=== PATIENT | male | born 1960 | race Two or more races ===

== ENCOUNTER → 2020-10-12 09:40 | Outpatient (BNVA) | payer MEDICARE, MEDICAID, SELFPAY | PROVIDERS: PCP Internal Medicine; Visit Provider Internal Medicine Pulmonary Disease | DX: J44.9 Chronic obstructive pulmonary disease, unspecified (principal); R06.00 Dyspnea, unspecified; G47.33 Obstructive sleep apnea (adult) (pediatric) | CPT/HCPCS: 99212 ==

== ENCOUNTER 2020-11-30 12:18 | Emergency (ER) | payer MEDICARE, MEDICAID, SELFPAY ==
[2020-11-30 12:27] VITALS: BP 160/87; PULSE 111; RESP 22; TEMP 36.9; O2SAT 96; BMI 57.2
[2020-11-30] MEDS: oxyCODONE HCl Immed Release 5 MG TABLET PO (13:24)
[2020-11-30] MEDS: Lidocaine 4 % Cream KIT 1 APPL TOPICAL (13:26)
--- NOTE | 2020-11-30 14:28 | ED_ITS ---
HPI - Skin/Abscess/Foreign Bdy General Chief complaint: Skin/Abscess/Foreign Body Stated complaint: abscess draining Time Seen by Provider: 11/30/20 13:16 Source: patient Mode of arrival: ambulatory Limitations: no limitations History of Present Illness HPI narrative: Pleasant 51-year-old male with history of morbid obesity, heart failure, COPD, obstructive sleep apnea as well as diabetes amongst other history as noted below states he checks his sugar 4 times a day this morning was 135 prior to arrival he states he has a feeling of left groin area abscess which he has history of recurrent abscesses. States he saw his primary care doctor 3 days ago he was given antibiotic (review of his medication from pharmacy he was given 14 days of doxycycline) states he has been taking his however the area feels bigger and feels like it needs to be drained. He otherwise denies any fever or chills. Onset (ago): day(s) Tetanus up to date: yes Location: LLE (Left groin area) Severity: moderate Quality: aching Pain Consistency: intermittent Relieving factors: immobilization Exacerbating factors: palpation and movement Context: other (Possibly ingrown hair as well as morbid obesity and from friction) Associated symptoms: denies other symptoms Treatments prior to arrival: none Related Data Previous Rx's Medication Instructions Recorded azelastine 137 mcg (0.1 %) nasal 1 spray INTRANASAL BID #30 ml 07/19/20 spray aerosol albuterol sulfate 90 mcg/actuation 2 puff INHALATION Q2H PRN #8.5 g 08/09/20 aerosol inhaler fluticasone fur. 100 mcg-umeclid 1 inh INHALATION DAILY 30 Days #1 09/05/20 62.5 mcg-vilant 25 mcg ea inhalat.powder Allergies Allergy/AdvReac Type Severity Reaction Status Date / Time No Known Allergies Allergy Verified 10/12/20 09:41 Review of Systems Review of Systems: Constitutional: No Weight loss, No Fever, No Chills, No Night Sweats, No Fatigue, No Malaise ENT/Mouth: No Hearing loss, No Ear Pain, No Nasal Congestion, No Sinus Pain, No Hoarseness, No sore throat, No Rhinorrhea, No Swallowing Difficulty Eyes: No Eye Pain, No Swelling, No Redness, No Foreign Body, No Discharge, No Vision Changes Cardiovascular: No Chest Pain, No SOB, No Dyspnea on Exertion, No Orthopnea, No Edema, No Palpitations Respiratory: No Cough, No Sputum, No Wheezing, No Smoke Exposure, No Dyspnea Gastrointestinal: No Nausea, No Vomiting, No Diarrhea, No Constipation, No abdominal Pain, No Hematochezia, No Melena Genitourinary: No Dysuria, No Urinary Frequency, No Hematuria, No Urinary Incontinence, No Urgency, No Flank Pain, No Urinary Flow Changes, No Hesitancy Musculoskeletal: No joint pain, No Myalgias, No Joint Swelling Skin: No Skin Lesions, No rash, left groin abscess as noted per HPI Neuro: No Weakness, No Numbness, No Paresthesias, No Loss of Consciousness, No Dizziness, No Headache Psych: No Social Issues Heme/Lymph: No Bruising, No Bleeding,No Lymphadenopathy Endocrine: No Polyuria, No Polydipsia, No Temperature Intolerance Yes all other systems are reviewed and are negative [facility]LY [facility], [facility] Past Medical History Medical History COPD (chronic obstructive pulmonary disease) Social History Social History Smoking Status: Current some day smoker Smoked in Last 30 Days: No Use of substances other than those prescribed or required for medical reasons: No Advance Directives: No Advance Directives Information Provided: No Physical Exam Vital Signs: Vital Signs: Last Vital Signs Temp 98.4 F 11/30/20 12:27 Pulse 111 H 11/30/20 12:27 Resp 22 H 11/30/20 12:27 BP 160/87 H 11/30/20 12:27 Pulse Ox 96 11/30/20 12:27 Body Mass Index 57.2 Reviewed Slightly tachycardic but does report say that he is very easily frightened by needles and anxiety Const: General: cooperative; No acute distress or intoxicated appearing Nutritional Appearance: obese Orientation/consciousness: patient oriented x3 HENMT: Head: Yes normal to inspection Ears: hearing grossly normal bilaterally Eyes: General: appearance normal, both eyes and all related structures Visual Mijares: normal visual mijares by confrontation Neck: Neck: Yes normal visual inspection, No positive Brudzinski's sign, No positive Kernig's sign and No tender Thyroid: Thyroid normal Chest: Chest palpation & inspection: normal inspection of the chest Resp: Effort & Inspection: normal respiratory effort Auscultation: clear to auscultation bilaterally Cardio: Jugular venous distension: no JVD Rhythm: regular rhythm Heart sounds: S1 normal heart sound present and S2 normal heart sound present GI: Inspection: Yes normal to inspection Palpation (GI): Soft to palpation Percussion: Yes normal to percussion Auscultation: normal bowel sounds : General: Yes no CVA tenderness Back/Spine/Pelvis: Back: no CVA tenderness Skin: General skin exam: no rashes or lesions noted Full body images: 1. Left-sided groin area just inferior to the scrotal sac there is a large indurated area with fluctuance, no drainage. Forming head. Neuro: General: patient oriented x3 Extrem: General: Yes normal to inspection Course Course Course Narrative: AP of morbidly obese male with history of recurrent abscesses in the groin area onset over the past several days seen his PCP 2 days ago given doxycycline for 14 days offers no other systemic symptoms states his chronic medical conditions are well managed at this time working on his weight loss with weight [employer] presenting with left groin abscess requiring I&D. Declined packing will continue his antibiotics will return in 2 days for recheck also schedule follow-up with Dr. Levy as whom he has seen in the past. Procedures Abscess I/D Site: lower extremity (Left groin) Side (if applicable): left Local Anesthetic: lidocaine 1% Amount of anesthesia used (mL): 5 Technique: incised with blade (11) Amount of fluid expressed (mL): 50 Irrigation: Yes Packing used?: none (Plan for packing however patient refused, states he has had this I and D without requiring packing the past and does not want.) Complications: other (Tolerated very well.) Discharge Plan Discharge Clinical Impression: Abscess of groin, left, Encounter for incision and drainage procedure Patient Disposition: Home, Self-Care Instructions: Abscess Incision and Drainage (DC) Additional Instructions: Today you were evaluated for your left growing abscess that required incision and drainage Please take your antibiotics (doxycycline) as prescribed for the remainder of the 10 days Follow-up with Dr. Levy as General surgery as having the past Return if any concerns or worsening symptoms Thank you Prescriptions: No Action azelastine 137 mcg (0.1 %) aerosol,spray 1 spray intranasal BID Qty: 30 RF: 3 albuterol sulfate 90 mcg/actuation HFA aerosol inhaler 2 puff inhalation Q2H PRN (Reason: shortness of breath or wheezing) Qty: 8.5 RF: 0 Trelegy Ellipta 100-62.5-25 mcg blister with device 1 inh inhalation DAILY 30 Days Qty: 1 RF: 6 Referrals: Casa Levy MD [Physician] - 3 days Interventions: ED Discharge Assessment Last Done: 11/30/20 14:48 Discharge Date/Time: 11/30/20 14:49
[2020-11-30] MEDS: Lidocaine HCl 1 % MPF 5 ML VIAL 10 ML SUBCUT (14:33)
== END 2020-11-30 14:49 | disposition home or self-care (01) ==
PROVIDERS: Emergency Provider Emergency Medicine; PCP Internal Medicine
DX: L02.214 Cutaneous abscess of groin (principal); E66.01 Morbid (severe) obesity due to excess calories; E11.9 Type 2 diabetes mellitus without complications; I50.9 Heart failure, unspecified; J44.9 Chronic obstructive pulmonary disease, unspecified; F17.200 Nicotine dependence, unspecified, uncomplicated
CPT/HCPCS: 10060; 99283; 99284

== ENCOUNTER 2021-01-24 09:57 | Emergency (ER) | payer MEDICARE, MEDICAID, SELFPAY ==
--- NOTE | ~2021-01-24 | US_ITS ---
EXAMINATION: US SCROTUM CLINICAL INFORMATION: Left testicular pain and swelling. Rule out abscess. COMPARISON: None TECHNIQUE: A sonogram of the scrotum was performed assessing mendes-scale appearance and color Doppler flow. Spectral Doppler analysis of the arterial and venous flow were performed in the testes bilaterally. Today's examination is significantly limited secondary to patient body habitus. FINDINGS: RIGHT: Right testicle measures 3.7 x 2.7 x 2.4 cm, volume 12.5 mL. No focal testicular parenchymal lesions are visualized. Spectral Doppler analysis of the arterial and venous flow is normal in the right testis. The right epididymis was not clearly visualized. No right hydrocele or varicocele is seen. LEFT: Left testicle measures 4.0 x 2.7 x 2.8 cm, volume 16 mL. No focal testicular parenchymal lesions are visualized. Spectral Doppler analysis of the arterial and venous flow is normal in the left testis. There is a small 3 mm cyst of the left epididymal head. The majority of the left epididymal body and tail are not clearly visualized. There is a small left-sided hydrocele. No left-sided varicocele. Also noted is prominent asymmetric skin thickening of the left scrotum which measures up to 1.6 cm. No focal fluid collection/abscess identified within the scrotal skin. US/US scrotum IMPRESSION: 1. Symmetrically sized testicles which demonstrate normal arterial and venous waveforms bilaterally. 2. Prominent asymmetric skin thickening of the left scrotum without abscess. 3. Small left-sided hydrocele.
[2021-01-24 10:00] VITALS: BP 134/84; PULSE 103; RESP 22; TEMP 36.3; O2SAT 99; BMI 51.7
--- NOTE | 2021-01-24 11:25 | ED_ITS ---
HPI - Skin/Abscess/Foreign Bdy General Chief complaint: Skin/Abscess/Foreign Body Stated complaint: abscess Time Seen by Provider: 01/24/21 10:13 History of Present Illness HPI narrative: Patient complains of left scrotal pain similar to prior abscess in same spot, denies fever chills, no dysuria no abdominal pain no injuries Related Data Previous Rx's Medication Instructions Recorded azelastine 137 mcg (0.1 %) nasal 1 spray INTRANASAL BID #30 ml 07/19/20 spray aerosol albuterol sulfate 90 mcg/actuation 2 puff INHALATION Q2H PRN #8.5 g 08/09/20 aerosol inhaler fluticasone fur. 100 mcg-umeclid 1 inh INHALATION DAILY 30 Days #1 09/05/20 62.5 mcg-vilant 25 mcg ea inhalat.powder ipratropium 0.5 mg-albuterol 3 mg 3 ml INHALATION Q4-6H PRN 30 Days 12/16/20 (2.5 mg base)/3 mL nebulization #180 ml soln cephalexin 500 mg PO QID 7 Days #28 tab 01/24/21 doxycycline hyclate 100 mg PO BID 7 Days #14 cap 01/24/21 oxycodone 5 mg PO Q6H PRN #14 cap 01/24/21 Allergies Allergy/AdvReac Type Severity Reaction Status Date / Time No Known Allergies Allergy Verified 10/12/20 09:41 Review of Systems Review of Systems: Positive for left scrotal pain Negatives are no fever no chills no dizziness no weakness no chest pain no abdominal pain no dysuria no urinary frequency no incontinence no changes to bowel or bladder no discharge no rash no lesions Yes all other systems are reviewed and are negative FORMERLY [facility] Past Medical History Attestation statement: The following information was validated with the patient. [facility] Narrative: Patient has had abscess drained from same spot that is painful today several times in the past Source: nursing notes reviewed Medical History COPD (chronic obstructive pulmonary disease) Social History Social History Smoking Status: Current some day smoker Advance Directives: No Advance Directives Information Provided: No Physical Exam Vital Signs: Vital Signs: Last Vital Signs Temp 97.8 F 01/24/21 11:30 Pulse 98 01/24/21 11:30 Resp 18 01/24/21 11:30 BP 139/77 01/24/21 11:30 Pulse Ox 97 01/24/21 11:30 Body Mass Index 51.7 General appearance no acute distress, comp cooperative A&O x3 Neck is supple Respiratory no distress Abdomen is nontender Perineal exam shows thickened left scrotal skin, there is a tender area at the base of the scrotum on the left side, it is indurated but not fluctuant, there is very mild redness limited to a small area at the base of the scrotum there is no surrounding redness, there are no wounds , no discharge no lesions no break in the skin Extremities full range of motion x4 Neuro no focal motor or sensory deficit Course Course Course Narrative: Ultrasound of the scrotum was done which showed thickened skin, normal arterial flow, no masses, no abscess On exam I did not find any obvious abscess or drainable collection of fluid Ultrasound did not find any drainable fluid collection Given his history of recurrent abscess it may be that this is a developing abscess so patient will return in 2 days for recheck or sooner if swelling increases but no I and D was done today He is treated with antibiotics and pain medicine and well-appearing patient was discharged home Discharge Plan Discharge Clinical Impression: Cellulitis Qualifiers: Site of cellulitis: other site Qualified Code(s): L03.818 - Cellulitis of other sites Patient Disposition: Home, Self-Care Additional Instructions: On physical exam I did not find an obvious abscess We sent her to ultrasound to see if there was a deeper abscess and ultrasound did not show any abscess now This may be a developing abscess so return to the ER any time for increased swelling increased pain fever any worse condition or any concerns Return to the ER in 2 days for recheck Prescriptions: New oxycodone 5 mg capsule 5 mg PO Q6H PRN (Reason: pain) Qty: 14 RF: 0 doxycycline hyclate 100 mg capsule 100 mg PO BID 7 Days Qty: 14 RF: 0 cephalexin 500 mg tablet 500 mg PO QID 7 Days Qty: 28 RF: 0 No Action azelastine 137 mcg (0.1 %) aerosol,spray 1 spray intranasal BID Qty: 30 RF: 3 albuterol sulfate 90 mcg/actuation HFA aerosol inhaler 2 puff inhalation Q2H PRN (Reason: shortness of breath or wheezing) Qty: 8.5 RF: 0 ipratropium-albuterol 0.5 mg-3 mg(2.5 mg base)/3 mL solution for nebulization 3 ml inhalation Q4-6H PRN (Reason: wheezing) 30 Days Qty: 180 RF: 6 Trelegy Ellipta 100-62.5-25 mcg blister with device 1 inh inhalation DAILY 30 Days Qty: 1 RF: 6 Discharge Date/Time: 01/24/21 11:44
[2021-01-24 11:30] VITALS: BP 139/77; PULSE 98; RESP 18; TEMP 36.6; O2SAT 97
[2021-01-24] MEDS: cephALEXin 500 MG CAPSULE PO (11:39)
[2021-01-24] MEDS: oxyCODONE HCl Immed Release 5 MG TABLET 10 MG PO (11:39)
== END 2021-01-24 11:44 | disposition home or self-care (01) ==
PROVIDERS: Emergency Provider Emergency Medicine; PCP Internal Medicine
DX: N49.2 Inflammatory disorders of scrotum (principal); N50.82 Scrotal pain; F17.200 Nicotine dependence, unspecified, uncomplicated
CPT/HCPCS: 76870; 99284

== ENCOUNTER → 2021-08-09 09:15 | Outpatient (BNVA) | payer MEDICARE, MEDICAID, SELFPAY | PROVIDERS: PCP Internal Medicine; Visit Provider Internal Medicine Pulmonary Disease | DX: Z01.811 Encounter for preprocedural respiratory examination (principal); J44.9 Chronic obstructive pulmonary disease, unspecified; G47.33 Obstructive sleep apnea (adult) (pediatric) | CPT/HCPCS: 99212 ==

== ENCOUNTER → 2021-12-05 09:11 | Outpatient (BNVA) | payer MEDICARE, MEDICAID, SELFPAY | PROVIDERS: PCP Internal Medicine; Visit Provider Internal Medicine Pulmonary Disease | DX: Z01.811 Encounter for preprocedural respiratory examination (principal); J44.9 Chronic obstructive pulmonary disease, unspecified; G47.33 Obstructive sleep apnea (adult) (pediatric); E66.9 Obesity, unspecified; I50.9 Heart failure, unspecified; E11.42 Type 2 diabetes mellitus with diabetic polyneuropathy; I10 Essential (primary) hypertension; E78.00 Pure hypercholesterolemia, unspecified; F17.210 Nicotine dependence, cigarettes, uncomplicated; Z68.42 Body mass index [BMI] 45.0-49.9, adult; Z99.89 Dependence on other enabling machines and devices | CPT/HCPCS: 99212 ==

== ENCOUNTER 2021-12-07 06:35 | Day surgery (SDC) | payer MEDICARE, MEDICAID, SELFPAY ==
[2021-07-18 10:02] VITALS: BMI 52.9
[2021-08-22 15:13] VITALS: BMI 48.8
--- NOTE | 2021-08-29 10:18 | HO.ANESPROP2 ---
HPI - Anesthesia Eval Consult details Narrative: 60yo M for Colonoscopy Per Pulmo Clearance: Patient is at moderate risk preoperative complications for proposed colonoscopy, if performed under monitored anesthesia care, secondary to his advanced COPD, morbid obesity, and CLARA requiring nocturnal BiPAP support.? Patient would be a low risk for perioperative complications for the proposed colonoscopy, if performed under general anesthesia. PMFSH Active Problems Active Problems: All Active Problems (Updated 08/09/21 @ 10:09 by Preston Massey MD) Preop pulmonary/respiratory exam (Acute) CLARA (obstructive sleep apnea) (Acute) Dyspnea on exertion (Acute) COPD (chronic obstructive pulmonary disease) (Acute) Past Medical History Medical History (Updated 08/09/21 @ 10:09 by Preston Massey MD) Ambulates with cane Cellulitis of perineum COPD (chronic obstructive pulmonary disease) Diabetes Elevated cholesterol HTN (hypertension) Low back pain Peripheral neuropathy Family History Family History (Updated 07/18/21 @ 09:57 by Jerica Huang, RN) Mother Colon cancer Surgical History Surgical History (Updated 07/18/21 @ 09:57 by Jerica Huang, RN) History of esophagogastroduodenoscopy (EGD) Hx of colonoscopy Social History Social History (Updated 07/18/21 @ 09:56 by Jerica Huang, RN) Patient Tobacco Use Status: Current everyday Tobacco user Tobacco use type: Cigarette Cigarette Packs Per Day: 1 Cigarettes Per Day: 20 Years Smoked: 40 Meds Allergies Allergy/AdvReac Type Severity Reaction Status Date / Time No Known Allergies Allergy Verified 08/09/21 09:18 Home Medications Medication Instructions Recorded Confirmed Last Taken Type lisinopril 10 mg tablet 1 tab PO DAILY 07/18/21 Unknown History metformin 500 mg tablet 2 tab PO BID 07/18/21 07/18/21 Unknown History propranolol 20 mg tablet 1 tab PO BID 07/18/21 Unknown History Exam Exam Date and Time: August 29, 2021 1018 Height,Weight and Vital Signs: Height 5 ft 11 in Weight 158.757 kg Assessment and Plan Assessment Anesthesia Assessment: Chart Reviewed
[2021-12-01 13:22] VITALS: BMI 52.9
--- NOTE | 2021-12-07 06:44 | MHC.SHP ---
Pre-Procedural Eval Section A Date of Service: 12/07/21 Section B Chief Complaint: Screening Relevant Family History (Specify if Yes): Yes Relevant Social History: Tobacco Use Present Medications: see Short Stay Collaborative assessment Medical History: Significant History (Cellulitis of perineum COPD (chronic obstructive pulmonary disease) Diabetes Elevated cholesterol HTN (hypertension) Low back pain Peripheral neuropathy) History of Previous Operations: Relevant previous surgery/procedure and date(s) (egd,colonoscopy) Allergies: Allergies Allergy/AdvReac Type Severity Reaction Status Date / Time No Known Allergies Allergy Verified 12/05/21 09:15 Review of Systems Sugical H&P ROS: Negative: Constitution, Cardiovascular, Respiratory, Neurological, Psychiatric, Hem-Onc, Allergic/Immunologic, Gastrointestinal, Genitourinary, Musculoskeletal, Integumentary, Endocrine and Eyes/Ears/Nose/Throat Exam Surgical H&P Exam: Normal: HEENT, Normal: Heart, Normal: Extremities, Normal: Abdomen, Normal: Skin and Normal: Neurological and Significant Findings: Lungs (reduced AE) Exam Comment: obese Plan Diagnosis/Plan: Unchanged I have reviewed the history and physical and performed a pertinent physical examination on my patient. No changes have occurred unless specified.
[2021-12-07 07:12] VITALS: BP 147/70; PULSE 76; RESP 16; TEMP 36.6; O2SAT 99
[2021-12-07 07:14] LABS: Glucose, Whole Blood 93 mg/dL (60-115)
--- NOTE | 2021-12-07 07:18 | P.CONAN_ITS ---
HPI - Anesthesia Eval Consult details Narrative: Screening Colonoscopy [facility] Active Problems Active Problems: All Active Problems (Updated 08/09/21 @ 10:09 by Preston Massey MD) Preop pulmonary/respiratory exam (Acute) CLARA (obstructive sleep apnea) (Acute) Dyspnea on exertion (Acute) COPD (chronic obstructive pulmonary disease) (Acute) Past Medical History Medical History (Updated 08/09/21 @ 10:09 by Preston Massey MD) Ambulates with cane Cellulitis of perineum COPD (chronic obstructive pulmonary disease) Diabetes Elevated cholesterol HTN (hypertension) Low back pain Peripheral neuropathy Family History Family History (Updated 07/18/21 @ 09:57 by Jerica Huang, RN) Mother Colon cancer Family history of problems with anesthesia: No Surgical History Surgical History (Updated 07/18/21 @ 09:57 by Jerica Huang, RN) History of esophagogastroduodenoscopy (EGD) Hx of colonoscopy History of Problems with Anesthesia: No Social History Social History (Updated 07/18/21 @ 09:56 by Jerica Huang, RN) Household Members Other:: daughter 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 If so, by whom?: No Are you DNR?: No Advance Directives: No Advance Directives Information Provided: Yes (info provided) Advance Directives on File: No Recently lost weight without trying: No Meds Allergies Allergy/AdvReac Type Severity Reaction Status Date / Time No Known Allergies Allergy Verified 12/07/21 06:57 Active Medications: Current Medications Lactated Ringer's (Lr) 1,000 mls @ 50 mls/hr IVCONT .Q20H [facility] Home Medications Medication Instructions Recorded Confirmed Last Taken Type lisinopril 10 mg tablet 1 tab PO DAILY 07/18/21 12/01/21 Unknown History metformin 500 mg tablet 2 tab PO BID 07/18/21 12/01/21 Unknown History propranolol 20 mg tablet 1 tab PO BID 07/18/21 12/01/21 Unknown History Exam Exam Date and Time: December 07, 2021 0718 Height,Weight and Vital Signs: Height 5 ft 11 in Weight 172.365 kg Pertinent Lab Results Pertinent Lab Results: Laboratory Tests 12/07/21 07:10 POC Glucose 93 Airway Mallampati Class: III TM Dist: >3cm Neck ROM: Full Denture: Upper Loose/Missing/Broken Teeth: Yes (lower teeth missing, loose, very poor dentition) Heart: [id number]+[id number] Lungs: cta b/l Assessment and Plan Assessment Anesthesia Assessment: Anesthesia Plan Discussed and Chart Reviewed Final Anesthetic Review Family History of Problems with Anesthesia: No History of Problems with Anesthesia: No NPO: Yes ASA Class: III Final Preanesthetic Review: No Changes in Pt Med Stat, Meds/Allgs Chart Reviewed, Consent Obtained/Reviewed and Anes Risks/Benef Reviewed Patient Risk: Intermediate Procedure Risk: Intermediate Assessment/Block/Sedation in SS: Assess/Block/Sedation-SS Anesthetic Plan Anesthetic Plan: MAC: and Agree w/ Assess. and Plan Disposition: Standard PACU
--- NOTE | 2021-12-07 07:27 | PC.NURSE ---
Patient arrived to [facility] with 2200.00 dougherty. This money counted with patient and second nurse, Carmen Simon RN, at bedside. All parties signed belonging list. Patient refused to send money to security/safe. Made aware that belongings are not locked up at all. Patient states its my responsibility if it is taken .
[2021-12-07] MEDS: Lactated Ringers 1,000 ML 50 ML IVCONT (07:40)
--- NOTE | 2021-12-07 09:17 | P.BOP_ITS ---
Brief Operative Note Date of Service: 12/07/21 Pre-op diagnosis: hx of polyps Post-op diagnosis: same Procedure: see op note Surgeon: Traci Baires MD Anesthesia: MAC Was an Environmental Services Aide used for this Procedure?: No Estimated blood loss (mL): 0 Condition: stable Disposition: PACU
--- NOTE | 2021-12-07 09:17 | W.PM.OPN ---
Operative Note Operative Note Date of Service: 12/07/21 Narrative: Operative Information Procedure Description: Colonoscopy COLONOSCOPY Instrument: Olympus variable adult pediatric scope 190L Colonoscopy Monitoring: Vital signs and clinical assessment, continuous EKG monitoring, Pulse oximetry, Carbon Dioxide monitoring and blood pressure monitoring were done throughout the procedure. Colon withdrawal time was 17 minutes. Procedure: The patient was placed in the left lateral decubitis position and pre-procedure medications were administered. After a digital rectal examination of the ano-rectum, the video colonoscope was inserted into the rectum and advanced through the colon to the cecum/TI. The colonoscope was slowly withdrawn in a retrograde panoramic fashion and the colon mucosa was carefully examined including a retroflexed view of the rectum. Findings and interventions are described below. Procedure Difficulty: moderate Findings: Tyson diverticulosis with variable sized small to medium tics noted thru out colon Terminal Ileum-not intubated due to looping Cecum:normal Ascending Colon: normal Transverse Colon - x 2 sessile polyps 5-6 mm removed with forceps Descending Colon: x1 8-9 mm pedunculated polyp removed with cold snare Sigmoid Colon: 10-11 mm sessile polyp removed with cold snare and one clip applied for hemostasis Rectum: Retroflexion with moderate sized internal hemorrhoids, grade I Anorectum - normal Colon preparation: Bon Aqua Bowel Preparation Scale Right colon; 3 Transverse colon: 3 Left colon; 3 (0 = Unprepared colon segment with mucosa not seen due to solid stool that cannot be cleared. 1 = Portion of mucosa of the colon segment seen, but other areas of the colon segment not well seen due to staining, residual stool and/or opaque liquid. 2 = Minor amount of residual staining, small fragments of stool and/or opaque liquid, but mucosa of colon segment seen well. 3 = Entire mucosa of colon segment seen well with no residual staining, small fragments of stool or opaque liquid) Impression and Post Procedure Diagnosis: polyps internal hemorrhoids diverticular disease Plan: High fiber diet leaflet Avoid straining at stool, epsom salts and sitz bath, anusol supps or cream Repeat Colonoscopy in 3-4 years or earlier if clinically indicated Above findings were reviewed with the patient and relevant handouts were provided if indicated.
[2021-12-07 09:25] VITALS: BP 99/45; PULSE 84; RESP 20; TEMP 36.6; O2SAT 99
[2021-12-07 09:40] VITALS: BP 158/83; PULSE 69; RESP 20; TEMP 36.2; O2SAT 99
== END 2021-12-07 10:09 | disposition home or self-care (01) ==
PROVIDERS: PCP Internal Medicine; Visit Provider Internal Medicine Gastroenterology
PROC: 0DJD8ZZ Inspection of Lower Intestinal Tract, Via Natural or Artificial Opening Endoscopic (ICD-10-PCS; CPT 45378; principal; 2021-12-07 08:30)
DX: Z12.11 Encounter for screening for malignant neoplasm of colon (principal); Z86.010 Personal history of colon polyps; K63.5 Polyp of colon; K57.30 Diverticulosis of large intestine without perforation or abscess without bleeding; K64.0 First degree hemorrhoids; G47.33 Obstructive sleep apnea (adult) (pediatric); I10 Essential (primary) hypertension; F17.210 Nicotine dependence, cigarettes, uncomplicated; E78.00 Pure hypercholesterolemia, unspecified; J44.9 Chronic obstructive pulmonary disease, unspecified; G62.9 Polyneuropathy, unspecified; E11.9 Type 2 diabetes mellitus without complications; Z79.84 Long term (current) use of oral hypoglycemic drugs; Z99.89 Dependence on other enabling machines and devices; Z79.899 Other long term (current) drug therapy; Z79.51 Long term (current) use of inhaled steroids
CPT/HCPCS: 45385; 45380; 82947; 88305; J2250

== ENCOUNTER 2022-01-12 14:19 | Outpatient (REF) | payer MEDICARE, MEDICAID, SELFPAY ==
--- NOTE | ~2022-01-12 | CT_ITS ---
EXAMINATION: CT CHEST SCREENING CLINICAL INFORMATION: Nicotine dependence. COMPARISON: Previous chest x-ray most recent August 2019 TECHNIQUE: Multidetector volumetric CT imaging of the chest is performed without contrast using low dose technique. Additional 2D coronal and sagittal reformatted images and axial 3D maximum intensity projection (MIP) images are generated on the CT workstation. This CT examination was performed using dose optimization techniques as appropriate, variously including the following: *Automated exposure control *Adjustment of mA and/or kV according to patient size (this includes techniques or standardized protocols for targeted exams where dose is matched to indication/reason for exam; i.e. extremities or head) *Use of iterative reconstruction technique DLP: 878 mGy-cm FINDINGS: LUNGS: There is a 3 mm peripheral or subpleural right lower lobe calcified nodule axial image 121 series 10. There is a 2 mm calcified peripheral or subpleural left lower lobe nodule axial image 183 series 10. No endobronchial or endotracheal lesion. MEDIASTINUM: There is mild atherosclerotic disease and coronary artery calcification. The mediastinum is otherwise normal. PLEURA: There is no pleural effusion. No pleural mass or thickening. AXILLA: No lymphadenopathy. UPPER ABDOMEN: Unremarkable OSSEOUS STRUCTURES: There are degenerative changes of the spine. CT/CT lung screening IMPRESSION: Small calcified pulmonary nodules. ASSESSMENT: Lung-RADS category 2: Benign RECOMMENDATION: Annual low-dose chest CT follow-up recommended.
== END 2022-01-12 14:20 | disposition home or self-care (01) ==
LOC: HO.CT 14:19
PROVIDERS: Visit Provider Physician Assistant Medical
DX: Z12.2 Encounter for screening for malignant neoplasm of respiratory organs (principal); F17.210 Nicotine dependence, cigarettes, uncomplicated
CPT/HCPCS: 71271; G0296

== ENCOUNTER → 2022-05-17 08:11 | Outpatient (BNVA) | payer MEDICARE, MEDICAID, SELFPAY | PROVIDERS: PCP Internal Medicine; Referring Provider Internal Medicine; Visit Provider Internal Medicine | DX: I25.10 Atherosclerotic heart disease of native coronary artery without angina pectoris (principal); I10 Essential (primary) hypertension; E66.01 Morbid (severe) obesity due to excess calories; E11.8 Type 2 diabetes mellitus with unspecified complications; E78.5 Hyperlipidemia, unspecified | CPT/HCPCS: 93005; 99212 ==

== ENCOUNTER 2022-06-01 08:36 | Outpatient (REF) | payer MEDICARE, MEDICAID, SELFPAY ==
--- NOTE | ~2022-06-01 | XR_ITS ---
EXAMINATION: XR CHEST CLINICAL INFORMATION: Dyspnea COMPARISON: CT lung screening study of January 12, 2022 and chest x-ray of September 28, 2019 TECHNIQUE: 2 views of the chest were obtained. FINDINGS: No significant abnormality is noted involving the heart, lungs, mediastinum, bony thorax or soft tissues. XR/XR chest 2V IMPRESSION: No acute disease.
== END 2022-06-01 08:37 | disposition home or self-care (01) ==
LOC: HO.XRAY 08:36
PROVIDERS: PCP Internal Medicine; Visit Provider Internal Medicine Pulmonary Disease
DX: R06.00 Dyspnea, unspecified (principal); J44.9 Chronic obstructive pulmonary disease, unspecified; G47.33 Obstructive sleep apnea (adult) (pediatric)
CPT/HCPCS: 71046; 99212

== ENCOUNTER → 2022-12-26 09:13 | Outpatient (BNVA) | payer MEDICARE, MEDICAID, SELFPAY | PROVIDERS: PCP Internal Medicine; Visit Provider Internal Medicine Pulmonary Disease | DX: J44.9 Chronic obstructive pulmonary disease, unspecified (principal); G47.33 Obstructive sleep apnea (adult) (pediatric); R91.8 Other nonspecific abnormal finding of lung field | CPT/HCPCS: 99212 ==

== ENCOUNTER → 2022-12-28 07:52 | Outpatient (REF) | payer MEDICARE, MEDICAID, SELFPAY ==
--- NOTE | 2022-12-28 08:01 | CA_ITS ---
Transthoracic Echocardiogram Patient (Last, First, Middle): Robert Keane A Gender: Male Date of : 1960 Age: 62 Procedure Date: 12/28/2022 Procedure Type: Transthoracic Echocardiogram Location: OP Height: 180.34 cm Weight: 190.51 kg BSA: 2.89 m2 Heart Rate: bpm BP: 140 / 70 mmHg Substitute Bus Driver: TO Referring MD: Fan Jackson MD Symptoms: R06.00 - Dyspnea, unspecified Study Quality: Technically Difficult/Contrast ECG Rhythm: Sinus Conclusions: - The left ventricular systolic function is normal. The calculated ejection fraction is 66% by biplane method. - No obvious valvular pathology seen on this study. Findings Procedure Information Contrast agent, definity, is being given per protocol without apparent complications. The study quality is limited by patients body habitus. Left Ventricle Normal left ventricular cavity size. There is mildly increased left ventricular wall thickness. The left ventricular systolic function is normal. The calculated ejection fraction is 66% by biplane method. There is no evidence of regional wall motion abnormalities. Diastolic function is normal for age. There is moderate septal asymmetric hypertrophy. Right Ventricle Normal right ventricular cavity size and systolic function. Atria Both atria are normal in size. Aortic Valve The aortic valve was not well visualized. There is mild calcification of the aortic valve. There is no aortic valve stenosis. There is no aortic valve regurgitation. Mitral Valve The mitral valve was not well visualized. There is no mitral valve regurgitation. There is no mitral valve stenosis. Pulmonic Valve The pulmonic valve is likely normal. Tricuspid Valve There is trace tricuspid valve regurgitation. There is no evidence of pulmonary hypertension. Great Vessels The asc aorta is normal in size. Venous The inferior vena cava was not well visualized. The inferior vena cava is mildly dilated and collapses greater than 50% with inspiration. Pericardium/Pleural There is no evidence of pericardial effusion. Prior Study Comparison No significant change compared to prior study dated: 10/28/2019. Recommendations, Care & Conclusions No obvious valvular pathology seen on this study. Measurements 2D Linear Measurements IVSd: 1.49 0.6-0.9/0.6-1.0 cm LVIDd: 4.33 3.9-5.3/4.2-5.9 cm LVIDd Index: 1.50 2.4-3.2/2.2-3.1 cm/m2 LVIDs: 3.00 2.0-3.6 cm LVPWd: 1.06 0.7-1.1 cm LA Diam: 4.10 2.7-3.8/3.0-4.0 cm LAIDs Index: 1.42 1.5-2.3 cm/m2 LV Mass: 254.26 67-162/88-224 g LV Mass Index: 87.98 43-95/49-115 g/m2 LVOT Diam: 2.30 3.0+(-)1.3 cm 2D Systolic Function EF 4C: 67.50 >55% EF 2C: 63.20 >55% EF BiP: 65.80 >55% Mitral Valve MV VTI: 0.31 MV Pk Alexander: 1.05 MV Mn Alexander: 0.62 MV Pk Grad: 4.00 MV Mn Grad: 2.00 MV Pk E: 0.97 MV PK A: 0.71 MV Decel Time: 239.00 E/A: 1.40 E'Lateral: 5.87 E'Medial: 5.55 E/E' Med: 17.50 E/E' Lat: 16.60 PHT: 70.00 MVA PHT: 3.14 MVA Continuity: 3.28 Decel [place]: 4.07 Aortic Valve AoV Pk Alexander: 1.19 AoV Mn Alexander: 0.84 AoV VTI: 0.27 AoV Pk Grad: 6.00 Aov Mn Grad: 3.00 PEDRO Cont.VTI: 3.75 LVOT LVOT Pk Alexander: 1.13 LVOT Mn Alexander: 0.77 LVOT VTI: 0.25 LVOT Pk Grad: 5.00 LVOT Mn Grad: 3.00 LVOT Diam: 2.30 LVOT Area: 4.15 Diastolic Function MV Pk E: 0.97 MV Pk A: 0.71 E/A: 1.40 E'Medial: 5.55 E/E' Med: 17.50 E' Laterial: 5.87 E/E' Lat: 16.60 Right Ventricle TAPSE (mm): 27.30 TVS' Alexander: 15.70 Tricuspid Valve TR Pk Alexander: 2.58 TR Pk Grad: 27.00 RA Press: 8.00 RVSP: 35.00 Great Vessels Aorta Sinus of Valsalva: 3.62 2.0-3.5 cm Ao Asc: 3.70 2.1-3.4 cm Updated in Other Vendor System with Status of Final Fan Jackson MD electronically signed on 12/29/2022 12:10:10 PM with status of Final
== END ==
LOC: HO.CARD 07:52
PROVIDERS: PCP Internal Medicine; Visit Provider Internal Medicine
DX: R06.00 Dyspnea, unspecified (principal)
CPT/HCPCS: 93306; Q9957

== ENCOUNTER 2023-01-09 07:42 | Outpatient (REF) | payer MEDICARE, MEDICAID, SELFPAY ==
--- NOTE | ~2023-01-09 | CT_ITS ---
EXAMINATION: CT CHEST WITHOUT CONTRAST CLINICAL INFORMATION: Pulmonary nodules. COMPARISON: Lung cancer screening CT 01/12/22. TECHNIQUE: Multidetector volumetric CT imaging of the chest was done. Axial MIP volume rendering provided. Sagittal and coronal reformatted images were obtained. This CT examination was performed using dose optimization techniques as appropriate, variously including the following: *Automated exposure control *Adjustment of mA and/or kV according to patient size (this includes techniques or standardized protocols for targeted exams where dose is matched to indication/reason for exam; i.e. extremities or head) *Use of iterative reconstruction technique DLP: 456 mGy-cm FINDINGS: LUNGS: Stable calcified granulomas. No new or suspiciously enlarging nodule. MEDIASTINUM: No aortic aneurysm. No mediastinal adenopathy. CORONARY ARTERY CALCIFICATION: LAD calcium. PLEURA: There is no pleural effusion. No pleural mass or thickening. AXILLA: No lymphadenopathy. UPPER ABDOMEN: Unremarkable. OSSEOUS STRUCTURES: Degenerative changes in the spine. CT/CT chest wo IV con IMPRESSION: Stable calcified granulomas. ASSESSMENT: Lung RADS category: 2. Benign appearance or behavior. Nodules with a very low likelihood of becoming a clinically active cancer due to size or lack of growth. Continue annual screening with low-dose CT in 12 months. Probability of malignancy less than 1%. INCIDENTAL FINDINGS (S CATEGORY): LAD coronary calcium. RECOMMENDATION: Continue annual screening with a low-dose CT in 12 months. Fleischner guidelines do not apply as the patient is in a lung cancer screening program.
== END 2023-01-09 07:43 | disposition home or self-care (01) ==
LOC: HO.CT 07:42
PROVIDERS: PCP Internal Medicine; Visit Provider Internal Medicine Pulmonary Disease
DX: R91.8 Other nonspecific abnormal finding of lung field (principal)
CPT/HCPCS: 71250

== ENCOUNTER 2023-04-22 06:54 | Outpatient (REF) | payer MEDICARE, MEDICAID, SELFPAY ==
--- NOTE | 2023-04-22 08:23 | PFT_ITS ---
INTERPRETATION: Forced vital capacity 50%, FEV1 45%, FEV1/FVC ratio is 67, IPX57-76 of 38% and MVV is 34%. Post bronchodilator therapy, there is no change. Actually, some decline in the MMH26-37. Total lung capacity 72%. Residual volume 117%. Diffusion capacity 74%. CONCLUSION: There is evidence of rather severe obstructive airway disorder and no positive response to bronchodilator therapy. There is also possible mild restrictive lung disorder. Clinical correlation is recommended. MD ERIN Mccoy/MODL / [phone]
== END 2023-04-22 06:55 | disposition home or self-care (01) ==
LOC: HO.RESP 06:54
PROVIDERS: PCP Internal Medicine; Visit Provider Internal Medicine Pulmonary Disease
DX: J44.9 Chronic obstructive pulmonary disease, unspecified (principal)
CPT/HCPCS: 94010; 94727; 94729

== ENCOUNTER → 2023-04-22 08:23 | Outpatient (BNV) | payer MEDICARE, MEDICAID, SELFPAY | PROVIDERS: PCP Internal Medicine; Visit Provider Internal Medicine | DX: J44.9 Chronic obstructive pulmonary disease, unspecified (principal) | CPT/HCPCS: 94060; 94727; 94729 ==

== ENCOUNTER 2023-05-06 10:07 | Outpatient (AMB) | payer MEDICARE, MEDICAID, SELFPAY ==
--- NOTE | 2023-05-06 10:18 | MHC.OFFVIS ---
Intake Vital Signs 05/06/23 10:19 Height 5 ft 11 in Weight 373 lb 14.464 oz BMI 52.1 BP 112/68 Blood Pressure Location Lt brachial Position Sitting Pulse 92 Intake Visit Reasons: fu after echo Intake Note: follow up Gum Sprayer Required: No Accompanied by: Self / Same As Patient Allergies No Known Allergies Allergy (Verified 05/06/23 10:21) Medication List - Last Reconciled 05/06/23 by Fan Jackson MD albuterol sulfate 90 mcg/actuation 2 puffs inhalation 6XD PRN 90 days amitriptyline 100 mg PO DAILY atorvastatin 20 mg PO DAILY azelastine 1 spray intranasal BID dulaglutide (Trulicity) mg subcut lesdwklqbrj-ugmyatakz-wuydcbtk 100-62.5-25 mcg (Trelegy Ellipta) 1 ea PO DAILY 90 days ipratropium-albuterol 0.5 mg-3 mg(2.5 mg base)/3 mL 3 mL inhalation Q4-6H PRN lisinopril 10 mg PO DAILY metformin 2 tabs PO BID propranolol 20 mg PO BID HPI HPI Comments History of Present Illness Details Robert returns for follow-up. To recall, he aide Greer was seen regarding preoperative risk stratification for bariatric surgery. However because of the COVID pandemic he never went through the surgery. However, he lost weight by himself. In the past he was weighing more than 400 lb but currently seems around 50 lb or so less. No clear-cut angina. He does get short of breath with activity but he is also morbidly obese and also has COPD. Multiple vascular risk factors including smoking, diabetes, hypertension, dyslipidemia. He states he has not smoked in the last few months or so. A prior chest CT scan had shown coronary artery calcifications and we ordered a stress test but that has not been completed yet. Otherwise, he seems to be getting along okay. 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 Max 3-4ppd x 30years, now 1ppd, 100+PYH) Review of Systems Const Denies weakness ENT Denies dizziness Card Denies chest pain, Denies chest pain with activity, Denies syncope, Denies rapid heart rate, Denies pedal edema, Denies edema, Denies leg edema, Denies lightheadedness, Denies palpitations, Denies dyspnea, Denies dyspnea on exertion and Denies orthopnea Resp Denies cough, Denies dyspnea and Denies dyspnea on exertion GI Denies hematochezia and Denies change in stool character Musc Denies abnormal gait, Denies muscle cramps, Denies muscle weakness, Denies numbness, Denies radiating pain into limb and Denies tingling Neuro Denies abnormal gait, Denies dizziness, Denies syncope, Denies numbness, Denies tingling and Denies weakness Endo Denies palpitations Physical Exam Vital Signs: Last Vital Signs Pulse 92 05/06/23 10:19 BP 112/68 05/06/23 10:19 BMI result Body Mass Index 52.1 Const General: comfortable and no acute distress Orientation/consciousness: patient oriented x3 HEENT Other: Unremarkable Head: Yes normal to inspection Neck Neck: Yes normal visual inspection Chest Chest palpation & inspection: normal inspection of the chest Resp Auscultation: clear to auscultation bilaterally Cardio Palpation: normal PMI Heart sounds: S1 normal heart sound present, S2 normal heart sound present, no gallops, no murmurs and no rubs GI Palpation (GI): Soft to palpation Back/Spine/Pelvis Other: unremarkable Skin General skin exam: no rashes or lesions noted Neuro General: patient oriented x3 Extrem General: Yes normal to inspection Psych Mental Status: mental status grossly normal Office Procedures EKG Details: EKG with sinus rhythm at 92/Min; no significant ST-T changes and otherwise unremarkable[place] [id number], Complete Assessment & Plan Assessment & Plan (1) Atherosclerotic cardiovascular disease: Code(s): I25.10 - Atherosclerotic heart disease of [place] coronary artery without angina pectoris (2) Morbid obesity: Code(s): E66.01 - Morbid (severe) obesity due to excess calories (3) Type 2 diabetes mellitus with unspecified complications: Code(s): E11.8 - Type 2 diabetes mellitus with unspecified complications (4) Essential hypertension: Code(s): I10 - Essential (primary) hypertension (5) Hyperlipidemia, unspecified: Code(s): E78.5 - Hyperlipidemia, unspecified Plan Based on pulmonary note, severe COPD. Echocardiogram with LVEF of 66%. Moderate septal hypertrophy. Otherwise unremarkable. In the chest CT scan, coronary artery calcification on the LAD. Overall, multiple risk factors, shortness of breath, LAD calcification. Reordering the stress test. He is walking with a cane and hence probably pharmacological stress with Lexiscan. If quality is suboptimal due to his body habitus or if the study is abnormal, will need diagnostic catheterization. We also discussed about that today. Even though he has lost some weight, he is still morbidly obese. Probably return to bariatric surgery after cardiac workup is completed. However, he states he just bought a house and and had divorce from his and hence he is not ready for it yet. Secondary risk factor modification of diabetes, hypertension dyslipidemia. Follow-up after testing. Orders: Orders CA lexiscan stress w braden Today I25.10 - Atherosclerotic heart disease of [place] coronary artery without angina pectoris [place] cardiolite stress test Today R07.2 - Precordial pain Coding Level of Care Code Est Pt Level 4 (07072) Diagnoses Atherosclerotic cardiovascular disease I25.10 Morbid obesity E66.01 Type 2 diabetes mellitus with unspecified complications E11.8 Essential hypertension I10 Hyperlipidemia, unspecified E78.5 CPT Codes EKG - CPT: 18519-[id number], Complete ([id number])
[2023-05-06 10:19] VITALS: BP 112/68; PULSE 92; BMI 52.1
== END 2023-05-06 10:42 | disposition home or self-care (01) ==
PROVIDERS: PCP Internal Medicine; Referring Provider Internal Medicine; Visit Provider Internal Medicine
DX: I25.10 Atherosclerotic heart disease of native coronary artery without angina pectoris (principal); E66.01 Morbid (severe) obesity due to excess calories; E11.8 Type 2 diabetes mellitus with unspecified complications; I10 Essential (primary) hypertension; E78.5 Hyperlipidemia, unspecified
CPT/HCPCS: 93010; 99214

== ENCOUNTER → 2023-05-06 10:07 | Outpatient (BNVA) | payer MEDICARE, MEDICAID, SELFPAY | PROVIDERS: PCP Internal Medicine; Referring Provider Internal Medicine; Visit Provider Internal Medicine | DX: I25.10 Atherosclerotic heart disease of native coronary artery without angina pectoris (principal); I10 Essential (primary) hypertension; J44.9 Chronic obstructive pulmonary disease, unspecified; E11.42 Type 2 diabetes mellitus with diabetic polyneuropathy; E66.01 Morbid (severe) obesity due to excess calories; Z68.43 Body mass index [BMI] 50.0-59.9, adult; Z79.4 Long term (current) use of insulin; Z79.899 Other long term (current) drug therapy | CPT/HCPCS: 93005; 99212 ==

== ENCOUNTER 2023-05-09 13:28 | Outpatient (REF) | payer MEDICARE, MEDICAID, SELFPAY ==
[2023-05-09 16:07] LABS: Alanine Aminotransferase 13 U/L (0-40); Albumin Level 3.8 g/dL (3.5-5.0); Alkaline Phosphatase 68 U/L (39-117); Anion Gap 12 (12-20); Aspartate Amino Transferase 11 U/L (5-37); Bilirubin Direct 0.1 mg/dL (0.0-0.5); Bilirubin Total 0.4 mg/dL (0.0-1.0); Blood Urea Nitrogen 13 mg/dL (9-16); Calcium 9.8 mg/dL (8.4-10.2); Carbon Dioxide 28 mmol/L (22-29); Chloride 106 mmol/L (96-108); Cholesterol 195 mg/dL; Estimated Glomerular Filt Rate > 60; Glucose Fasting 89 mg/dL (60-99); HDL Cholesterol 29 mg/dL; LDL Cholesterol Calculated 138 mg/dl; Potassium 4.2 mmol/L (3.3-5.1); Sodium 142 mmol/L (135-145); Total Protein 7.7 g/dL (6.5-8.0); Triglycerides 141 mg/dL
[2023-05-09 17:56] LABS: Appearance Urine Cloudy; Color Urine Yellow; Glucose Urine UA Negative (Negative); Leukocyte Esterase Urine Moderate (2+) (Negative); Nitrite Urine Negative (Negative); PH 5.5 (5.0-9.0); UMIC TRIGGER UA YES; Urine Blood Negative (Negative); Urine Ketones Negative (Negative); Urine Protein Negative (Neg-Trace)
[2023-05-09 18:05] LABS: Creatinine Urine 171.85 mg/dL; Microalbum/Creatinine Ratio Ur 6.9 ug/mg cr
[2023-05-09 18:15] LABS: Bacteria Urine 2+ (None Seen); RBC Urine 0-2 /HPF (0-2); WBC Urine 21-50 /HPF (0-5)
[2023-05-10 03:02] LABS: Syphilis Screen Nonreactive (Nonreactive)
[2023-05-10 03:26] LABS: HBS Num1 0.44 mIU/mL (0-7.99); HBsAGNum1 0.34 S/CO (0.00-0.99); Hepatitis A Antibody IgM 0.13 Index (0-0.79); Hepatitis B Core Antibody Nonreactive (Nonreactive); Hepatitis B Surface Antigen Negative (Negative); ~HepC Num1 0.07 S/CO (0.00-0.79); ~Hepatitis A Antibody IgM Nonreactive (Nonreactive); ~Hepatitis B Surface Antibody NONREACTIVE (Nonreactive); ~Hepatitis C Antibody Nonreactive (Nonreactive)
[2023-05-10 06:41] LABS: CT PCR NOT DETECTED (Not Detect.); NG PCR NOT DETECTED (Not Detect.)
== END 2023-05-09 13:29 | disposition home or self-care (01) ==
LOC: HO.CHCLDS 13:28
PROVIDERS: Visit Provider Internal Medicine
DX: E11.65 Type 2 diabetes mellitus with hyperglycemia (principal); E78.2 Mixed hyperlipidemia; Z20.2 Contact with and (suspected) exposure to infections with a predominantly sexual mode of transmission; Z11.59 Encounter for screening for other viral diseases
CPT/HCPCS: 0353U; 80048; 80061; 80076; 81001; 82043; 86704; 86706; 86709; 86780; 86803; 87340

== ENCOUNTER 2023-06-13 09:30 | Outpatient (AMB) | payer MEDICARE, MEDICAID, SELFPAY ==
--- NOTE | 2023-06-13 09:31 | A.OFFVIS_ITS ---
Intake Vital Signs 06/13/23 09:33 Height 5 ft 11 in Intake Visit Reasons: Asthma Allergies No Known Allergies Allergy (Verified 06/13/23 09:31) HPI Asthma HPI Details 62-year-old gentleman, recent (quit January 2023) 40+ pack-year smoker with underlying history of obesity, heart failure followed for severe COPD, obstructive sleep apnea on BiPAP and dyspnea on exertion.? He continues to use Trelegy, duo nebs, and albuterol MDI with reasonable baseline control of his symptoms. He denies any recent exacerbations. He continues to work on BiPAP compliance. Patient had follow-up CT chest in December of 2022 that showed no worrisome pulmonary nodules. 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 Max 3-4ppd x 30years, now 1ppd, 100+PYH) Review of Systems Const Denies daytime sleepiness, Denies excessive sweating, Denies fatigue, Denies fever(s), Denies lethargy, Denies malaise, Denies night sweats, Denies snoring and Denies weight loss Eyes Denies blurry vision and Denies itchy eyes ENT Denies nasal congestion, Denies post nasal drip, Denies sinus pain, Denies sinus pressure and Denies other ( Thrush) Card Denies chest pain, Denies pedal edema, Denies dyspnea, Denies orthopnea and Denies paroxysmal nocturnal dyspnea Resp Denies cough, Denies hemoptysis, Denies excessive phlegm production, Denies dyspnea, Denies snoring and Denies wheezing GI Denies abdominal pain and Denies heartburn Musc Denies myalgias, Denies arthralgias and Denies joint swelling Skin/Breast Denies rash Neuro Denies memory loss and Denies seizure-like activity Psych Denies abnormal sleep pattern, Denies anxiety and Denies memory loss Endo Denies excessive sweating, Denies fatigue and Denies heat intolerance Bc/Lymph Denies easy bruising Aller/Immun Denies itchy eyes, Denies seasonal rhinorrhea and Denies wheezing Assessment & Plan Assessment & Plan (1) COPD (chronic obstructive pulmonary disease): Code(s): J44.9 - Chronic obstructive pulmonary disease, unspecified Plan: Reasonably well controlled on current regimen of trilogy, duo nebs, and albuterol MDI. Continue current regimen. (2) CLARA (obstructive sleep apnea): Comment: (CLARA on BiPAP) Code(s): G47.33 - Obstructive sleep apnea (adult) (pediatric) Plan: Suboptimally controlled as patient does not fully compliant with BiPAP. Patient has been advised to be fully compliant with BiPAP. (3) Pulmonary nodules: Code(s): R91.8 - Other nonspecific abnormal finding of lung field Plan: Results of follow-up CT chest from December of 2022 reviewed, no worrisome nodules at this time. Continue with yearly screening. Orders: Orders CT lung screening 01/12/24 R91.8 - Other nonspecific abnormal finding of lung field Medications: Changed From ipratropium-albuterol 0.5 mg-3 mg(2.5 mg base)/3 mL 3 mL inhalation Q4-6H PRN 1,620 mL 0RF for wheezing J44.9 - Chronic obstructive pulmonary disease, unspecified To ipratropium-albuterol 0.5 mg-3 mg(2.5 mg base)/3 mL 3 mL inhalation Q4-6H PRN 1,620 mL 6RF for wheezing 90 days J44.9 - Chronic obstructive pulmonary disease, unspecified Refilled pxgmsywploc-hkemhblrw-huodosmh 100-62.5-25 mcg (Trelegy Ellipta) 1 ea PO DAILY 3 ea 3RF 90 days R06.00 - Dyspnea, unspecified Telehealth Telehealth Location of provider rendering services: practice address Location of patient: address on file Patient Identification confirmed using: Name, : Yes Telehealth method: voice only Patient verbally consented to treatment: Yes Patient verbally consented to billing insurance company: Yes Patient informed of any privacy concerns related to visit: Yes Coding Level of Care Code Tele Est Pt Level 4 (20236) Diagnoses COPD (chronic obstructive pulmonary disease) J44.9 CLARA (obstructive sleep apnea) G47.33 Pulmonary nodules R91.8 Time Spent (min) 20
== END 2023-06-13 09:43 | disposition home or self-care (01) ==
LOC: HO.HPS 09:30
PROVIDERS: PCP Internal Medicine; Visit Provider Internal Medicine Pulmonary Disease
DX: J44.9 Chronic obstructive pulmonary disease, unspecified (principal); G47.33 Obstructive sleep apnea (adult) (pediatric); R91.8 Other nonspecific abnormal finding of lung field
CPT/HCPCS: 99442

== ENCOUNTER → 2023-06-13 09:30 | Outpatient (BNVA) | payer MEDICARE, MEDICAID, SELFPAY | PROVIDERS: PCP Internal Medicine; Visit Provider Internal Medicine Pulmonary Disease ==

== ENCOUNTER 2023-09-16 10:12 | Outpatient (AMB) | payer MEDICARE, MEDICAID, SELFPAY ==
--- NOTE | 2023-09-16 10:14 | MHC.OFFVIS ---
Intake Intake Visit Reasons: Pre Colonoscopy Screening Intake Note: Patient follow up for pre colonoscopy screening consult. Patient cc: constipation , denies any other GI issues. 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 Accompanied by: Self / Same As Patient Allergies No Known Allergies Allergy (Verified 09/16/23 10:13) Medication List - Last Reconciled 09/16/23 by Serena Acosta PA-C albuterol sulfate 90 mcg/actuation (Ventolin HFA) 2 puffs PO Q6H PRN amitriptyline 100 mg PO DAILY atorvastatin 20 mg PO DAILY azelastine 1 spray intranasal BID [id number] 100-62.5-25 mcg (Trelegy Ellipta) 1 ea PO DAILY 90 days ipratropium-albuterol 0.5 mg-3 mg(2.5 mg base)/3 mL 3 mL inhalation Q4-6H PRN 90 days lisinopril 10 mg PO DAILY metformin 2 tabs PO BID propranolol 20 mg PO BID semaglutide (Ozempic) mg subcut HPI HPI Comments History of Present Illness Details [phone] A 62-year-old male personal history of colon polyps to follow-up to discuss repeat colonoscopy. He admits that he has not yet due for colonoscopy however he is recently and has custody of a 17-year-old daughter and wants to be sure about his health. His bowels have not changed he has always had intermittent constipation with diabetes he is managed with diet as well as some [id number] her preps he is on sure state exactly what they were but he had left everything behind when he moved out of his previous home. He would like to have preparations on hand. He has a good appetite He is feeling well, he goes to the gym a regular basis he is losing weight intentionally, hoping his diabetes improve Otherwise has no GI or general complaints. No nausea, vomiting, hematemesis, hematochezia fever or chills A colonoscopy 11/2021-revealed hyperplastic polyps, and diverticulosis-recommend repeat colonoscopy 3-4 years Previous colonoscopy in 2019 revealed 3 tubular adenoma [facility] Medical History (Updated 09/16/23 @ 11:21 by Serena Acosta PA-C) Morbid obesity Tubular adenoma of colon (~2019) Personal history of nicotine dependence Elevated cholesterol HTN (hypertension) Low back pain Ambulates with cane Peripheral neuropathy Diabetes COPD (chronic obstructive pulmonary disease) Surgical History History of colonoscopy History of esophagogastroduodenoscopy (EGD) Family History Mother Colon cancer Social History Household Members Other:: daughter 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 Max 3-4ppd x 30years, now 1ppd, 100+PYH) Review of Systems Const All systems reviewed & are unremarkable except as noted in HPI and below Card Denies chest pain GI Denies abdominal pain, Denies hematochezia, Denies change in stool character, Reports constipation (Intermittent,), Denies nausea and Denies vomiting Results Reviewed Results Reviewed: 11/2021- Dr. Baires- Impression and Post Procedure Diagnosis: polyps internal hemorrhoids diverticular disease Plan: High fiber diet leaflet Avoid straining at stool, epsom salts and sitz bath, anusol supps or cream Repeat Colonoscopy in 3-4 years or earlier if clinically indicated me: Robert Keane Age/Sex: 60/M Attending: Traci Baires MD : [id number] Submitted by: Traci Baires MD Copies to: OLIVIA TOVAR MD MR #: [id number] Status: [facility] Collected: 12/07/21 Location: [facility] Received: 12/07/21 Diagnosis A. Colon, transverse, polypectomies (2): Colonic mucosa with mild surface hyperplastic changes. B. Colon, descending, polypectomy: Hyperplastic mucosal polyp with inflammatory changes. C. Colon, sigmoid, polypectomy: Hyperplastic mucosal polyp. Clinical History Pre-Op Dx: Colon cancer screening, h/o colon polyps Post-Op Dx: Colon polyps, diverticulosis, internal hemorrhoids Microscopic Description A-C. Microscopic sections reviewed. Material Received A: Transverse colon polyps (2) B: Descending colon polyp C: Sigmoid colon polyp Gross Description Received in three parts. Part A: Received in formalin labeled Transverse colon polyps are three glistening, semitranslucent, soft, lopez and lopez-pink, irregular tissue fragments, ranging from 0.2 to 0.35 cm. in greatest dimension, which are submitted in toto in a single cassette labeled A. Part B: Received in formalin labeled Descending colon polyp is a 0.3 cm. in greatest dimension, glistening, soft, lopez-pink, papular tissue fragment with an attached 0.5 x 0.2 x 0.1 cm. tail of glistening, lopez mucosa. The specimen is submitted in toto in a single cassette labeled B. Part C: Received in formalin labeled Sigmoid colon polyp is a 0.3 cm. in greatest dimension, glistening, semitranslucent, pale, soft, lopez, irregular tissue fragment, which is submitted in toto in a single cassette labeled C. CEDS Copies To Patient: Robert Keane Age/Sex: 60/M MR#: [id number] Page 1 of 2 Assessment & Plan Assessment & Plan (1) History of colon polyps: Comment: 2021 hyperplastic polyps-repeat 3-4 year Code(s): Z86.010 - Personal history of colonic polyps Plan: Due for asymptomatic colonoscopy 2024 Will have reminder placed (2) Chronic constipation: Comment: Long history, does not have any OTC prep available left at previous address Code(s): K59.09 - Other constipation Plan: maintain high-fiber diet Colace 200 mg q.h.s. He may use senna as well as MiraLax as needed Plan Due for asymptomatic colonoscopy 2024 Will have reminder placed Medications: New docusate sodium (Colace) 200 mg (2 x 100 mg) PO BEDTIME 60 caps 5RF sennosides (senna) 8.6 mg PO DAILY PRN 30 caps 1RF constipation polyethylene glycol 3350 (Miralax) 17 grams PO DAILY 510 grams 6RF Patient Instructions: Reviewed colonoscopy reports from 2019 as well from 2021 Due for asymptomatic colonoscopy 2024 Will have reminder placed Chronic constipation, reinforced importance of high-fiber diets Consisting Bowel regimen Encouraged to call with any questions or concerns Telehealth Telehealth Location of provider rendering services: practice address Location of patient: address on file Patient Identification confirmed using: Name, : Yes Telehealth method: voice only Patient verbally consented to treatment: Yes Patient verbally consented to billing insurance company: Yes Patient informed of any privacy concerns related to visit: Yes Minutes spent on Phone/Video with Pt.: 20 Coding Level of Care Code Tele Est Pt Level 3 (32420) Diagnoses History of colon polyps Z86.010 Chronic constipation K59.09 Time Spent (min) 20
== END 2023-09-16 12:50 | disposition home or self-care (01) ==
LOC: HO.HGI 10:12
PROVIDERS: PCP Internal Medicine; Visit Provider Physician Assistant
DX: K59.09 Other constipation (principal); Z12.11 Encounter for screening for malignant neoplasm of colon; Z86.010 Personal history of colon polyps
CPT/HCPCS: 99442

== ENCOUNTER → 2023-09-16 10:12 | Outpatient (BNVA) | payer MEDICARE, MEDICAID, SELFPAY | PROVIDERS: PCP Internal Medicine; Visit Provider Physician Assistant ==

== ENCOUNTER 2023-10-27 22:59 | Emergency (ER) | payer MEDICARE, MEDICAID, SELFPAY ==
[2023-10-27 23:47] VITALS: BP 150/66; PULSE 104; RESP 19; TEMP 37.6; O2SAT 95
[2023-10-28 00:23] VITALS: BP 150/66; PULSE 104; RESP 19; TEMP 37.6; O2SAT 95; BMI 47.4
--- NOTE | 2023-10-28 03:24 | ED_ITS ---
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 The patient states that he did see his doctor and was started on doxycycline but this did not improve the abscess. He states that his dog jumped on him and struck him in the groin area and after that he was bleeding from the area of the abscess therefore came to emergency department for evaluation. He states he has had recurrent scrotal abscesses in this area in the past he has had to have it drained several times He denied fever, chills, fatigue or weakness Related Data Home Medications Medication Instructions Recorded Confirmed metformin 500 mg tablet 2 tab PO BID 07/18/21 09/16/23 amitriptyline 100 mg tablet 100 mg PO DAILY 05/17/22 09/16/23 atorvastatin 20 mg tablet 20 mg PO DAILY 05/17/22 09/16/23 lisinopril 10 mg tablet 10 mg PO DAILY 05/17/22 09/16/23 propranolol 20 mg tablet 20 mg PO BID 05/17/22 09/16/23 semaglutide 0.25 mg or 0.5 mg (2 mg subcut 06/13/23 09/16/23 mg/3 mL) subcutaneous pen injector (Ozempic) Previous Rx's Medication Instructions Recorded fluticasone fur. 100 mcg-umeclid 1 ea PO DAILY 90 days #3 ea 06/13/23 62.5 mcg-vilant 25 mcg inhalat.powder (Trelegy Ellipta) ipratropium 0.5 mg-albuterol 3 mg 3 ml inhalation Q4-6H PRN for 06/13/23 (2.5 mg base)/3 mL nebulization wheezing 90 days #1,620 mL soln azelastine 137 mcg (0.1 %) nasal 1 spray intranasal BID #30 mL 08/01/23 spray aerosol albuterol sulfate 90 mcg/actuation 2 puff PO Q6H PRN for wheezing #54 09/09/23 aerosol inhaler (Ventolin HFA) grams docusate sodium 100 mg capsule 200 mg (2 x 100 mg) PO BEDTIME #60 09/16/23 (Colace) caps polyethylene glycol 3350 17 17 g PO DAILY #510 grams 09/16/23 gram/dose oral powder (Miralax) sennosides 8.6 mg capsule (senna) 8.6 mg PO DAILY PRN constipation 09/16/23 #30 caps acetaminophen 500 mg tablet 1,000 mg (2 x 500 mg) PO Q6H PRN 10/28/23 (Tylenol Extra Strength) fever or pain #20 tabs cephalexin 500 mg capsule 500 mg PO TID 7 days #21 caps 10/28/23 oxycodone 5 mg tablet 5 mg PO Q4H PRN pain #14 tabs 10/28/23 Allergies Allergy/AdvReac Type Severity Reaction Status Date / Time No Known Allergies Allergy Verified 10/28/23 00:23 Review of Systems Review of Systems: Yes all other systems are reviewed and are negative PMFSH Past Medical History Medical History Morbid obesity Tubular adenoma of colon (~2019) Personal history of nicotine dependence Elevated cholesterol HTN (hypertension) Low back pain Ambulates with cane Peripheral neuropathy Diabetes COPD (chronic obstructive pulmonary disease) Surgical History History of colonoscopy History of esophagogastroduodenoscopy (EGD) Family History Family History Mother Colon cancer Social History Social History Household Members Other:: daughter Are you a primary care support representative to a significant other at home: Yes (daughter age 15) Alcohol intake: never Patient Tobacco Use Status: Former Tobacco user Tobacco use type: Cigarette Cigarette Packs Per Day: 1 Cigarettes Per Day: 20.0 Years Smoked: (current smoker, onset 19. Max 3-4ppd x 30years, now 1ppd, 100+PYH) Advance Directives: No Advance Directives Information Provided: No Physical Exam Vital Signs: Vital Signs: Last Vital Signs Temp 99.6 F 10/28/23 00:23 Pulse 104 H 10/28/23 00:23 Resp 19 10/28/23 00:23 BP 150/66 H 10/28/23 00:23 Pulse Ox 95 10/28/23 00:23 O2 Del Method Room Air 10/28/23 00:23 BMI result Body Mass Index 47.4 Vital signs revealed an elevated heart rate of 104 and elevated blood pressure of 150/66 Exam The patient's left scrotum has an area of induration and area of flocculence, there has no increased warmth or erythema over the skin of the scrotum. Medical Decision Making Medical Decision Making MDM Narrative: 62-year-old male with history of obesity, high cholesterol, hypertension, diabetes, COPD, peripheral neuropathy who presents emergency department for evaluation of a left scrotal abscess x1, patient has had recurrence of this abscess in this area in his required incision and drainage in the past. Physical exam did reveal an area of flocculence as well as an area of induration with no erythema or increased warmth over the skin of the scrotum. The patient's abscess was incised and drained approximately 100 cc bloody, dark, purulent material was drained from the abscess. Abscess was packed with half- inch gauze. Patient was given oxycodone 10 mg orally, Tylenol 975 mg orally and Keflex 500 mg orally. Patient will be treated with Keflex 500 mg 3 times a day for 7 days, oxycodone 5 mg pills every 4-6 hours as needed for pain and Tylenol 1000 mg every 6 hours as needed for pain. Patient has follow-up with his PCP or Dr. Levy in 4 days to have the packing removed. Wound culture was sent. Differential diagnosis includes but is not limited scrotal cellulitis, scrotal abscess Prescription Management I considered prescription management with: Pain Medication and Antibiotic Chronic Conditions Patient?s care impacted by: Diabetes and Hypertension Procedures Abscess I/D Site: scrotum Side (if applicable): left Local Anesthetic: lidocaine 1% Amount of anesthesia used (mL): 20 Technique: incised with blade (11 blade ) Amount of fluid expressed (mL): 100 Sent for culture/gram staining?: Yes Irrigation: No Packing used?: plain (Half-inch gauze) Discharge Plan Discharge Clinical Impression: Scrotal abscess, Encounter for incision and drainage procedure Patient Disposition: Home, Self-Care Instructions: Abscess (ED) Additional Instructions: Your abscess was incised and a large amount of purulent material ( pus) was drained out of the abscess cavity The abscess was packed with 1/2 inch gauze. The packing should stay in for 4 days and you should follow-up with your doctor to have the packing removed or you can follow-up with your surgeon Dr. Levy. Take Keflex (cephalexin) 500 mg pills, 1 pill 3 times a day for 7 days. Take Tylenol (acetaminophen) 500 mg pills, 2 pills every 6 hours as needed for pain. For pain not relieved by ibuprofen or Tylenol take oxycodone 5 mg pills, 1 pill every 4 hours as needed for pain. Do not drive or work while taking this medication since they can cause sleepiness. Oxycodone is a narcotic medication that can be addicting. If you are concerned about addiction you can ask the pharmacist for less pills or do not get this prescription filled. Follow-up with your doctor in 4days. Please return to the emergency department if your symptoms get worse or if you develop any symptoms that are concerning to you. Prescriptions: New acetaminophen [Tylenol Extra Strength] 500 mg tablet 1,000 mg PO Q6H PRN (Reason: fever or pain) Qty: 20 0RF cephalexin 500 mg capsule 500 mg PO TID 7 Days Qty: 21 0RF oxycodone 5 mg tablet 5 mg PO Q4H PRN (Reason: pain) Qty: 14 0RF Rx Instructions: Patient may request partial fill; Partial Fill upon patient request. No Action azelastine 137 mcg (0.1 %) aerosol,spray 1 spray intranasal BID Qty: 30 0RF Rx Instructions: administer into each nostril albuterol sulfate [Ventolin HFA] 90 mcg/actuation HFA aerosol inhaler 2 puff PO Q6H PRN (Reason: for wheezing) Qty: 54 0RF metformin 500 mg tablet 2 tab PO BID lisinopril 10 mg tablet 10 mg PO DAILY propranolol 20 mg tablet 20 mg PO BID atorvastatin 20 mg tablet 20 mg PO DAILY amitriptyline 100 mg tablet 100 mg PO DAILY Ozempic 0.25 mg or 0.5 mg (2 mg/3 mL) pen injector subcut ipratropium-albuterol 0.5 mg-3 mg(2.5 mg base)/3 mL solution for nebulization 3 ml inhalation Q4-6H PRN (Reason: for wheezing) 90 Days Qty: 1620 6RF Trelegy Ellipta 100-62.5-25 mcg blister with device 1 ea PO DAILY 90 Days Qty: 3 3RF docusate sodium [Colace] 100 mg capsule 200 mg PO BEDTIME Qty: 60 5RF senna 8.6 mg capsule 8.6 mg PO DAILY PRN (Reason: constipation) Qty: 30 1RF polyethylene glycol 3350 [Miralax] 17 gram/dose powder 17 g PO DAILY Qty: 510 6RF Referrals: Casa Levy MD [Physician] - 5 days (Incision and drainage with packing of scrotal abscess)
[2023-10-28] MEDS: Lidocaine HCl 1 % MPF 5 ML VIAL INFILTRATI ×2 (03:31)
[2023-10-28 04:00] VITALS: PULSE 100; RESP 18; O2SAT 95
--- NOTE | 2023-10-28 04:00 | PC.NURSE ---
pts wound accessed, drained and packed by Dr. Olvera and ED PCT. extra supplies provided for pt. dressing instructions educated by dr. olvera to pt.
[2023-10-28] MEDS: oxyCODONE HCl Immed Release 5 MG TABLET 10 MG PO (04:06)
[2023-10-28] MEDS: Acetaminophen 325 MG TABLET 975 MG PO (04:06)
[2023-10-28] MEDS: cephALEXin 500 MG CAPSULE PO (04:06)
[2023-10-28 06:42] LABS: Glucose, Whole Blood 129 mg/dL (60-115)
== END 2023-10-28 04:20 | disposition home or self-care (01) ==
PROVIDERS: Emergency Provider Emergency Medicine Emergency Medical Services; PCP Internal Medicine
DX: N49.2 Inflammatory disorders of scrotum (principal); E11.9 Type 2 diabetes mellitus without complications; J44.9 Chronic obstructive pulmonary disease, unspecified; I10 Essential (primary) hypertension; G62.9 Polyneuropathy, unspecified
CPT/HCPCS: 82947; 87070; 87205; 99283; 99284

== ENCOUNTER → 2023-10-30 08:42 | Outpatient (BNVA) | payer MEDICARE, MEDICAID, SELFPAY | PROVIDERS: PCP Internal Medicine; Visit Provider Surgery | DX: Z48.01 Encounter for change or removal of surgical wound dressing (principal) | CPT/HCPCS: 99211 ==

== ENCOUNTER 2023-11-04 08:58 | Outpatient (AMB) | payer MEDICARE, MEDICAID, SELFPAY ==
[2023-11-04 09:04] VITALS: BP 176/77; PULSE 80; BMI 51.6
--- NOTE | 2023-11-04 09:04 | A.OFFVIS_ITS ---
Intake Vital Signs 11/04/23 09:04 Height 5 ft 11 in Weight 370 lb BMI 51.6 BP 176/77 H Blood Pressure Location Rt radial Position Sitting Pulse 80 Intake Visit Reasons: Wound check s/p I&D scrotal abscess Intake Note: Patient referred for scrotal abscess that was I&D'ed @ ER on 10-28-23. Finished Keflex course. Patient c/o: incision site healing well. C/o abscess has been drained a total of 12 times. Would like to talk about surgical options. Inventory Analyst Required: No Accompanied by: Self / Same As Patient Allergies No Known Allergies Allergy (Verified 11/04/23 09:06) HPI HPI Comments History of Present Illness Details Patient is status post I&D of a left scrotal abscess by ER. Presents here for follow-up. He is marked improvement of his symptoms. He is complete his antibiotic course. Patient states he has had multiple incision and drainage she is at the same site of his scrotum. He states that some of these were done here but I find no obvious records of these in the chart. 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 Max 3-4ppd x 30years, now 1ppd, 100+PYH) Physical Exam Vital Signs: Last Vital Signs Pulse 80 11/04/23 09:04 BP 176/77 H 11/04/23 09:04 BMI result Body Mass Index 51.6 Const Other: Very pleasant, markedly corpulent male. Using a cane because of back issues Other: Status post I&D of left lateral scrotal abscess. Wound healing very well nearly closed. No evidence of active infection. Assessment & Plan Assessment & Plan (1) Abscess of groin, left: Code(s): L02.214 - Cutaneous abscess of groin Plan Current plan is for the patient continue local therapy. He wished to have this area excised. The S concern is that because of the chronicity of the same area, there is an underlying cyst causing the problem. I agree. Current plan is see the patient in few weeks' time and if the infective process is completely resolved, arrangements will be made for elective resection of this area. Because of the patient's body habitus, this would most probably need to be performed in an ambulatory setting. On next visit, further details of the procedure will be reviewed. All questions answered. Coding Level of Care Code New Pt Level 4 (55357) Diagnoses Abscess of groin, left L02.214
== END 2023-11-04 09:24 | disposition home or self-care (01) ==
PROVIDERS: PCP Internal Medicine; Visit Provider Surgery
DX: L02.214 Cutaneous abscess of groin (principal)
CPT/HCPCS: 99204

== ENCOUNTER → 2023-11-04 08:58 | Outpatient (BNVA) | payer MEDICARE, MEDICAID, SELFPAY | PROVIDERS: PCP Internal Medicine; Visit Provider Surgery | DX: L02.214 Cutaneous abscess of groin (principal); Z98.890 Other specified postprocedural states | CPT/HCPCS: 99202 ==

== ENCOUNTER 2023-12-02 08:53 | Outpatient (AMB) | payer MEDICARE, MEDICAID, SELFPAY ==
[2023-12-02 09:00] VITALS: BP 158/77; O2SAT 96; BMI 51.2
--- NOTE | 2023-12-02 09:00 | MHC.OFFVIS ---
Intake Vital Signs 12/02/23 09:00 Height 5 ft 11 in Weight 367 lb BMI 51.2 BP 158/77 H Blood Pressure Location Rt brachial Position Sitting Pulse Oximetry (%) 96 Oxygen Delivery Method Room Air Intake Visit Reasons: 4 wk follow up Wound check s/p I&D scrotal abscess Intake Note: Patient last visit 11-04-23. Here for 4wk follow up wound check scrotal abscess. Patient reports abscess healed completely. Cover Operator Required: No Accompanied by: Self / Same As Patient Allergies No Known Allergies Allergy (Verified 12/02/23 09:01) HPI HPI Comments History of Present Illness Details Patient presents for discussion about elective excision of left scrotal recurrent sebaceous cyst. At present, the area is quiescent and no active infection. Patient well known to me. [facility] Medical History Morbid obesity Tubular adenoma of colon (~2019) Personal history of nicotine dependence Elevated cholesterol HTN (hypertension) Low back pain Ambulates with cane Peripheral neuropathy Diabetes COPD (chronic obstructive pulmonary disease) Surgical History History of colonoscopy History of esophagogastroduodenoscopy (EGD) Family History Mother Colon cancer Social History Household Members Other:: daughter Are you a primary healthcare manager to a significant other at home: Yes (daughter age 15) Alcohol intake: never Patient Tobacco Use Status: Former Tobacco user Tobacco use type: Cigarette Cigarette Packs Per Day: 1 Cigarettes Per Day: 20.0 Years Smoked: (current smoker, onset 19. Max 3-4ppd x 30years, now 1ppd, 100+PYH) Physical Exam Vital Signs: Last Vital Signs BP 158/77 H 12/02/23 09:00 Pulse Ox 96 12/02/23 09:00 Oxygen Delivery Method Room Air 12/02/23 09:00 BMI result Body Mass Index 51.2 Const Other: Very corpulent male Chest Other: Chest breath sounds bilaterally, HS 1 in 2 GI Other: Abdomen massively corpulent, soft, benign Other: Left scrotal cyst though with scar after multiple I and D's in the past. Approximately 4 x 3 cm. Assessment & Plan Assessment & Plan (1) Scrotal sebaceous cyst: Code(s): L72.3 - Sebaceous cyst Plan Risks, benefits, alternatives of excision of left scrotal cyst reviewed the patient and included but not limited to bleeding, infection, recurrence, numbness, pain, scarring the patient wishes to proceed. All questions answered. Arrangements were made for this on the day which is convenient for him. Coding Level of Care Code Est Pt Level 5 (98117) Diagnoses Scrotal sebaceous cyst L72.3
== END 2023-12-02 09:07 | disposition home or self-care (01) ==
PROVIDERS: PCP Internal Medicine; Visit Provider Surgery
DX: L72.3 Sebaceous cyst (principal)
CPT/HCPCS: 99214

== ENCOUNTER → 2023-12-02 08:53 | Outpatient (BNVA) | payer MEDICARE, MEDICAID, SELFPAY | PROVIDERS: PCP Internal Medicine; Visit Provider Surgery | DX: Z48.1 Encounter for planned postprocedural wound closure (principal); L72.3 Sebaceous cyst | CPT/HCPCS: 99212 ==

== ENCOUNTER 2023-12-19 07:57 | Outpatient (REF) | payer MEDICARE, MEDICAID, SELFPAY ==
--- NOTE | ~2023-12-19 | CT_ITS ---
EXAMINATION: CT CHEST SCREENING CLINICAL INFORMATION: Abnormal finding in the lung field. COMPARISON: CT chest 01/09/2023. TECHNIQUE: Multidetector volumetric CT imaging of the chest is performed without contrast using low dose technique. Additional 2D coronal and sagittal reformatted images and axial 3D maximum intensity projection (MIP) images are generated on the CT workstation. This CT examination was performed using dose optimization techniques as appropriate, variously including the following: *Automated exposure control *Adjustment of mA and/or kV according to patient size (this includes techniques or standardized protocols for targeted exams where dose is matched to indication/reason for exam; i.e. extremities or head) *Use of iterative reconstruction technique DLP: 117 mGy-cm FINDINGS: LUNGS: The lungs are clear with no evidence of inflammation or nodules. Some benign-appearing calcified granulomas are unchanged. Mild emphysema is present with mild bronchial wall thickening. MEDIASTINUM: The mediastinum is normal. CORONARY ARTERY CALCIFICATION: Moderate. PLEURA: There is no pleural effusion. No pleural mass or thickening. AXILLA: No lymphadenopathy. UPPER ABDOMEN: Unremarkable OSSEOUS STRUCTURES: Degenerative changes are seen in the spine. CT/CT lung screening IMPRESSION: No evidence of malignancy. ASSESSMENT: Lung-RADS category 1: Negative RECOMMENDATION: Routine annual low-dose CT screening in 12 months.
== END 2023-12-19 07:58 | disposition home or self-care (01) ==
LOC: HO.CT 07:57
PROVIDERS: PCP Internal Medicine; Visit Provider Internal Medicine Pulmonary Disease
DX: Z12.2 Encounter for screening for malignant neoplasm of respiratory organs (principal); Z87.891 Personal history of nicotine dependence; I25.10 Atherosclerotic heart disease of native coronary artery without angina pectoris; I10 Essential (primary) hypertension; E78.5 Hyperlipidemia, unspecified
CPT/HCPCS: 71271; 93005; 99212

== ENCOUNTER 2023-12-19 08:44 | Outpatient (AMB) | payer MEDICARE, MEDICAID, SELFPAY ==
[2023-12-19 08:46] VITALS: BP 117/56; PULSE 64; BMI 52.3
--- NOTE | 2023-12-19 08:46 | MHC.OFFVIS ---
Intake Vital Signs 12/19/23 08:46 Height 5 ft 11 in Weight 375 lb BMI 52.3 BP 117/56 L Blood Pressure Location Rt brachial Position Sitting Pulse 64 Pulse Source Monitor Intake Visit Reasons: pre op Set Rider Required: No Allergies No Known Allergies Allergy (Verified 12/19/23 08:50) Medication List - Last Reconciled 12/19/23 by Olena Pimentel [employer] acetaminophen (Tylenol Extra Strength) 1,000 mg (2 x 500 mg) PO Q6H PRN albuterol sulfate 90 mcg/actuation (Ventolin HFA) 2 puffs PO Q6H PRN amitriptyline 100 mg PO DAILY atorvastatin 20 mg PO DAILY azelastine 1 spray intranasal BID docusate sodium (Colace) 200 mg (2 x 100 mg) PO BEDTIME ezhtqmzftgw-yeitlobsr-jemellxp 100-62.5-25 mcg (Trelegy Ellipta) 1 ea PO DAILY 90 days lisinopril 20 mg PO DAILY metformin 2 tabs PO BID polyethylene glycol 3350 (Miralax) 17 grams PO DAILY propranolol 20 mg PO BID semaglutide (Ozempic) mg subcut sennosides (senna) 8.6 mg PO DAILY PRN HPI pre op HPI Details Robert is a 62-year-old male with past medical history of morbid obesity, hypertension, hyperlipidemia, diabetes, coronary artery disease, COPD, sleep apnea with CPAP use who presents for follow-up and preop cardiac evaluation. Today he reports that he has been bothered by a scrotal cyst for some time and will be having surgery on 01/13/2024. He does not believe he is having general anesthesia. He denies having any chest discomfort at rest or with activity. He does have shortness of breath with walking. No heart palpitations, lightheadedness, presyncope, syncope, falls. He sleeps with CPAP, 2 pillows. He denies having leg edema however nonpitting tightness to his lower extremities is noted. He says he ambulates short distances with his cane. He is currently in a wheelchair today. He reports compliance with his medication. [facility] Medical History Morbid obesity Tubular adenoma of colon (~2019) Personal history of nicotine dependence Elevated cholesterol HTN (hypertension) Low back pain Ambulates with cane Peripheral neuropathy Diabetes COPD (chronic obstructive pulmonary disease) Surgical History History of colonoscopy History of esophagogastroduodenoscopy (EGD) Family History Mother Colon cancer Social History Household Members Other:: daughter Are you a primary care attendant to a significant other at home: Yes (daughter age 15) Alcohol intake: never Patient Tobacco Use Status: Former Tobacco user Tobacco use type: Cigarette Cigarette Packs Per Day: 1 Cigarettes Per Day: 20.0 Years Smoked: (current smoker, onset 19. Max 3-4ppd x 30years, now 1ppd, 100+PYH) Review of Systems Const All systems reviewed & are unremarkable except as noted in HPI and below ENT Denies dizziness Card Denies chest pain, Denies chest pain at rest, Denies chest pain with activity, Denies rapid heart rate, Denies pedal edema, Denies edema, Denies leg edema, Denies lightheadedness, Denies palpitations, Denies dyspnea, Reports dyspnea on exertion and Denies orthopnea Resp Denies cough, Denies dyspnea and Reports dyspnea on exertion GI Denies hematochezia and Denies change in stool character Musc Details: Back discomfort Reports abnormal gait (uses cane), Denies limited range of motion, Denies muscle cramps, Denies muscle weakness, Denies numbness, Denies radiating pain into limb, Denies stiffness and Denies tingling Neuro Reports abnormal gait (uses cane), Denies dizziness, Denies numbness and Denies tingling Endo Denies palpitations Physical Exam Vital Signs: Last Vital Signs Pulse 64 12/19/23 08:46 BP 117/56 L 12/19/23 08:46 BMI result Body Mass Index 52.3 Const Other: morbidly obese, sitting in wheelchair General: cooperative, comfortable and no acute distress Orientation/consciousness: patient oriented x3 Neck Neck: Yes normal visual inspection and Yes no JVD Resp Effort & Inspection: normal respiratory effort Auscultation: clear to auscultation bilaterally, no rales, no rhonchi and no wheezes Cardio Jugular venous distension: no JVD Rate: regular rate Rhythm: regular rhythm Heart sounds: S1 normal heart sound present, S2 normal heart sound present, no murmurs and no rubs Neuro General: patient oriented x3 Extrem Other: nonpitting edema of lower legs with dry flaky skin Psych Appearance: grossly normal Mental Status: mental status grossly normal Speech and movement: Normal speech and movement present Office Procedures EKG Details: Today, read by me, Sinus rhythm, rate 64, QTc 410ms [id number], Complete Assessment & Plan Assessment & Plan (1) Atherosclerotic cardiovascular disease: Code(s): I25.10 - Atherosclerotic heart disease of [place] coronary artery without angina pectoris Plan: A CT scan of the chest done on 01/09/2023 does show LAD calcium. A nuclear stress test was previously ordered on him however not completed by patient. He denies any chest discomfort at rest or with activity. He does have shortness of breath with walking. Cardiac risks of morbid obesity, smoking, diabetes, hypertension, hyperlipidemia, sedentary lifestyle. EKG done today showing normal sinus rhythm, no acute ST or T-wave abnormalities, rate 64. He does have an upcoming surgical procedure. He is reluctant to have stress test and tells me he will not be having general anesthesia. Will review with his surgeon and his primary adzing and boring machine operator regarding need for stress test at this time. Addendum will be made to this note. Signs and symptoms of angina reviewed with him. Continue with risk factor modification. Benefits of ongoing weight loss, increasing physical activity reviewed. Continue atorvastatin with ideal LDL goal less than 70. He has not on aspirin for unclear reason. Will recommend that he start aspirin 81 mg daily. He needs good blood pressure control. Currently 117/56. Continue lisinopril. Cardiology follow-up 1 year, sooner if needed (2) Essential hypertension: Code(s): I10 - Essential (primary) hypertension Plan: History of hypertension. Currently well controlled with lisinopril. Labs done 05/09/2023 showed potassium 4.2, creatinine 1.07. Continue lisinopril. (3) Hyperlipidemia, unspecified: Code(s): E78.5 - Hyperlipidemia, unspecified Plan: [place] LDL goal less than 70 in patient with CAD and diabetes. Labs done 05/09/2023 showed LDL 138. It seems that atorvastatin was started at that time. Will check with his PCP office regarding any repeat cholesterol levels. (4) Morbid obesity: Code(s): E66.01 - Morbid (severe) obesity due to excess calories Plan: As above (5) CLARA (obstructive sleep apnea): Comment: (CLARA on BiPAP) Code(s): G47.33 - Obstructive sleep apnea (adult) (pediatric) Plan: Compliant with BiPAP (6) Dyspnea on exertion: Code(s): R06.00 - Dyspnea, unspecified Plan: As above. Does have known COPD and follows with pulmonology (7) Preop cardiovascular exam: Code(s): Z01.810 - Encounter for preprocedural cardiovascular examination Plan: Preop for scrotal cyst removal with Dr. Keller on 01/13/2024. Message sent to Dr. Keller regarding type of anesthesia. Plan Time spent on chart review, documentation, interview and assessment Coding Level of Care Code Est Pt Level 4 (58862) Diagnoses Atherosclerotic cardiovascular disease I25.10 Essential hypertension I10 Hyperlipidemia, unspecified E78.5 Morbid obesity E66.01 CLARA (obstructive sleep apnea) G47.33 Dyspnea on exertion R06.00 Preop cardiovascular exam Z01.810 CPT Codes EKG - CPT: 45915-[id number], Complete ([id number]) Time Spent (min) 28
== END 2023-12-19 09:21 | disposition home or self-care (01) ==
PROVIDERS: PCP Internal Medicine; Visit Provider Nurse Practitioner Family
DX: I25.10 Atherosclerotic heart disease of native coronary artery without angina pectoris (principal); I10 Essential (primary) hypertension; E78.5 Hyperlipidemia, unspecified; E66.01 Morbid (severe) obesity due to excess calories; G47.33 Obstructive sleep apnea (adult) (pediatric); R06.00 Dyspnea, unspecified; Z01.810 Encounter for preprocedural cardiovascular examination
CPT/HCPCS: 93010; 99214

== ENCOUNTER 2023-12-31 10:01 | Outpatient (AMB) | payer MEDICARE, MEDICAID, SELFPAY ==
[2023-12-31 10:04] VITALS: BP 138/72; PULSE 74; O2SAT 96; BMI 52.1
--- NOTE | 2023-12-31 10:04 | A.OFFVIS_ITS ---
Intake Vital Signs 12/31/23 10:04 Height 5 ft 11 in Weight 373 lb 10.936 oz BMI 52.1 BP 138/72 Blood Pressure Location Rt brachial Position Sitting Pulse 74 Pulse Source Doppler Pulse Oximetry (%) 96 Oxygen Delivery Method Room Air Intake Visit Reasons: Clearance Excision scrotal cyst/Gen surgery Allergies No Known Allergies Allergy (Verified 12/31/23 10:06) HPI Clearance Excision scrotal cyst/Gen surgery HPI Details 63-year-old gentleman, recent (quit January 2023) 40+ pack-year smoker with underlying history of obesity, heart failure followed for severe COPD, obstructive sleep apnea on BiPAP and dyspnea on exertion.? He continues to use Trelegy, duo nebs, and albuterol MDI with reasonable baseline control of his symptoms. He denies any recent exacerbations. He has difficulties compliant with his BiPAP. Patient had follow-up CT chest in November of 2023 that showed no worrisome pulmonary nodules. [facility] Medical History Morbid obesity Tubular adenoma of colon (~2019) Personal history of nicotine dependence Elevated cholesterol HTN (hypertension) Low back pain Ambulates with cane Peripheral neuropathy Diabetes COPD (chronic obstructive pulmonary disease) Surgical History History of colonoscopy History of esophagogastroduodenoscopy (EGD) Family History Mother Colon cancer Social History Household Members Other:: daughter Are you a primary child care coordinator to a significant other at home: Yes (daughter age 15) Alcohol intake: never Patient Tobacco Use Status: Former Tobacco user Tobacco use type: Cigarette Cigarette Packs Per Day: 1 Cigarettes Per Day: 20.0 Years Smoked: (current smoker, onset 19. Max 3-4ppd x 30years, now 1ppd, 100+PYH) Review of Systems Const Denies daytime sleepiness, Denies excessive sweating, Denies fatigue, Denies fever(s), Denies lethargy, Denies malaise, Denies night sweats, Denies snoring and Denies weight loss Eyes Denies blurry vision and Denies itchy eyes ENT Denies nasal congestion, Denies post nasal drip, Denies sinus pain, Denies sinus pressure and Denies other ( Thrush) Card Denies chest pain, Denies pedal edema, Denies dyspnea, Denies orthopnea and Denies paroxysmal nocturnal dyspnea Resp Denies cough, Denies hemoptysis, Denies excessive phlegm production, Denies dyspnea, Denies snoring and Denies wheezing GI Denies abdominal pain and Denies heartburn Musc Denies myalgias, Denies arthralgias and Denies joint swelling Skin/Breast Denies rash Neuro Denies memory loss and Denies seizure-like activity Psych Denies abnormal sleep pattern, Denies anxiety and Denies memory loss Endo Denies excessive sweating, Denies fatigue and Denies heat intolerance Bc/Lymph Denies easy bruising Aller/Immun Denies itchy eyes, Denies seasonal rhinorrhea and Denies wheezing Physical Exam Vital Signs: Last Vital Signs Pulse 74 12/31/23 10:04 BP 138/72 12/31/23 10:04 Pulse Ox 96 12/31/23 10:04 Oxygen Delivery Method Room Air 12/31/23 10:04 BMI result Body Mass Index 52.1 Const General: no acute distress and alert Nutritional Appearance: obese Orientation/consciousness: Other orientation findings ( oriented) HEENT Head: Yes atraumatic Eyes General: appearance normal, both eyes and all related structures Sclerae: sclerae normal EOM: EOMs intact bilaterally Neck Neck: Yes supple Lymphatic: no lymphadenopathy noted Resp Effort & Inspection: normal respiratory effort and no use of accessory muscles Auscultation: clear to auscultation bilaterally Cardio Rate: regular rate Rhythm: regular rhythm Heart sounds: no gallops, no murmurs and no rubs Skin General skin exam: other ( warm) Extrem General: No clubbing, No cyanosis and No edema Assessment & Plan Assessment & Plan (1) COPD (chronic obstructive pulmonary disease): Code(s): J44.9 - Chronic obstructive pulmonary disease, unspecified Plan: At this time well controlled on Trelegy and albuterol MDI. Continue current regimen. (2) Personal history of nicotine dependence: Comment: (current smoker, onset 19. Max 3-4ppd x 30years, now 1ppd, 100+PYH) Code(s): Z87.891 - Personal history of nicotine dependence Plan: Results of CT chest from November of 2023 reviewed, no worrisome nodules at this time. Continue with yearly screening. (3) Encounter for preoperative pulmonary examination: Code(s): Z01.811 - Encounter for preprocedural respiratory examination Plan: At this time patient is at low risk for pulmonary perioperative complications for the proposed sebaceous cyst excision under general anesthesia. Secondary to underlying CLARA, consider extubation to BiPAP. Medications: Refilled ouvdjrvtzgi-zusmhpmuo-apnethtv 100-62.5-25 mcg (Trelegy Ellipta) 1 ea PO DAILY 3 ea 3RF 90 days R06.00 - Dyspnea, unspecified albuterol sulfate 90 mcg/actuation (Ventolin HFA) 2 puffs PO Q6H PRN 1 ea 6RF for wheezing R06.00 - Dyspnea, unspecified azelastine 1 spray intranasal BID 30 mL 6RF Coding Level of Care Code Est Pt Level 4 (57230) Diagnoses COPD (chronic obstructive pulmonary disease) J44.9 Personal history of nicotine dependence Z87.891 Encounter for preoperative pulmonary examination Z01.811
== END 2023-12-31 10:24 | disposition home or self-care (01) ==
PROVIDERS: PCP Internal Medicine; Visit Provider Internal Medicine Pulmonary Disease
DX: J44.9 Chronic obstructive pulmonary disease, unspecified (principal); Z87.891 Personal history of nicotine dependence; Z01.811 Encounter for preprocedural respiratory examination
CPT/HCPCS: 99214

== ENCOUNTER → 2023-12-31 10:01 | Outpatient (BNVA) | payer MEDICARE, MEDICAID, SELFPAY | PROVIDERS: PCP Internal Medicine; Visit Provider Internal Medicine Pulmonary Disease | DX: Z01.811 Encounter for preprocedural respiratory examination (principal); J44.9 Chronic obstructive pulmonary disease, unspecified; Z87.891 Personal history of nicotine dependence | CPT/HCPCS: 99212 ==

== ENCOUNTER 2024-01-10 06:10 | Day surgery (SDC) | payer MEDICARE, MEDICAID, SELFPAY ==
[2023-12-31 11:59] VITALS: BMI 52.2
--- NOTE | 2024-01-08 13:20 | HO.ANESPROP2 ---
Documented by User: Jennifer Mooney NP 01/08/24 13:24 HPI - Anesthesia Eval Consult details Narrative: 63yo M for Left Wide Local Excision Scrotal Cyst (lithotomy) Follows [facility] cardiology for CAD. Cleared to proceed with MAC anesthesia without stress testing. Follows [facility] pulmo for COPD, CLARA. Optimized for anesthesia/surgery Anesthesia Pre-Procedure Meds Is the patient on any of the following meds?: Semaglutide (Ozempic) PMFSH Active Problems Active Problems: All Active Problems Encounter for preoperative pulmonary examination (Acute) Preop cardiovascular exam (Acute) Scrotal sebaceous cyst (Acute) Chronic constipation (Acute) History of colon polyps (Acute) Pulmonary nodules (Acute) Hyperlipidemia, unspecified (Acute) Essential hypertension (Acute) Type 2 diabetes mellitus with unspecified complications (Acute) Atherosclerotic cardiovascular disease (Acute) Dyspnea on exertion (Acute) CLARA (obstructive sleep apnea) (Acute) Morbid obesity (Acute) Personal history of nicotine dependence (Acute) COPD (chronic obstructive pulmonary disease) (Acute) Past Medical History Medical History Sleep apnea CAD (coronary artery disease) Morbid obesity Tubular adenoma of colon (~2019) Personal history of nicotine dependence Elevated cholesterol HTN (hypertension) Low back pain Ambulates with cane Peripheral neuropathy Diabetes COPD (chronic obstructive pulmonary disease) Family History Family History Mother Colon cancer Family history of problems with anesthesia: No Surgical History Surgical History History of colonoscopy History of esophagogastroduodenoscopy (EGD) History of Problems with Anesthesia: No Social History Social History Household Members Other:: daughter Are you a primary palliative care nurse to a significant other at home: No Do you presently have visiting nurse or other home services: No Alcohol intake: never Patient Tobacco Use Status: Former Tobacco user Tobacco use type: Cigarette Cigarette Packs Per Day: 1 Cigarettes Per Day: 20.0 Years Smoked: (current smoker, onset 19. Max 3-4ppd x 30years, now 1ppd, 100+PYH) Use of substances other than those prescribed or required for medical reasons: No Have you been hit, kicked, punched, or otherwise hurt by someone within the past year? If so, by whom?: No Advance Directives: No Advance Directives Information Provided: Yes Advance Directives on File: No Recently lost weight without trying: No Eating poorly because of decreased appetite: No Nutrition Risks: No Nutritional Risk Poor oral hygiene: Yes (full upper and lower dentures) Meds Allergies Allergy/AdvReac Type Severity Reaction Status Date / Time No Known Allergies Allergy Verified 01/10/24 06:46 Home Medications ?Medication ?Instructions ?Recorded ?Confirmed ?Last Taken ?Type metformin 500 mg tablet 1,000 mg PO BID 07/18/21 12/31/23 Unknown History amitriptyline 100 mg tablet 100 mg PO BEDTIME PRN Insomnia 05/17/22 12/31/23 Unknown History atorvastatin 20 mg tablet 20 mg PO DAILY 05/17/22 12/31/23 Unknown History semaglutide 0.25 mg or 0.5 mg (2 0.25 mg subcut QWEEK 06/13/23 12/31/23 12/27/23 History mg/3 mL) subcutaneous pen injector ([employer] lisinopril 20 mg tablet 20 mg PO DAILY 12/19/23 12/31/23 Unknown History azelastine 137 mcg (0.1 %) nasal 1 spray intranasal BID PRN Allergy 12/31/23 12/31/23 Unknown History spray aerosol Symptoms docusate sodium 100 mg capsule 200 mg PO BEDTIME PRN Constipation 12/31/23 12/31/23 Unknown History (Colace) fluticasone fur. 100 mcg-umeclid 1 inh PO DAILY PRN Shortness Of 12/31/23 12/31/23 Unknown History 62.5 mcg-vilant 25 mcg Breath Or Wheezing inhalat.powder (Trelegy Ellipta) polyethylene glycol 3350 17 17 g PO DAILY PRN Constipation 12/31/23 12/31/23 Unknown History gram/dose oral powder (Miralax) Exam Height,Weight and Vital Signs: Height 5 ft 11 in Weight 169.644 kg Narrative Narrative: EKG 11/2023 Sinus rhythm, rate 64, QTc 410ms ECHO 2022 Conclusions: - The left ventricular systolic function is normal. The calculated ejection fraction is 66% by biplane method. - No obvious valvular pathology seen on this study. Assessment and Plan Assessment Anesthesia Assessment: Chart Reviewed Final Anesthetic Review Family History of Problems with Anesthesia: No History of Problems with Anesthesia: No Documented by User: Katalina Zavala MD 01/10/24 07:27 HPI - Anesthesia Eval Anesthesia Pre-Procedure Meds If Yes to any meds - educate patient: Pt education - increased risk of aspiration PMFSH Past Medical History Medical History Sleep apnea CAD (coronary artery disease) Morbid obesity Tubular adenoma of colon (~2019) Personal history of nicotine dependence Elevated cholesterol HTN (hypertension) Low back pain Ambulates with cane Peripheral neuropathy Diabetes COPD (chronic obstructive pulmonary disease) Family History Family History Mother Colon cancer Surgical History Surgical History History of colonoscopy History of esophagogastroduodenoscopy (EGD) Social History Social History Household Members Other:: daughter Are you a primary palliative care nurse to a significant other at home: No Do you presently have visiting nurse or other home services: No Alcohol intake: never Patient Tobacco Use Status: Former Tobacco user Tobacco use type: Cigarette Cigarette Packs Per Day: 1 Cigarettes Per Day: 20.0 Years Smoked: (current smoker, onset 19. Max 3-4ppd x 30years, now 1ppd, 100+PYH) Use of substances other than those prescribed or required for medical reasons: No Have you been hit, kicked, punched, or otherwise hurt by someone within the past year? If so, by whom?: No Advance Directives: No Advance Directives Information Provided: Yes Advance Directives on File: No Recently lost weight without trying: No Eating poorly because of decreased appetite: No Nutrition Risks: No Nutritional Risk Poor oral hygiene: Yes (full upper and lower dentures) Meds Allergies Allergy/AdvReac Type Severity Reaction Status Date / Time No Known Allergies Allergy Verified 01/10/24 06:46 Home Medications ?Medication ?Instructions ?Recorded ?Confirmed ?Last Taken ?Type metformin 500 mg tablet 1,000 mg PO BID 07/18/21 12/31/23 Unknown History amitriptyline 100 mg tablet 100 mg PO BEDTIME PRN Insomnia 05/17/22 12/31/23 Unknown History atorvastatin 20 mg tablet 20 mg PO DAILY 05/17/22 12/31/23 Unknown History semaglutide 0.25 mg or 0.5 mg (2 0.25 mg subcut QWEEK 06/13/23 12/31/23 12/27/23 History mg/3 mL) subcutaneous pen injector (Ozempic) lisinopril 20 mg tablet 20 mg PO DAILY 12/19/23 12/31/23 Unknown History azelastine 137 mcg (0.1 %) nasal 1 spray intranasal BID PRN Allergy 12/31/23 12/31/23 Unknown History spray aerosol Symptoms docusate sodium 100 mg capsule 200 mg PO BEDTIME PRN Constipation 12/31/23 12/31/23 Unknown History (Colace) fluticasone fur. 100 mcg-umeclid 1 inh PO DAILY PRN Shortness Of 12/31/23 12/31/23 Unknown History 62.5 mcg-vilant 25 mcg Breath Or Wheezing inhalat.powder (Trelegy Ellipta) polyethylene glycol 3350 17 17 g PO DAILY PRN Constipation 12/31/23 12/31/23 Unknown History gram/dose oral powder (Miralax) Exam Airway Mallampati Class: III (edentulous) TM Dist: >3cm Neck ROM: Full Loose/Missing/Broken Teeth: Yes, Upper and Lower Heart: RRR Lungs: CTA Assessment and Plan Assessment Anesthesia Assessment: Anesthesia Plan Discussed Final Anesthetic Review NPO: Yes ASA Class: III Final Preanesthetic Review: Meds/Allgs Chart Reviewed, Consent Obtained/Reviewed and Anes Risks/Benef Reviewed Patient Risk: Intermediate Procedure Risk: Low Anesthetic Plan Anesthetic Plan: MAC: Disposition: Standard PACU
--- NOTE | 2024-01-09 11:44 | MHC.SHP ---
Pre-Procedural Eval Section A - 24 Hr Update-Section A only Date of Service: 01/09/24 The patient is an INPATIENT: No Changes since office visit: No Cold of Flu in the past 2 weeks, No New Medical Problems, No Changes in Medication and No Patient answered all questions Section B - Complete if H&P > 30 days Chief Complaint: Sebaceous cyst Allergies: Allergies Allergy/AdvReac Type Severity Reaction Status Date / Time No Known Allergies Allergy Verified 12/31/23 10:06 Plan I have reviewed the history and physical and performed a pertinent physical examination on my patient. No changes have occurred unless specified. Time Spent With Patient Time: Total time managing care of this patient today ____ minutes.
[2024-01-10 06:31] VITALS: BP 113/64; PULSE 87; RESP 20; TEMP 36.4; O2SAT 96
[2024-01-10 06:37] LABS: Glucose, Whole Blood 163 mg/dL (60-115)
[2024-01-10] MEDS: Lactated Ringers 1,000 ML 100 ML IVCONT (06:45)
[2024-01-10 06:50] VITALS: BMI 51.9
[2024-01-10 08:27] VITALS: BP 131/63; PULSE 97; RESP 18; TEMP 36.5; O2SAT 100
--- NOTE | 2024-01-10 08:34 | P.OP_ITS ---
Operative Note Operative Note Date of Service: 01/10/24 Narrative: Preoperative diagnosis: [] Right scrotal symptomatic recurrent sebaceous cyst Postop diagnosis: [] The same Procedure [] wide local excision left scrotal sebaceous cyst Surgeon: [] Krishna Gre Instructor: [] Niki Type of Anesthesia: [] MAC Indication for surgery: [] Proximally 4 by 3 cm large left scrotal sebaceous cyst Findings: [] Patient was brought to the operating room, placed on operative table in supine position, and after an adequate level of MAC anesthesia was induced, patient was placed in lithotomy position and the scrotal/perineal area were prepped and draped in usual sterile fashion. Using a longitudinal bi- elliptical incision encompassing the premarked mass in the left scrotal area, this carried down through skin, subcutaneous tissue, and undermined using Bovie. Specimen dimensions were as described above. Wound was irrigated, secured hemostasis, and closed using interrupted inverted dermal 2-0 Vicryl sutures followed by Steri-Strips and sterile dressings. Wound was infiltrated 0.5% Marcaine/1% lidocaine at the beginning and at the end of the case. Sponge, needle, and instrument counts reported correct. Patient tolerated the procedure well and emerged from anesthesia stable condition. EBL minimal
[2024-01-10 08:45] VITALS: BP 132/65; PULSE 89; RESP 18; TEMP 36.5; O2SAT 97
== END 2024-01-10 09:10 | disposition home or self-care (01) ==
PROVIDERS: PCP Internal Medicine; Visit Provider Surgery
PROC: (CPT 11426; principal; 2024-01-10 07:30)
DX: L72.3 Sebaceous cyst (principal); E66.01 Morbid (severe) obesity due to excess calories; Z68.43 Body mass index [BMI] 50.0-59.9, adult; I25.10 Atherosclerotic heart disease of native coronary artery without angina pectoris; I10 Essential (primary) hypertension; E78.00 Pure hypercholesterolemia, unspecified; J44.9 Chronic obstructive pulmonary disease, unspecified; E11.9 Type 2 diabetes mellitus without complications; G62.9 Polyneuropathy, unspecified; G47.33 Obstructive sleep apnea (adult) (pediatric); R91.8 Other nonspecific abnormal finding of lung field; Z79.51 Long term (current) use of inhaled steroids; Z79.84 Long term (current) use of oral hypoglycemic drugs; Z79.85 Long-term (current) use of injectable non-insulin antidiabetic drugs; Z99.89 Dependence on other enabling machines and devices; Z87.891 Personal history of nicotine dependence
CPT/HCPCS: 11426; 82947; 88304; J0690; J2250; J2704; J2795; J3010

== ENCOUNTER → 2024-01-10 06:10 | Outpatient (BNV) | payer MEDICARE, MEDICAID, SELFPAY | PROVIDERS: PCP Internal Medicine; Visit Provider Surgery | DX: L72.3 Sebaceous cyst (principal) | CPT/HCPCS: 11423 ==

== ENCOUNTER 2024-01-28 08:40 | Outpatient (AMB) | payer MEDICARE, MEDICAID, SELFPAY ==
--- NOTE | 2024-01-28 08:50 | MHC.OFFVIS ---
Intake Visit Reasons: S/P WLE Lt scrotal cyst Allergies No Known Allergies Allergy (Verified 01/10/24 06:46) HPI Comments Details: Patient presents for follow-up. He missed/week follow-up but presents here. He has no wound issues or complaints. Otherwise doing well. Pathology is benign [facility] Medical History Sleep apnea CAD (coronary artery disease) Morbid obesity Tubular adenoma of colon (~2020) Personal history of nicotine dependence Elevated cholesterol HTN (hypertension) Low back pain Ambulates with cane Peripheral neuropathy Diabetes COPD (chronic obstructive pulmonary disease) Surgical History (Updated 01/28/24 @ 08:52 by Taye Keller MD) Hx of surgical procedure (01/10/24) History of colonoscopy History of esophagogastroduodenoscopy (EGD) Family History Mother Colon cancer Social History Household Members Other:: daughter Are you a primary rehab care assistant to a significant other at home: No Do you presently have visiting nurse or other home services: No Alcohol intake: never Patient Tobacco Use Status: Former Tobacco user Tobacco use type: Cigarette Cigarette Packs Per Day: 1 Cigarettes Per Day: 20.0 Years Smoked: (current smoker, onset 19. Max 3-4ppd x 30years, now 1ppd, 100+PYH) Physical Exam Other: Perineal wound is clean dry and intact healing uneventfully. Assessment & Plan Assessment & Plan (1) Postop check: Code(s): Z09 - Encounter for follow-up examination after completed treatment for conditions other than malignant neoplasm Category: Surgical Plan Patient has been given local instructions, and will follow-up p.r.n.. All questions answered. Coding Level of Care Code Global (63563) Diagnoses Postop check Z09
== END 2024-01-28 08:51 | disposition home or self-care (01) ==
PROVIDERS: PCP Internal Medicine; Visit Provider Surgery
DX: Z09 Encounter for follow-up examination after completed treatment for conditions other than malignant neoplasm (principal)
CPT/HCPCS: 99024

== ENCOUNTER → 2024-01-28 08:40 | Outpatient (BNVA) | payer MEDICARE, MEDICAID, SELFPAY | PROVIDERS: PCP Internal Medicine; Visit Provider Surgery | DX: Z09 Encounter for follow-up examination after completed treatment for conditions other than malignant neoplasm (principal) | CPT/HCPCS: 99212 ==

== ENCOUNTER → 2024-05-12 07:58 | Outpatient (REF) | payer MEDICARE, MEDICAID, SELFPAY | LOC: HO.CARD 07:58 | PROVIDERS: PCP Internal Medicine; Visit Provider Internal Medicine | DX: Z13.89 Encounter for screening for other disorder (principal) ==

== ENCOUNTER → 2024-06-16 07:32 | Outpatient (REF) | payer MEDICARE, MEDICAID, SELFPAY ==
--- NOTE | ~2024-06-16 | NM_ITS ---
Lexiscan Myocardial perfusion study Indication: Shortness of breath to evaluate for myocardial ischemia Technique: The patient was brought in for a Lexiscan perfusion study on 06/16/2024 and was injected 0.4 mg of Lexiscan intravenously. Within a minute of this injection 40 mCi of sestamibi was given intravenously. Images were obtained using the SPECT gamma camera interlaced with the gating device. Images were obtained in supine position. Resting perfusion study was performed on 06/23/2024. Patient was administered 40 mCi of sestamibi intravenously at rest. Images were then obtained in supine position. Images obtained without without CT attenuation. Total DLP 201 mGy-cm. Images were processed with the software and compared side to side in short axis, horizontal long axis and vertical long axis views. Findings: The stress perfusion study showed nonattenuated images show mildly reduced uptake in the basal inferior wall of the LV myocardium as well as the basal inferolateral wall of the LV myocardium. Attenuation corrected images show mildly reduced uptake in the apex of the LV myocardium.. The gated study shows normal LV systolic function with calculated LVEF of 50%. LV cavity is normal in in size. The gated study shows normal systolic wall thickening and contraction of segments. Resting study shows nonattenuated. Attenuation corrected images show minimally reduced uptake in the apex of the LV myocardium images show mildly reduced uptake in the basal inferior mid inferior wall of the LV myocardium. Gating at rest reveals normal systolic wall motion with ejection fraction at 61%. The findings are consistent with no clear reversible defect suggestive of ischemia.. NM/NM cardiolite stress test Impression: 1. Myocardial perfusion imaging study shows likely normal myocardial perfusion 2. Gated LVEF is 61% 3. Transient ischemic dilatation not present Nondiagnostic changes on EKG. Electronically signed by: Jorge Ornelas MD 06/24/2024 02:03 PM EDT
--- NOTE | 2024-06-16 09:48 | CA_ITS ---
Acquisition Time: 2024-06-16 07:50:27 Total Exercise Time: 00:02:00 Test Indications: SOB, CAD Medications: SEE H Protocol: LEXISCAN Max HR: 108 BPM 68% of Pred: 158 BPM Max BP: 128/064 mmHG Max Work Load: 1.0 METS Pharmacological stress test with Lexiscan injection, with mild SOB, no chest discomfort, without artrhythmias, with normotensive response to exercise, with nondiagnoisitic EKGs. Breathing returned to baseline. Aminophylline 75mg VIP given to reverse Lexiscan, Nuclear images pending. Test reviewed with Dr. Ornelas Referred By: Fan Jackson Overread By: Alma Rajput
== END ==
LOC: HO.CARD 07:32
PROVIDERS: PCP Internal Medicine; Visit Provider Internal Medicine
DX: Z01.810 Encounter for preprocedural cardiovascular examination (principal); R06.00 Dyspnea, unspecified; J44.9 Chronic obstructive pulmonary disease, unspecified; G47.33 Obstructive sleep apnea (adult) (pediatric)
CPT/HCPCS: 78452; 93017; A9500; J0280; J2785

== ENCOUNTER → 2024-06-16 09:48 | Outpatient (BNV) | payer MEDICARE, MEDICAID, SELFPAY | PROVIDERS: PCP Internal Medicine; Visit Provider Nurse Practitioner | DX: R06.02 Shortness of breath (principal) | CPT/HCPCS: 78452; 93016; 93018 ==

== ENCOUNTER 2024-07-08 09:03 | Outpatient (AMB) | payer MEDICARE, MEDICAID, SELFPAY ==
[2024-07-08 09:07] VITALS: BP 138/67; O2SAT 97; BMI 52.4
--- NOTE | 2024-07-08 09:07 | MHC.OFFVIS ---
Vital Signs 07/08/24 09:07 Height 5 ft 11 in Weight 376 lb BMI 52.4 BP 138/67 Blood Pressure Location Lt brachial Position Sitting Pulse Oximetry (%) 97 Oxygen Delivery Method Room Air Intake Visit Reasons: COPD Allergies No Known Allergies Allergy (Verified 01/10/24 06:46) HPI HPI COPD: Details: 63-year-old gentleman, recent (quit January 2023) 40+ pack-year smoker with underlying history of obesity, heart failure followed for severe COPD, obstructive sleep apnea on BiPAP and dyspnea on exertion.? He continues to use Trelegy, duo nebs, and albuterol MDI with reasonable baseline control of his symptoms. He denies any recent exacerbations. He has difficulties be compliant with his BiPAP. Patient had follow-up CT chest in November of 2023 that showed no worrisome pulmonary nodules. His slowly getting more dyspneic and is interested in pulmonary rehab. His most recent cardiology workup was essentially normal. [facility] Medical History Sleep apnea CAD (coronary artery disease) Morbid obesity Tubular adenoma of colon (~2019) Personal history of nicotine dependence Elevated cholesterol HTN (hypertension) Low back pain Ambulates with cane Peripheral neuropathy Diabetes COPD (chronic obstructive pulmonary disease) Surgical History (Updated 01/28/24 @ 08:52 by Taye Keller MD) Hx of surgical procedure (01/10/24) History of colonoscopy History of esophagogastroduodenoscopy (EGD) Family History Mother Colon cancer Social History Household Members Other:: daughter Are you a primary behavioral health care coordinator to a significant other at home: No Do you presently have visiting nurse or other home services: No Alcohol intake: never Patient Tobacco Use Status: Former Tobacco user Tobacco use type: Cigarette Cigarette Packs Per Day: 1 Cigarettes Per Day: 20.0 Years Smoked: (current smoker, onset 19. Max 3-4ppd x 30years, now 1ppd, 100+PYH) Review of Systems Const Denies daytime sleepiness, Denies excessive sweating, Denies fatigue, Denies fever(s), Denies lethargy, Denies malaise, Denies night sweats, Denies snoring and Denies weight loss Eyes Denies blurry vision and Denies itchy eyes ENT Denies nasal congestion, Denies post nasal drip, Denies sinus pain, Denies sinus pressure and Denies other ( Thrush) Card Denies chest pain, Denies pedal edema, Denies dyspnea, Reports dyspnea on exertion, Denies orthopnea and Denies paroxysmal nocturnal dyspnea Resp Denies cough, Denies hemoptysis, Denies excessive phlegm production, Denies dyspnea, Reports dyspnea on exertion, Denies snoring and Denies wheezing GI Denies abdominal pain and Denies heartburn Musc Denies myalgias, Denies arthralgias and Denies joint swelling Skin/Breast Denies rash Neuro Denies memory loss and Denies seizure-like activity Psych Denies abnormal sleep pattern, Denies anxiety and Denies memory loss Endo Denies excessive sweating, Denies fatigue and Denies heat intolerance Bc/Lymph Denies easy bruising Aller/Immun Denies itchy eyes, Denies seasonal rhinorrhea and Denies wheezing Physical Exam Vital Signs: Last Vital Signs BP 138/67 07/08/24 09:07 Pulse Ox 97 07/08/24 09:07 Oxygen Delivery Method Room Air 07/08/24 09:07 BMI result Body Mass Index 52.4 Const General: no acute distress and alert Nutritional Appearance: obese Orientation/consciousness: Other orientation findings ( oriented) HEENT Head: Yes atraumatic Eyes General: appearance normal, both eyes and all related structures Sclerae: sclerae normal EOM: EOMs intact bilaterally Neck Neck: Yes supple Lymphatic: no lymphadenopathy noted Resp Effort & Inspection: normal respiratory effort and no use of accessory muscles Auscultation: clear to auscultation bilaterally Cardio Rate: regular rate Rhythm: regular rhythm Heart sounds: no gallops, no murmurs and no rubs Skin General skin exam: other ( warm) Extrem General: No clubbing, No cyanosis and No edema Assessment & Plan Assessment & Plan (1) COPD (chronic obstructive pulmonary disease): Code(s): J44.9 - Chronic obstructive pulmonary disease, unspecified Category: Medical Plan: Slowly worsening control on essentially maximum inhaled bronchodilator therapy. Continue Trelegy and albuterol MDI. Will refer to Pulmonary Rehab. (2) Dyspnea on exertion: Code(s): R06.00 - Dyspnea, unspecified Category: Medical Plan: Appears to be multifactorial with contribution from underlying pulmonary, obesity/deconditioning, and possible cardiac etiologies. (3) Pulmonary nodules: Code(s): R91.8 - Other nonspecific abnormal finding of lung field Category: Medical Plan: Results of lung cancer screening CT chest from November of 2023 reviewed. Continue with yearly screening, next in November of 2024. Orders: Orders Pulmonary Rehab Today J44.9 - Chronic obstructive pulmonary disease, unspecified CT lung screening 12/06/24 Z87.891 - Personal history of nicotine dependence Coding Level of Care Code Est Pt Level 4 (25522) Complex EM visit Add On G2211 Diagnoses COPD (chronic obstructive pulmonary disease) J44.9 Dyspnea on exertion R06.00 Pulmonary nodules R91.8
== END 2024-07-08 09:26 | disposition home or self-care (01) ==
PROVIDERS: PCP Internal Medicine; Visit Provider Internal Medicine Pulmonary Disease
DX: J44.9 Chronic obstructive pulmonary disease, unspecified (principal); R06.00 Dyspnea, unspecified; R91.8 Other nonspecific abnormal finding of lung field
CPT/HCPCS: 99214; G2211

== ENCOUNTER → 2024-07-08 09:03 | Outpatient (BNVA) | payer MEDICARE, MEDICAID, SELFPAY | PROVIDERS: PCP Internal Medicine; Visit Provider Internal Medicine Pulmonary Disease | DX: J44.9 Chronic obstructive pulmonary disease, unspecified (principal); R06.00 Dyspnea, unspecified; R91.8 Other nonspecific abnormal finding of lung field | CPT/HCPCS: 99212 ==

== ENCOUNTER 2024-08-19 09:20 | Outpatient (AMB) | payer MEDICARE, MEDICAID, SELFPAY ==
--- NOTE | 2024-08-19 09:21 | A.OFFVIS_ITS ---
Intake Visit Reasons: COPD Allergies No Known Allergies Allergy (Verified 08/19/24 09:21) HPI HPI COPD: Details: 63-year-old gentleman, recent (quit January 2023) 40+ pack-year smoker with underlying history of obesity, heart failure followed for severe COPD, obstructive sleep apnea on BiPAP and dyspnea on exertion.? He continues to use Trelegy, duo nebs, and albuterol MDI with reasonable baseline control of his symptoms. He denies any recent exacerbations. He has difficulties be compliant with his BiPAP. Patient had follow-up CT chest in November of 2023 that showed no worrisome pulmonary nodules. His slowly getting more dyspneic and at the last office visit patient was referred to Pulmonary rehab, however he has not started rehab program yet, [facility] Sleep apnea CAD (coronary artery disease) Morbid obesity Tubular adenoma of colon (~2019) Personal history of nicotine dependence Elevated cholesterol HTN (hypertension) Low back pain Ambulates with cane Peripheral neuropathy Diabetes COPD (chronic obstructive pulmonary disease) Surgical History (Updated 01/28/24 @ 08:52 by Taye Keller MD) Hx of surgical procedure (01/10/24) History of colonoscopy History of esophagogastroduodenoscopy (EGD) Family History Mother Colon cancer Social History Household Members Other:: daughter Are you a primary palliative care nurse to a significant other at home: No Do you presently have visiting nurse or other home services: No Alcohol intake: never Patient Tobacco Use Status: Former Tobacco user Tobacco use type: Cigarette Cigarette Packs Per Day: 1 Cigarettes Per Day: 20.0 Years Smoked: (current smoker, onset 19. Max 3-4ppd x 30years, now 1ppd, 100+PYH) Review of Systems Const Denies daytime sleepiness, Denies excessive sweating, Denies fatigue, Denies fever(s), Denies lethargy, Denies malaise, Denies night sweats, Denies snoring and Denies weight loss Eyes Denies blurry vision and Denies itchy eyes ENT Denies nasal congestion, Denies post nasal drip, Denies sinus pain, Denies sinus pressure and Denies other ( Thrush) Card Denies chest pain, Denies pedal edema, Denies dyspnea, Reports dyspnea on exertion, Denies orthopnea and Denies paroxysmal nocturnal dyspnea Resp Denies cough, Denies hemoptysis, Denies excessive phlegm production, Denies dyspnea, Reports dyspnea on exertion, Denies snoring and Denies wheezing GI Denies abdominal pain and Denies heartburn Musc Denies myalgias, Denies arthralgias and Denies joint swelling Skin/Breast Denies rash Neuro Denies memory loss and Denies seizure-like activity Psych Denies abnormal sleep pattern, Denies anxiety and Denies memory loss Endo Denies excessive sweating, Denies fatigue and Denies heat intolerance Bc/Lymph Denies easy bruising Aller/Immun Denies itchy eyes, Denies seasonal rhinorrhea and Denies wheezing Telehealth Telehealth Telehealth Platform: Telephone Location of provider rendering services: practice address Location of patient: address on file Patient Identification confirmed using: Name, : Yes Telehealth method: voice only Patient verbally consented to treatment: Yes Patient verbally consented to billing insurance company: Yes Patient informed of any privacy concerns related to visit: Yes Assessment & Plan Assessment & Plan (1) COPD (chronic obstructive pulmonary disease): Code(s): J44.9 - Chronic obstructive pulmonary disease, unspecified Category: Medical Plan: Suboptimal control on maximum inhaled bronchodilator therapy. Patient is starting pulmonary rehab. Continue current regimen of Trelegy and albuterol MDI. (2) CLARA (obstructive sleep apnea): Comment: (CLARA on BiPAP) Code(s): G47.33 - Obstructive sleep apnea (adult) (pediatric) Category: Medical Plan: Suboptimally compliant with BiPAP therapy. Patient has been encouraged to be more compliant. (3) Pulmonary nodules: Code(s): R91.8 - Other nonspecific abnormal finding of lung field Category: Medical Plan: Stable nodules, follow-up CT scan ordered for November of 2024. Medications: Changed From aizzjuziugk-ylhqnrier-fafzfwvo 100-62.5-25 mcg (Trelegy Ellipta) 1 inh PO DAILY PRN Shortness Of Breath Or Wheezing To jjzqjwpsbew-zbjcghwdi-zidzyubs 100-62.5-25 mcg (Trelegy Ellipta) 1 inh PO DAILY 1 ea 6RF Shortness Of Breath Or Wheezing Refilled albuterol sulfate 90 mcg/actuation (Ventolin HFA) 2 puffs PO Q6H PRN 1 ea 6RF for wheezing R06.00 - Dyspnea, unspecified Coding Level of Care Code Tele Est Pt Level 4 (89210) Diagnoses COPD (chronic obstructive pulmonary disease) J44.9 CLARA (obstructive sleep apnea) G47.33 Pulmonary nodules R91.8 Time Spent (min) 20
== END 2024-08-19 10:03 | disposition home or self-care (01) ==
LOC: HO.HPS 09:20
PROVIDERS: PCP Internal Medicine; Visit Provider Internal Medicine Pulmonary Disease
DX: J44.9 Chronic obstructive pulmonary disease, unspecified (principal); G47.33 Obstructive sleep apnea (adult) (pediatric); R91.8 Other nonspecific abnormal finding of lung field
CPT/HCPCS: 99442

== ENCOUNTER 2024-12-21 08:04 | Outpatient (REF) | payer MEDICARE, MEDICAID, SELFPAY ==
--- NOTE | ~2024-12-21 | CT_ITS ---
CLINICAL HISTORY: F17.210 - Nicotine dependence, cigarettes, uncomplicated CT lung cancer screening (LDCT) Comparison: None Technique: Axial CT images of the chest using low-dose technique. Referring provider counseled the patient on shared decision-making for LDCT screening. Additional counseling was provided on smoking cessation. Effective radiation dose total: DLP 121.8 mGycm, CTDIvol 3.4 mGy. Findings: There is dilatation of the main pulmonary trunk compatible with pulmonary artery hypertension. There is relatively mild coronary artery disease. Limited upper abdomen: Unremarkable Other: None Impression: LungRADS 1: Negative exam. Continue annual screening with low dose Chest CT in 12 months. ##L1# Category 1: Normal; continue annual screening Category 2: Benign appearance or behavior, continue annual screening Category 3: Probably benign, [address] recommended Category 4A: Suspicious, [address] recommended; may consider PET/CT Category 4B: Suspicious, Additional diagnostics and/or tissue sampling recommended Category 4X: Suspicious, Additional diagnostics and/or tissue sampling recommended Category 0: Recalls (incomplete screen due to Incomplete coverage, Noise, Respiratory motion, Expiration, Obscured by acute abnormality) This document has been electronically signed by: Trenton Oglesby MD on 12/21/2024 12:21:14
== END 2024-12-21 08:05 | disposition home or self-care (01) ==
LOC: HO.CT 08:04
PROVIDERS: PCP Internal Medicine; Visit Provider Internal Medicine Pulmonary Disease
DX: Z12.2 Encounter for screening for malignant neoplasm of respiratory organs (principal); F17.210 Nicotine dependence, cigarettes, uncomplicated
CPT/HCPCS: 71271

== ENCOUNTER → 2024-12-21 08:06 | Outpatient (BNV) | payer MEDICARE, MEDICAID, SELFPAY | PROVIDERS: PCP Internal Medicine; Visit Provider Radiology Diagnostic Radiology | DX: Z87.891 Personal history of nicotine dependence (principal) | CPT/HCPCS: 71271 ==

== ENCOUNTER 2025-01-06 08:36 | Outpatient (REF) | payer MEDICARE, MEDICAID, SELFPAY ==
--- OUTSIDE RECORDS SUMMARY | 2025-01-06 08:52 | XMS_ITS | Clinical Summary ---
Author Organization [employer] Address [address] [facility] [address] [place] [address] Care Team Providers Care Slot Service Specialist Name Role Phone Brenda Yost MD Primary Care Provider [phone] Allergies No known active allergies Medications Misc. Devices (Commode) misc To use as needed Active gabapentin (Neurontin) 300 MG capsule Take 2 capsules by mouth. 3 times every day Active Heating Pads pads to use daily prn Active albuterol 108 (90 Base) MCG/ACT inhaler inhale 2 puff by inhalation route every 4 to 6 hours as needed. Active docusate sodium (Colace) 100 MG capsule Take 1 capsule by mouth at bed time. As needed Active ferrous sulfate 325 (65 Fe) MG tablet 1 tablet. By mouth 2 times every day Active furosemide (Lasix) 20 MG tablet Take 1 tablet by mouth. Every day Active mupirocin (Bactroban) 2 % ointment Apply topically. 3 times every day a small amount to the affected area Active naproxen sodium (Anaprox) 275 MG tablet Take 1 tablet by mouth every 8 (eight) hours. Active sildenafil (Viagra) 100 MG tablet Take 1 tablet by mouth. Every day as needed approximately 1 hour before sexual activity Active lisinopril (Prinivil) 20 MG tabletIndicatio ns:Primary hypertension Take 1 tablet (20 mg) by mouth in the morning. 30 tablet 11 023 Active ammonium lactate (Amlactin) 12 % cream APPLY TOPICALLY TO THE AFFECTED AREA TWICE DAILY 385 g 023 Active Blood Pressure kitIndications: Primary hypertension To use once a day 1 kit 023 Active glucose blood (FREESTYLE LITE) test stripIndication s:Type 2 diabetes mellitus with hyperglycemia, without long-term current use of insulin (CMS/HCC) USE DIRECTED TO TEST BLOOD GLUCOSE 4 TIMES DAILY 100 strip 11 Active amLODIPine (Norvasc) 10 MG tabletIndicatio ns:Primary hypertension Take 1 tablet (10 mg) by mouth Once per day. 90 tablet 3 024 2024 Active FreeStyle lancetsIndicati ons:Type 2 diabetes mellitus with hyperglycemia, without long-term current use of insulin (CMS/HCC) USE TO TEST TWICE DAILY 100 each 3 Active albuterol (2.5 MG/3ML) 0.083% nebulizer solution INHALE 1 VIAL BY NEBULIZATION ROUTE EVERY 4 HOURS NEEDED 75 mL 3 024 Active atorvastatin (Lipitor) 20 MG tablet TAKE 1 TABLET BY MOUTH EVERY DAY 90 tablet 1 024 Active furosemide (Lasix) 20 MG tablet TAKE 1 TABLET(20 MG) BY MOUTH DAILY 30 tablet 2 024 Active metFORMIN (Glucophage) 500 MG tablet TAKE 2 TABLETS(1000 MG) BY MOUTH TWICE DAILY WITH THE MORNING AND EVENING MEAL 360 tablet 1 Active semaglutide (Ozempic, 1 MG/DOSE,) 4 MG/3ML solution pen-injector INJECT 1 MG SUBCUTANEOUS ONCE WEEKLY 3 mL 11 025 Active lisinopril 40 MG tabletIndicatio ns:Primary hypertension TAKE 1 TABLET(40 MG) BY MOUTH DAILY 90 tablet 3 025 Active lisinopril 40 MG tabletIndicatio ns:Primary hypertension Take 1 tablet (40 mg) by mouth Once per day. 90 tablet 3 024 2024 Discontinued Active Problems Problem Noted Date Diagnosed Date Cutaneous abscess of right lower extremity 09/06 Assessment & Plan (10/25/2023 9:46 AM EST): Patient with recurent right thigh/inguinal abscess, currently not draining, indurated, and with mild erythema, will provide augmentin, told to apply warm pads, call back or visit er in case of expanding erythema, fever/chills, or any changes in symptoms, Assessment & Plan (09/06/2022 2:46 PM EST): Symptoms are recurrent, denied fever/chills, has area indurated/tender, no discharge, will start on doxycycline, in case of expansion of cellulitis or not improving told to visit er Gastritis 10/29/2019 Internal hemorrhoids 10/29/2019 Tubular adenoma 10/29/2019 Chronic obstructive lung disease 10/21/2019 Controlled type 2 diabetes oneal padilla, without long-term current use of insulin 09/13/2016 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 Asthma 10/31/2012 Low back pain 10/03/2012 Hyperlipidemia 09/30/2012 Hypertension 11/24/1994 Depressive disorder 09/30/1994 Morbid obesity 04/30/1975 Obstructive sleep apnea syndrome 09/30/1959 Encounters Date Type Department Care Team Description 01/06/2025 Refill [facility] [address] [place] [address] Brenda Yost MD 01/05/2025 3:15 PM EDT Telemedicine [facility] [address] [place] [address] Robin Dash MD Primary hypertension (Primary Dx); Vasculogenic erectile dysfunction, unspecified vasculogenic erectile dysfunction type; Controlled type 2 diabetes mellitus with hyperglycemia, without long-term current use of insulin (CMS/[facility]) 01/05/2025 Travel 01/05/2025 Telephone [facility] [address] [place], [place] [phone] Brenda Yost MD Nurse Triage 01/05/2025 Orders Only [facility] [address] [place] [address] Brenda Yost MD Controlled type 2 diabetes mellitus with hyperglycemia, without long-term current use of insulin (CMS/HCC) (Primary Dx) 01/05/2025 Telephone [facility] [address] [facility] [place] [address] Neelam Dickerson, Janessa 2024 Orders Only [facility] External Provider, [facility] 12/20/2024 Refill [facility] [address] [place] [address] Brenda Yost MD Primary hypertension 12/11/2024 Population Health Risk Score [facility] [address] [place] [phone] Provider, Population Health Generic 11/16/2024 Refill [facility] [address] [place] [address] Brenda Yost MD from Last 3 Months Immunizations Name Administration Dates Next Due Influenza, seasonal, injectable, preservative fr ee 10/22/2012 Pneumococcal Polysaccharide PPSV23 08/12/2015, Tdap 08/12/2015 Social History Tobacco Use Types Packs/Day Years Used Date Smoking Tobacco: Former Cigarettes Q uit: 2021 Smokeless Tobacco: Never Tobacco Cessation:Counseling Given: No Alcohol Use Standard Drinks/Week Comments Defer 0 (1 standard drink = 0.6 oz pur e alcohol) Depression Answer Date Recorded Patient Health Questionnaire-9 Score 0 01/05/2025 Patient Health Questionnaire-9 Score 0 01/05/2025 Last PHQ-9: Questionnaire Data Not on file 0 01/05/2025 Depression Answer Date Recorded Patient Health Questionnaire-2 Score 0 01/05/2025 Sex and Gender Information Value Date Recorded Sex Assigned at Male 07/30/2022 10:22 AM EDT Legal Sex Male 10:22 AM EDT Gender Identity Male 07/30/2022 10:22 AM EDT Sexual Orientation Straight 07/30/2022 10 :22 AM EDT Last Filed Vital Signs Vital Sign Reading Time Taken Comments Blood Pressure 159/84 02/21/2024 3:56 PM EDT Pulse 95 02/21/2024 3:56 PM EDT Temperature 35.9 ??C (96.6 ??F) 02/21/2024 3:56 PM ED T Respiratory Rate 19 02/21/2024 3:56 PM EDT Oxygen Saturation 96% 02/21/2024 3:56 PM EDT Inhaled Oxygen Concentration - - Weight 167 kg (368 lb) 02/21/2024 3:56 PM EDT Height 174.6 cm (5' 8.75 ) 02/21/2024 3:56 PM ED T Body Mass Index 54.74 02/21/2024 3:56 PM EDT Plan of Treatment Upcoming Encounters Date Type Department Care Team (Late st Contact Info) Description 02/03/2025 9:45 AM EDT Office Visit [facility] [address] [place] [address] Brenda Yost MD [address] [place] [address] 02/05/2025 2:00 PM EDT Office Visit [facility] [address] [place] [address] Brenda Yost MD [address] [place] [address] Health Maintenance Due Date Last Done Comments CT Colonography 1961 FIT DNA/Cologuard 1961 FIT 1961 FOBT 1960 HIV Screening 1961 SDOH Screening 1961 Sigmoidoscopy 1961 Eye Exam 12/22/1971 Alcohol/Substance Use Screening 1973 Zoster Vaccines (1 of 2) 12/22/2011 Pneumococcal Vaccine: 50+ Years (2 of 2 - PCV) 08/12/2016 08/12/2015, 10/22/2012 RSV Patients and Patients Aged 60 years or older (1 - Risk 60-74 years 1-dose series) 2021 Diabetes: Foot Exam 05/09/2024 05/09/2023 Diabetes: Urine Protein Screening 05/09/2024 05/09/2023, 02/09/2022 Lipid Panel 05/09/2024 05/09/2023, 02/09/2022 Diabetes: Hemoglobin A1C 05/23/2024 024, 05/09/2023, 06/22/2022, Additional history exists COVID-19 Vaccine ( season) 2024 03/27/2021, 02/21/2021, 01/07/2021, Additional history exists Influenza Vaccine (#1) 2024 10/22/2012 Tobacco Screening 08/06/2024 08/06/2023 Colonoscopy 12/07/2024 12/07/2021 Colorectal Cancer Screening 12/07/2024 DTaP/Tdap/Td Vaccines (2 - Td or Tdap) 08/12/2025 08/12/2015 Depression Screening 01/05/2026 01/05/2025, 01/06/20 Hepatitis C Screening Completed 05/09/2023 HIB Vaccines Aged Out No longer eligi ble based on patient's age to complete this topic HPV Vaccines Aged Out No longer eligi ble based on patient's age to complete this topic Hepatitis A Vaccines Aged Out No long er eligible based on patient's age to complete this topic Hepatitis B Vaccines Aged Out No long er eligible based on patient's age to complete this topic IPV Vaccines Aged Out No longer eligi ble based on patient's age to complete this topic Meningococcal Vaccine Aged Out No xander anival eligible based on patient's age to complete this topic RSV under 20 months Aged Out No longe r eligible based on patient's age to complete this topic Rotavirus Vaccines Aged Out No longer eligible based on patient's age to complete this topic Procedures Procedure Name Priority Date/Time Associated Diagnosis Comments LDCT LUNG SCREENING Routine 2024 1 2:21 PM EDT POCT GLYCATED HEMOGLOBIN, TOTAL Routine 02/21/2024 4:20 PM EDT Type 2 diabetes mellitus with hyperglycemia, without long-term current use of insulin ([facility]) HEPATITIS PANEL, GENERAL Routine 05/09/2023 1:37 PM EDT Screen for STD (sexually transmitted disease) LIPID PANEL, STANDARD Routine 05/09/2023 1:37 PM EDT Mixed hyperlipidemia ALBUMIN, RANDOM URINE W/CREATININE Routine 05/09/2023 1:27 PM EDT HP LINK DIABETIC FOOT EXAM Routine 05/09/2023 HM COLONOSCOPY Routine 12/07/2021 from Last 3 Months or Most Recently Relevant to Health Maintenance Results * CT Lung Screening Low dose (2024 12:21 PM EDT) Anatomical Region Laterality Modality Lung Computed Tomogra phy 2024 12:2 1 PM EDT Narrative 2024 12:22 PM EDT ? [facility] ?[address] ?[place] [address] ? CT Scan Report ? Signed ? Patient: Robert Keane ?MR#: [id number] ?? [id number] ? : 1960 ?Acct:[id number] ? Age/Sex: 64 / M ?ADM Date: 12/21/24 ? Loc: HO.CT ? Attending Dr: Preston Massey MD ? Ordering Physician: Sandy Norman PA-C ?? Date of Service: 12/21/24 ?? Procedure(s): CT lung screening ?? Accession Number(s): [id number] ? cc: Brenda Yost MD; Sandy Norman PA-C ? Report Number: ?? [id number]: Total DLP = ??132.00 mGy-cm ? CLINICAL HISTORY: F17.210 - Nicotine dependence, cigarettes, uncomplicated ? CT lung cancer screening (LDCT) ? Comparison: None ? Technique: ?? Axial CT images of the chest using low-dose technique. Referring provider ?? counseled the patient on shared decision-making for LDCT screening. ?? Additional counseling was provided on smoking cessation. ?? Effective radiation dose total: DLP 121.8 mGycm, CTDIvol 3.4 mGy. ? Findings: ?? There is dilatation of the main pulmonary trunk compatible with pulmonary ?? artery hypertension. ? There is relatively mild coronary artery disease. ?? Limited upper abdomen: Unremarkable ? Other: None ? Impression: ?? LungRADS 1: Negative exam. Continue annual screening with low dose Chest ?? CT in 12 months. ? ##L1# ? Category 1: Normal; continue annual screening ?? Category 2: Benign appearance or behavior, continue annual screening ?? Category 3: Probably benign, [address] recommended ?? Category 4A: Suspicious, [address] recommended; may consider PET/CT ?? Category 4B: Suspicious, Additional diagnostics and/or tissue sampling ?? recommended ?? Category 4X: Suspicious, Additional diagnostics and/or tissue sampling ?? recommended ?? Category 0: Recalls (incomplete screen due to Incomplete coverage, Noise, ?? Respiratory motion, Expiration, Obscured by acute abnormality) ? This document has been electronically signed by: Trenton Oglesby MD on ?? 2024 12:21:14 ? Dictated By: ?Trenton Oglesby MD ? Signed By: ?<Electronically signed by Trenton Oglesby MD in OV> ? 12/21/24 1221 ? DD/ 1221 ? TD/TT: 12/21/24 1221 ? Automotive Drivability Technician: ? Procedure Note Danielle, Janet - [address] [place] [address] [address] Scan Report Signed Patient: Robert Keane AMR#: [id number] : 2Acct:[id number] Age/Sex: 64 / MADM Date: 12/21/24 Loc: HO.CT Attending Dr: Preston Massey MD Ordering Physician: Sandy Norman PA-C Date of Service: 12/21/24 Procedure(s): CT lung screening Accession Number(s): [id number] cc: Brenda Yost MD; Sandy Norman PA-C Report Number: [id number]: Total DLP = 132.00 mGy-cm CLINICAL HISTORY: F17.210 - Nicotine dependence, cigarettes, uncomplicated CT lung cancer screening (LDCT) Comparison: None Technique: Axial CT images of the chest using low-dose technique. Referring provider counseled the patient on shared decision-making for LDCT screening. Additional counseling was provided on smoking cessation. Effective radiation dose total: DLP 121.8 mGycm, CTDIvol 3.4 mGy. Findings: There is dilatation of the main pulmonary trunk compatible with pulmonary artery hypertension. There is relatively mild coronary artery disease. Limited upper abdomen: Unremarkable Other: None Impression: LungRADS 1: Negative exam. Continue annual screening with low dose Chest CT in 12 months. ##L1# Category 1: Normal; continue annual screening Category 2: Benign appearance or behavior, continue annual screening Category 3: Probably benign, [address] recommended Category 4A: Suspicious, [address] recommended; may consider PET/CT Category 4B: Suspicious, Additional diagnostics and/or tissue sampling recommended Category 4X: Suspicious, Additional diagnostics and/or tissue sampling recommended Category 0: Recalls (incomplete screen due to Incomplete coverage, Noise, Respiratory motion, Expiration, Obscured by acute abnormality) This document has been electronically signed by: Trenton Oglesby MD on 2024 12:21:14 Dictated By: Trenton Oglesby MD Signed By: <Electronically signed by Trenton Oglesby MD in OV> 12/21/24 1221 DD/ 1221 TD/TT: 12/21/24 1221 Automotive Drivability Technician: [facility] External Provider IMG CT PROCEDURES Final Result * (ABNORMAL) POCT A1C (02/21/2024 4:20 PM EDT) Hemoglobin A1C 9.3(A) 4.0 - 6.0 % QC Media Lot # [id number] Lot# Expiration Date [id number] Blood 02/21/2024 4:20 PM EDT Brenda Yost MD POINT OF CARE TEST ENTER/ED IT ORDERABLES Final Result * Hepatitis Panel, General (05/09/2023 1:37 PM EDT) Hepatitis A IgM Nonreactive Nonreactive [facility] Comment:IgM antibodies to LOPEZ V not detected; does not exclude earlyacute or recovered HAV infection. ~Hepatitis B Surface Antibody NONREACTIVE Nonreactive [facility] Comment:Nonreactive: < 8.00 mIU/mL Hepatitis B Core Antibody Nonreactive Nonreactive [facility] Hepatitis C Antibody Nonreactive Nonreactive [facility] Comment:Antibodies to HCV no t detected; does not exclude early acuteHCV infection. Hepatitis B Surface Ag Negative Negative [facility] Blood 05/09/2023 1:37 PM EDT 05/09/2023 2:49 PM EDT us Bernda Yost MD LAB BLOOD ORDERABLES Final Result [facility] [address] [place] [phone] [phone] * Lipid Panel, Standard (05/09/2023 1:37 PM EDT) Triglycerides 141 mg/dL [facility] Comment:Desirable Triglyceri de: less than 150 mg/dLBorderline High Triglyceride 150-199 mg/dLHigh Triglyceride: 200-499 mg/dLVery High Triglyceride: greater than or equal to 5OO mg/dL Cholesterol 195 mg/dL [facility] Comment:Desirable Cholestero l: less than 200 mg/dLBorderline High Cholesterol: 200-239 mg/dLHigh Cholesterol: greater than 239 mg/dL LDL Cholesterol Calculated 138 mg/dl [facility] Comment:Desirable LDL: less than 100 mg/dLNear Optimal/Above Optimal LDL: 110- 129 mg/dLBorderline High LDL: 130-159 mg/dLHigh LDL: 160-189 mg/dLVery High LDL: greater than or equal to 190 mg/dL HDL Cholesterol 29 mg/dL [facility] Comment:Desirable HDL: great er than 40 mg/dL Note: This HDL assay may give artificially low results in patients with liver disease. Blood Venous blood specimen / Unknown 05/09/2023 1:37 PM EDT 05/09/2023 2:49 PM EDT us Brenda Yost MD LAB BLOOD ORDERABLES Final Result Performing Organization Address [facility] de Phone Number [facility] [address] [place] [address] [phone] * Albumin, Random Urine W/Creatinine (05/09/2023 1:27 PM EDT) Creatinine, Urine 171.85 mg/dL [facility] Microalbumin Urine 12.0 mg/L [facility] Microalbum Creatinine Ratio Ur 6.9 ug/mg cr [facility] Comment:Albumin/Creatinine R atio Reference Ranges: Normal: < 30 ug/mg creatinine Microalbuminuria: 30 - 300 ug/mg creatinineClinical Albuminuria: > 300 ug/mg creatinine 05/09/2023 1:27 PM EDT 05/09/2023 5:42 PM EDT us Brenda Yost MD LAB URINE ORDERABLES Final Result Performing Organization Address [facility] de Phone Number [facility] [address] [place] [phone] * (ABNORMAL) HP Diabetic Foot Exam (05/09/2023) Narrative Brenda Yost MD - 05/09/2023 Diabetic Foot Exam Inspection: Ulcers: not ??observed Calluses: not ??observed Edema: not ??observed Onychomycosis: not ??observed Tinea pedis: not ??observed Charcot foot or other deformities: not ??observed Erythema: not ??observed Monofilament Foot Exam: Right Foot : Great toe abnormal 1st MT abnormal 3rd MT abnormal 5th MT abnormal Heel abnormal . Left Foot Great toe abnormal 1st MT abnormal 3rd MT abnormal 5th MT abnormal Heel abnormal Vibration: Right foot: abnormal Left foot: abnormal Pedal Pulses: -Right dorsalis pedis : normal -Right posterior tibialis: Normal -Left dorsalis pedis: normal -Left posterior tibialis: normal us Brenda Yost MD HEALTH MAINTENANCE Final Re sult * Hm Colonoscopy (12/07/2021) Colonoscopy Performed Historical Provider HEALTH MAINTENANCE Edited Result - Final from Last 3 Months or Most Recently Relevant to Health Maintenance Insurance [address] [address] [place] [place] [phone] Care Teams Slot Service Specialist Relationship Specialty Start Date End Date Brenda Yost MD [address] [place] [phone] PCP - General Internal Medicine 10/03/12
--- OUTSIDE RECORDS SUMMARY | 2025-01-06 08:52 | XMS_ITS | Encounter Summary ---
Author Organization [employer] [facility] Address [address] [place] [address] [address], [place] [address] Care Team Providers Care Bowling Alley Refinisher Name Role Phone Brenda Yost MD Primary Care Provider [phone] Reason for Visit * Reason Comments Med Refill Encounter Details Date Type Department Care Team (Late Contact Info) Description 06/04/2024 Refill [facility] [address] [place] [address] Brenda Yost MD [address] [place] [address] Social History Tobacco Use Types Packs/Day Years Used Date Smoking Tobacco: Former Cigarettes Q uit: 2021 Smokeless Tobacco: Never Alcohol Use Standard Drinks/Week Comments Defer 0 (1 standard drink = 0.6 oz pur e alcohol) Depression Answer Date Recorded Patient Health Questionnaire-9 Score 8 05/09/2023 Depression Answer Date Recorded Patient Health Questionnaire-2 Score 2 05/09/2023 Sex and Gender Information Value Date Recorded Sex Assigned at Male 07/30/2022 10:22 AM EDT Legal Sex Male 10:22 AM EDT Gender Identity Male 07/30/2022 10:22 AM EDT Sexual Orientation Straight 07/30/2022 10 :22 AM EDT documented as of this encounter Plan of Treatment Upcoming Encounters Date Type Department Care Team (Late Contact Info) Description 02/03/2025 9:45 AM EDT Office Visit [facility] [address] [place] [address] Brenda Yost MD [address] [place], [place] [phone] 02/05/2025 2:00 PM EDT Office Visit [facility] [address] [place] [address] Brenda Yost MD [address] [place] [address] documented as of this encounter Visit Diagnoses Not on filedocumented in this encounter Additional Health Concerns Assessment Noted Time PHQ-9 Depression Total Score: 8 05/09/20 23 11:04 AM EDT documented as of this encounter Care Teams Bowling Alley Refinisher Relationship Specialty Start Date End Date Brenda Yost MD [address] [place] [address] PCP - General Internal Medicine 10/03/12 documented as of this encounter
--- OUTSIDE RECORDS SUMMARY | 2025-01-06 08:52 | XMS_ITS | Encounter Summary ---
Author Organization [employer] [facility] Address [address] [place] [address] [place], [place] [address] Care Team Providers Care Technical Project Lead Name Role Phone Brenda Yost MD Primary Care Provider +[phone] Encounter Details Date Type Department Care Team (Late st Contact Info) Description 04/03/2023 Orders Only [facility] MED & PEDS [address] [place] [address] Reina Hammonds LPN Social History Tobacco Use Types Packs/Day Years Used Date Smoking Tobacco: Never Assessed Sex and Gender Information Value Date Recorded Sex Assigned at Male 07/30/2022 10:22 AM EDT Legal Sex Male 10:22 AM EDT Gender Identity Male 07/30/2022 10:22 AM EDT Sexual Orientation Straight 07/30/2022 10 :22 AM EDT documented as of this encounter Plan of Treatment Upcoming Encounters Date Type Department Care Team (Late st Contact Info) Description 02/03/2025 9:45 AM EDT Office Visit [facility] MED & PEDS [address] [place] [address] Brenda Yost MD [address] [place] [address] 02/05/2025 2:00 PM EDT Office Visit [facility] MED & PEDS [address] [place] [address] Brenda Yost MD [address] [place] [address] documented as of this encounter Procedures Procedure Name Priority Date/Time Associated Diagnosis Comments SYPHILIS SCREEN Routine 05/09/2023 1:37 PM EDT BASIC METABOLIC PANEL, FASTING Routine 05/09/2023 1:37 PM EDT ALBUMIN, RANDOM URINE W/CREATININE Routine 05/09/2023 1:27 PM EDT documented in this encounter Results * Syphilis Screen (05/09/2023 1:37 PM EDT) Syphilis Screen Nonreactive Nonreactive [facility] 05/09/2023 1:37 PM EDT 05/09/2023 2:49 PM EDT us Brenda Yost MD LAB BLOOD ORDERABLES Final Result [facility] [address] [place] [phone] * Basic Metabolic Panel, Fasting (05/09/2023 1:37 PM EDT) Sodium 142 135 - 145 mmol/L [facility] Potassium 4.2 3.3 - 5.1 mmol/L [facility] Chloride 106 96 - 108 mmol/L [facility] Carbon Dioxide 28 22 - 29 mmol/L [facility] Anion Gap 12 12 - 20 [facility] Urea Nitrogen (BUN) 13 9 - 16 mg/dL [facility] Creatinine, Serum 1.07 0.5 - 1.4 mg/dL [facility] Estimated Glomerular Filt Rate >60 [facility] Comment:NOTE: For -Am erican individuals, multiply the result by 1.210.Chronic Kidney Disease: Estimated GFR < 60 mL/min/1.15d9Htpcmk Kidney Disease: Estimated GFR < 15 mL/min/1.73m2 Glucose Fasting 89 60 - 99 mg/dL [facility] Calcium 9.8 8.4 - 10.2 mg/dL [facility] 05/09/2023 1:37 PM EDT 05/09/2023 2:49 PM EDT us Brenda Yost MD LAB BLOOD ORDERABLES Final Result Performing Organization Address [facility] de Phone Number [facility] [address] [place] [phone] * Albumin, Random Urine W/Creatinine (05/09/2023 1:27 PM EDT) Creatinine, Urine 171.85 mg/dL [facility] Microalbumin Urine 12.0 mg/L [facility] Microalbum Creatinine Ratio Ur 6.9 ug/mg cr [facility] Comment:Albumin/Creatinine R atio Reference Ranges: Normal: < 30 ug/mg creatinine Microalbuminuria: 30 - 300 ug/mg creatinineClinical Albuminuria: > 300 ug/mg creatinine 05/09/2023 1:27 PM EDT 05/09/2023 5:42 PM EDT us Brenda Yost MD LAB URINE ORDERABLES Final Result Performing Organization Address [facility] de Phone Number [facility] [address] [place] [phone] documented in this encounter Visit Diagnoses Not on filedocumented in this encounter Care Teams Technical Project Lead Relationship Specialty Start Date End Date Brenda Yost MD [address] [place] [phone] PCP - General Internal Medicine 10/03/12 documented as of this encounter
--- OUTSIDE RECORDS SUMMARY | 2025-01-06 08:52 | XMS_ITS | Encounter Summary ---
Author Organization [employer] Address [address] [place] [address] 7 [place] [address] Care Team Providers Care Measurement Department Chief Clerk Name Role Phone Brenda Yost MD Primary Care Provider [phone] Encounter Details Date Type Department Care Team (Late Contact Info) Description 05/27/2023 Orders Only [facility] MED & PEDS [address] [place] [address] Brenda Yost MD [address] [place] [address] Controlled type 2 diabetes mellitus with hyperglycemia, without long-term current use of insulin ([facility]) (Primary Dx) Social History Tobacco Use Types Packs/Day Years [...] Description 02/03/2025 9:45 AM EDT Office Visit [facility] MED & PEDS [address] [place] [address] Brenda Yost MD [address] [place] [address] 02/05/2025 2:00 PM EDT Office Visit [facility] MED & PEDS [address] [place] [address] Brenda Yost MD [address] [place] [address] documented as of this encounter Visit Diagnoses Diagnosis Controlled type 2 diabetes mellitus with hyperglycemia, without long-term current use of insulin ([facility])- Primary documented in this encounter Additional Health Concerns Assessment Noted Time PHQ-9 Depression Total Score: 8 05/09/20 23 11:04 AM EDT documented as of this encounter Care Teams Measurement Department Chief Clerk Relationship Specialty Start Date End Date Brenda Yost MD [address] [place] [address] PCP - General Internal Medicine 10/03/12 documented as of this encounter
--- OUTSIDE RECORDS SUMMARY | 2025-01-06 08:52 | XMS_ITS | Encounter Summary ---
Author Organization [employer] Address [address] [place] [address] 7 [place] [address] Care Team Providers Care Computer Field Technician Name Role Phone Brenda Yost MD Primary Care Provider [phone] Encounter Details Date Type Department Care Team (Late Contact Info) Description 02/25/2024 Orders Only [facility] CHC MED & PEDS [address] [place] [address] Brenda Yost MD [address] [place] [address] Controlled type 2 diabetes mellitus with hyperglycemia, without long-term current use of insulin ([facility]) (Primary Dx) Social History Tobacco Use Types [...] 9:45 AM EDT Office Visit [facility] MED & PEDS [address] [place] [address] Brenda Yost MD [address] [place] [address] 02/05/2025 2:00 PM EDT Office Visit [facility] MED & PEDS [address] [place] [address] Brenda Yost MD [address] [place] [address] documented as of this encounter Visit Diagnoses Diagnosis Controlled type 2 diabetes mellitus with hyperglycemia, without long-term current use of insulin ([facility])- Primary documented in this encounter Additional Health Concerns Assessment Noted Time PHQ-9 Depression Total Score: 8 05/09/20 23 11:04 AM EDT documented as of this encounter Care Teams Computer Field Technician Relationship Specialty Start Date End Date Brenda Yost MD [address] [place] [address] PCP - General Internal Medicine 10/03/12 documented as of this encounter
--- OUTSIDE RECORDS SUMMARY | 2025-01-06 08:52 | XMS_ITS | Encounter Summary ---
Author Organization [employer] Address [address] [place] [address] 7 [place] [address] Care Team Providers Care Environment Coordinator Name Role Phone Brenda Yost MD Primary Care Provider [phone] Encounter Details Date Type Department Care Team ([facility] Contact Info) Description 05/10/2023 Orders Only [facility] MED & PEDS [address] [place], [place] [phone] Brenda Yost MD [address] [place], [place] [phone] Screen for STD (sexually transmitted disease) (Primary Dx) Social History Tobacco Use Types [...] Upcoming Encounters Date Type Department Care Team ([facility] Contact Info) Description 02/03/2025 9:45 AM EDT Office Visit [facility] MED & PEDS [address] [place], [place] [phone] Brenda Yost MD [address] [place] [address] 02/05/2025 2:00 PM EDT Office Visit [facility] CHC MED & PEDS [address] [place] [address] Brenda Yost MD [address] [place] [address] Scheduled Orders Name Type Priority Associated Diagnoses Orde r Schedule Urinalysis Complete Lab Routine Screen for STD (sexually transmitted disease) Expected: 05/10/2023 (Approximate), Expires: 05/10/2024 documented as of this encounter Visit Diagnoses Diagnosis Screen for STD (sexually transmitted disease)- Primary Screening examination for venereal disease documented in this encounter Additional Health Concerns Assessment Noted Time PHQ-9 Depression Total Score: 8 05/09/20 23 11:04 AM EDT documented as of this encounter Care Teams Environment Coordinator Relationship Specialty Start Date End Date Brenda Yost MD [address] [place] [address] PCP - General Internal Medicine 10/03/12 documented as of this encounter
--- OUTSIDE RECORDS SUMMARY | 2025-01-06 08:53 | XMS_ITS | Encounter Summary ---
Author Organization [employer] Address [address] [facility] 7 [place] [address] Care Team Providers Care Scientist Name Role Phone Brenda Yost MD Primary Care Provider [phone] Reason for Visit * Reason Onset Date Comments Nurse Triage 01/05/2025 Encounter Details Date Type Department Care Team (Late st Contact Info) Description 01/05/2025 Telephone [facility] MEDICINE [address] [place] [address] Brenda Yost MD [address] [place] [address] Nurse Triage Social History Tobacco Use Types Packs/Day Years [...] AM EDT documented as of this encounter Miscellaneous Notes * Telephone Encounter - Berta Jolley LPN - 01/05/2025 2:16 PM EDT Triage call returned to patient who denies constipation. Has concerns for night time urinary frequency. No burning no pain with urination. No back pain. No blood or pus in urine. Patient with concerns of prostate issues and pancreas as he looked online.. Reports BG is 90-126 most days. Is not taking furosemide as previously ordered as it makes him void even more. Patient also with complaints of having poor erections. Has upcoming physical for 02/05/25 with PCP. Has previous appt scheduled a follow up for 02/03/25 Declines office visit with other providers will only speak with PCP or Dr. Novak. TSK/ today at 315 pm to discuss concerns. Team tasked to follow with appts scheduled in January with PCP. No changes made at time of call. Please review. Patient aware to wait until he hears from [facility] and appts are verified. Protocol Used: Urinary Symptoms (Adult) Protocol-Based Disposition: See in Office or Video Visit within 2 Weeks Positive Triage Question: * Has to get out of bed to urinate > 2 times a night (i.e., nocturia) * All higher-acuity triage questions were negative Care Advice Discussed: * Reasons To Call Back - Fever occurs - Pain or burning with urination - Unable to urinate and bladder feels full - You become worse * Telephone Encounter - Meera Ramey - 01/05/2025 1:44 PM EDT Symptom: Constipation Outcome: Schedule an appointment to be seen within 24 hours Reason: Caller denied all higher acuity questions The caller accepted this outcome. [phone] documented in this encounter Plan of Treatment Upcoming Encounters Date Type Department Care Team ([facility] st Contact Info) Description 02/03/2025 9:45 AM EDT Office Visit [facility] MED & PEDS [address] [place] [address] Brenda Yost MD [address] [place], [place] [phone] 02/05/2025 2:00 PM EDT Office Visit [facility] CHC MED & PEDS [address] [place] [address] Brenda Yost MD [address] [place] [address] documented as of this encounter Visit Diagnoses Not on filedocumented in this encounter Additional Health Concerns Assessment Noted Time PHQ-9 Depression Total Score: 0 01/06/20 25 2:25 PM EDT documented as of this encounter Care Teams Scientist Relationship Specialty Start Date End Date Brenda Yost MD [address] [place] [address] PCP - General Internal Medicine 10/03/12 documented as of this encounter
--- OUTSIDE RECORDS SUMMARY | 2025-01-06 08:53 | XMS_ITS | Encounter Summary ---
Author Organization [employer] [facility] Address [address] [place] [address] [address], [place] [address] Care Team Providers Care Lumber Trimmer Name Role Phone Brenda Yost MD Primary Care Provider [phone] Reason for Visit * Reason Comments Med Refill Encounter Details Date Type Department Care Team (Late Contact Info) Description 07/12/2024 Refill [facility] MED & PEDS [address] [place] [address] Brenda Yost MD [address] [place] [address] Social History Tobacco Use Types Packs/Day Years [...] Upcoming Encounters Date Type Department Care Team ([facility] Contact Info) Description 02/03/2025 9:45 AM EDT Office Visit [facility] CHC MED & PEDS [address] [place] [address] Brenda Yost MD [address] [place], [place] [phone] 02/05/2025 2:00 PM EDT Office Visit [facility] CHC MED & PEDS [address] [place] [address] Brenda Yost MD [address] [place] [address] documented as of this encounter Visit Diagnoses Not on filedocumented in this encounter Additional Health Concerns Assessment Noted Time PHQ-9 Depression Total Score: 8 05/09/20 23 11:04 AM EDT documented as of this encounter Care Teams Lumber Trimmer Relationship Specialty Start Date End Date Brenda Yost MD [address] [place] [address] PCP - General Internal Medicine 10/03/12 documented as of this encounter
--- OUTSIDE RECORDS SUMMARY | 2025-01-06 08:53 | XMS_ITS | Encounter Summary ---
Author Organization [employer] Address [address] [facility] [address] [address] Care Team Providers Care Environmental Economist Name Role Phone Brenda Ysot MD Primary Care Provider [phone] Encounter Details Date Type Department Care Team (Late Contact Info) Description 07/25/[address] [facility] MEDICINE [address] [place] [address] Brenda Yost MD [address] [place], [place] [phone] Social History Tobacco Use Types Packs/Day Years [...] Description 02/03/2025 9:45 AM EDT Office Visit [facility] CHC MED & PEDS [address] [place], [place] [phone] Brenda Yost MD [address] [place], [place] [phone] 02/05/2025 2:00 PM EDT Office Visit [facility] MED & PEDS [address] [place] [address] Brenda Yost MD [address] [place] [address] documented as of this encounter Visit Diagnoses Not on filedocumented in this encounter Additional Health Concerns Assessment Noted Time PHQ-9 Depression Total Score: 8 05/09/20 23 11:04 AM EDT documented as of this encounter Care Teams Environmental Economist Relationship Specialty Start Date End Date Brenda Yost MD [address] [place] [address] PCP - General Internal Medicine 10/03/12 documented as of this encounter
--- OUTSIDE RECORDS SUMMARY | 2025-01-06 08:53 | XMS_ITS | Encounter Summary ---
Author Organization [employer] [facility] Address [address] [place] [address] 7[place] [address] Care Team Providers Care Academic Affairs Dean Name Role Phone Brenda Yost MD Primary Care Provider [phone] Reason for Visit * Reason Comments Med Refill Encounter Details Date Type Department Care Team ([facility] Contact Info) Description 11/30/2022 Refill [facility] CHC MED & PEDS [address] [place] [address] Brenda Yost MD [address] [place] [address] Primary hypertension (Primary Dx) Social History Tobacco Use Types [...] Upcoming Encounters Date Type Department Care Team ([facility] Contact Info) Description 02/03/2025 9:45 AM EDT Office Visit [facility] CHC MED & PEDS [address] [place] [address] Brenda Yost MD [address] [place] [address] 02/05/2025 2:00 PM EDT Office Visit [facility] CHC MED & PEDS [address] [place] [address] Brenda Yost MD [address] [place] [address] documented as of this encounter Visit Diagnoses Diagnosis Primary hypertension- Primary Unspecified essential hypertension documented in this encounter Care Teams Academic Affairs Dean Relationship Specialty Start Date End Date Brenda Yost MD [address] [place] [address] PCP - General Internal Medicine 10/03/12 documented as of this encounter
--- OUTSIDE RECORDS SUMMARY | 2025-01-06 08:53 | XMS_ITS | Encounter Summary ---
Author Organization [facility] Address [address] [place] [address] [address] [address] Care Team Providers Care Retort Load Expediter Name Role Phone Brenda Yost MD Primary Care Provider [phone] Reason for Visit * Reason Comments Med Refill Encounter Details Date Type Department Care Team (Late Contact Info) Description 05/18/2024 Refill [facility] MED & PEDS [address] [place] [address] Brenda Yost MD [address] [place] [address] Social History Tobacco Use Types Packs/Day Years [...] Upcoming Encounters Date Type Department Care Team ([facility] Contact Info) Description 02/03/2025 9:45 AM EDT Office Visit [facility] CHC MED & PEDS [address] [place] [address] Brenda Yost MD [address] [place], [place] [phone] 02/05/2025 2:00 PM EDT Office Visit [facility] CHC MED & PEDS [address] [place] [address] Brenda Yost MD [address] [place] [address] documented as of this encounter Visit Diagnoses Not on filedocumented in this encounter Additional Health Concerns Assessment Noted Time PHQ-9 Depression Total Score: 8 05/09/20 23 11:04 AM EDT documented as of this encounter Care Teams Retort Load Expediter Relationship Specialty Start Date End Date Brenda Yost MD [address] [place] [address] PCP - General Internal Medicine 10/03/12 documented as of this encounter
--- OUTSIDE RECORDS SUMMARY | 2025-01-06 08:53 | XMS_ITS | Encounter Summary ---
Author Organization [employer] [facility] Address [address] [employer] [address] 7 [place] [address] Care Team Providers Care Voice Studies Director Name Role Phone Brenda Yost MD Primary Care Provider [phone] Reason for Visit * Reason Comments Med Refill Encounter Details Date Type Department Care Team (Late Contact Info) Description 01/06/2025 Refill [facility] CHC MED & PEDS [address] [place] [address] Brenda Yost MD [address] [place] [address] Social History Tobacco Use Types Packs/Day Years [...] Description 02/03/2025 9:45 AM EDT Office Visit [facility] CHC MED & PEDS [address] [place] [address] Brenda Yost MD [address] [place] [address] 02/05/2025 2:00 PM EDT Office Visit [facility] MED & PEDS [address] [place] [address] Brenda Yost MD [address] [place] [address] documented as of this encounter Visit Diagnoses Not on filedocumented in this encounter Additional Health Concerns Assessment Noted Time PHQ-9 Depression Total Score: 0 01/06/20 25 2:25 PM EDT documented as of this encounter Care Teams Voice Studies Director Relationship Specialty Start Date End Date Brenda Yost MD [address] [place] [address] PCP - General Internal Medicine 10/03/12 documented as of this encounter
--- OUTSIDE RECORDS SUMMARY | 2025-01-06 08:53 | XMS_ITS | Encounter Summary ---
Author Organization [employer] Address [address] [facility] 7t [place] [address] Care Team Providers Care Equipment Superintendent Name Role Phone Brenda Yost MD Primary Care Provider [phone] Encounter Details Date Type Department Care Team (Late st Contact Info) Description 01/05/2025 Telephone [facility] MED & PEDS [address] [place] [address] Neelam Dickerson PharmD [address] [place] [address] Social History Tobacco Use Types Packs/Day Years [...] encounter Miscellaneous Notes * Telephone Encounter - Neelam Dickerson PharmD - 01/05/2025 9:53 AM EDT Danitza, this patient had an A1c > 9% almost 1 year ago and would likely benefit from the pharmacyCDTM program. Please send a referral for CDTM - Diabetes. Thank you! documented in this encounter Plan of Treatment Upcoming Encounters Date Type Department Care Team (Late st Contact Info) Description 02/03/2025 9:45 AM EDT Office Visit [facility] MED & PEDS [address] [place] [address] Brenda Yost MD [address] [place] [address] 02/05/2025 2:00 PM EDT Office Visit [facility] MED & PEDS [address] [place] [address] Brenda Yost MD [address] [place] [address] documented as of this encounter Visit Diagnoses Not on filedocumented in this encounter Additional Health Concerns Assessment Noted Time PHQ-9 Depression Total Score: 0 01/06/20 25 2:25 PM EDT documented as of this encounter Care Teams Equipment Superintendent Relationship Specialty Start Date End Date Brenda Yost MD [address] [place] [address] PCP - General Internal Medicine 10/03/12 documented as of this encounter
--- OUTSIDE RECORDS SUMMARY | 2025-01-06 08:53 | XMS_ITS | Clinical Summary ---
Author Organization [facility] Address [address] [place] [address] Care Team Providers Care Warranty Administrator Name Role Phone Unavailable Primary Care Provider Unavailabl e Social History Tobacco Use Types Packs/Day Years Used Date Smoking Tobacco: Never Assessed Sex and Gender Information Value Date Recorded Sex Assigned at Not on file Legal Sex Male 8:34 PM EST Gender Identity Not on file Sexual Orientation Not on file Plan of Treatment Health Maintenance Due Date Last Done Comments DTaP,Tdap,and Td Vaccines (1 - Tdap) 1980 Pneumococcal Vaccine: 50+ Ye ars (1 of 1 - PCV) 12/22/2011 Zoster Vaccines (1 of 2) 12/22/2011 COVID-19 Vaccine ( - 2023-2 5 season) 2024 Influenza Vaccine (Season Ended) 2025 RSV Immunization Adult Patie nts (1 - 1-dose 75+ series) 2036 HIB Vaccines Aged Out No longer eligi [...] on patient's age to complete this topic MMR Vaccines Aged Out No longer eligi ble based on patient's age to complete this topic Meningococcal ACWY Vaccine Aged Out N o longer eligible based on patient's age to complete this topic Meningococcal B Vaccine Aged Out No l onger eligible based on patient's age to complete this topic Pneumococcal Vaccine: Pediat rics (0 to 5 Years) and At-Risk Patients (6 to 64 Years) Aged Out No longer eligible b ased on patient's age to complete this topic RSV Immunization Patients Un amilcar 20 months Aged Out No longer eligible b ased on patient's age to complete this topic Varicella Vaccines Aged Out No longer eligible based on patient's age to complete this topic
--- OUTSIDE RECORDS SUMMARY | 2025-01-06 08:53 | XMS_ITS | Encounter Summary ---
Author Organization [employer] Address [address] [facility] 7t [place] [address] Care Team Providers Care Shot Polisher Name Role Phone Brenda Yost MD Primary Care Provider [phone] Encounter Details Date Type Department Care Team (Latest Contact Info) Description 01/05/2025 Travel Social History Tobacco Use Types Packs/Day Years [...] 9:45 AM EDT Office Visit [facility] MED & PEDS [address] [place] [address] Brenda Yost MD [address] [place] [address] 02/05/2025 2:00 PM EDT Office Visit [facility] MED & PEDS [address] [place] [address] Brenda Yost MD [address] [place] [address] documented as of this encounter Visit Diagnoses Not on filedocumented in this encounter Additional Health Concerns Assessment Noted Time PHQ-9 Depression Total Score: 0 01/06/20 25 2:25 PM EDT documented as of this encounter Care Teams Shot Polisher Relationship Specialty Start Date End Date Brenda Yost MD [address] [place] [address] PCP - General Internal Medicine 10/03/12 documented as of this encounter
--- OUTSIDE RECORDS SUMMARY | 2025-01-06 08:53 | XMS_ITS | Encounter Summary ---
Author Organization [employer] [facility] Address [address] [place] [id number] Care Team Providers Care Computer Game Programmer Name Role Phone Brenda Yost MD Primary Care Provider [phone] Reason for Referral * Consultation (Routine) - Authorized Specialty Diagnoses / Procedures Referred By Contac t Referred To Contact Pharmacy Diagnoses Controlled type 2 diabetes mellitus with hyperglycemia, without long-term current use of insulin (CMS/HCC) Brenda Yost MD [address] [place] [address] Phone: tel: fax: Referral ID Status Reason Start Date Expiration Date Visits Requested Visits Authorized [id number] Authorized Consult and Treat 01/05/2025 01/05/2026 6 6 Encounter Details Date Type Department Care Team ([facility] st Contact Info) Description 01/05/2025 Orders Only [facility] MED [facility] PEDS [address] [place] [address] Brenda Yost MD [address] [place] [address] Controlled type 2 diabetes mellitus with hyperglycemia, without long-term current use of insulin (CMS/HCC) (Primary Dx) Social History Tobacco Use Types [...] Description 02/03/2025 9:45 AM EDT Office Visit [facility] MED & PEDS [address] [place] [address] Brenda Yost MD [address] [place] [address] 02/05/2025 2:00 PM EDT Office Visit [facility] MED & PEDS [address] [place] [address] Brenda Yost MD [address] [place] [address] Scheduled Referrals Name Type Priority Associated Diagnoses Orde r Schedule Referral to Pharmacy CDTM Outpatient Referral Routine Controlled type 2 diabetes mellitus with hyperglycemia, without long-term current use of insulin (CMS/[facility]) Ordered: 01/05/2025 documented as of this encounter Visit Diagnoses Diagnosis Controlled type 2 diabetes mellitus with hyperglycemia, without long-term current use of insulin (CMS/[facility])- Primary documented in this encounter Additional Health Concerns Assessment Noted Time PHQ-9 Depression Total Score: 0 01/06/20 25 2:25 PM EDT documented as of this encounter Care Teams Computer Game Programmer Relationship Specialty Start Date End Date Brenda Yost MD [address] [place] [address] PCP - General Internal Medicine 10/03/12 documented as of this encounter
--- OUTSIDE RECORDS SUMMARY | 2025-01-06 08:53 | XMS_ITS | Encounter Summary ---
Author Organization [employer] Address [address] [facility] 7 [place] [address] Care Team Providers Care Roll Filler Name Role Phone Brenda Yost MD Primary Care Provider [phone] Encounter Details Date Type Department Care Team (Late Contact Info) Description 01/05/2025 3:15 PM EDT Telemedicine [facility] MED & PEDS [address] [place] [address] Robin Dash MD [address] [place] [address] Primary hypertension (Primary Dx); Vasculogenic erectile dysfunction, unspecified vasculogenic erectile dysfunction type; Controlled type 2 diabetes mellitus with hyperglycemia, without long-term current use of insulin ([facility]) Social History Tobacco Use Types Packs/Day Years [...] 9:45 AM EDT Office Visit [facility] MED & PEDS [address] [facility] [place] [address] Brenda Yost MD [address] [place] [address] 02/05/2025 2:00 PM EDT Office Visit [facility] MED & PEDS [address] [place] [address] Brenda Yost MD [address] [place] [address] Scheduled Orders Name Type Priority Associated Diagnoses Orde r Schedule Hemoglobin A1c Lab Routine Controlled type 2 diabetes mellitus with hyperglycemia, without long-term current use of insulin ([facility]) Expected: 01/05/2025 (Approximate), Expires: 01/05/2026 PSA, Total With Reflex to PSA, Free Lab Routine Vasculogenic erectile dysfunction, unspecified vasculogenic erectile dysfunction type Expected: 01/05/2025 (Approximate), Expires: 01/05/2026 Testosterone, Free (Dialysis) And Total, MS Lab Routine Vasculogenic erectile dysfunction, unspecified vasculogenic erectile dysfunction type Expected: 01/05/2025 (Approximate), Expires: 01/05/2026 documented as of this encounter Visit Diagnoses Diagnosis Primary hypertension- Primary Unspecified essential hypertension Vasculogenic erectile dysfunction, unspecified vasculogenic erectile dysfunction type Controlled type 2 diabetes mellitus with hyperglycemia, without long-term current use of insulin (CMS/[facility]) documented in this encounter Additional Health Concerns Assessment Noted Time PHQ-9 Depression Total Score: 0 01/06/20 25 2:25 PM EDT documented as of this encounter Care Teams Roll Filler Relationship Specialty Start Date End Date Brenda Yost MD [address] [place] [address] [place] [address] PCP - General Internal Medicine 10/03/12 documented as of this encounter
--- OUTSIDE RECORDS SUMMARY | 2025-01-06 08:53 | XMS_ITS | Encounter Summary ---
Author Organization [employer] Address [address] [place] [address] [facility] [place] [address] Care Team Providers Care Grinder Lap Name Role Phone Brenda Yost MD Primary Care Provider [phone]- [phone] Reason for Visit * Reason Comments Med Refill Encounter Details Date Type Department Care Team (Late Contact Info) Description 08/07/2024 Refill [facility] MED & PEDS [address] [place] [address] Brenda Yost MD [address] [place] [address] Controlled type 2 diabetes mellitus with hyperglycemia, without long-term current use of insulin ([facility]) Social History Tobacco Use Types Packs/Day [...] Description 02/03/2025 9:45 AM EDT Office Visit [facility] MED & PEDS [address] [place] [address] Brenda Yost MD [address] [place] [address] 02/05/2025 2:00 PM EDT Office Visit [facility] MED & PEDS [address] [place] [address] Brenda Yost MD [address] [place] [address] documented as of this encounter Visit Diagnoses Diagnosis Controlled type 2 diabetes mellitus with hyperglycemia, without long-term current use of insulin ([facility]) documented in this encounter Additional Health Concerns Assessment Noted Time PHQ-9 Depression Total Score: 8 05/09/20 23 11:04 AM EDT documented as of this encounter Care Teams Grinder Lap Relationship Specialty Start Date End Date Brenda Yost MD [address] [place] [address] PCP - General Internal Medicine 10/03/12 documented as of this encounter
--- OUTSIDE RECORDS SUMMARY | 2025-01-06 08:53 | XMS_ITS | Encounter Summary ---
Author Organization [employer] Address [address] [facility] 7 [place] [address] Care Team Providers Care Manager Sustainability Name Role Phone Brenda Yost MD Primary Care Provider [phone] Reason for Visit * Reason Onset Date Comments Call Back Request 02/25/2024 Encounter Details Date Type Department Care Team ([facility] st Contact Info) Description 02/25/2024 Telephone [facility] [address] [place] [address] Brenda Yost MD [address] [place] [address] Call Back Request Social History Tobacco Use Types Packs/Day Years [...] encounter Miscellaneous Notes * Telephone Encounter - Wing Wade RN - 02/25/2024 2:44 PM EDT Tc to pt who states that ozempic dose should have been increased as discussed in last visit with PCP and restarting lasix. Call pt's pharmacy to make sure and discussed with PCP who increased dosage of ozempic. Called pt and pharmacy to confirm increase dosage. Pt verbalized understanding and agreement with plan. Sending this note to PCP in regards to whether lasix will be prescribed. * Telephone Encounter - Soha Vallejo - 02/25/2024 9:03 AM EDT Tc from pt requesting a call back in regards medications. Pt stated is confuse with doses prescriber sent on Saturday. documented in this encounter Plan of Treatment Upcoming Encounters Date Type Department Care Team (Late st Contact Info) Description 02/03/2025 9:45 AM EDT Office Visit [facility] MED & PEDS [address] [place] [address] Brenda Yost MD [address] [place] [address] 02/05/2025 2:00 PM EDT Office Visit [facility] MED & PEDS [address] [place] [address] Brenda Yost MD [address] [place] [address] documented as of this encounter Visit Diagnoses Not on filedocumented in this encounter Additional Health Concerns Assessment Noted Time PHQ-9 Depression Total Score: 8 05/09/20 23 11:04 AM EDT documented as of this encounter Care Teams Manager Sustainability Relationship Specialty Start Date End Date Brenda Yost MD [address] [place] [address] PCP - General Internal Medicine 10/03/12 documented as of this encounter
[2025-01-06 15:08] LABS: Estimated Average Glucose 278 mg/dL; Hemoglobin A1C 330.5361 umol/L; Hemoglobin A1c % 11.3 % (<6.0); Total Hemoglobin (HGBA1C) 3295.2798 umol/L
[2025-01-06 15:29] LABS: PSA,Total (Free>4and<10) 0.23 ng/mL (0.00-4.00)
[2025-01-14 11:39] LABS: Testosterone, Free 13.5 pg/mL (35.0-155.0); Testosterone, Total 74 ng/dL (250-1100)
== END 2025-01-06 08:37 | disposition home or self-care (01) ==
LOC: HO.CHCLDS 08:36
PROVIDERS: Visit Provider Internal Medicine
DX: E11.65 Type 2 diabetes mellitus with hyperglycemia (principal); Z12.5 Encounter for screening for malignant neoplasm of prostate; N52.9 Male erectile dysfunction, unspecified
CPT/HCPCS: 36415; 83036; 84153; 84402; 84403

== ENCOUNTER 2025-01-22 08:10 | Outpatient (REF) | payer MEDICARE, MEDICAID, SELFPAY ==
--- OUTSIDE RECORDS SUMMARY | 2025-01-22 08:12 | XMS_ITS | Encounter Summary ---
Author Organization [employer] Address [address] [facility] [place], [place] [address] Care Team Providers Care Hog Sticker Name Role Phone Brenda Yost MD Primary Care Provider [phone]- [phone] Encounter Details Date Type Department Care Team (Late Contact Info) Description 07/25/2023 Telephone [facility] [address] [place] [address] Brenda Yost MD [address] [place], [place] [id number] Social History Tobacco Use Types Packs/Day Years [...] Department Care Team (Late Contact Info) Description 02/05/2025 2:00 PM EDT Office Visit [facility] MED & PEDS [address] [place], [place] [phone] Brenda Yost MD [address] [place], [place] [phone] documented as of this encounter Visit Diagnoses Not on filedocumented in this encounter Additional Health Concerns Assessment Noted Time PHQ-9 Depression Total Score: 8 05/09/20 23 11:04 AM EDT documented as of this encounter Care Teams Hog Sticker Relationship Specialty Start Date End Date Brenda Yost MD [address] [place] [address] PCP - General Internal Medicine 10/03/12 documented as of this encounter
--- OUTSIDE RECORDS SUMMARY | 2025-01-22 08:12 | XMS_ITS | Encounter Summary ---
Author Organization [employer] [facility] Address [address] [place] [address] Care Team Providers Care Rougher Machine Operator Name Role Phone Brenda Yost MD Primary Care Provider [phone] Reason for Referral * Consultation (Routine) - Authorized Specialty Diagnoses / Procedures Referred By Contac t Referred To Contact Pharmacy Diagnoses Controlled type 2 diabetes mellitus with hyperglycemia, without long-term current use of insulin (CMS/HCC) Brenda Yost MD [address] [place] [address] Phone: tel: fax: Referral ID Status Reason Start Date Expiration Date Visits Requested Visits Authorized [id number] Authorized Consult and Treat 01/05/2025 01/05/2026 6 6 Encounter Details Date Type Department Care Team ([facility] st Contact Info) Description 01/05/2025 Orders Only [facility] MED & PEDS [address] [place] [address] Brenda Yost MD [address] [place] [address] Controlled type 2 diabetes mellitus with hyperglycemia, [...] Care Team (Late st Contact Info) Description 02/05/2025 2:00 PM EDT Office Visit [facility] MED & PEDS [address] [place] [address] Brenda Yost MD [address] [place] [address] Scheduled Referrals Name Type Priority Associated Diagnoses Orde r Schedule Referral to Pharmacy CDTM Outpatient Referral Routine Controlled type 2 diabetes mellitus with hyperglycemia, without long-term current use of insulin (CMS/[facility]) Ordered: 01/05/2025 documented as of this encounter Visit Diagnoses Diagnosis Controlled type 2 diabetes mellitus with hyperglycemia, without long-term current use of insulin (CMS/[facility])- Primary documented in this encounter Additional Health Concerns Assessment Noted Time PHQ-9 Depression Total Score: 0 01/06/20 25 2:25 PM EDT documented as of this encounter Care Teams Rougher Machine Operator Relationship Specialty Start Date End Date Brenda Yost MD [address] [place] [address] PCP - General Internal Medicine 10/03/12 documented as of this encounter
--- OUTSIDE RECORDS SUMMARY | 2025-01-22 08:12 | XMS_ITS | Clinical Summary ---
Author Organization [employer] Address [address] [facility] 7t [place] [address] Care Team Providers Care Plant Technician/Control Room Operator Name Role Phone Brenda Yost MD Primary Care Provider [phone] Allergies No known active allergies Medications Misc. [...] hyperglycemia, without long-term current use of insulin (CMS/[facility]) USE DIRECTED TO TEST BLOOD GLUCOSE 4 TIMES DAILY 100 strip 11 024 Active amLODIPine (Norvasc) 10 MG tabletIndicatio ns:Primary hypertension Take 1 tablet (10 mg) by mouth Once per day. 90 tablet 3 024 2024 Active FreeStyle lancetsIndicati ons:Type 2 diabetes mellitus with hyperglycemia, without long-term current use of insulin (CMS/HCC) USE TO TEST TWICE DAILY 100 each 3 024 Active atorvastatin (Lipitor) 20 MG tablet TAKE 1 TABLET BY MOUTH EVERY DAY 90 tablet 1 024 Active furosemide (Lasix) 20 MG tablet TAKE 1 TABLET(20 MG) BY MOUTH DAILY 30 tablet 2 024 Active metFORMIN (Glucophage) 500 MG tablet TAKE 2 TABLETS(1000 MG) BY MOUTH TWICE DAILY WITH THE MORNING AND EVENING MEAL 360 tablet 1 024 Active semaglutide (Ozempic, 1 MG/DOSE,) 4 MG/3ML solution pen-injector INJECT 1 MG SUBCUTANEOUS ONCE WEEKLY 3 mL 025 Active lisinopril 40 MG tabletIndicatio ns:Primary hypertension TAKE 1 TABLET(40 MG) BY MOUTH DAILY 90 tablet 3 025 Active albuterol (2.5 MG/3ML) 0.083% nebulizer solutionIndicat ions:Asthma, unspecified asthma severity, unspecified whether complicated, unspecified whether persistent INHALE 1 VIAL BY NEBULIZATION ROUTE EVERY 4 HOURS NEEDED 75 mL 3 025 Active albuterol (2.5 MG/3ML) 0.083% nebulizer solution INHALE 1 VIAL BY NEBULIZATION ROUTE EVERY 4 HOURS NEEDED 75 mL 3 024 2024 Discontinued Active Problems Problem [...] lung disease 10/21/2019 Controlled type 2 diabetes m valerie, without long-term current use of insulin 09/13/2016 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 Asthma 10/31/2012 Low back pain 10/03/2012 Hyperlipidemia 09/30/2012 Hypertension 11/24/1994 Depressive disorder 09/30/1994 Morbid obesity 04/30/1975 Obstructive sleep apnea syndrome 09/30/1959 Encounters Date Type Department Care Team Description 01/15/2025 Telephone [facility] [address] [place] [address] Brenda Yost MD 01/14/2025 Orders Only [facility] [address] [place] [address] Anne-Marie Steiner MD Hypogonadism in male (Primary Dx) 01/08/2025 Telephone [facility] [address] [place] [address] Brenda Yost MD 01/06/2025 Telephone [facility] [address] [place] [address] Brenda Yost MD 01/06/2025 Refill [facility] [address] [place] [address] Brenda Yost MD Asthma, unspecified asthma severity, unspecified whether complicated, unspecified whether persistent (Primary Dx) 01/05/2025 3:15 PM EDT Telemedicine [facility] [address] [place] [address] Robin Dash MD Primary hypertension (Primary Dx); Vasculogenic erectile dysfunction, unspecified vasculogenic erectile dysfunction type; Controlled type 2 diabetes mellitus with hyperglycemia, without long-term current use of insulin ([facility]/HCC); Nocturia 01/05/2025 Travel 01/05/2025 Telephone [facility] [address] [place] [address] Brenda Yost MD Nurse Triage; Results 01/05/2025 Orders Only [facility] [address] [place] [address] Brenda Yost MD Controlled type 2 diabetes mellitus with hyperglycemia, without long-term current use of insulin (CMS/HCC) (Primary Dx) 01/05/2025 Telephone [facility] [address] [place] [address] Neelam Dickerson, PharmD 2024 Orders Only [facility] External Provider, [facility] 12/20/2024 Refill [facility] [address] [place] [address] Brenda Yost MD Primary hypertension 12/11/2024 Population Health Risk Score [facility] () Department [address] [place] [phone] Provider, Population Health Generic 11/16/2024 Refill [facility] [address] [place] [address] Brenda Yost MD from Last 3 Months [...] Description 02/05/2025 2:00 PM EDT Office Visit [facility] [address] [place] [address] Brenda Yost MD [address] [place] [address] Health Maintenance Due Date Last Done Comments [...] 05/09/2023, 02/09/2022 Lipid Panel 05/09/2024 05/09/2023, 02/09/2022 COVID-19 Vaccine ( season) 2024 03/27/2021, 02/21/2021, 01/07/2021, Additional history exists Influenza Vaccine (#1) 2024 10/22/2012 Tobacco Screening 08/06/2024 08/06/2023 Colonoscopy 12/07/2024 12/07/2021 Colorectal Cancer Screening 12/07/2024 Diabetes: Hemoglobin A1C 04/07/2025 025, 02/21/2024, 05/09/2023, Additional history exists DTaP/Tdap/Td Vaccines (2 - Td or Tdap) [...] Procedure Name Priority Date/Time Associated Diagnosis Comments TESTOSTERONE, FREE (DIALYSIS) AND TOTAL,MS Routine 01/06/2025 8:39 AM EDT Vasculogenic erectile dysfunction, unspecified vasculogenic erectile dysfunction type PSA, TOTAL WITH REFLEX TO PSA, FREE Routine 01/06/2025 8:39 AM EDT Vasculogenic erectile dysfunction, unspecified vasculogenic erectile dysfunction type HEMOGLOBIN A1C Routine 01/06/2025 8:39 AM EDT Controlled type 2 diabetes mellitus with hyperglycemia, without long-term current use of insulin (CMS/HCC) LDCT LUNG SCREENING Routine 2024 1 2:21 PM EDT HEPATITIS PANEL, GENERAL Routine 05/09/2023 1:37 PM EDT Screen for STD (sexually transmitted disease) LIPID PANEL, STANDARD Routine 05/09/2023 1:37 PM EDT Mixed hyperlipidemia ALBUMIN, RANDOM URINE W/CREATININE Routine 05/09/2023 1:27 PM EDT HP LINK DIABETIC FOOT EXAM Routine 05/09/2023 HM COLONOSCOPY Routine 12/07/2021 from Last 3 Months or Most Recently Relevant to Health Maintenance Results * PSA, Total With Reflex to PSA, Free (01/06/2025 8:39 AM EDT) PSA,Total (Free>4and<10) 0.23 0.00 - 4.00 ng/mL [facility] Comment:A Free PSA was not p erformed: The percentage of Free PSA can be used to enhance the differentiation of prostate cancer from benign prostatic disease in subjects whose PSA levels are between 4.0 and 10.0 ng/mL. For subjects whose PSA levels are below 4.0 or above 10.0 ng/mL, the risk of prostate cancer is determined on the basis of the PSA alone. Therefore the % Free PSA is recommended only for those subjects whose PSA levels are between 4.0 and 10.0 ng/mL.PSA methodology: Anametrixnity i ChemiluminescentMicroparticle Immunoassay (CMIA) 01/06/2025 8:39 AM EDT 01/06/2025 2:51 PM EDT Robin Pruett MD LAB BLOOD ORDERABL ES Final Result [facility] [address] [place] [address] [phone] * (ABNORMAL) Testosterone, Free (Dialysis) And Total, MS (01/06/2025 8:39 AM EDT) Testosterone, Total 74(A) 250 - 1100 ng/dL [facility] Comment:Men with clinically significant hypogonadal symptoms and testosterone valuesrepeatedly in the range of the 200-300 ng/dL or less, may benefit fromtestosterone treatment after adequate risk and benefits counseling.For additional information, please refer tohttps://education.Danger/faq/KNE101(This link is being provided for informational/educational purposes only.)(Note)This test was developed and its analytical performancecharacteristics have been determined by [employer]. It hasnot been cleared or approved by the FDA. This assay hasbeen validated pursuant to the CLIA regulations and isused for clinical purposes. Testosterone, Free 13.5(A) 35.0 - 155.0 pg/mL [facility] Comment:(Note)This test was developed and its analytical performancecharacteristics have been determined by [employer]. It hasnot been cleared or approved by the FDA. This assay hasbeen validated pursuant to the CLIA regulations and isused for clinical purposes.[facility] [id number] [address],[address] [place] [address] [phone] Chris Castro MD, PhDTHIS TEST WAS PERFORMED AT:[id number] [place] [phone] CASTRO MD,PHD Blood Venous blood specimen / Unknown 01/06/2025 8:39 AM EDT 01/06/2025 2:51 PM EDT us Robin Pruett MD LAB BLOOD ORDERABL ES Final Result Performing Organization Address [facility] de Phone Number [facility] [address] [place] [phone] * (ABNORMAL) Hemoglobin A1c (01/06/2025 8:39 AM EDT) Hemoglobin A1c 11.3(H) <6.0 % [facility] Comment:Hemoglobin A1C Refer ence Range Adults: 4.8 - 6.0 % Non diabetic: < 6.0 % Goal: < 7.0 %Additional Action Suggested: > 8.0 %Note: Hemoglobin A1c results are invalid for patients with abnormal amounts of HbF. Blood transfusions may impact the HbA1c concentration in the patient sample. Estimated Average Glucose 278 mg/dL [facility] Comment:eAG = Estimated ave rage glucose which is %A1C expressed asaverage glucose, using the formula of the R9Q-BdlkjkiZrcoewg Glucose study (ADAG), Diabetes Care, Vol.31,#8,2007 Blood Venous blood specimen / Unknown 01/06/2025 8:39 AM EDT 01/06/2025 2:51 PM EDT Robin Pruett MD LAB BLOOD ORDERABL ES Final Result Performing Organization Address [facility] Co de Phone Number [facility] [address] [place] [phone] * CT Lung Screening Low dose (2024 12:21 PM EDT) Anatomical Region Laterality Modality Lung Computed Tomogra phy 2024 12:2 1 PM EDT Narrative 2024 12:22 PM EDT ? [facility] ?[address] ?[place] [address] ? CT Scan Report ? Signed ? Patient: Keane,Sukhdeep ?MR#: [id number] ?? [id number] ? : 1960 ?Acct:[id number] ? Age/Sex: 64 / M ?ADM Date: 03/24/25 ? Loc: HO.CT ? Attending Dr: Preston Massey MD ? Ordering Physician: Sandy Norman PA-C ?? Date of Service: 12/21/24 ?? Procedure(s): CT lung screening ?? Accession Number(s): [id number] ? cc: Brenda Yost MD; Sandy Norman PA-C ? Report Number: ?? [id number]: Total DLP = ??132.00 mGy-cm ? CLINICAL [...] in OV> ? 12/21/24 1221 ? DD/ 122 ? TD/TT: 12/21/24 1221 ? Studio Potter: ? Procedure Note Donotkeninterpreter, Image - [address] [address] [address] Scan Report Signed Patient: Robert Keane AMR#: [id number] : 2Acct:[id number] Age/Sex: 64 / MADM Date: 12/21/24 Loc: HO.CT Attending Dr: Preston Massey MD Ordering Physician: Sandy Norman PA-C Date of Service: 12/21/24 Procedure(s): CT lung screening Accession Number(s): [id number] cc: Brenda Yost MD; Sandy Norman PA-C Report Number: [id number]: Total DLP = 132.00 mGy-cm CLINICAL HISTORY: [...] 12/21/24 1221 DD/ 1221 TD/TT: 12/21/24 1221 Studio Potter: [facility] External Provider IMG CT PROCEDURES Final Result * Hepatitis Panel, General (05/09/2023 1:37 PM EDT) Hepatitis A IgM Nonreactive Nonreactive [facility] Comment:IgM antibodies to LOPEZ V not detected; does not exclude earlyacute or recovered HAV infection. ~Hepatitis B Surface Antibody NONREACTIVE Nonreactive [facility] Comment:Nonreactive: < 8.00 mIU/mL Hepatitis B Core Antibody Nonreactive Nonreactive [facility] Hepatitis C Antibody Nonreactive Nonreactive [facility] Comment:Antibodies to HCV no t detected; does not exclude early acuteHCV infection. Hepatitis B Surface Ag Negative Negative [facility] Blood 05/09/2023 1:37 PM EDT 05/09/2023 2:49 PM EDT Brenda Yost MD LAB BLOOD ORDERABLES Final Result [facility] [address] [place] [phone] * Lipid Panel, Standard (05/09/2023 1:37 PM EDT) Triglycerides 141 mg/dL [facility] Comment:Desirable Triglyceri de: less than 150 mg/dLBorderline High Triglyceride 150-199 mg/dLHigh Triglyceride: 200-499 mg/dLVery High Triglyceride: greater than or equal to 5OO mg/dL Cholesterol 195 mg/dL [facility] Comment:Desirable Cholestero l: less than 200 mg/dLBorderline High Cholesterol: 200-239 mg/dLHigh Cholesterol: greater than 239 mg/dL LDL Cholesterol Calculated 138 mg/dl [facility] Comment:Desirable LDL: less than 100 mg/dLNear Optimal/Above Optimal LDL: 110- 129 mg/dLBorderline High LDL: 130-159 mg/dLHigh LDL: 160-189 mg/dLVery High LDL: greater than or equal to 190 mg/dL HDL Cholesterol 29 mg/dL [facility] Comment:Desirable HDL: great er than 40 mg/dL Note: This HDL assay may give artificially low results in patients with liver disease. Blood Venous blood specimen / Unknown 05/09/2023 1:37 PM EDT 05/09/2023 2:49 PM EDT us Brenda Yost MD LAB BLOOD ORDERABLES Final Result Performing Organization Address [facility] Co de Phone Number [facility] [address] [place] [phone] * Albumin, Random Urine W/Creatinine (05/09/2023 1:27 PM EDT) Creatinine, Urine 171.85 mg/dL [facility] Microalbumin Urine 12.0 mg/L [facility] Microalbum Creatinine Ratio Ur 6.9 ug/mg cr [facility] Comment:Albumin/Creatinine R atio Reference Ranges: Normal: < 30 ug/mg creatinine Microalbuminuria: 30 - 300 ug/mg creatinineClinical Albuminuria: > 300 ug/mg creatinine 05/09/2023 1:27 PM EDT 05/09/2023 5:42 PM EDT us Brenda Yost MD LAB URINE ORDERABLES Final Result Performing Organization Address [facility] Co de Phone Number [facility] [address] [place] [phone] * (ABNORMAL) HP Diabetic Foot Exam [...] dorsalis pedis: normal -Left posterior tibialis: normal Brenda Yost MD HEALTH MAINTENANCE Final Re sult * Colonoscopy (12/07/2021) Colonoscopy Performed Historical Provider HEALTH MAINTENANCE Edited Result - Final from Last 3 Months or Most Recently Relevant to Health Maintenance Insurance [facility] STANDARD MEDICARE Care Teams Plant Technician/Control Room Operator Relationship Specialty Start Date End Date Brenda Yost MD [address] [place] [address] PCP - General Internal Medicine 10/03/12
--- OUTSIDE RECORDS SUMMARY | 2025-01-22 08:12 | XMS_ITS | Encounter Summary ---
Author Organization [employer] Address [address] [place] [address] [address] [address] Care Team Providers Care Juice Weigher Name Role Phone Brenda Yost MD Primary Care Provider [phone] Encounter Details Date Type Department Care Team (Late Contact Info) Description 05/27/2023 Orders Only [facility]S [address] [place] [address] Brenda Yost MD [address] [place] [address] Controlled type 2 diabetes mellitus with hyperglycemia, without long-term current use of insulin ([facility]) (Primary Dx) Social History Tobacco [...] Description 02/05/2025 2:00 PM EDT Office Visit [facility] MED & PEDS [address] [place] [address] Brenda Yost MD [address] [place] [address] documented as of this encounter Visit Diagnoses Diagnosis Controlled type 2 diabetes mellitus with hyperglycemia, without long-term current use of insulin ([facility])- Primary documented in this encounter Additional Health Concerns Assessment Noted Time PHQ-9 Depression Total Score: 8 05/09/20 23 11:04 AM EDT documented as of this encounter Care Teams Juice Weigher Relationship Specialty Start Date End Date Brenda Yost MD [address] [place] [address] PCP - General Internal Medicine 10/03/12 documented as of this encounter
--- OUTSIDE RECORDS SUMMARY | 2025-01-22 08:12 | XMS_ITS | Encounter Summary ---
Author Organization [employer] Address [address] [facility] 7 [place] [address] Care Team Providers Care Coding Validator Name Role Phone Brenda Yost MD Primary Care Provider [phone] Reason for Visit * Reason Onset Date Comments Call Back Request 02/25/2024 Encounter Details Date Type Department Care Team ([facility] st Contact Info) Description 02/25/2024 Telephone [facility] [address] [place] [address] Brenda Yost MD [address] [place] [address] Call Back Request Social History Tobacco Use [...] Description 02/05/2025 2:00 PM EDT Office Visit [facility]ED[facility] [address] [place] [address] Brenda Yost MD [address] [place] [address] documented as of this encounter Visit Diagnoses Not on filedocumented in this encounter Additional Health Concerns Assessment Noted Time PHQ-9 Depression Total Score: 8 05/09/20 23 11:04 AM EDT documented as of this encounter Care Teams Coding Validator Relationship Specialty Start Date End Date Brenda Ysot MD [address] [place] [address] PCP - General Internal Medicine 10/03/12 documented as of this encounter
--- OUTSIDE RECORDS SUMMARY | 2025-01-22 08:12 | XMS_ITS | Encounter Summary ---
Author Organization [employer] [facility] Address [address] [place] [address] [address], [place] [address] Care Team Providers Care Trailer Truck Driver Name Role Phone Brenda Yost MD Primary Care Provider [phone] Reason for Visit * Reason Comments Med Refill Encounter Details Date Type Department Care Team (Late Contact Info) Description 05/18/2024 Refill [facility] MED & PEDS [address] [place] [address] Brenda Yost MD [address] [place] [address] Social History Tobacco Use Types Packs/Day Years [...] Upcoming Encounters Date Type Department Care Team ([facility] Contact Info) Description 02/05/2025 2:00 PM EDT Office Visit [facility] MED & PEDS [address] [place] [address] Brenda Yost MD [address] [place], [place] [phone] documented as of this encounter Visit Diagnoses Not on filedocumented in this encounter Additional Health Concerns Assessment Noted Time PHQ-9 Depression Total Score: 8 05/09/20 23 11:04 AM EDT documented as of this encounter Care Teams Trailer Truck Driver Relationship Specialty Start Date End Date Brenda Yost MD [address] [facility] [place] [address] PCP - General Internal Medicine 10/03/12 documented as of this encounter
--- OUTSIDE RECORDS SUMMARY | 2025-01-22 08:12 | XMS_ITS | Encounter Summary ---
Author Organization [employer] [facility] Address [address] [place] [address] [address] [address] Care Team Providers Care Laminating Machine Operator Helper Name Role Phone Brenda Yost MD Primary Care Provider [phone] Reason for Visit * Reason Comments Med Refill Encounter Details Date Type Department Care Team (Late Contact Info) Description 06/04/2024 Refill [facility] MED & PEDS [address] [place] [address] Brenda Yost MD [address] [place] [address] Social History Tobacco Use Types Packs/Day Years [...] Upcoming Encounters Date Type Department Care Team ([facility] Contact Info) Description 02/05/2025 2:00 PM EDT Office Visit [facility] MED & PEDS [address] [place] [address] Brenda Yost MD [address] [place], [place] [phone] documented as of this encounter Visit Diagnoses Not on filedocumented in this encounter Additional Health Concerns Assessment Noted Time PHQ-9 Depression Total Score: 8 05/09/20 23 11:04 AM EDT documented as of this encounter Care Teams Laminating Machine Operator Helper Relationship Specialty Start Date End Date Brenda Yost MD [address] [facility] [place] [address] PCP - General Internal Medicine 10/03/12 documented as of this encounter
--- OUTSIDE RECORDS SUMMARY | 2025-01-22 08:12 | XMS_ITS | Encounter Summary ---
Author Organization [employer] [facility] Address [address] [place] [address] [address] Care Team Providers Care Locomotive Inspector Name Role Phone Brenda Yost MD Primary Care Provider [phone] Reason for Visit * Reason Comments Med Refill Encounter Details Date Type Department Care Team ([facility] Contact Info) Description 11/30/2022 Refill [facility] MED & PEDS [address] [place] [address] Brenda Yost MD [address] [place] [address] Primary hypertension (Primary Dx) Social History Tobacco [...] Upcoming Encounters Date Type Department Care Team ([facility] Contact Info) Description 02/05/2025 2:00 PM EDT Office Visit [facility] MED & PEDS [address] [place] [address] Brenda Yost MD [address] [place] [address] documented as of this encounter Visit Diagnoses Diagnosis Primary hypertension- Primary Unspecified essential hypertension documented in this encounter Care Teams Locomotive Inspector Relationship Specialty Start Date End Date Brenda Yost MD [address] [place], [place] [address] [address] PCP - General Internal Medicine 10/03/12 documented as of this encounter
--- OUTSIDE RECORDS SUMMARY | 2025-01-22 08:12 | XMS_ITS | Encounter Summary ---
Author Organization [employer] Address [address] [place] [address] [address] [address] Care Team Providers Care Cold Work Operator Name Role Phone Brenda Yost MD Primary Care Provider [phone] Encounter Details Date Type Department Care Team (Late Contact Info) Description 02/25/2024 Orders Only [facility] MED & PEDS [address] [place] [address] Brenda Yost MD [address] [place] [address] Controlled type 2 diabetes mellitus with hyperglycemia, without long-term current use of insulin ([facility]) (Primary Dx) Social History Tobacco Use Types [...] Description 02/05/2025 2:00 PM EDT Office Visit [facility] MED & PEDS [address] [place] [address] Brenda Yost MD [address] [place] [address] documented as of this encounter Visit Diagnoses Diagnosis Controlled type 2 diabetes mellitus with hyperglycemia, without long-term current use of insulin ([facility])- Primary documented in this encounter Additional Health Concerns Assessment Noted Time PHQ-9 Depression Total Score: 8 05/09/20 23 11:04 AM EDT documented as of this encounter Care Teams Cold Work Operator Relationship Specialty Start Date End Date Brenda Yost MD [address] [place] [address] PCP - General Internal Medicine 10/03/12 documented as of this encounter
--- OUTSIDE RECORDS SUMMARY | 2025-01-22 08:12 | XMS_ITS | Encounter Summary ---
Author Organization [facility] Address [address] [place] [address] [address] [address] Care Team Providers Care Technical Training Manager Name Role Phone Brenda Yost MD Primary Care Provider [phone] Reason for Visit * Reason Comments Med Refill Encounter Details Date Type Department Care Team (Late Contact Info) Description 07/12/2024 Refill [facility] MED & PEDS [address] [place] [address] Brenda Yost MD [address] [place] [address] Social History Tobacco Use Types Packs/Day Years [...] Upcoming Encounters Date Type Department Care Team ([facility] Contact Info) Description 02/05/2025 2:00 PM EDT Office Visit [facility] MED & PEDS [address] [place] [address] Brenda Yost MD [address] [place], [place] [phone] documented as of this encounter Visit Diagnoses Not on filedocumented in this encounter Additional Health Concerns Assessment Noted Time PHQ-9 Depression Total Score: 8 05/09/20 23 11:04 AM EDT documented as of this encounter Care Teams Technical Training Manager Relationship Specialty Start Date End Date Brenda Yost MD [address] [place] [address] PCP - General Internal Medicine 10/03/12 documented as of this encounter
--- OUTSIDE RECORDS SUMMARY | 2025-01-22 08:12 | XMS_ITS | Encounter Summary ---
Author Organization [employer] Address [address] [place] [address] [address] Care Team Providers Care Groundhand Name Role Phone Brenda Yost MD Primary Care Provider +1- [phone] Reason for Visit * Reason Comments Med Refill Encounter Details Date Type Department Care Team (Late Contact Info) Description 08/07/2024 Refill [facility] [address] [place] [address] Brenda Yost MD [address] [place] [address] Controlled type 2 diabetes mellitus with hyperglycemia, without long-term current use of insulin ([facility]) Social History Tobacco Use Types Packs/Day Years [...] Description 02/05/2025 2:00 PM EDT Office Visit [facility] [address] [place] [address] Brenda Yost MD [address] [place] [address] documented as of this encounter Visit Diagnoses Diagnosis Controlled type 2 diabetes mellitus with hyperglycemia, without long-term current use of insulin ([facility]) documented in this encounter Additional Health Concerns Assessment Noted Time PHQ-9 Depression Total Score: 8 05/09/20 23 11:04 AM EDT documented as of this encounter Care Teams Groundhand Relationship Specialty Start Date End Date Brenda Yost MD [address] [place] [address] PCP - General Internal Medicine 10/03/12 documented as of this encounter
--- OUTSIDE RECORDS SUMMARY | 2025-01-22 08:12 | XMS_ITS | Encounter Summary ---
Author Organization [employer] Address [address] [place] [address] 7 [place] [address] Care Team Providers Care Dial Equipment Engineer Name Role Phone Brenda Yost MD Primary Care Provider [phone]- [phone] Encounter Details Date Type Department Care Team ([facility] Contact Info) Description 05/10/2023 Orders Only [facility] [address] [place], [place] [phone] Brenda Yost MD [address] [place], [place] [phone] Screen for STD (sexually transmitted disease) (Primary [...] Upcoming Encounters Date Type Department Care Team ([facility] Contact Info) Description 02/05/2025 2:00 PM EDT Office Visit [facility] [address] [place], [place] [phone] Brenda Yost MD [address] [place] [address] Scheduled Orders Name Type Priority Associated Diagnoses [...] documented as of this encounter Care Teams Dial Equipment Engineer Relationship Specialty Start Date End Date Brenda Yost MD [address] [place] [address] [place] [address] PCP - General Internal Medicine 10/03/12 documented as of this encounter
--- OUTSIDE RECORDS SUMMARY | 2025-01-22 08:12 | XMS_ITS | Encounter Summary ---
Author Organization [employer] [facility] Address [address] [place] [address] [address] [address] Care Team Providers Care Egg Caser Name Role Phone Brenda Yost MD Primary Care Provider [phone]- [phone] Encounter Details Date Type Department Care Team (Late st Contact Info) Description 04/03/2023 Orders Only [facility] [address] [place] [address] Reina Hammonds LPN Social History Tobacco Use [...] Description 02/05/2025 2:00 PM EDT Office Visit [facility] [address] [place] [address] Brenda Yost MD [address] [place] [address] documented as of this encounter Procedures Procedure Name Priority Date/Time Associated Diagnosis Comments SYPHILIS SCREEN Routine 05/09/2023 1:37 PM EDT BASIC METABOLIC PANEL, FASTING Routine 05/09/2023 1:37 PM EDT ALBUMIN, RANDOM URINE W/CREATININE Routine 05/09/2023 1:27 PM EDT documented in this encounter Results * Syphilis Screen (05/09/2023 1:37 PM EDT) Syphilis Screen Nonreactive Nonreactive [facility] 05/09/2023 1:37 PM EDT 05/09/2023 2:49 PM EDT Brenda Yost MD LAB BLOOD ORDERABLES Final Result Performing Organization Address [facility]/ZIP Co de Phone Number [facility] [address] [place] [phone] * Basic Metabolic Panel, Fasting (05/09/2023 1:37 PM EDT) Sodium 142 135 - 145 mmol/L [facility] Potassium 4.2 3.3 - 5.1 mmol/L [facility] Chloride 106 96 - 108 mmol/L [facility] Carbon Dioxide 28 22 - 29 mmol/L [facility] Anion Gap 12 12 - 20 [facility] Urea Nitrogen (BUN) 13 9 - 16 mg/dL [facility] Creatinine, Serum 1.07 0.5 - 1.4 mg/dL [facility] Estimated Glomerular Filt Rate >60 [facility] Comment:NOTE: For -Am erican individuals, multiply the result by 1.210.Chronic Kidney Disease: Estimated GFR < 60 mL/min/1.44x5Bswqhp Kidney Disease: Estimated GFR < 15 mL/min/1.73m2 Glucose Fasting 89 60 - 99 mg/dL [facility] Calcium 9.8 8.4 - 10.2 mg/dL [facility] 05/09/2023 1:37 PM EDT 05/09/2023 2:49 PM EDT us Brenda Yost MD LAB BLOOD ORDERABLES Final Result Performing Organization Address City/[facility]/ZIP Co de Phone Number [facility] [address] [place] [address] [phone] * Albumin, Random Urine W/Creatinine (05/09/2023 1:27 PM EDT) Creatinine, Urine 171.85 mg/dL [facility] Microalbumin Urine 12.0 mg/L [facility] Microalbum Creatinine Ratio Ur 6.9 ug/mg cr [facility] Comment:Albumin/Creatinine R atio Reference Ranges: Normal: < 30 ug/mg creatinine Microalbuminuria: 30 - 300 ug/mg creatinineClinical Albuminuria: > 300 ug/mg creatinine 05/09/2023 1:27 PM EDT 05/09/2023 5:42 PM EDT us Brenda Yost MD LAB URINE ORDERABLES Final Result [facility] [address] [place] [address] [phone] documented in this encounter Visit Diagnoses Not on filedocumented in this encounter Care Teams Egg Caser Relationship Specialty Start Date End Date Brenda Yost MD [address] [place] [address] PCP - General Internal Medicine 10/03/12 documented as of this encounter
--- OUTSIDE RECORDS SUMMARY | 2025-01-22 08:13 | XMS_ITS | Clinical Summary ---
Author Organization [facility] Address [address] [place] [address] Care Team Providers Care Instrument Designer Name Role Phone Unavailable Primary Care Provider [...]
[2025-01-22 14:41] LABS: Alanine Aminotransferase 19 U/L (0-40); Albumin Level 3.6 g/dL (3.5-5.0); Alkaline Phosphatase 71 U/L (39-117); Aspartate Amino Transferase 17 U/L (5-37); Bilirubin Direct < 0.2 mg/dL (0.0-0.5); Bilirubin Total 0.2 mg/dL (0.0-1.0); Total Protein 7.2 g/dL (6.5-8.0)
[2025-01-22 14:46] LABS: TSH reflex Free T4 0.72 uIU/mL (0.32-4.0)
[2025-01-23 10:13] LABS: Follicle Stimulating Hormone 3.9 mIU/mL (1.4-12.8)
== END 2025-01-22 08:11 | disposition home or self-care (01) ==
LOC: HO.CHCLDS 08:10
PROVIDERS: Visit Provider Internal Medicine
DX: E29.1 Testicular hypofunction (principal)
CPT/HCPCS: 36415; 80076; 83001; 83002; 84443

== ENCOUNTER 2025-01-25 10:34 | Outpatient (AMB) | payer MEDICARE, MEDICAID, SELFPAY ==
[2025-01-25 10:54] VITALS: BP 118/70; PULSE 85; BMI 52.0
--- NOTE | 2025-01-25 10:54 | A.OFFVIS_ITS ---
Vital Signs 01/25/25 10:54 Height 5 ft 11 in Weight 372 lb 9.299 oz BMI 52.0 BP 118/70 Blood Pressure Location Lt brachial Position Sitting Pulse 85 Pulse Source Monitor Intake Visit Reasons: 1yr f/u r/s fr 12/17 (does not want LEGAL PARAPROFESSIONAL) Allergies No Known Allergies Allergy (Verified 08/19/24 09:21) Medication List - Last Reconciled 01/25/25 by Fan Jackson MD albuterol sulfate 90 mcg/actuation (Ventolin HFA) 2 puffs PO Q6H PRN amitriptyline 100 mg PO BEDTIME PRN atorvastatin 40 mg PO QPM azelastine 1 spray intranasal BID PRN docusate sodium (Colace) 200 mg PO BEDTIME PRN lroenocpjgq-qrdexhwzv-aykbjxgk 100-62.5-25 mcg (Trelegy Ellipta) 1 inh PO DAILY lisinopril 20 mg PO DAILY metformin 1,000 mg PO BID polyethylene glycol 3350 (Miralax) 17 grams PO DAILY PRN semaglutide (Ozempic) 0.25 mg subcut QWEEK sennosides (senna) 8.6 mg PO DAILY PRN HPI Comments Details: Robert returns for follow-up. To recall, he was seen in the past for preoperative risk stratification regarding bariatric surgery but because of the COVID pandemic he never went thro [facility]. He did lose some weight however but not enough. He was weighing as much as 400 lb plus in the past. Today's weight is [address] scans had shown some coronary artery calcification. However, perfusion imaging without ischemia. He has got numerous cardiovascular risk factors including smoking, diabetes, hypertension, dyslipidemia. Overall, no clear-cut symptoms like angina. Chronic shortness of breath and unchanged. Nonspecific tiredness. [facility] Medical History (Updated 10/19/24 @ 16:06 by Sandy Norman PA-C) Nicotine dependence, cigarettes, uncomplicated Sleep apnea CAD (coronary artery disease) Morbid obesity Tubular adenoma of colon (~2019) Elevated cholesterol HTN (hypertension) Low back pain Ambulates with cane Peripheral neuropathy Diabetes COPD (chronic obstructive pulmonary disease) Surgical History (Updated 10/19/24 @ 16:06 by Sandy Norman PA-C) Hx of surgical procedure (01/10/24) History of colonoscopy History of esophagogastroduodenoscopy (EGD) Family History Mother Colon cancer Social History Household Members Other:: daughter Are you a primary certified social workers in health care to a significant other at home: No Do you presently have visiting nurse or other home services: No Alcohol intake: never Patient Tobacco Use Status: Former Tobacco user Tobacco use type: Cigarette Cigarette Packs Per Day: 1 Cigarettes Per Day: 20.0 Years Smoked: (current smoker, onset 19. Max 3-4ppd x 30years, now 1ppd, 100+PYH) Review of Systems Const Reports fatigue and Denies weakness ENT Denies dizziness Card Denies chest pain, Denies chest pain with activity, Denies syncope, Denies rapid heart rate, Denies pedal edema, Denies edema, Denies leg edema, Denies lightheadedness, Denies palpitations, Denies dyspnea, Denies dyspnea on exertion and Denies orthopnea Resp Denies cough, Denies dyspnea and Denies dyspnea on exertion GI Denies hematochezia and Denies change in stool character Musc Denies abnormal gait, Denies muscle cramps, Denies muscle weakness, Denies numbness, Denies radiating pain into limb and Denies tingling Neuro Denies abnormal gait, Denies dizziness, Denies syncope, Denies numbness, Denies tingling and Denies weakness Endo Reports fatigue and Denies palpitations Physical Exam Vital Signs: Last Vital Signs Pulse 85 01/25/25 10:54 BP 118/70 01/25/25 10:54 BMI result Body Mass Index 52.0 Const General: comfortable and no acute distress Orientation/consciousness: patient oriented x3 HEENT Other: Unremarkable Head: Yes normal to inspection Neck Neck: Yes normal visual inspection Chest Chest palpation & inspection: normal inspection of the chest Resp Auscultation: clear to auscultation bilaterally Cardio Palpation: normal PMI Heart sounds: S1 normal heart sound present, S2 normal heart sound present, no gallops, no murmurs and no rubs GI Palpation (GI): Soft to palpation Back/Spine/Pelvis Other: unremarkable Skin General skin exam: no rashes or lesions noted Neuro General: patient oriented x3 Extrem General: Yes normal to inspection Psych Mental Status: mental status grossly normal Office Procedures EKG Details: EKG with underlying sinus rhythm at 85/Min; nonspecific ST-T changes; [place] [address]-Dkkyidytouzxqudsy, Complete Assessment & Plan Assessment & Plan (1) Atherosclerotic cardiovascular disease: Code(s): I25.10 - Atherosclerotic heart disease of [place] coronary artery without angina pectoris Category: Medical (2) Morbid obesity: Code(s): E66.01 - Morbid (severe) obesity due to excess calories Category: Medical (3) Type 2 diabetes mellitus with unspecified complications: Code(s): E11.8 - Type 2 diabetes mellitus with unspecified complications Category: Medical (4) Essential hypertension: Code(s): I10 - Essential (primary) hypertension Category: Medical (5) Hyperlipidemia, unspecified: Code(s): E78.5 - Hyperlipidemia, unspecified Category: Medical Plan Pertinent data reviewed. Based on pulmonary note, severe COPD. In the chest CT scan, coronary artery calcification. Echocardiogram with LVEF of 66%. Moderate septal hypertrophy. Otherwise unremarkable. Myocardial perfusion imaging study shows likely normal perfusion. Gated LVEF 61%. Overall, main recommendation is to lose weight as much able and aggressively treat his risk factors. He has stable coronary disease based on coronary calcification but no anginal symptoms. His hemoglobin A1c is more than 11% and that indicates poor diabetes control. We discussed about that today. His cholesterol is also suboptimal. We can go up on the statin dose. We discussed about that as well. Blood pressure seems stable. Smoking cessation. He will call us with any ongoing concerns. Patient was informed and verbally consented to the use of an ambient scribe for clinic note documentation during this visit. Orders: Orders Lipid Panel 3 Months E78.5 - Hyperlipidemia, unspecified Liver Panel 3 Months E78.5 - Hyperlipidemia, unspecified, I25.10 - Atherosclerotic heart disease of [place] coronary artery without angina pectoris Medications: New atorvastatin 80 mg PO QPM 90 tabs 1RF Patient Instructions: - Increase atorvastatin dose to 80 mg as discussed. - Continue to follow weight management strategies to aid in controlling diabetes. - Monitor for any new chest pain or other cardiovascular symptoms and report immediately. - Follow up with your primary care provider within the recommended timeframe for a comprehensive review of diabetes and cholesterol levels. - Adhere to a healthy diet and exercise routine as discussed with your healthcare provider. - Ensure liver function tests are conducted regularly while on the higher dose of atorvastatin. Coding Level of Care Code Est Pt Level 4 (78176) Complex EM visit Add On G2211 Diagnoses Atherosclerotic cardiovascular disease I25.10 Morbid obesity E66.01 Type 2 diabetes mellitus with unspecified complications E11.8 Essential hypertension I10 Hyperlipidemia, unspecified E78.5 CPT Codes EKG - CPT: 51830-[id number], Complete ([id number])
--- OUTSIDE RECORDS SUMMARY | 2025-01-25 12:30 | XMS_ITS | Encounter Summary ---
Author Organization [facility] [facility] Address [address] [place] [address] [address] [address] Care Team Providers Care Automotive Designer Name Role Phone Brenda Yost MD Primary Care Provider [phone]- [phone] Encounter Details Date Type Department Care Team (Late st Contact Info) Description 04/03/2023 Orders Only [facility] [address] [place] [address] Reina Hammonds LPN Social History Tobacco Use [...] 02/05/2025 2:00 PM EDT Office Visit [facility] [address] [place] [address] Brenda Yost MD [address] [place] [address] documented as of this encounter Procedures Procedure Name Priority Date/Time Associated Diagnosis Comments SYPHILIS SCREEN Routine 05/09/2023 1:37 PM EDT BASIC METABOLIC PANEL, FASTING Routine 05/09/2023 1:37 PM EDT ALBUMIN, RANDOM URINE W/CREATININE Routine 05/09/2023 1:27 PM EDT documented in this encounter Results * Syphilis Screen (05/09/2023 1:37 PM EDT) Syphilis Screen Nonreactive Nonreactive [facility] 05/09/2023 1:37 PM EDT 05/09/2023 2:49 PM EDT Brenda Yost MD LAB BLOOD ORDERABLES Final Result Performing Organization Address [facility]/ZIP Co de Phone Number [facility] [address] [place] [phone] * Basic Metabolic Panel, Fasting (05/09/2023 1:37 PM EDT) Sodium 142 135 - 145 mmol/L [facility] Potassium 4.2 3.3 - 5.1 mmol/L [facility] Chloride 106 96 - 108 mmol/L [facility] Carbon Dioxide 28 22 - 29 mmol/L [facility] Anion Gap 12 12 - 20 [facility] Urea Nitrogen (BUN) 13 9 - 16 mg/dL [facility] Creatinine, Serum 1.07 0.5 - 1.4 mg/dL [facility] Estimated Glomerular Filt Rate >60 [facility] Comment:NOTE: For -Am erican individuals, multiply the result by 1.210.Chronic Kidney Disease: Estimated GFR < 60 mL/min/1.51u1Bzpnmt Kidney Disease: Estimated GFR < 15 mL/min/1.73m2 Glucose Fasting 89 60 - 99 mg/dL [facility] Calcium 9.8 8.4 - 10.2 mg/dL [facility] 05/09/2023 1:37 PM EDT 05/09/2023 2:49 PM EDT us Brenda Yost MD LAB BLOOD ORDERABLES Final Result Performing Organization Address City/[facility]/ZIP Co de Phone Number [facility] [address] [place] [address] [phone] * Albumin, Random Urine W/Creatinine (05/09/2023 1:27 PM EDT) Creatinine, Urine 171.85 mg/dL [facility] Microalbumin Urine 12.0 mg/L [facility] Microalbum Creatinine Ratio Ur 6.9 ug/mg cr [facility] Comment:Albumin/Creatinine R atio Reference Ranges: Normal: < 30 ug/mg creatinine Microalbuminuria: 30 - 300 ug/mg creatinineClinical Albuminuria: > 300 ug/mg creatinine 05/09/2023 1:27 PM EDT 05/09/2023 5:42 PM EDT us Brenda Yost MD LAB URINE ORDERABLES Final Result [facility] [address] [place] [address] [phone] documented in this encounter Visit Diagnoses Not on filedocumented in this encounter Care Teams Automotive Designer Relationship Specialty Start Date End Date Brenda Yost MD [address] [place] [address] PCP - General Internal Medicine 10/03/12 documented as of this encounter
--- OUTSIDE RECORDS SUMMARY | 2025-01-25 12:30 | XMS_ITS | Encounter Summary ---
Author Organization [employer] Address [address] [facility] 7[place] [address] Care Team Providers Care Freelance Programmer/App Developer Name Role Phone Brenda Yost MD Primary Care Provider [phone]- [phone] Encounter Details Date Type Department Care Team (Late Contact Info) Description 07/25/2023 Telephone [facility] [address] [place] [address] Brenda Yost MD [address] [place], [place] [phone] Social History Tobacco Use Types Packs/Day Years [...] Description 02/05/2025 2:00 PM EDT Office Visit [facility] [address] [place], [place] [phone] Brenda Yost MD [address] [place], [place] [phone] documented as of this encounter Visit Diagnoses Not on filedocumented in this encounter Additional Health Concerns Assessment Noted Time PHQ-9 Depression Total Score: 8 05/09/20 23 11:04 AM EDT documented as of this encounter Care Teams Freelance Programmer/App Developer Relationship Specialty Start Date End Date Brenda Yost MD [address] [place] [address] PCP - General Internal Medicine 10/03/12 documented as of this encounter
--- OUTSIDE RECORDS SUMMARY | 2025-01-25 12:30 | XMS_ITS | Encounter Summary ---
Author Organization [facility] [facility] Address [address] [place] [address] 7[place] [address] Care Team Providers Care Pilot Fuel Engineer Name Role Phone Brenda Yost MD Primary Care Provider [phone] Reason for Visit * Reason Comments Med Refill Encounter Details Date Type Department Care Team (Late Contact Info) Description 06/04/2024 Refill [facility] [address] [place] [address] Brenda Yost MD [address] [place] [address] Social History Tobacco Use Types Packs/Day Years [...] Upcoming Encounters Date Type Department Care Team ([facility] Contact Info) Description 02/05/2025 2:00 PM EDT Office Visit [facility] [address] [place] [address] Brenda Yost MD [address] [place], [place] [phone] documented as of this encounter Visit Diagnoses Not on filedocumented in this encounter Additional Health Concerns Assessment Noted Time PHQ-9 Depression Total Score: 8 05/09/20 23 11:04 AM EDT documented as of this encounter Care Teams Pilot Fuel Engineer Relationship Specialty Start Date End Date Brenda Yost MD [address] [facility] [place] [address] PCP - General Internal Medicine 10/03/12 documented as of this encounter
--- OUTSIDE RECORDS SUMMARY | 2025-01-25 12:30 | XMS_ITS | Encounter Summary ---
Author Organization [employer] Address [address] [place] [address] [address] [address] Care Team Providers Care Cloth Hauler Name Role Phone Brenda Yost MD Primary Care Provider [phone]- [phone] Reason for Visit * Reason Comments Med Refill Encounter Details Date Type Department Care Team (Late Contact Info) Description 08/07/2024 Refill [facility] [address] [place] [address] Brenda Yost MD [address] [place] [address] Controlled type 2 diabetes mellitus with hyperglycemia, without long-term current use of insulin ([facility]) Social History Tobacco Use Types Packs/Day Years [...] Description 02/05/2025 2:00 PM EDT Office Visit [facility] [address] [place] [address] Brenda Yost MD [address] [place] [address] documented as of this encounter Visit Diagnoses Diagnosis Controlled type 2 diabetes mellitus with hyperglycemia, without long-term current use of insulin ([facility]) documented in this encounter Additional Health Concerns Assessment Noted Time PHQ-9 Depression Total Score: 8 05/09/20 23 11:04 AM EDT documented as of this encounter Care Teams Cloth Hauler Relationship Specialty Start Date End Date Brenda Yost MD [address] [place] [address] PCP - General Internal Medicine 10/03/12 documented as of this encounter
--- OUTSIDE RECORDS SUMMARY | 2025-01-25 12:30 | XMS_ITS | Encounter Summary ---
Author Organization [facility] Address [address] [place] [address] 7 [place] [address] Care Team Providers Care Physician Intensivist Name Role Phone Brenda Yost MD Primary Care Provider [phone] Reason for Visit * Reason Comments Med Refill Encounter Details Date Type Department Care Team (Late Contact Info) Description 01/22/2025 Refill [facility] PEDS [address] [place] [address] Brenda Yost MD [address] [place] [address] Social History Tobacco Use Types Packs/Day Years [...] Upcoming Encounters Date Type Department Care Team ([facility] Contact Info) Description 02/05/2025 2:00 PM EDT Office Visit [facility] [address] [place] [address] Brenda Yost MD [address] [place] [address] documented as of this encounter Visit Diagnoses Not on filedocumented in this encounter Additional Health Concerns Assessment Noted Time PHQ-9 Depression Total Score: 0 01/06/20 25 2:25 PM EDT documented as of this encounter Care Teams Physician Intensivist Relationship Specialty Start Date End Date Brenda Yost MD [address] [place] [address] PCP - General Internal Medicine 10/03/12 documented as of this encounter
--- OUTSIDE RECORDS SUMMARY | 2025-01-25 12:30 | XMS_ITS | Encounter Summary ---
Author Organization [employer] [facility] Address [address] [place] [address] [address] Care Team Providers Care Film Vault Supervisor Name Role Phone Brenda Yost MD Primary Care Provider [phone] Reason for Visit * Reason Comments Med Refill Encounter Details Date Type Department Care Team ([facility] Contact Info) Description 11/30/2022 Refill [facility] MED & PEDS [address] [place] [address] Brenda Yost MD [address] [place] [address] Primary hypertension (Primary Dx) Social History Tobacco [...] Upcoming Encounters Date Type Department Care Team ([facility] Contact Info) Description 02/05/2025 2:00 PM EDT Office Visit [facility] PEDS [address] [place] [address] Brenda Yost MD [address] [place] [address] documented as of this encounter Visit Diagnoses Diagnosis Primary hypertension- Primary Unspecified essential hypertension documented in this encounter Care Teams Film Vault Supervisor Relationship Specialty Start Date End Date Brenda Yost MD [address] [place], [place] [address] [address] PCP - General Internal Medicine 10/03/12 documented as of this encounter
--- OUTSIDE RECORDS SUMMARY | 2025-01-25 12:30 | XMS_ITS | Clinical Summary ---
Author Organization [employer] Address [address] [facility] 7t [place] [address] Care Team Providers Care Reel Stripper Name Role Phone Brenda Yost MD Primary Care Provider [phone] Allergies No known active allergies Medications Misc. [...] long-term current use of insulin (CMS/[facility]) USE DIRECTED TO TEST BLOOD GLUCOSE 4 [...] Encounters Date Type Department Care Team Description 01/22/2025 Refill [facility] & PEDS [address] [place] [address] Brenda Yost MD 01/15/2025 Telephone [facility] [address] [place] [phone] Brenda Yost MD 01/14/2025 Orders Only [facility] [address] [place] [address] Anne-Marie Steiner MD Hypogonadism in male (Primary Dx) 01/08/2025 Telephone [facility] [address] [place] [phone] Brenda Yost MD 01/06/2025 Telephone [facility] [address] [place] [address] Brenda Yost MD 01/06/2025 Refill [facility] [address] [place] [address] Brenda Yost MD Asthma, unspecified asthma severity, unspecified whether complicated, unspecified whether persistent (Primary Dx) 01/05/2025 3:15 PM EDT Telemedicine [facility] MED [facility] P[facility]S [address] [place] [address] Robin Dash MD Primary hypertension (Primary Dx); Vasculogenic erectile dysfunction, unspecified vasculogenic erectile dysfunction type; Controlled type 2 diabetes mellitus with hyperglycemia, without long-term current use of insulin ([facility]); Nocturia 01/05/2025 Travel 01/05/2025 Telephone [facility] [address] [place] [address] Brenda Yost MD Nurse Triage; Results 01/05/2025 Orders Only [facility] [address] [place] [address] Brenda Yost MD Controlled type 2 diabetes mellitus with hyperglycemia, without long-term current use of insulin (CMS/[facility]) (Primary Dx) 01/05/2025 Telephone [facility] [address] [place] [address] Neelam Dickerson, PharmD 2024 Orders Only [facility] External Provider, [facility] 12/20/2024 Refill [facility] PED[facility] [address] [place] [address] Brenda Yost MD Primary hypertension 12/11/2024 Population Health Risk Score [facility] [address] [place] [phone] Provider, Population Health Generic 11/16/2024 Refill [facility] [address] [place] [address] Brenda Yost MD from Last 3 Months Immunizations Name Administration Dates Next Due Influenza, seasonal, injectable, preservative fr ee 10/22/2012 Pneumococcal Polysaccharide PPSV23 08/12/2015, Tdap 08/12/2015 Social History Tobacco Use Types Packs/Day Years Used Date Smoking Tobacco: Former Cigarettes Q uit: 2022 Smokeless Tobacco: Never Tobacco Cessation:Counseling Given: No [...] Upcoming Encounters Date Type Department Care Team ([facility] st Contact Info) Description 02/05/2025 2:00 PM EDT Office Visit [facility] [address] [place] [address] Brenda Yost MD [address] [place] [address] Health Maintenance Due Date Last Done Comments [...] 08/12/2025 08/12/2015 Depression Screening 01/05/2026 01/05/2025, 01/06/20 25 Hepatitis C Screening Completed 05/09/2023 HIB Vaccines [...] Procedure Name Priority Date/Time Associated Diagnosis Comments HEPATIC FUNCTION PANEL Routine 01/22/2025 8:15 AM EDT Hypogonadism in male TSH W/REFLEX TO FT4 Routine 01/22/2025 8 :15 AM EDT Hypogonadism in male LH Routine 01/22/2025 8:15 AM EDT Hypogonadism in male FSH Routine 01/22/2025 8:15 AM EDT Hypogonadism in male TESTOSTERONE, FREE (DIALYSIS) AND TOTAL,MS Routine 01/06/2025 [...] Recently Relevant to Health Maintenance Results * TSH W/Reflex to FT4 (01/22/2025 8:15 AM EDT) TSH reflex Free T4 0.72 0.32 - 4.0 uIU/mL [facility] Blood Venous blood specimen / Unknown 01/22/2025 8:15 AM EDT 01/22/2025 2:08 PM EDT Anne-Marie Steiner MD LAB BLOOD ORDERABLES Fin al Result Performing Organization Address [facility] Co de Phone Number [facility] [address] [place] [phone] * LH (01/22/2025 8:15 AM EDT) Lutenizing Hormone 3.0 1.6 - 15.2 mIU/mL [facility] Comment:THIS TEST WAS PERFOR MED AT:[email or web address] [place] [phone] YORK MD Blood Venous blood specimen / Unknown 01/22/2025 8:15 AM EDT 01/22/2025 2:08 PM EDT Anne-Marie Steiner MD LAB BLOOD ORDERABLES Fin al Result Performing Organization Address [facility] Phone Number [facility] [address] [place] [phone] * FSH (01/22/2025 8:15 AM EDT) Follicle Stimulating Hormone 3.9 1.4 - 12.8 mIU/mL [facility] Comment:THIS TEST WAS PERFOR MED AT:[email or web address] [place] [phone] YORK MD Blood Venous blood specimen / Unknown 01/22/2025 8:15 AM EDT 01/22/2025 2:08 PM EDT Anne-Marie Steiner MD LAB BLOOD ORDERABLES Fin al Result Performing Organization Address City/[facility] Co de Phone Number [facility] [address] [place] [phone] * Hepatic Function Panel (01/22/2025 8:15 AM EDT) Bilirubin, Total 0.2 0.0 - 1.0 mg/dL [facility] Bilirubin, Direct <0.2 0.0 - 0.5 mg/dL [facility] Aspartate Amino Transferase 17 5 - 37 U/L [facility] Alanine Aminotransferase 19 0 - 40 U/L [facility] Total Protein 7.2 6.5 - 8.0 g/dL [facility] Albumin Level 3.6 3.5 - 5.0 g/dL [facility] Alkaline Phosphatase 71 39 - 117 U/L [facility] Blood Venous blood specimen / Unknown 01/22/2025 8:15 AM EDT 01/22/2025 2:08 PM EDT Anne-Marie Steiner MD LAB BLOOD ORDERABLES Fin al Result [facility] [address] [place] [address] [phone] * PSA, Total With Reflex to PSA, Free (01/06/2025 8:39 AM EDT) PSA,Total (Free>4and<10) 0.23 0.00 - 4.00 ng/mL [facility] Comment:A Free PSA was not p [...] are between 4.0 and 10.0 ng/mL.PSA methodology: SL8Z | [employer] ChemiluminescentMicroparticle Immunoassay (CMIA) 01/06/2025 8:39 AM EDT 01/06/2025 2:51 PM EDT Robin Pruett MD LAB BLOOD ORDERABL ES Final Result [facility] [address] [place] [phone] * (ABNORMAL) Testosterone, Free (Dialysis) And Total, MS (01/06/2025 8:39 AM EDT) Testosterone, Total 74(A) 250 - 1100 ng/dL [facility] Comment:Men with clinically significant hypogonadal symptoms and testosterone valuesrepeatedly in the range of the 200-300 ng/dL or less, may benefit fromtestosterone treatment after adequate risk and benefits counseling.For additional information, please refer totps://education.[employer]/faq/TMP386(This link is being provided for informational/educational purposes only.)(Note)This test was developed and its analytical performancecharacteristics have been determined by [employer]. It hasnot been cleared or approved by the FDA. This assay hasbeen validated pursuant to the CLIA regulations and isused for clinical purposes. Testosterone, Free 13.5(A) 35.0 - 155.0 pg/mL [facility] Comment:(Note)This test was developed and its analytical performancecharacteristics have been determined by [employer]. It hasnot been cleared or approved by the FDA. This assay hasbeen validated pursuant to the CLIA regulations and isused for clinical purposes.[facility]Fmed [id number] [place] [address],[address] [place] [address] [phone] James L. Frame, MD, PhDTHIS TEST WAS PERFORMED AT:[id number] [place] [address] [place] [id number] CASTRO MD,PHD Blood Venous blood specimen / Unknown 01/06/2025 8:39 AM EDT 01/06/2025 2:51 PM EDT us Robin Pruett MD LAB BLOOD ORDERABL ES Final Result Performing Organization Address [facility] de Phone Number [facility] [address] [place] [phone] * (ABNORMAL) Hemoglobin A1c (01/06/2025 8:39 AM EDT) Hemoglobin A1c 11.3(H) <6.0 % [facility] Comment:Hemoglobin A1C Refer ence Range Adults: 4.8 - 6.0 % Non diabetic: < 6.0 % Goal: < 7.0 %Additional Action Suggested: > 8.0 %Note: Hemoglobin A1c results are invalid for patients with abnormal amounts of HbF. Blood transfusions may impact the HbA1c concentration in the patient sample. Estimated Average Glucose 278 mg/dL [facility] Comment:eAG = Estimated ave rage glucose which is %A1C expressed asaverage glucose, using the formula of the G9O-DwjxcjcBgfrkjc Glucose study (ADAG), Diabetes Care, Vol.31,#8,2007 Blood Venous blood specimen / Unknown 01/06/2025 8:39 AM EDT 01/06/2025 2:51 PM EDT Robin Pruett MD LAB BLOOD ORDERABL ES Final Result Performing Organization Address [facility] de Phone Number [facility] [address] [place] [address] [phone] * CT Lung Screening Low dose (2024 12:21 PM EDT) Anatomical Region Laterality Modality Lung Computed Tomogra phy 2024 12:2 1 PM EDT Narrative 2024 12:22 PM EDT ? [facility] ?[address] ?[place] [address] ? CT Scan Report ? Signed ? Patient: Keane,Sukhdeep ?MR#: [id number] ?? [id number] ? : 1960 ?Acct:[id number] ? Age/Sex: 64 / M ?ADM Date: 03/24/25 ? Loc: HO.CT ? Attending Dr: Preston Massey MD ? Ordering Physician: Sandy Norman PA-C ?? Date of Service: 12/21/24 ?? Procedure(s): CT lung screening ?? Accession Number(s): [id number] ? cc: Brenda Yost MD; Sandy Norman PA-C ? Report Number: ?? [id number]: Total DLP = ??132.00 mGy-cm ? CLINICAL [...] DD/ 122 ? TD/TT: 12/21/24 1221 ? Career Development Counselor: ? Procedure Note Donotuseinterpreter, Image - [address] [address] [place] Scan Report Signed Patient: Robert Keane AMR#: [id number] : 2Acct:[id number] Age/Sex: 64 / MADM Date: 12/21/24 Loc: HO.CT Attending Dr: Preston Massey MD Ordering Physician: Sandy Norman PA-C Date of Service: 12/21/24 Procedure(s): CT lung screening Accession Number(s): [id number] cc: Brenda Yost MD; Sandy Norman PA-C Report Number: [id number]: Total DLP = 132.00 mGy-cm CLINICAL HISTORY: [...] 12/21/24 1221 DD/ 1221 TD/TT: 12/21/24 1221 Career Development Counselor: [facility] External Provider IMG CT PROCEDURES Final Result * Hepatitis Panel, General (05/09/2023 1:37 PM EDT) Hepatitis A IgM Nonreactive Nonreactive [facility] Comment:IgM antibodies to LOPEZ V not detected; does not exclude earlyacute or recovered HAV infection. ~Hepatitis B Surface Antibody NONREACTIVE Nonreactive [facility] Comment:Nonreactive: < 8.00 mIU/mL Hepatitis B Core Antibody Nonreactive Nonreactive [facility] Hepatitis C Antibody Nonreactive Nonreactive [facility] Comment:Antibodies to HCV no t detected; does not exclude early acuteHCV infection. Hepatitis B Surface Ag Negative Negative [facility] Blood 05/09/2023 1:37 PM EDT 05/09/2023 2:49 PM EDT Brenda Yost MD LAB BLOOD ORDERABLES Final Result [facility] [address] [place] [address] [phone] * Lipid Panel, Standard (05/09/2023 1:37 PM EDT) Triglycerides 141 mg/dL [facility] Comment:Desirable Triglyceri de: less than 150 mg/dLBorderline High Triglyceride 150-199 mg/dLHigh Triglyceride: 200-499 mg/dLVery High Triglyceride: greater than or equal to 5OO mg/dL Cholesterol 195 mg/dL [facility] Comment:Desirable Cholestero l: less than 200 mg/dLBorderline High Cholesterol: 200-239 mg/dLHigh Cholesterol: greater than 239 mg/dL LDL Cholesterol Calculated 138 mg/dl [facility] Comment:Desirable LDL: less than 100 mg/dLNear Optimal/Above Optimal LDL: 110- 129 mg/dLBorderline High LDL: 130-159 mg/dLHigh LDL: 160-189 mg/dLVery High LDL: greater than or equal to 190 mg/dL HDL Cholesterol 29 mg/dL [facility] Comment:Desirable HDL: great er than 40 mg/dL Note: This HDL assay may give artificially low results in patients with liver disease. Blood Venous blood specimen / Unknown 05/09/2023 1:37 PM EDT 05/09/2023 2:49 PM EDT us Brenda Yost MD LAB BLOOD ORDERABLES Final Result Performing Organization Address [facility] de Phone Number [facility] [address] [place] [phone] * Albumin, Random Urine W/Creatinine (05/09/2023 1:27 PM EDT) Creatinine, Urine 171.85 mg/dL [facility] Microalbumin Urine 12.0 mg/L [facility] Microalbum Creatinine Ratio Ur 6.9 ug/mg cr [facility] Comment:Albumin/Creatinine R atio Reference Ranges: Normal: < 30 ug/mg creatinine Microalbuminuria: 30 - 300 ug/mg creatinineClinical Albuminuria: > 300 ug/mg creatinine 05/09/2023 1:27 PM EDT 05/09/2023 5:42 PM EDT us Brenda Yost MD LAB URINE ORDERABLES Final Result Performing Organization Address [facility] Co de Phone Number [facility] [address] [place] [phone] * (ABNORMAL) HP Diabetic Foot Exam [...] Most Recently Relevant to Health Maintenance Insurance [facility] STANDARD MEDICARE Care Teams Reel Stripper Relationship Specialty Start Date End Date Brenda Yost MD [address] [place] [address] PCP - General Internal Medicine 10/03/12"
--- OUTSIDE RECORDS SUMMARY | 2025-01-25 12:30 | XMS_ITS | Clinical Summary ---
Author Organization [facility] Address [address] [place] [address] Care Team Providers Care Research Attorney Name Role Phone Unavailable Primary Care Provider [...]
--- OUTSIDE RECORDS SUMMARY | 2025-01-25 12:30 | XMS_ITS | Encounter Summary ---
Author Organization [employer] Address [address] [facility] 7 [place] [address] Care Team Providers Care Salt Manager Name Role Phone Brenda Yost MD Primary Care Provider [phone] Reason for Visit * Reason Onset Date Comments Call Back Request 02/25/2024 Encounter Details Date Type Department Care Team ([facility] st Contact Info) Description 02/25/2024 Telephone [facility] [address] [place] [address] Brenda Yost MD [address] [place] [address] Call Back Request Social History Tobacco Use [...] Description 02/05/2025 2:00 PM EDT Office Visit [facility] [address] [place] [address] Brenda Yost MD [address] [place] [address] documented as of this encounter Visit Diagnoses Not on filedocumented in this encounter Additional Health Concerns Assessment Noted Time PHQ-9 Depression Total Score: 8 05/09/20 23 11:04 AM EDT documented as of this encounter Care Teams Salt Manager Relationship Specialty Start Date End Date Brenda Yost MD [address] [place] [address] PCP - General Internal Medicine 10/03/12 documented as of this encounter
--- OUTSIDE RECORDS SUMMARY | 2025-01-25 12:30 | XMS_ITS | Encounter Summary ---
Author Organization [employer] Address [address] [place] [address] [address] [address] Care Team Providers Care Pbx Manager Name Role Phone Brenda Yost MD Primary Care Provider [phone] Encounter Details Date Type Department Care Team (Late Contact Info) Description 05/27/2023 Orders Only [facility] [address] [place] [address] Brenda Yost MD [address] [place] [address] Controlled type 2 diabetes mellitus with hyperglycemia, without long-term current use of insulin ([facility]) (Primary Dx) Social History [...] Description 02/05/2025 2:00 PM EDT Office Visit [facility] PEDS [address] [place] [address] Brenda Yost MD [address] [place] [address] documented as of this encounter Visit Diagnoses Diagnosis Controlled type 2 diabetes mellitus with hyperglycemia, without long-term current use of insulin ([facility])- Primary documented in this encounter Additional Health Concerns Assessment Noted Time PHQ-9 Depression Total Score: 8 05/09/20 23 11:04 AM EDT documented as of this encounter Care Teams Pbx Manager Relationship Specialty Start Date End Date Brenda Yost MD [address] [place] [address] PCP - General Internal Medicine 10/03/12 documented as of this encounter
--- OUTSIDE RECORDS SUMMARY | 2025-01-25 12:30 | XMS_ITS | Encounter Summary ---
Author Organization [employer] Address [address] [place] [address] [address] [address] Care Team Providers Care Formulation Technician Name Role Phone Brenda Yost MD Primary Care Provider [phone] Encounter Details Date Type Department Care Team (Late Contact Info) Description 02/25/2024 Orders Only [facility] & PEDS [address] [place] [address] Brenda Yost MD [address] [place] [address] Controlled type 2 diabetes mellitus with hyperglycemia, without long-term current use of insulin ([facility]) (Primary Dx) Social History Tobacco Use [...] PM EDT Office Visit [facility] PEDS [address] [place] [address] Brenda Yost MD [address] [place] [address] documented as of this encounter Visit Diagnoses Diagnosis Controlled type 2 diabetes mellitus with hyperglycemia, without long-term current use of insulin ([facility])- Primary documented in this encounter Additional Health Concerns Assessment Noted Time PHQ-9 Depression Total Score: 8 05/09/20 23 11:04 AM EDT documented as of this encounter Care Teams Formulation Technician Relationship Specialty Start Date End Date Brenda Yost MD [address] [place] [address] PCP - General Internal Medicine 10/03/12 documented as of this encounter
--- OUTSIDE RECORDS SUMMARY | 2025-01-25 12:30 | XMS_ITS | Encounter Summary ---
Author Organization [employer] [facility] Address [address] [place] [address] [address] [address] Care Team Providers Care Manager Emergency Name Role Phone Brenda Yost MD Primary Care Provider [phone] Reason for Visit * Reason Comments Med Refill Encounter Details Date Type Department Care Team (Late Contact Info) Description 05/18/2024 Refill [facility] & PEDS [address] [place] [address] Brenda Yost MD [address] [place] [address] Social History Tobacco Use Types Packs/Day Years [...] Upcoming Encounters Date Type Department Care Team ([facility] Contact Info) Description 02/05/2025 2:00 PM EDT Office Visit [facility] & PEDS [address] [place] [address] Brenda Yost MD [address] [place], [place] [phone] documented as of this encounter Visit Diagnoses Not on filedocumented in this encounter Additional Health Concerns Assessment Noted Time PHQ-9 Depression Total Score: 8 05/09/20 23 11:04 AM EDT documented as of this encounter Care Teams Manager Emergency Relationship Specialty Start Date End Date Brenda Yost MD [address] [facility] [place] [address] PCP - General Internal Medicine 10/03/12 documented as of this encounter
--- OUTSIDE RECORDS SUMMARY | 2025-01-25 12:30 | XMS_ITS | Encounter Summary ---
Author Organization [employer] [facility] Address [address] [place] [address] [address] [address] Care Team Providers Care Crop Farmers Name Role Phone Brenda Yost MD Primary Care Provider [phone] Reason for Visit * Reason Comments Med Refill Encounter Details Date Type Department Care Team (Late Contact Info) Description 07/12/2024 Refill [facility] MED & PEDS [address] [place] [address] Brenda Yost MD [address] [place] [address] Social History Tobacco Use Types Packs/Day Years [...] Upcoming Encounters Date Type Department Care Team ([facility] Contact Info) Description 02/05/2025 2:00 PM EDT Office Visit [facility] MED & PEDS [address] [place] [address] Brenda Yost MD [address] [place], [place] [phone] documented as of this encounter Visit Diagnoses Not on filedocumented in this encounter Additional Health Concerns Assessment Noted Time PHQ-9 Depression Total Score: 8 05/09/20 23 11:04 AM EDT documented as of this encounter Care Teams Crop Farmers Relationship Specialty Start Date End Date Brenda Yost MD [address] [facility] [place] [address] PCP - General Internal Medicine 10/03/12 documented as of this encounter
--- OUTSIDE RECORDS SUMMARY | 2025-01-25 12:30 | XMS_ITS | Encounter Summary ---
Author Organization [employer] Address [address] [place] [address] 7 [place] [address] Care Team Providers Care Mental Health Professional Name Role Phone Brenda Yost MD Primary Care Provider [phone] Encounter Details Date Type Department Care Team ([facility] Contact Info) Description 05/10/2023 Orders Only [facility] MED & PEDS [address] [place], [place] [phone] Brenda Yost MD [address] [place], [place] [phone] Screen for STD (sexually transmitted disease) (Primary [...] Upcoming Encounters Date Type Department Care Team ([facility] Contact Info) Description 02/05/2025 2:00 PM EDT Office Visit [facility] MED [facility] PEDS [address] [place], [place] [phone] Brenda Yost MD [address] [place] [address] Scheduled Orders Name Type Priority Associated Diagnoses [...] documented as of this encounter Care Teams Mental Health Professional Relationship Specialty Start Date End Date Brenda Yost MD [address] [place] [address] [place] [address] PCP - General Internal Medicine 10/03/12 documented as of this encounter
--- OUTSIDE RECORDS SUMMARY | 2025-01-25 12:30 | XMS_ITS | Encounter Summary ---
Author Organization [facility] Address [address] [place] [id number] Care Team Providers Care Outdoor Guide Name Role Phone Brenda Yost MD Primary Care Provider [phone] Reason for Referral * Consultation (Routine) - Authorized Specialty Diagnoses / Procedures Referred By Contac t Referred To Contact Pharmacy Diagnoses Controlled type 2 diabetes mellitus with hyperglycemia, without long-term current use of insulin (CMS/HCC) Brenda Yost MD [address] [place] [address] Phone: tel: fax: Referral ID Status Reason Start Date Expiration Date Visits Requested Visits Authorized [id number] Authorized Consult and Treat 01/05/2025 01/05/2026 6 6 Encounter Details Date Type Department Care Team ([facility] st Contact Info) Description 01/05/2025 Orders Only [facility] [address] [place] [address] Brenda Yost MD [address] [place] [address] Controlled type 2 diabetes mellitus with hyperglycemia, [...] Description 02/05/2025 2:00 PM EDT Office Visit [facility] [address] [place] [address] Brenda Yost MD [address] [place] [address] Scheduled Referrals Name Type Priority Associated Diagnoses Orde r Schedule Referral to Pharmacy CDTM Outpatient Referral Routine Controlled type 2 diabetes mellitus with hyperglycemia, without long-term current use of insulin (CMS/[facility]) Ordered: 01/05/2025 documented as of this encounter Visit Diagnoses Diagnosis Controlled type 2 diabetes mellitus with hyperglycemia, without long-term current use of insulin (CMS/[facility])- Primary documented in this encounter Additional Health Concerns Assessment Noted Time PHQ-9 Depression Total Score: 0 01/06/20 25 2:25 PM EDT documented as of this encounter Care Teams Outdoor Guide Relationship Specialty Start Date End Date Brenda Yost MD [address] [place] [address] PCP - General Internal Medicine 10/03/12 documented as of this encounter
== END 2025-01-25 11:22 | disposition home or self-care (01) ==
LOC: HO.HCS 10:35
PROVIDERS: PCP Internal Medicine; Visit Provider Internal Medicine
DX: I25.10 Atherosclerotic heart disease of native coronary artery without angina pectoris (principal); E66.01 Morbid (severe) obesity due to excess calories; E11.8 Type 2 diabetes mellitus with unspecified complications; I10 Essential (primary) hypertension; E78.5 Hyperlipidemia, unspecified
CPT/HCPCS: 93010; 99214; G2211

== ENCOUNTER → 2025-01-25 10:34 | Outpatient (BNVA) | payer MEDICARE, MEDICAID, SELFPAY | PROVIDERS: PCP Internal Medicine; Visit Provider Internal Medicine | DX: I25.10 Atherosclerotic heart disease of native coronary artery without angina pectoris (principal); I10 Essential (primary) hypertension; E66.01 Morbid (severe) obesity due to excess calories; E78.5 Hyperlipidemia, unspecified; E11.8 Type 2 diabetes mellitus with unspecified complications; Z68.43 Body mass index [BMI] 50.0-59.9, adult | CPT/HCPCS: 93005; 99212 ==

== ENCOUNTER 2025-03-03 10:31 | Outpatient (REF) | payer MEDICARE, MEDICAID, SELFPAY ==
--- OUTSIDE RECORDS SUMMARY | 2025-03-03 11:13 | XMS_ITS | Clinical Summary ---
Author Organization [employer] Address [address] [facility] 7t [place] [address] Care Team Providers Care Community Service Organization Director Name Role Phone Brenda Yost MD Primary Care Provider [phone] Allergies No known active allergies Medications Misc. Devices (Commode) misc To use as needed 017 Active gabapentin (Neurontin) 300 MG capsule Take 2 capsules by mouth. 3 times every day 019 Active Heating Pads pads to use daily prn 019 Active albuterol 108 (90 Base) MCG/ACT inhaler inhale 2 puff by inhalation route every 4 to 6 hours as needed. 022 Active docusate sodium (Colace) 100 MG capsule Take 1 capsule by mouth at bed time. As needed 019 Active ferrous sulfate 325 (65 Fe) MG tablet 1 tablet. By mouth 2 times every day Active mupirocin (Bactroban) 2 % ointment Apply topically. 3 times every day a small amount to the affected area 022 Active naproxen sodium (Anaprox) 275 MG tablet Take 1 tablet by mouth every 8 (eight) hours. 019 Active sildenafil (Viagra) 100 MG tablet Take 1 tablet by mouth. Every day as needed approximately 1 hour before sexual activity 021 Active ammonium lactate (Amlactin) 12 % cream APPLY TOPICALLY TO THE AFFECTED AREA TWICE DAILY 385 g 11 023 Active Blood Pressure kitIndications: Primary hypertension To use once a day 1 kit 023 Active furosemide (Lasix) 20 MG tablet TAKE 1 TABLET(20 MG) BY MOUTH DAILY 30 tablet 2 024 Active lisinopril 40 MG tabletIndicatio ns:Primary hypertension TAKE 1 TABLET(40 MG) BY MOUTH DAILY 90 tablet 3 025 Active albuterol (2.5 MG/3ML) 0.083% nebulizer solutionIndicat ions:Asthma, unspecified asthma severity, unspecified whether complicated, unspecified whether persistent INHALE 1 VIAL BY NEBULIZATION ROUTE EVERY 4 HOURS NEEDED 75 mL 3 025 Active FreeStyle lancetsIndicati ons:Type 2 diabetes mellitus with hyperglycemia, without long-term current use of insulin (CMS/[facility]) USE TO TEST TWICE DAILY 100 each 11 025 Active amLODIPine (Norvasc) 10 MG tabletIndicatio ns:Primary hypertension TAKE 1 TABLET(10 MG) BY MOUTH DAILY 90 tablet 3 025 Active atorvastatin (Lipitor) 20 MG tablet TAKE 1 TABLET BY MOUTH EVERY DAY 90 tablet 1 025 Active furosemide (Lasix) 20 MG tabletIndicatio ns:Type 2 diabetes mellitus with hyperglycemia, without long-term current use of insulin (CMS/HCC) Take 2 tablets (40 mg) by mouth Once per day. Every day 30 tablet 3 025 Active Semaglutide, 2 MG/DOSE, (Ozempic, 2 MG/DOSE,) 8 MG/3ML solution pen-injectorInd ications:Type 2 diabetes mellitus with hyperglycemia, without long-term current use of insulin (CMS/HCC) Inject 0.75 mL (2 mg) under the skin 1 (one) time per week. 2 mL 025 Active metFORMIN (Glucophage) 500 MG tabletIndicatio ns:Type 2 diabetes mellitus with hyperglycemia, without long-term current use of insulin (CMS/HCC) Take 2 tablets (1,000 mg) by mouth with breakfast and with evening meal. 360 tablet 025 Active glucose blood (FREESTYLE LITE) test stripIndication s:Type 2 diabetes mellitus with hyperglycemia, without long-term current use of insulin (CMS/HCC) USE DIRECTED TO TEST BLOOD GLUCOSE 4 TIMES DAILY 100 strip 025 Active furosemide (Lasix) 20 MG tablet Take 1 tablet by mouth. Every day 021 2024 Discontinued(R eorder (will not trigger notification to Pharmacy)) lisinopril (Prinivil) 20 MG tabletIndicatio ns:Primary hypertension Take 1 tablet (20 mg) by mouth in the morning. 30 tablet 11 023 2024 Discontinued amLODIPine (Norvasc) 10 MG tabletIndicatio ns:Primary hypertension Take 1 tablet (10 mg) by mouth Once per day. 90 tablet 3 024 2024 Discontinued FreeStyle lancetsIndicati ons:Type 2 diabetes mellitus with hyperglycemia, without long-term current use of insulin ([facility]) USE TO TEST TWICE DAILY 100 each 3 024 2024 Discontinued atorvastatin (Lipitor) 20 MG tablet TAKE 1 TABLET BY MOUTH EVERY DAY 90 tablet 1 024 2024 Discontinued Ozempic, 1 MG/DOSE, 4 MG/3ML solution pen-injector INJECT 1 MG SUBCUTANEOUS ONCE WEEKLY 3 mL 11 025 2024 Discontinued(I neffective) glucose blood (FREESTYLE LITE) test stripIndication s:Type 2 diabetes mellitus with hyperglycemia, without long-term current use of insulin ([facility]) USE DIRECTED TO TEST BLOOD GLUCOSE 4 TIMES DAILY 100 strip 11 025 2024 Discontinued(R eorder (will not trigger notification to Pharmacy)) metFORMIN (Glucophage) 500 MG tablet TAKE 2 TABLETS(1000 MG) BY MOUTH TWICE DAILY WITH THE MORNING AND EVENING MEAL 360 tablet 1 025 2024 Discontinued(R eorder (will not trigger notification to Pharmacy)) Active Problems Problem Noted Date Diagnosed Date [...] disease 10/21/2019 Controlled type 2 diabetes m ellitus, without long-term current use of insulin 09/13/2016 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 Asthma 10/31/2012 Low back pain 10/03/2012 Hyperlipidemia 09/30/2012 Hypertension 11/24/1994 Depressive disorder 09/30/1994 Morbid obesity 04/30/1975 Obstructive sleep apnea syndrome 09/30/1959 Encounters Date Type Department Care Team Description 03/03/2025 9:45 AM EDT Office Visit [facility] [address] [place], [place] Belinda Pastrana [phone] Manuel MD Type 2 diabetes mellitus with hyperglycemia, without long-term current use of insulin ([facility]) (Primary Dx); Vasculogenic erectile dysfunction, unspecified vasculogenic erectile dysfunction type 03/03/2025 Travel 02/26/2025 Telephone [facility] [address], [place] Belinda Ignacio-Brenda Martinez MD Appointment Request (Pt needs appt) 02/23/2025 Refill [facility] [address], [place] Belinda Ignacio-Brenda Martinez MD 02/05/2025 Telephone [facility] [address] [place] [address] Brenda Martinez MD No Show; Appointment Request 02/04/2025 Refill [facility] [address] [facility] [place] Brenda Carson MD Primary hypertension 02/01/2025 Refill [facility] [address] [place], [place] Belinda Ignacio-Brenda Martinez MD Type 2 diabetes mellitus with hyperglycemia, without long-term current use of insulin ([facility]) 01/29/2025 Refill [facility] [address] [place] [address] Brenda Yost MD 01/26/2025 Refill [facility] [address] [place] [address] Brenda Yost MD Type 2 diabetes mellitus with hyperglycemia, without long-term current use of insulin (CMS/[facility]) 01/22/2025 Refill [facility] [address] [place] [address] Brenda Yost MD 01/15/[address] [address] Brenda Yost MD 01/14/2025 Orders Only [address] [address] Anne-Marie Steiner MD Hypogonadism in male (Primary Dx) 01/08/2025 Telephone [facility] [address] [place] [phone] Brenda Yost MD 01/06/2025 Telephone [facility] [address] [place] [address] Brenda Yost MD 01/06/2025 Refill [facility] [address] [place] [address] Brenda Yost MD Asthma, unspecified asthma severity, unspecified whether complicated, unspecified whether persistent (Primary Dx) 01/05/2025 3:15 PM EDT Telemedicine [facility] [address] [place] [address] Robin Dash MD Primary hypertension (Primary Dx); Vasculogenic erectile dysfunction, unspecified vasculogenic erectile dysfunction type; Controlled type 2 diabetes mellitus with hyperglycemia, without long-term current use of insulin ([facility]); Nocturia 01/05/2025 Travel 01/05/2025 Telephone [facility] [address] [place] [phone] Brenda Yost MD Nurse Triage; Results 01/05/2025 Orders Only [facility] [address] [facility] [place] [address] Brenda Yost MD Controlled type 2 diabetes mellitus with hyperglycemia, without long-term current use of insulin ([facility]) (Primary Dx) 01/05/2025 Telephone [facility] [address] [facility] [place] [address] Neelam Dickerson, Janessa 2024 Orders Only [facility] External Provider, [facility] 12/20/2024 Refill [facility] [address] [place] [address] Brenda Yost MD Primary hypertension 12/11/2024 [address] Health Risk Score [facility] () Department [address] [place] [phone] Provider, Population Health Generic from Last 3 Months Immunizations Immunization Administration Dates Next Due Influenza, seasonal, injectable, [...] Sign Reading Time Taken Comments Blood Pressure 163/75 03/03/2025 9:34 AM EDT Pulse 84 03/03/2025 9:34 AM EDT Temperature 36.6 ??C (97.9 ??F) 03/03/2025 9:34 AM ED T Respiratory Rate 20 03/03/2025 9:34 AM EDT Oxygen Saturation 96% 03/03/2025 9:34 AM EDT Inhaled Oxygen Concentration - - Weight 168 kg (371 lb) 03/03/2025 9:34 AM EDT Height 174.6 cm (5' 8.75 ) 03/03/2025 9:34 AM ED T Body Mass Index 55.19 03/03/2025 9:34 AM EDT Plan of Treatment Upcoming Encounters Date Type Department Care Team (Late st Contact Info) Description 04/22/2025 9:30 AM EDT Office Visit [facility] [address] [place] [address] Brenda Yost MD [address] [place] [address] Health Maintenance Due Date Last Done Comments CT Colonography 1961 FIT DNA/Cologuard 1961 FIT 1961 FOBT 1960 HIV Screening 1960 SDOH Screening 1960 Sigmoidoscopy 1960 Disability Screening 1960 Eye Exam 12/22/1971 Alcohol/Substance Use Screening [...] 2024 03/27/2021, 02/21/2021, 01/07/2021, Additional history exists Tobacco Screening 08/06/2024 08/06/2023 Colonoscopy 12/07/2024 12/07/2021 Colorectal Cancer Screening 12/07/2024 Diabetes: Hemoglobin A1C 04/07/2025 025, 02/21/2024, 05/09/2023, Additional history exists Influenza Vaccine (Season Ended) 2025 10/22/2012 DTaP/Tdap/Td Vaccines (2 - Td or Tdap) [...] topic Meningococcal Vaccine Aged Out No xander anivla eligible based on patient's age to complete [...] Free T4 0.72 0.32 - 4.0 uIU/mL [facility] Blood Venous blood specimen / Unknown 01/22/2025 8:15 AM EDT 01/22/2025 2:08 PM EDT us Anne-Marie Steiner MD LAB BLOOD ORDERABLES Fin al Result [facility] [address] [place] [phone] * LH (01/22/2025 8:15 AM EDT) Lutenizing Hormone 3.0 1.6 - 15.2 mIU/mL [facility] Comment:THIS TEST WAS PERFOR MED AT:[employer] [place] [phone] [place] MD Blood Venous blood specimen / Unknown 01/22/2025 8:15 AM EDT 01/22/2025 2:08 PM EDT Anne-Marie Steiner MD LAB BLOOD ORDERABLES Fin al Result Performing Organization Address [facility] de Phone Number [facility] [address] [place] [phone] * FSH (01/22/2025 8:15 AM EDT) Follicle Stimulating Hormone 3.9 1.4 - 12.8 mIU/mL [facility] Comment:THIS TEST WAS PERFOR MED AT:[employer] [address] [phone] [place] MD Blood Venous blood specimen / Unknown 01/22/2025 8:15 AM EDT 01/22/2025 2:08 PM EDT Anne-Marie Steiner MD LAB BLOOD ORDERABLES Fin al Result Performing Organization Address [facility] de Phone Number [facility] [address] [place] [phone] * Hepatic Function Panel (01/22/2025 8:15 AM EDT) Bilirubin, Total 0.2 0.0 - 1.0 mg/dL [facility] Bilirubin, Direct <0.2 0.0 - 0.5 mg/dL [facility] Aspartate Amino Transferase 17 5 - 37 U/L [facility] Alanine Aminotransferase 19 0 - 40 U/L [facility] Total Protein 7.2 6.5 - 8.0 g/dL [facility] Albumin Level 3.6 3.5 - 5.0 g/dL [facility] Alkaline Phosphatase 71 39 - 117 U/L [facility] Blood Venous blood specimen / Unknown 01/22/2025 8:15 AM EDT 01/22/2025 2:08 PM EDT us Anne-Marie Steiner MD LAB BLOOD ORDERABLES Fin al Result Performing Organization Address [facility] Co de Phone Number [facility] [address] [place] [phone] * PSA, Total With Reflex to PSA, Free (01/06/2025 8:39 AM EDT) PSA,Total (Free>4and<10) 0.23 0.00 - 4.00 ng/mL [facility] Comment:A Free PSA was not [...] are between 4.0 and 10.0 ng/mL.PSA methodology: Stevenson Alinity i ChemiluminescentMicroparticle Immunoassay (CMIA) 01/06/2025 8:39 AM EDT 01/06/2025 2:51 PM EDT us Robin Pruett MD LAB BLOOD ORDERABL ES Final Result Performing Organization Address [facility] Co de Phone Number [facility] [address] [place] [phone] * (ABNORMAL) Testosterone, Free (Dialysis) And Total, MS (01/06/2025 8:39 AM EDT) Testosterone, Total 74(A) 250 - 1100 ng/dL [facility] Comment:Men with clinically significant hypogonadal symptoms and testosterone valuesrepeatedly in the range of the 200-300 ng/dL or less, may benefit fromtestosterone treatment after adequate risk and benefits counseling.For additional information, please refer tohttps://[email or web address]/faq/KKO356(This link is being provided for informational/educational purposes only.)(Note)This test was developed and its analytical performancecharacteristics have been determined by [employer] [employer]. It hasnot been cleared or approved by the FDA. This assay hasbeen validated pursuant to the CLIA regulations and isused for clinical purposes. Testosterone, Free 13.5(A) 35.0 - 155.0 pg/mL [facility] Comment:(Note)This test was developed and its analytical performancecharacteristics have been determined by [facility] [employer]. It hasnot been cleared or approved by the FDA. This assay hasbeen validated pursuant to the CLIA regulations and isused for clinical purposes.MDed [id number] [place] [address],[address] [phone] Chris Castro MD, PhDTHIS TEST WAS PERFORMED AT:[id number] [address] [place] [phone] CASTRO MD,PHD Blood Venous blood specimen / Unknown 01/06/2025 8:39 AM EDT 01/06/2025 2:51 PM EDT Robin Pruett MD LAB BLOOD ORDERABL ES Final Result [facility] [address] [place] [phone] * (ABNORMAL) Hemoglobin A1c (01/06/2025 8:39 AM EDT) Hemoglobin A1c 11.3(H) <6.0 % [facility] Comment:Hemoglobin A1C Refer ence Range Adults: 4.8 - 6.0 % Non diabetic: < 6.0 % Goal: < 7.0 %Additional Action Suggested: > 8.0 %Note: Hemoglobin A1c results are invalid for patients with abnormal amounts of HbF. Blood transfusions may impact the HbA1c concentration in the patient sample. Estimated Average Glucose 278 mg/dL [facility] Comment:eAG = Estimated ave rage glucose which is %A1C expressed asaverage glucose, using the formula of the P9O-IfdohimIydekgg Glucose study (ADAG), Diabetes Care, Vol.31,#8,Aug. 2007 Blood Venous blood specimen / Unknown 01/06/2025 8:39 AM EDT 01/06/2025 2:51 PM EDT Robin Pruett MD LAB BLOOD ORDERABL ES Final Result [facility] [address] [place] [phone] * CT Lung Screening Low dose (2024 12:21 PM EDT) Anatomical Region Laterality Modality Lung Computed Tomogra phy 2024 12:2 1 PM EDT Narrative 2024 12:22 PM EDT ? [facility] ?[address] ?[place] [address] ? CT Scan Report ? Signed ? Patient: Robert Keane ?MR#: [id number] ?? [id number] ? : 1960 ?Acct:[id number] ? Age/Sex: 64 / M ?ADM Date: 12/21/24 ? Loc: HO.CT ? Attending Dr: Preston Massey MD ? Ordering Physician: Sandy Norman PA-C ?? Date of Service: 12/21/24 ?? Procedure(s): CT lung screening ?? Accession Number(s): [id number] ? cc: Brenda Yost MD; Sandy Norman PA-C ? Report Number: ?? [id number]: Total DLP = ??132.00 mGy-cm ? CLINICAL [...] DD/ 1221 ? TD/TT: 12/21/24 1221 ? Print Controller: ? Procedure Note Janet Santos - [address] [address] [address] Scan Report Signed Patient: Robert Keane AMR#: [id number] : 2Acct:[id number] Age/Sex: 64 / MADM Date: 12/21/24 Loc: HO.CT Attending Dr: Preston Massey MD Ordering Physician: Sandy Norman PA-C Date of Service: 12/21/24 Procedure(s): CT lung screening Accession Number(s): [id number] cc: Brenda Yost MD; Sandy Norman PA-C Report Number: [id number]: Total DLP = 132.00 mGy-cm CLINICAL HISTORY: [...] 12/21/24 1221 DD/ 1221 TD/TT: 12/21/24 1221 Print Controller: [facility] External Provider IMG CT PROCEDURES Final Result * Hepatitis Panel, General (05/09/2023 1:37 PM EDT) Hepatitis A IgM Nonreactive Nonreactive [facility] Comment:IgM antibodies to LOPEZ V not detected; does not exclude earlyacute or recovered HAV infection. ~Hepatitis B Surface Antibody NONREACTIVE Nonreactive [facility] Comment:Nonreactive: < 8.00 mIU/mL Hepatitis B Core Antibody Nonreactive Nonreactive [facility] Hepatitis C Antibody Nonreactive Nonreactive [facility] Comment:Antibodies to HCV no t detected; does not exclude early acuteHCV infection. Hepatitis B Surface Ag Negative Negative [facility] Blood 05/09/2023 1:37 PM EDT 05/09/2023 2:49 PM EDT us Brenda Yost MD LAB BLOOD ORDERABLES Final Result [facility] [address] [place] [phone] * Lipid Panel, Standard (05/09/2023 1:37 PM EDT) Triglycerides 141 mg/dL [facility] Comment:Desirable Triglyceri de: less than 150 mg/dLBorderline High Triglyceride 150-199 mg/dLHigh Triglyceride: 200-499 mg/dLVery High Triglyceride: greater than or equal to 5OO mg/dL Cholesterol 195 mg/dL [facility] Comment:Desirable Cholestero l: less than 200 mg/dLBorderline High Cholesterol: 200-239 mg/dLHigh Cholesterol: greater than 239 mg/dL LDL Cholesterol Calculated 138 mg/dl [facility] Comment:Desirable LDL: less than 100 mg/dLNear Optimal/Above Optimal LDL: 110- 129 mg/dLBorderline High LDL: 130-159 mg/dLHigh LDL: 160-189 mg/dLVery High LDL: greater than or equal to 190 mg/dL HDL Cholesterol 29 mg/dL [facility] Comment:Desirable HDL: great er than 40 mg/dL Note: This HDL assay may give artificially low results in patients with liver disease. Blood Venous blood specimen / Unknown 05/09/2023 1:37 PM EDT 05/09/2023 2:49 PM EDT us Brenda Yost MD LAB BLOOD ORDERABLES Final Result Performing Organization Address [facility] Co de Phone Number [facility] [address] [place] [phone] * Albumin, Random Urine W/Creatinine (05/09/2023 1:27 PM EDT) Creatinine, Urine 171.85 mg/dL [facility] Microalbumin Urine 12.0 mg/L [facility] Microalbum Creatinine Ratio Ur 6.9 ug/mg cr [facility] Comment:Albumin/Creatinine R atio Reference Ranges: Normal: < 30 ug/mg creatinine Microalbuminuria: 30 - 300 ug/mg creatinineClinical Albuminuria: > 300 ug/mg creatinine 05/09/2023 1:27 PM EDT 05/09/2023 5:42 PM EDT us Brenda Yost MD LAB URINE ORDERABLES Final Result Performing Organization Address [facility] Co de Phone Number [facility] [address] [place] [phone] * (ABNORMAL) Diabetic Foot Exam (05/09/2023) Narrative Brenda Yost [...] sult * Hm Colonoscopy (12/07/2021) Colonoscopy Performed us Historical Provider HEALTH MAINTENANCE Edited Result - Final from Last 3 Months or Most Recently Relevant to Health Maintenance [place] [address] [address] STANDARD MEDICARE Care Teams Community Service Organization Director Relationship Specialty Start Date End Date Brenda Yost MD [address] [place] [phone] PCP - General Internal Medicine 10/03/12
[2025-03-03 15:02] LABS: Alanine Aminotransferase 12 U/L (0-40); Albumin Level 3.8 g/dL (3.5-5.0); Alkaline Phosphatase 83 U/L (39-117); Aspartate Amino Transferase 20 U/L (5-37); Bilirubin Direct 0.2 mg/dL (0.0-0.5); Bilirubin Total 0.5 mg/dL (0.0-1.0); Cholesterol 166 mg/dL (<200); HDL Cholesterol 28 mg/dL (>40); LDL Cholesterol Calculated 113 mg/dL (<100); Total Protein 7.3 g/dL (6.5-8.0); Triglycerides 128 mg/dL (<150)
[2025-03-12 19:33] LABS: Testosterone, Total 86 ng/dL (250-1100)
== END 2025-03-03 10:32 | disposition home or self-care (01) ==
LOC: HO.CHCLDS 10:31
PROVIDERS: PCP Internal Medicine; Referring Provider Internal Medicine; Visit Provider Internal Medicine
DX: I25.10 Atherosclerotic heart disease of native coronary artery without angina pectoris (principal); E78.5 Hyperlipidemia, unspecified; N52.9 Male erectile dysfunction, unspecified
CPT/HCPCS: 36415; 80061; 80076; 84402; 84403

== ENCOUNTER 2025-03-15 09:46 | Outpatient (AMB) | payer MEDICARE, MEDICAID, SELFPAY ==
--- NOTE | 2025-03-15 09:47 | MHC.OFFVIS ---
Intake Visit Reasons: Pre colo screen. OK per Peyton + Dr. Johnson Intake Note: Robert presents as as colonoscopy screening telehealth. CC: States that he is just due for a colonoscopy - no concerns. Director Of Plant Operations Required: No Allergies No Known Allergies Allergy (Verified 08/19/24 09:21) HPI HPI Pre colo screen. OK per Peyton + Dr. Johnson: Details: 64 yr old m being called for f/u RECAP: Colonoscopy 2021- mackey diverticulosis - polyps- path-HP FH of CRC- mother --aged 66 INTERIM: he still issues with constipation he is taking good number of fruit and veg in diet his sweight is stable around 370# he has been on ozempic for 10 yrs no blood in stools A/P: 1/ diverticulosis 2/ Colonic polyps --Fh of cRC PLAN: / - repeat colo now--suprep, he want first appointment of the morning 2/ pre op anesthesia given weight- Dasia and COPD 3/ advised to stop ozempic 1 week before. [facility] Medical History (Updated 10/19/24 @ 16:06 by Sandy Norman PA-C) Nicotine dependence, cigarettes, uncomplicated Sleep apnea CAD (coronary artery disease) Morbid obesity Tubular adenoma of colon (~2019) Elevated cholesterol HTN (hypertension) Low back pain Ambulates with cane Peripheral neuropathy Diabetes COPD (chronic obstructive pulmonary disease) Surgical History (Updated 10/19/24 @ 16:06 by Sandy Norman PA-C) Hx of surgical procedure (01/10/24) History of colonoscopy History of esophagogastroduodenoscopy (EGD) Family History Mother Colon cancer Social History Household Members Other:: daughter Are you a primary lawn caretaker to a significant other at home: No Do you presently have visiting nurse or other home services: No Alcohol intake: never Patient Tobacco Use Status: Former Tobacco user Tobacco use type: Cigarette Cigarette Packs Per Day: 1 Cigarettes Per Day: 20.0 Years Smoked: (current smoker, onset 19. Max 3-4ppd x 30years, now 1ppd, 100+PYH) Telehealth Telehealth Telehealth Platform: Telephone Location of provider rendering services: practice address Location of patient: address on file Patient Identification confirmed using: Name, : Yes Telehealth method: voice only Patient verbally consented to treatment: Yes Patient verbally consented to billing insurance company: Yes Patient informed of any privacy concerns related to visit: Yes Minutes spent on Phone/Video with Pt.: 7 Assessment & Plan Assessment & Plan (1) Chronic constipation: Comment: Long history, does not have any OTC prep available left at previous address Code(s): K59.09 - Other constipation Category: Medical Plan: see above (2) History of colon polyps: Comment: 2021 hyperplastic polyps-repeat 3-4 year Code(s): Z86.010 - Personal history of colon polyps Category: Medical Plan: see above Medications: New sodium,potassium,mag sulfates 17.5-3.13-1.6 gram (Suprep Bowel Prep Kit) DILUTE; drink 1/2 at 6-8 pm and half at 11 PM- 1AM 354 mL 0RF Coding Level of Care Code Tele Est Pt Level 3 (05466) Diagnoses Chronic constipation K59.09 History of colon polyps Z86.010
--- OUTSIDE RECORDS SUMMARY | 2025-03-15 10:42 | XMS_ITS | Clinical Summary ---
Author Organization [employer] Address [address] [place] [address] Care Team Providers Care Laundry Folder Name Role Phone Brenda Yost MD Primary Care Provider [phone] Allergies No known active allergies Medications Misc. [...] hyperglycemia, without long-term current use of insulin (CMS/[facility]) USE TO TEST TWICE DAILY [...] morning. 30 tablet 11 023 2024 Discontinued atorvastatin (Lipitor) 20 MG tablet TAKE 1 TABLET BY MOUTH EVERY DAY 90 tablet 1 024 2024 Discontinued Ozempic, 1 MG/DOSE, 4 MG/3ML solution pen-injector INJECT 1 MG SUBCUTANEOUS ONCE WEEKLY 3 mL 11 025 2024 Discontinued(I neffective) glucose blood (FREESTYLE LITE) test stripIndication s:Type 2 diabetes mellitus with hyperglycemia, without long-term current use of insulin ([facility]) USE DIRECTED TO TEST BLOOD [...] Encounters Date Type Department Care Team Description 03/15/2025 Results Follow-Up [facility] [address] [place] [address] Kerri Rosas, RN POCT Glucose, Testosterone, Free (Dialysis) And Total, MS 03/15/2025 Orders Only [facility] [address] [place] [address] Brenda Yost MD Hypogonadism in male (Primary Dx) 03/04/2025 Results Follow-Up [facility] [address] [facility] [place] [address] Kerri Rosas, RENU Hepatic Function Panel, Lipid Panel, Standard 03/03/2025 9:45 AM EDT Office Visit [facility] [address] [place] [address] Brenda Yost MD Type 2 diabetes mellitus with hyperglycemia, without long-term current use of insulin ([facility]) (Primary Dx); Vasculogenic erectile dysfunction, unspecified vasculogenic erectile dysfunction type; Dietary counseling; Exercise counseling; Class 3 severe obesity due to excess calories with serious comorbidity and body mass index (BMI) of 50.0 to 59.9 in adult 03/03/2025 Orders Only GENERIC EXTERNAL DATA DEPARTMENT Provider, Generic External Data 03/03/2025 Travel 02/26/2025 Telephone [facility] [address] [facility] [place] [address] Brenda Yost MD Appointment Request (Pt needs appt) 02/23/2025 Refill [facility] [address] [facility] [place] [address] Brenda Yost MD 02/05/2025 Telephone [facility] [address] [facility] [place] [address] Brenda Yost MD No Show; Appointment Request 02/04/2025 Refill [facility] [address] [place] [address] Brenda Yost MD Primary hypertension 02/01/2025 Refill [facility] [address] [place] [address] Brenda Yost MD Type 2 diabetes mellitus with hyperglycemia, without long-term current use of insulin ([facility]) 01/29/2025 Refill [facility] [address] [place] [address] Brenda Yost MD 01/26/2025 Refill [facility] [address] [place] [address] Brenda Yost MD Type 2 diabetes mellitus with hyperglycemia, without long-term current use of insulin ([facility]) 01/22/2025 Refill [facility] [address] [place] [address] Brenda Yost MD 01/15/2025 Telephone [facility] [address] [place] [phone] Brenda Yost MD 01/14/2025 Orders Only [facility] [address] [place] [phone] Anne-Marie Steiner MD Hypogonadism in male (Primary Dx) 01/08/2025 Telephone [facility] [address] [place] [phone] Brenda Yost MD 01/06/2025 Telephone [facility] [address] [place] [address] Brenda Yost MD 01/06/2025 Refill [facility] [address] [place] [address] Brenda Yost MD Asthma, unspecified asthma severity, unspecified whether complicated, unspecified whether persistent (Primary Dx) 01/05/2025 3:15 PM EDT [facility] [address] [place] [address] Robin Dash MD Primary hypertension (Primary Dx); Vasculogenic erectile dysfunction, unspecified vasculogenic erectile dysfunction type; Controlled type 2 diabetes mellitus with hyperglycemia, without long-term current use of insulin ([facility]/HCC); Nocturia 01/05/2025 Travel 01/05/2025 Telephone [facility] [address] [place] [address] Brenda Yost MD Nurse Triage; Results 01/05/2025 Orders Only [facility] [address] [place] [address] Brenda Yost MD Controlled type 2 diabetes mellitus with hyperglycemia, without long-term current use of insulin (CMS/HCC) (Primary Dx) 01/05/2025 Telephone [facility] [address] [place] [address] Neelam Dickerson, PharmD 2024 Orders Only [facility] External Provider, [facility] 12/20/2024 Refill [facility] [address] [place] [address] Brenda Yost MD Primary hypertension from Last 3 Months Immunizations Immunization Administration [...] [facility] Contact Info) Description 04/22/2025 9:30 AM EDT Office Visit [facility] [address] [place] [address] Brenda Yost MD [address] [place] [address] Health Maintenance Due Date Last Done Comments [...] Diabetes: Urine Protein Screening 05/09/2024 05/09/2023, 02/09/2022 COVID-19 Vaccine (5 - 2024-25 season) 2024 03/27/2021, 02/21/2021, 01/07/2021, Additional history exists Colonoscopy 12/07/2024 12/07/2021 Colorectal Cancer Screening 12/07/2024 Diabetes: Hemoglobin A1C 04/07/2025 025, 02/21/2024, 05/09/2023, Additional history exists Influenza Vaccine (Season Ended) 2025 10/22/2012 DTaP/Tdap/Td Vaccines (2 - Td or Tdap) 08/12/2025 08/12/2015 Depression Screening 01/05/2026 01/05/2025, 01/06/20 25 Lipid Panel 03/03/2026 03/03/2025, 04/30, 02/09/2022 Tobacco Screening 03/03/2026 03/03/2025 Hepatitis C Screening Completed 05/09/2023 HIB Vaccines [...] Procedure Name Priority Date/Time Associated Diagnosis Comments POCT GLUCOSE Routine 03/03/2025 11:27 AM EDT Type 2 diabetes mellitus with hyperglycemia, without long-term current use of insulin ([facility]) LIPID PANEL, STANDARD Routine 03/03/2025 10:34 AM EDT HEPATIC FUNCTION PANEL Routine 03/03/2025 10:34 AM EDT TESTOSTERONE, FREE (DIALYSIS) AND TOTAL,MS Routine 03/03/2025 10:34 AM EDT Vasculogenic erectile dysfunction, unspecified vasculogenic erectile dysfunction type HEPATIC FUNCTION PANEL Routine 01/22/2025 8:15 AM [...] EDT Screen for STD (sexually transmitted disease) ALBUMIN, RANDOM URINE W/CREATININE Routine 05/09/2023 1:27 PM EDT HP LINK DIABETIC FOOT EXAM Routine 05/09/2023 HM COLONOSCOPY Routine 12/07/2021 from Last 3 Months or Most Recently Relevant to Health Maintenance Results * (ABNORMAL) POCT Glucose (03/03/2025 11:27 AM EDT) Pathologist [facility] Glucose Blood, POC 240(A) 60 - 200 mg/dL QC Media Lot # [id number] Lot# Expiration Date [id number] Comment:random Blood Capillary blood specimen / Unknown 03/03/2025 11:27 AM EDT Brenda Yost MD POINT OF CARE TEST ENTER/ED IT ORDERABLES Final Result * (ABNORMAL) Testosterone, Free (Dialysis) And Total, MS (03/03/2025 10:34 AM EDT) Only the most recent of2 resultswithin the time period is included. [facility] Testosterone, Total 86(A) 250 - 1100 ng/dL [facility] Comment:Men with clinically significant hypogonadalsymptoms and testosterone values repeatedly inthe range of the 200-300 ng/dL or less, maybenefit from testosterone treatment afteradequate risk and benefits counseling.For additional information, please refer tohttp://education.[employer]/faq/[email or web address](This link is being provided for informational/educational purposes only.)This test was developed and its analytical performancecharacteristics have been determined by [employer]. It hasnot been cleared or approved by the U.S. Food and DrugAdministration. This assay has been validated pursuantto the CLIA regulations and is used for clinicalpurposes. Testosterone, Free 12.0(A) 35.0 - 155.0 pg/mL [facility] Comment:This test was develo ped and its analytical performancecharacteristics have been determined by [employer], [place]. It hasnot been cleared or approved by the U.S. Food and DrugAdministration. This assay has been validated pursuantto the CLIA regulations and is used for clinicalpurposes.THIS TEST WAS PERFORMED AT:[employer] [id number] [place] [address]MPGSCZYCHANCE DIXON MD,PHD Blood Venous blood specimen / Unknown 03/03/2025 10:34 AM EDT 03/03/2025 2:15 PM EDT us Brenda Yost MD LAB BLOOD ORDERABLES Final Result Performing Organization Address [facility] Co de Phone Number [facility] [address] [place] [phone] * Hepatic Function Panel (03/03/2025 10:34 AM EDT) Only the most recent of2 resultswithin the time period is included. Bilirubin, Total 0.5 0.0 - 1.0 mg/dL [facility] Bilirubin, Direct 0.2 0.0 - 0.5 mg/dL [facility] Aspartate Amino Transferase 20 5 - 37 U/L [facility] Alanine Aminotransferase 12 0 - 40 U/L [facility] Total Protein 7.3 6.5 - 8.0 g/dL [facility] Albumin Level 3.8 3.5 - 5.0 g/dL [facility] Alkaline Phosphatase 83 39 - 117 U/L [facility] 03/03/2025 10:3 4 AM EDT 03/03/2025 2:15 PM EDT us Generic External Data Provider LAB BLOOD ORDERAB LES Final Result Performing Organization Address [facility]/ZIP Co de Phone Number [facility] [address] [place] [phone] * (ABNORMAL) Lipid Panel, Standard (03/03/2025 10:34 AM EDT) Triglycerides 128 <150 mg/dL [facility] Comment:Desirable Triglyceri de: less than 150 mg/dLBorderline High Triglyceride 150-199 mg/dLHigh Triglyceride: 200-499 mg/dLVery High Triglyceride: greater than or equal to 5OO mg/dL Cholesterol 166 <200 mg/dL [facility] Comment:Desirable Cholestero l: less than 200 mg/dLBorderline High Cholesterol: 200-239 mg/dLHigh Cholesterol: greater than 239 mg/dL LDL Cholesterol Calculated 113(H) <100 mg/dL [facility] Comment:Desirable LDL: less than 100 mg/dLNear Optimal/Above Optimal LDL: 110- 129 mg/dLBorderline High LDL: 130-159 mg/dLHigh LDL: 160-189 mg/dLVery High LDL: greater than or equal to 190 mg/dL HDL Cholesterol 28(L) >40 mg/dL [facility] Comment:Desirable HDL: great er than 40 mg/dL Note: This HDL assay may give artificially low results in patients with liver disease. 03/03/2025 10:3 4 AM EDT 03/03/2025 2:15 PM EDT us Generic External Data Provider LAB BLOOD ORDERAB LES Final Result Performing Organization Address [facility]/ZIP Co de Phone Number [facility] [address] [place] [phone] * TSH W/Reflex to FT4 (01/22/2025 8:15 AM EDT) TSH reflex Free T4 0.72 0.32 - 4.0 uIU/mL [facility] Blood Venous blood specimen / Unknown 01/22/2025 8:15 AM EDT 01/22/2025 2:08 PM EDT us Anne-Marie Steiner MD LAB BLOOD ORDERABLES Fin al Result Performing Organization Address City/[facility]/ZIP Co de Phone Number [facility] [address] [place] [phone] * LH (01/22/2025 8:15 AM EDT) Lutenizing Hormone 3.0 1.6 - 15.2 mIU/mL [facility] Comment:THIS TEST WAS PERFOR MED AT:[employer] [place] [phone] YORK MD Blood Venous blood specimen / Unknown 01/22/2025 8:15 AM EDT 01/22/2025 2:08 PM EDT Anne-Marie Steiner MD LAB BLOOD ORDERABLES Fin al Result Performing Organization Address [facility] Co de Phone Number [facility] [address] [place] [phone] * FSH (01/22/2025 8:15 AM EDT) Follicle Stimulating Hormone 3.9 1.4 - 12.8 mIU/mL [facility] Comment:THIS TEST WAS PERFOR MED AT:[employer] [place] [phone] YORK MD Blood Venous blood specimen / Unknown 01/22/2025 8:15 AM EDT 01/22/2025 2:08 PM EDT Anne-Marie Steiner MD LAB BLOOD ORDERABLES Fin al Result Performing Organization Address [facility] de Phone Number [facility] [address] [place] [phone] * PSA, Total With Reflex to PSA, Free (01/06/2025 8:39 AM EDT) PSA,Total (Free>4and<10) 0.23 0.00 - 4.00 ng/mL [facility] Comment:A Free PSA was not [...] are between 4.0 and 10.0 ng/mL.PSA methodology: Futurelyticsnity i ChemiluminescentMicroparticle Immunoassay (CMIA) 01/06/2025 8:39 AM EDT 01/06/2025 2:51 PM EDT Robin Pruett MD LAB BLOOD ORDERABL ES Final Result Performing Organization Address [facility] de Phone Number [facility] [address] [place] [phone] * (ABNORMAL) Hemoglobin A1c (01/06/2025 8:39 AM EDT) Hemoglobin A1c 11.3(H) <6.0 % [facility] Comment:Hemoglobin A1C Refer ence Range Adults: 4.8 - 6.0 % Non diabetic: < 6.0 % Goal: < 7.0 %Additional Action Suggested: > 8.0 %Note: Hemoglobin A1c results are invalid for patients with abnormal amounts of HbF. Blood transfusions may impact the HbA1c concentration in the patient sample. Estimated Average Glucose 278 mg/dL [facility] Comment:eAG = Estimated ave rage glucose which is %A1C expressed asaverage glucose, using the formula of the U6E-YnvbzcxHtropjf Glucose study (ADAG), Diabetes Care, Vol.31,#8,Apr. 2007 Blood Venous blood specimen / Unknown 01/06/2025 8:39 AM EDT 01/06/2025 2:51 PM EDT Robin Pruett MD LAB BLOOD ORDERABL ES Final Result Performing Organization Address [facility] de Phone Number [facility] [address] [place] [phone] * CT Lung Screening Low dose (2024 12:21 PM EDT) Anatomical Region Laterality Modality Lung Computed Tomogra phy 2024 12:2 1 PM EDT Narrative 2024 12:22 PM EDT ? [facility] ?[address] ?[place] [address] ? CT Scan Report ? Signed ? Patient: Keane,Sukhdeep ?MR#: [id number] ?? [id number] ? : 1960 ?Acct:[id number] ? Age/Sex: 64 / M ?ADM Date: 12/21/24 ? Loc: HO.CT ? Attending Dr: Preston Massey MD ? Ordering Physician: Sandy Norman PA-C ?? Date of Service: 12/21/24 ?? Procedure(s): CT lung screening ?? Accession Number(s): [id number] ? cc: Brenda Yost MD; Sandy Norman PA-C ? Report Number: ?? [id number]: Total DLP = ??132.00 mGy-cm ? CLINICAL [...] DD/ 1221 ? TD/TT: 12/21/24 1221 ? Overhead Cleaner Maintainer: ? Procedure Note Donmareter, Image - [address] [place] [address] [address] Scan Report Signed Patient: Robert Keane AMR#: [id number] : 2Acct:[id number] Age/Sex: 64 / MADM Date: 12/21/24 Loc: HO.CT Attending Dr: Preston Massey MD Ordering Physician: Sandy Norman PA-C Date of Service: 12/21/24 Procedure(s): CT lung screening Accession Number(s): [id number] cc: Brenda Yost MD; Sandy Norman PA-C Report Number: [id number]: Total DLP = 132.00 mGy-cm CLINICAL HISTORY: [...] 12/21/24 1221 DD/ 1221 TD/TT: 12/21/24 1221 Overhead Cleaner Maintainer: [facility] External Provider IMG CT PROCEDURES Final Result * Hepatitis Panel, General (05/09/2023 1:37 PM EDT) Hepatitis A IgM Nonreactive Nonreactive [facility] Comment:IgM antibodies to LOPEZ V not detected; does not exclude earlyacute or recovered HAV infection. ~Hepatitis B Surface Antibody NONREACTIVE Nonreactive [facility] Comment:Nonreactive: < 8.00 mIU/mL Hepatitis B Core Antibody Nonreactive Nonreactive [facility] Hepatitis C Antibody Nonreactive Nonreactive [facility] Comment:Antibodies to HCV no t detected; does not exclude early acuteHCV infection. Hepatitis B Surface Ag Negative Negative [facility] Blood 05/09/2023 1:37 PM EDT 05/09/2023 2:49 PM EDT Brenda Yost MD LAB BLOOD ORDERABLES Final Result [facility] [address] [place] [phone] * Albumin, Random Urine W/Creatinine (05/09/2023 1:27 PM EDT) Creatinine, Urine 171.85 mg/dL [facility] Microalbumin Urine 12.0 mg/L [facility] Microalbum Creatinine Ratio Ur 6.9 ug/mg cr [facility] Comment:Albumin/Creatinine R atio Reference Ranges: Normal: < 30 ug/mg creatinine Microalbuminuria: 30 - 300 ug/mg creatinineClinical Albuminuria: > 300 ug/mg creatinine 05/09/2023 1:27 PM EDT 05/09/2023 5:42 PM EDT Brenda Yost MD LAB URINE ORDERABLES Final Result [facility] [address] [place] [phone] * (ABNORMAL) HP Diabetic Foot Exam [...] [facility] STANDARD MEDICARE Care Teams Laundry Folder Relationship Specialty Start Date End Date Brenda Yost MD [address] [place] [address] PCP - General Internal Medicine 10/03/12
== END 2025-03-15 12:56 | disposition home or self-care (01) ==
LOC: HO.HGI 09:46
PROVIDERS: PCP Internal Medicine; Visit Provider Internal Medicine Gastroenterology
DX: K59.09 Other constipation (principal); Z86.0100 Personal history of colon polyps, unspecified
CPT/HCPCS: 99213

== ENCOUNTER → 2025-03-15 09:46 | Outpatient (BNVA) | payer MEDICARE, MEDICAID, SELFPAY | PROVIDERS: PCP Internal Medicine; Visit Provider Internal Medicine Gastroenterology | DX: Z13.89 Encounter for screening for other disorder (principal) ==

== ENCOUNTER 2025-05-26 08:40 | Outpatient (AMB) | payer MEDICARE, MEDICAID, SELFPAY ==
--- NOTE | 2025-05-26 08:45 | A.OFFVIS_ITS ---
Vital Signs 05/26/25 08:46 Height 5 ft 11 in Weight 368 lb 13.334 oz BMI 51.4 BP 120/66 Blood Pressure Location Lt brachial Position Sitting Pulse 84 Pulse Source Pulse Oximeter Pulse Oximetry (%) 98 Oxygen Delivery Method Room Air Intake Visit Reasons: Hypogonadism Intake Note: New patient externally referred by PCP for Hypogonadism. Medical Office Rep Required: No Accompanied by: Self / Same As Patient Allergies No Known Allergies Allergy (Verified 05/26/25 08:50) Medication List - Last Reconciled 05/26/25 by Tanner Kapoor MD albuterol sulfate 90 mcg/actuation (Ventolin HFA) 2 puffs PO Q6H PRN albuterol sulfate mg inhalation Q4H PRN alprazolam mg PO amitriptyline 100 mg PO BEDTIME PRN amlodipine 10 mg PO DAILY atorvastatin 20 mg PO DAILY azelastine 1 spray intranasal BID PRN docusate sodium (Colace) 200 mg PO BEDTIME PRN uxrzxmwkgrp-rlonptmdo-tdjhlsxc 100-62.5-25 mcg (Trelegy Ellipta) 1 ea PO DAILY furosemide 20 mg PO BID hydroxyzine HCl 25 mg PO BID lisinopril 40 mg PO DAILY metformin 1,000 mg PO BID polyethylene glycol 3350 (Miralax) 17 grams PO DAILY PRN semaglutide (Ozempic) 0.25 mg subcut QWEEK sennosides (senna) 8.6 mg PO DAILY PRN sodium,potassium,mag sulfates 17.5-3.13-1.6 gram (Suprep Bowel Prep Kit) DILUTE; drink 1/2 at 6-8 pm and half at 11 PM- 1AM HPI Comments Details: 64 YO Male who is seen in consultation at the request of his PCP for Hypogonadism. First diagnosed with Hypogonadism 6 mos ago with labs revealing []. Was not started on Testosterone supplementation Currently not achieving spontaneous am erections, and unable to achieve erection when desired. Reports low libido for 1 yr . Decreased facial hair and shaving frequency. Denies any change in size or shape of testicles. Denies penile discharge or scrotal tenderness. Denies any history of mumps orchitis. Denies any head trauma. has history of CLARA not use C- Sleep . with children 1 daughter who were conceived spontaneously. Sense of smell intact. Denies headache or visual changes, gynecomastia or galactorrhea. Denies orthostatic symptoms, weight loss. Denies change in size of hands or feet. Denies hair loss, weight gain, cold intolerance. History of DVT or PE: N Labs: Consistent with secondary hypogonadism PSA CBC The patient is a 64-year-old male presenting with low testosterone levels. He was diagnosed with hypogonadism approximately six months ago, with no prior history of low testosterone levels. The patient has not been on testosterone replacement therapy but has used qgzh-vfa-gnqrhkj supplements from [facility], which were advised against by the clinician. The patient reports erectile dysfunction and decreased libido for about a year, with difficulty achieving and maintaining erections. There is no reported change in facial hair growth or testicular size, and no penile discharge or testicular tenderness. The patient has a history of sleep apnea but does not use a CPAP machine due to discomfort. The clinician emphasized the importance of treating sleep apnea, especially if testosterone therapy is considered, due to the risk of stroke from increased blood viscosity. The patient has a history of diabetes mellitus, which is sometimes managed with medication. He denies any recent significant weight changes and reports stable weight. The patient also has chronic obstructive pulmonary disease (COPD), which contributes to his respiratory symptoms. He experiences audible breathing difficulties, which were noted during the examination. - Endocrine: Reports erectile dysfunction and decreased libido for about a year. Denies changes in facial hair growth or testicular size. - Respiratory: Reports audible breathing difficulties. Denies recent significant weight changes. - Neurological: Denies headaches or visual problems. - Genitourinary: Denies penile discharge or testicular tenderness. [facility] Medical History (Updated 05/26/25 @ 08:50 by Tanner Kapoor MD) Hypogonadism, testicular Nicotine dependence, cigarettes, uncomplicated Sleep apnea CAD (coronary artery disease) Morbid obesity Tubular adenoma of colon (~2019) Elevated cholesterol HTN (hypertension) Low back pain Ambulates with cane Peripheral neuropathy Diabetes COPD (chronic obstructive pulmonary disease) Surgical History Hx of surgical procedure (01/10/24) History of colonoscopy History of esophagogastroduodenoscopy (EGD) Family History Mother Colon cancer Social History Household Members Other:: daughter Are you a primary child care associate to a significant other at home: No Do you presently have visiting nurse or other home services: No Alcohol intake: never Patient Tobacco Use Status: Former Tobacco user Tobacco use type: Cigarette Cigarette Packs Per Day: 1 Cigarettes Per Day: 20.0 Years Smoked: (current smoker, onset 19. Max 3-4ppd x 30years, now 1ppd, 100+PYH) Physical Exam Vital Signs: Last Vital Signs Pulse 84 05/26/25 08:46 BP 120/66 05/26/25 08:46 Pulse Ox 98 05/26/25 08:46 Oxygen Delivery Method Room Air 05/26/25 08:46 BMI result Body Mass Index 51.4 There is the absence of eunichoidal proportions. Neck exam reveals nl thyroid about 15 gms. Chest exam reveals absence of gynecomastia. Lungs CTA. Heart is S1 S2 Reg R/R. -M/R/G. Abdominal exam is benign. Muscle strength is 5/5 proximally. Examination of genitalia reveals nl size pthalus . Testes are of nl size and consistency. There is Robert Stage V Hair development Assessment & Plan Assessment & Plan (1) Hypogonadism, testicular: Code(s): E29.1 - Testicular hypofunction Category: Medical Plan: This is a 64-year-old male found to have labs consistent with secondary hypogonadism. Rule out high prolactin. Ferritin level has been normal ruling out hemochromatosis Plan is to obtain an MRI of the pituitary. Assuming prolactin is normal MRI of the pituitary is normal, we will discuss different options of testosterone replacement with patient including transdermal, oral and intramuscular 1. Hypogonadism The patient presents with low testosterone levels, confirmed by two separate tests showing levels of 86 and 74. The clinician suspects a pituitary issue due to low LH and FSH levels and recommends an MRI of the pituitary gland to rule out pitiary adenoma The patient is advised to discontinue zzzj-vwu-dkjvgix testosterone supplements and consider testosterone replacement therapy after addressing sleep apnea. 2. Erectile dysfunction The patient reports erectile dysfunction and decreased libido for about a year. The clinician discusses the potential benefits of testosterone therapy in improving sexual function, contingent upon the management of sleep apnea. 3. Sleep apnea The patient has a history of sleep apnea but does not use a CPAP machine. The clinician emphasizes the importance of treating sleep apnea to prevent complications if testosterone therapy is initiated. The patient is advised to seek a referral to a sleep center for evaluation and treatment. During the visit, I discussed with the patient the implications of low testosterone levels and the potential need for testosterone replacement therapy. I explained the risks associated with untreated sleep apnea, particularly the increased risk of stroke if testosterone therapy is initiated without addressing the apnea. I recommended an MRI of the pituitary gland to investigate potential causes of hypogonadism, such as pituitary growths. We also discussed the importance of discontinuing fjzs-xcq-wcfhlqr testosterone supplements and the potential benefits and risks of testosterone therapy, including its effects on sexual function and energy levels. I advised the patient to seek a referral to a sleep center for evaluation and treatment of sleep apnea before considering testosterone therapy. - Discontinue use of qiqv-hse-ljajmhe testosterone supplements. - Seek a referral to a sleep center for evaluation and treatment of sleep apnea. - Schedule an MRI of the pituitary gland as recommended. - Follow up in five months for reassessment and further management. The patient had an opportunity to ask questions regarding treatment plan. The patient expressed understanding and agreement with the above treatment plan. Patient was informed and verbally consented to the use of an ambient scribe for clinic note documentation during this visit. Orders: Orders MR head/brain wo/w con Today E29.1 - Testicular hypofunction Coding Level of Care Code New Pt Level 4 (68921) Diagnoses Hypogonadism, testicular E29.1
[2025-05-26 08:46] VITALS: BP 120/66; PULSE 84; O2SAT 98; BMI 51.4
--- OUTSIDE RECORDS SUMMARY | 2025-05-26 09:03 | XMS_ITS | Encounter Summary ---
Author Organization [employer] Address [address] [place] [address] [address] [place] [address] Care Team Providers Care Clothing Consultant Name Role Phone Brenda Yost MD Primary Care Provider [phone] Neelam Dickerson PharmD Unavailable [phone] Encounter Details Date Type Department Care Team (Late st Contact Info) Description 05/10/[address] [facility] MED & PEDS [address] [place] [address] Brenda Yost MD [address] [place] [address] Screen for STD (sexually transmitted disease) (Primary [...] Care Team (Late st Contact Info) Description 05/27/2025 9:30 AM EDT Office Visit [facility] [address] [place] [address] Brenda Yost MD [address] [place] [address] 06/14/2025 9:00 AM EDT Medication Management [facility] [address] [place] [address] Neelam Dickerson PharmD [address] [place] [address] Scheduled Orders Name Type Priority Associated Diagnoses [...] documented as of this encounter Care Teams Clothing Consultant Relationship Specialty Start Date End Date Brenda Yost MD [address] [place] [address] PCP - General Internal Medicine 10/03/12 Neelam Dickerson PharmD [address] [place] [address] Pharmacist Pharmacy 04/27/25 documented as of this encounter
--- OUTSIDE RECORDS SUMMARY | 2025-05-26 09:03 | XMS_ITS | Encounter Summary ---
Author Organization [employer] Address [address] [place] [address] [place], [place] [address] Care Team Providers Care Communications Media Professor Name Role Phone Brenda Yost MD Primary Care Provider [phone] Neelam Dickerson PharmD Unavailable [phone] Reason for Visit * Reason Comments Med Refill Encounter Details Date Type Department Care Team ([facility] Contact Info) Description 06/04/2024 Refill [facility] MED & PEDS [address] [place] [address] Brenda Yost MD [address] [place] [address] Social History Tobacco Use Types Packs/Day Years [...] Upcoming Encounters Date Type Department Care Team ([facility] Contact Info) Description 05/27/2025 9:30 AM EDT Office Visit [facility] MED [facility] PED[facility] [address] [place] [address] Brenda Yost MD [address] [place] [address] 06/14/2025 9:00 AM EDT Medication Management [facility] [address] [place] [address] Neelam Dickerson PharmD [address] [place] [address] documented as of this encounter Visit Diagnoses Not on filedocumented in this encounter Additional Health Concerns Assessment Noted Time PHQ-9 Depression Total Score: 8 05/09/20 23 11:04 AM EDT documented as of this encounter Care Teams Communications Media Professor Relationship Specialty Start Date End Date Brenda Yost MD [address] [place] [address] PCP - General Internal Medicine 10/03/12 Neelam Dickerson PharmD [address] [place] [address] Pharmacist Pharmacy 04/27/25 documented as of this encounter
--- OUTSIDE RECORDS SUMMARY | 2025-05-26 09:03 | XMS_ITS | Encounter Summary ---
Author Organization [employer] Address [address] [facility] [address] [place] [address] Care Team Providers Care Medical Assistant Float Name Role Phone Brenda Yost MD Primary Care Provider [phone] Neelam Dickerson PharmD Unavailable [phone] Encounter Details Date Type Department Care Team (Late st Contact Info) Description 02/25/2024 Orders Only [facility] MED [facility] PEDS [address] [place] [address] Brenda Yost MD [address] [place] [address] Controlled type 2 diabetes mellitus with hyperglycemia, without long-term current use of insulin ([facility]) (Primary Dx) Social History Tobacco Use [...] Department Care Team (Late Contact Info) Description 05/27/2025 9:30 AM EDT Office Visit [facility] [address] [place] [address] Brenda Yost MD [address] [place] [address] 06/14/2025 9:00 AM EDT Medication Management [facility] MED & PEDS [address] [place] [address] Neelam Dickerson PharmD [address] [place] [address] documented as of this encounter Visit Diagnoses Diagnosis Controlled type 2 diabetes mellitus with hyperglycemia, without long-term current use of insulin ([facility])- Primary documented in this encounter Additional Health Concerns Assessment Noted Time PHQ-9 Depression Total Score: 8 05/09/20 23 11:04 AM EDT documented as of this encounter Care Teams Medical Assistant Float Relationship Specialty Start Date End Date Brenda Yost MD [address] [place] [address] PCP - General Internal Medicine 10/03/12 Neelam Dickerson PharmD [address] [place] [address] Pharmacist Pharmacy 04/27/25 documented as of this encounter
--- OUTSIDE RECORDS SUMMARY | 2025-05-26 09:03 | XMS_ITS | Encounter Summary ---
Author Organization [employer] Address [address] [facility] 7 [place] [address] Care Team Providers Care Catering Associate Name Role Phone Brenda Yost MD Primary Care Provider [phone] Neelam Dickerson PharmD Unavailable [phone] Reason for Visit * Reason Comments Med Refill Encounter Details Date Type Department Care Team (Late Contact Info) Description 08/07/2024 Refill [facility] PED[facility] [address] [place] [address] Brenda Yost MD [address] [place] [address] Controlled type 2 diabetes mellitus with hyperglycemia, without long-term current use of insulin ([facility]) Social History Tobacco Use Types Packs/Day [...] Description 05/27/2025 9:30 AM EDT Office Visit [facility] PEDS [address] [place] [address] Brenda Yost MD [address] [place] [address] 06/14/2025 9:00 AM EDT Medication Management [facility] [address] [place] [address] Neelam Dickerson PharmD [address] [place] [address] documented as of this encounter Visit Diagnoses Diagnosis Controlled type 2 diabetes mellitus with hyperglycemia, without long-term current use of insulin ([facility]) documented in this encounter Additional Health Concerns Assessment Noted Time PHQ-9 Depression Total Score: 8 05/09/20 23 11:04 AM EDT documented as of this encounter Care Teams Catering Associate Relationship Specialty Start Date End Date Brenda Yost MD [address] [place] [address] PCP - General Internal Medicine 10/03/12 Neelam Dickerson PharmD [address] [place] [address] Pharmacist Pharmacy 04/27/25 documented as of this encounter
--- OUTSIDE RECORDS SUMMARY | 2025-05-26 09:03 | XMS_ITS | Encounter Summary ---
Author Organization [employer] Address [address] [place] [address] 7 [place] [address] Care Team Providers Care Engineering Tech Name Role Phone Brenda Yost MD Primary Care Provider [phone] Neelam Dickerson PharmD Unavailable [phone] Reason for Referral * Consultation (Routine) - Closed Specialty Diagnoses / Procedures Referred By Contac t Referred To Contact Pharmacy Diagnoses Controlled type 2 diabetes mellitus with hyperglycemia, without long-term current use of insulin (CMS/HCC) Brenda Yost MD [address] [place] [address] Phone: tel: fax: Referral ID Status Reason Start Date Expiration Date V isits Requested Visits Authorized [id number] Closed Consult and Treat 01/05/2025 01/05/2026 6 6 Encounter Details Date Type Department Care Team (Late st Contact Info) Description 01/05/2025 Orders Only [facility] PEDS [address] [place] [address] Brenda Yost MD [address] [place] [address] Controlled type 2 diabetes mellitus with hyperglycemia, [...] AM EDT documented as of this encounter Functional Status * Over the past 2 weeks, how often have you been bothered by any of the following problems? Question Answer Date of Assessment Author Patient Health Questionnaire-2 Score 0 04/2025 2:25 PM EDT Becky Jaimes MA * Little interest or pleasure in doing things Answer Date of Assessment Author Not at all 01/05/2025 2:25 PM EDT Carmen Jaimes MA * Feeling down, depressed, or hopeless Answer Date of Assessment Author Not at all 01/05/2025 2:25 PM EDT Carmen Jaimes MA * Trouble falling or staying asleep, or sleeping too much Answer Date of Assessment Author Not at all 01/05/2025 2:25 PM EDT Carmen Jaimes MA * Feeling tired or having little energy Answer Date of Assessment Author Not at all 01/05/2025 2:25 PM EDT Carmen Jaimes MA * Poor appetite or overeating Answer Date of Assessment Author Not at all 01/05/2025 2:25 PM EDT Carmen Jaimes MA * Feeling bad about yourself - or that you are a failure or have let yourself or your family down Answer Date of Assessment Author Not at all 01/05/2025 2:25 PM Carmen Carvalho MA * Trouble concentrating on things, such as reading the newspaper or watching television Answer Date of Assessment Author Not at all 01/05/2025 2:25 PM Carmen Carvalho MA * Moving or speaking so slowly that other people could have noticed? Or the opposite - being so fidgety or restless that you have been moving around a lot more than usual. Answer Date of Assessment Author Not at all 01/05/2025 2:25 PM EDT Carmen Jaimes MA * Thoughts that you would be better off or hurting yourself in some way Answer Date of Assessment Author Not at all 01/05/2025 2:25 PM EDT Carmen Jaimes MA * Patient Health Questionnaire-9 Score Answer Date of Assessment Author 0 01/05/2025 2:25 PM EDT Carmen Jaimes MA documented as of this encounter Plan of Treatment Upcoming Encounters Date Type Department Care Team (Late st Contact Info) Description 05/27/2025 9:30 AM EDT Office Visit [facility] MED [facility] PEDS [address] [place] [address] Brenda Yost MD [address] [place], [place] 06/14/2025 9:00 AM EDT Medication Management [facility] P[facility] [address] [place], [place] [phone] Neelam Dickerson, PharmD [address] [place] [address] Scheduled Referrals Name Type Priority Associated Diagnoses Orde r Schedule Referral to Pharmacy CDTM Outpatient Referral Routine Controlled type 2 diabetes mellitus with hyperglycemia, without long-term current use of insulin ([facility]) Ordered: 01/05/2025 documented as of this encounter Visit Diagnoses Diagnosis Controlled type 2 diabetes mellitus with hyperglycemia, without long-term current use of insulin ([facility])- Primary documented in this encounter Additional Health Concerns Assessment Noted Time PHQ-9 Depression Total Score: 0 01/06/20 25 2:25 PM EDT documented as of this encounter Care Teams Engineering Tech Relationship Specialty Start Date End Date Brenda Yost MD [address] [place] [address] PCP - General Internal Medicine 10/03/12 Neelam Dickerson, PharmD [address] [place] [address] Pharmacist Pharmacy 04/27/25 documented as of this encounter
--- OUTSIDE RECORDS SUMMARY | 2025-05-26 09:03 | XMS_ITS | Encounter Summary ---
Author Organization [employer] Address [address] [place] [address] [address] [place] [address] Care Team Providers Care Hospital Medical Assistant Name Role Phone Brenda Yost MD Primary Care Provider [phone] Neelam Dickerson PharmD Unavailable [phone] Encounter Details Date Type Department Care Team (Late st Contact Info) Description 04/03/2023 Orders Only [facility] [address] [place] [address] Reina Hammonds LPN Social History Tobacco Use [...] 9:30 AM EDT Office Visit [facility] P[facility] [address] [place] [address] Brenda Yost MD [address] [place] [address] 06/14/2025 9:00 AM EDT Medication Management [facility] [address] [place] [address] Neelam Dickerson, PharmD [address] [place] [address] documented as of this encounter Procedures Procedure Name Priority Date/Time Associated Diagnosis Comments SYPHILIS SCREEN Routine 05/09/2023 1:37 PM EDT BASIC METABOLIC PANEL, FASTING Routine 05/09/2023 1:37 PM EDT ALBUMIN, RANDOM URINE W/CREATININE Routine 05/09/2023 1:27 PM EDT documented in this encounter Results * Syphilis Screen (05/09/2023 1:37 PM EDT) Syphilis Screen Nonreactive Nonreactive [facility] 05/09/2023 1:37 PM EDT 05/09/2023 2:49 PM EDT Brenda Yost MD LAB BLOOD ORDERABLES Final Result [facility] [address] [place] [address] [phone] * Basic Metabolic Panel, Fasting (05/09/2023 1:37 PM EDT) Sodium 142 135 - 145 mmol/L [facility] Potassium 4.2 3.3 - 5.1 mmol/L [facility] Chloride 106 96 - 108 mmol/L [facility] Carbon Dioxide 28 22 - 29 mmol/L [facility] Anion Gap 12 12 - 20 [facility] Urea Nitrogen (BUN) 13 9 - 16 mg/dL [facility] Creatinine, Serum 1.07 0.5 - 1.4 mg/dL [facility] Estimated Glomerular Filt Rate >60 [facility] Comment:NOTE: For -Am erican individuals, multiply the result by 1.210.Chronic Kidney Disease: Estimated GFR < 60 mL/min/1.24x7Fvomzq Kidney Disease: Estimated GFR < 15 mL/min/1.73m2 Glucose Fasting 89 60 - 99 mg/dL [facility] Calcium 9.8 8.4 - 10.2 mg/dL [facility] 05/09/2023 1:37 PM EDT 05/09/2023 2:49 PM EDT us Brenda Yost MD LAB BLOOD ORDERABLES Final Result Performing Organization Address [facility] de Phone Number [facility] [address] [place] [address] [phone] * Albumin, Random Urine W/Creatinine (05/09/2023 1:27 PM EDT) Creatinine, Urine 171.85 mg/dL [facility] Microalbumin Urine 12.0 mg/L [facility] Microalbum Creatinine Ratio Ur 6.9 ug/mg cr [facility] Comment:Albumin/Creatinine R atio Reference Ranges: Normal: < 30 ug/mg creatinine Microalbuminuria: 30 - 300 ug/mg creatinineClinical Albuminuria: > 300 ug/mg creatinine 05/09/2023 1:27 PM EDT 05/09/2023 5:42 PM EDT us Brenda Yost MD LAB URINE ORDERABLES Final Result Performing Organization Address [facility] de Phone Number [facility] [address] [place] [address] [phone] documented in this encounter Visit Diagnoses Not on filedocumented in this encounter Care Teams Hospital Medical Assistant Relationship Specialty Start Date End Date Brenda Yost MD [address] [place] [address] PCP - General Internal Medicine 10/03/12 Neelam Dickerson PharmD [address] [place] [address] Pharmacist Pharmacy 04/27/25 documented as of this encounter
--- OUTSIDE RECORDS SUMMARY | 2025-05-26 09:03 | XMS_ITS | Encounter Summary ---
Author Organization [employer] Address [address] [place] [address] [address] [address] Care Team Providers Care Oreman Name Role Phone Brenda Yost MD Primary Care Provider [phone] Neelam Dickerson PharmD Unavailable [phone] Reason for Visit * Reason Comments Med Refill Encounter Details Date Type Department Care Team (Late Contact Info) Description 07/12/2024 Refill [facility] [address] [place] [address] Brenda Yost MD [address] [place] [address] Social History Tobacco Use Types Packs/Day Years [...] Upcoming Encounters Date Type Department Care Team ([facility] Contact Info) Description 05/27/2025 9:30 AM EDT Office Visit [facility] [address] [place] [address] Brenda Yost MD 505 [place] [address] 06/14/2025 9:00 AM EDT Medication Management [facility] [address] [place] [address] Neelam Dickerson PharmD 230 [place] [address] documented as of this encounter Visit Diagnoses Not on filedocumented in this encounter Additional Health Concerns Assessment Noted Time PHQ-9 Depression Total Score: 8 05/09/20 23 11:04 AM EDT documented as of this encounter Care Teams Oreman Relationship Specialty Start Date End Date Brenda Yost MD [address] [place] [address] PCP - General Internal Medicine 10/03/12 Neelam Dickerson PharmD [address] [place] [phone] Pharmacist Pharmacy 04/27/25 documented as of this encounter
--- OUTSIDE RECORDS SUMMARY | 2025-05-26 09:03 | XMS_ITS | Encounter Summary ---
Author Organization [employer] Address 75 [facility] 7 [place] [address] Care Team Providers Care Sewing Machine Operator Floorperson Name Role Phone Brenda Yost MD Primary Care Provider [phone] Neelam Dickerson PharmD Unavailable [phone] Encounter Details Date Type Department Care Team (Late st Contact Info) Description 05/27/2023 Orders Only [facility] [address] [place] [address] Brenda Yost MD 505 [place] [address] Controlled type 2 diabetes mellitus with hyperglycemia, without long-term current use of insulin ([facility]) (Primary Dx) Social History Tobacco Use Types [...] Description 05/27/2025 9:30 AM EDT Office Visit [facility] [address] [place] [address] Brenda Yost MD [address] [place] [address] 06/14/2025 9:00 AM EDT Medication Management [facility] MED [facility] PEDS [address] [place] [address] Neelam Dickerson PharmD 230 [place] [address] documented as of this encounter Visit Diagnoses Diagnosis Controlled type 2 diabetes mellitus with hyperglycemia, without long-term current use of insulin ([facility])- Primary documented in this encounter Additional Health Concerns Assessment Noted Time PHQ-9 Depression Total Score: 8 05/09/20 23 11:04 AM EDT documented as of this encounter Care Teams Sewing Machine Operator Floorperson Relationship Specialty Start Date End Date Brenda Yost MD [address] [place] [address] PCP - General Internal Medicine 10/03/12 Neelam Dickerson PharmD 230 [place] [address] Pharmacist Pharmacy 04/27/25 documented as of this encounter
--- OUTSIDE RECORDS SUMMARY | 2025-05-26 09:03 | XMS_ITS | Clinical Summary ---
Author Organization [employer] Address 75 [facility] 7t [place] [address] Care Team Providers Care Production Material Handler Name Role Phone Brenda Yost MD Primary Care Provider [phone] Neelam Dickerson PharmD Unavailable [phone] Allergies No known active allergies Medications Misc. Devices (Commode) misc To use as needed 017 Active Heating Pads pads to use daily [...] tablet. By mouth 2 times every day 019 Active naproxen sodium (Anaprox) 275 MG tablet [...] once a day 1 kit 023 Active lisinopril 40 MG tabletIndicatio ns:Primary hypertension [...] hyperglycemia, without long-term current use of insulin (CMS/[facility]) USE TO TEST TWICE DAILY 100 each 11 Active amLODIPine (Norvasc) 10 MG tabletIndicatio [...] Once per day. Every day 30 tablet 025 Active Semaglutide, 2 MG/DOSE, (Ozempic, 2 MG/DOSE,) 8 MG/3ML solution pen-injectorInd ications:Type 2 diabetes mellitus with hyperglycemia, without long-term current use of insulin (CMS/[facility]) Inject 0.75 mL (2 mg) under the skin 1 (one) time per week. 2 mL 025 Active metFORMIN (Glucophage) 500 MG tabletIndicatio ns:Type 2 diabetes mellitus with hyperglycemia, without long-term current use of insulin (CMS/HCC) Take 2 tablets (1,000 mg) by mouth with breakfast and with evening meal. 360 tablet Active glucose blood (FREESTYLE LITE) test stripIndication s:Type 2 diabetes mellitus with hyperglycemia, without long-term current use of insulin (CMS/HCC) USE DIRECTED TO TEST BLOOD GLUCOSE 4 TIMES DAILY 100 strip Active ALPRAZolam (Xanax) 0.5 MG tablet Active amitriptyline (Elavil) 100 MG tablet Active azelastine (Astelin) 0.1 % nasal spray Active Trelegy Ellipta 100-62.5-25 MCG/ACT aerosol powder INHALE 1 PUFF BY MOUTH DAILY FOR WHEEZING 025 Active hydrOXYzine HCl (Atarax) 25 MG tablet Take 1 tablet by mouth 2 times daily. 025 Active gabapentin (Neurontin) 300 MG capsule Take 2 capsules by mouth. 3 times every day 019 2024 Discontinued(M ed list cleanup (will not trigger notification to Pharmacy)) mupirocin (Bactroban) 2 % ointment Apply topically. 3 times every day a small amount to the affected area 022 2024 Discontinued(M ed list cleanup (will not trigger notification to Pharmacy)) furosemide (Lasix) 20 MG tablet TAKE 1 TABLET(20 MG) BY MOUTH DAILY 30 tablet 2 024 2024 Discontinued(M ed list cleanup (will not trigger notification to Pharmacy)) Active Problems Problem Noted Date Diagnosed Date Atherosclerotic cardiovascular disease Cutaneous abscess of right lower extremity 09/06 [...] Encounters Date Type Department Care Team Description 04/27/2025 9:00 AM EDT Telemedicine [facility] MED [facility] PED[facility] [address] [place] [address] Neelam Dickerson PharmD Type 2 diabetes mellitus with hyperglycemia, without long-term current use of insulin (CMS/HCC) (Primary Dx) 03/15/2025 Results Follow-Up [facility] [address] [place] [address] Kerri Rosas, RENU POCT Glucose, Testosterone, Free (Dialysis) And Total, MS 03/15/2025 Orders Only [facility] [address] [place] [address] Brenda Yost MD Hypogonadism in male (Primary Dx) 03/04/2025 Results Follow-Up [facility] [address] [place] [address] Kerri Rosas RN Hepatic Function Panel, Lipid Panel, Standard 03/03/2025 9:45 AM EDT Office Visit [facility] [address] [place] [address] Brenda Yost MD Type 2 diabetes mellitus with hyperglycemia, without long-term current use of insulin (CMS/HCC) (Primary Dx); Vasculogenic erectile dysfunction, unspecified vasculogenic erectile dysfunction type; Dietary counseling; Exercise counseling; Class 3 severe obesity due to excess calories with serious comorbidity and body mass index (BMI) of 50.0 to 59.9 in adult 03/03/2025 Orders Only GENERIC EXTERNAL DATA DEPARTMENT Provider, Generic External Data 03/03/2025 Travel 02/26/2025 Telephone [facility] [address] [place] [address] Brenda Yost MD Appointment Request (Pt needs appt) 02/23/2025 Refill [facility] [address] [place] [address] Brenda Yost MD from Last 3 Months Immunizations Immunization Administration [...] 84 03/03/2025 9:34 AM EDT Temperature 36.6 C (97.9 F) 03/03/2025 9:34 AM EDT Respiratory Rate 20 03/03/2025 9:34 AM EDT [...] Description 05/27/2025 9:30 AM EDT Office Visit [facility] [address] [place] [address] Brenda Yost MD 505 [place] [address] 06/14/2025 9:00 AM EDT Medication Management [facility] [address] [place] [address] Neelam Dickerson, PharmD 230 [place] [address] Health Maintenance Due Date Last Done Comments [...] Protein Screening 05/09/2024 05/09/2023, 02/09/2022 COVID-19 Vaccine ( season) 2024 03/27/2021, 02/21/2021, 01/07/2021, Additional history exists Colonoscopy 12/07/2024 12/07/2021 Colorectal Cancer Screening 12/07/2024 Diabetes: Hemoglobin A1C 04/07/2025 025, 02/21/2024, 05/09/2023, Additional history exists Influenza Vaccine (#1) 2025 10/22/2012 DTaP/Tdap/Td Vaccines (2 - Td [...] hyperglycemia, without long-term current use of insulin ([facility]) LIPID PANEL, STANDARD Routine 03/03/2025 10:34 AM EDT HEPATIC FUNCTION PANEL Routine 03/03/2025 10:34 AM EDT TESTOSTERONE, FREE (DIALYSIS) AND TOTAL,MS Routine 03/03/2025 10:34 AM EDT Vasculogenic erectile dysfunction, unspecified vasculogenic erectile dysfunction type HEMOGLOBIN A1C Routine 01/06/2025 8:39 AM EDT Controlled type 2 diabetes mellitus with hyperglycemia, without long-term current use of insulin (CMS/[facility]) HEPATITIS PANEL, GENERAL Routine 05/09/2023 1:37 PM EDT Screen for STD (sexually transmitted disease) ALBUMIN, RANDOM URINE W/CREATININE Routine 05/09/2023 1:27 PM EDT HP LINK DIABETIC FOOT EXAM Routine 05/09/2023 HM COLONOSCOPY Routine 12/07/2021 from Last 3 Months or Most Recently Relevant to Health Maintenance Results * (ABNORMAL) POCT Glucose (03/03/2025 11:27 AM EDT) Pathologist [facility] Glucose Blood, POC 240(A) 60 - 200 mg/dL QC Media Lot # [id number] Lot# Expiration Date [id number] Comment:random Blood Capillary blood specimen / Unknown 03/03/2025 11:27 AM EDT us Brenda Yost MD POINT OF CARE TEST ENTER/ED IT ORDERABLES Final Result * (ABNORMAL) Testosterone, Free (Dialysis) And Total, MS (03/03/2025 10:34 AM EDT) [facility] Testosterone, Total 86(A) 250 - 1100 ng/dL [facility] Comment:Men with clinically significant hypogonadalsymptoms and testosterone values repeatedly inthe range of the 200-300 ng/dL or less, maybenefit from testosterone treatment afteradequate risk and benefits counseling.For additional information, please refer [email or web address]/faq/[email or web address](This link is being provided for informational/educational purposes only.)This test was developed and its analytical performancecharacteristics have been determined by [employer] [place], [place]. It hasnot been cleared or approved by the U.S. Food and DrugAdministration. This assay has been validated pursuantto the CLIA regulations and is used for clinicalpurposes. Testosterone, Free 12.0(A) 35.0 - 155.0 pg/mL [facility] Comment:This test was develo ped and its analytical performancecharacteristics have been determined by [employer] [place], [place]. It hasnot been cleared or approved by the U.S. Food and DrugAdministration. This assay has been validated pursuantto the CLIA regulations and is used for clinicalpurposes.THIS TEST WAS PERFORMED AT:[employer] [id number] [place] [address]DUAVHLFCHANCE DIXON MD,PHD Blood Venous blood specimen / Unknown 03/03/2025 10:34 AM EDT 03/03/2025 2:15 PM EDT us Brenda Yost MD LAB BLOOD ORDERABLES Final Result Performing Organization Address [facility] Co de Phone Number [facility] [address] [place] [phone] * Hepatic Function Panel (03/03/2025 10:34 AM EDT) Bilirubin, Total 0.5 0.0 - 1.0 mg/dL [...] ORDERAB LES Final Result Performing Organization Address [facility] Phone Number [facility] [address] [place] [phone] * (ABNORMAL) Lipid Panel, Standard (03/03/2025 10:34 AM EDT) Triglycerides 128 <150 mg/dL [facility] Comment:Desirable Triglyceri de: less than [...] 190 mg/dL HDL Cholesterol 28(L) >40 mg/dL [facility] Comment:Desirable HDL: great er than 40 mg/dL Note: This HDL assay may give artificially low results in patients with liver disease. 03/03/2025 10:3 4 AM EDT 03/03/2025 2:15 PM EDT us Generic External Data Provider LAB BLOOD ORDERAB LES Final Result Performing Organization Address [facility]/ZIP Co de Phone Number [facility] [address] [place] [phone] * (ABNORMAL) Hemoglobin A1c (01/06/2025 8:39 AM EDT) Hemoglobin A1c 11.3(H) <6.0 % [facility] Comment:Hemoglobin A1C Refer ence Range [...] asaverage glucose, using the formula of the M7J-LjgepxxQradakp Glucose study (ADAG), Diabetes Care, Vol.31,#8,Apr. 2007 Blood Venous blood specimen / Unknown 01/06/2025 8:39 AM EDT 01/06/2025 2:51 PM EDT us Robin Pruett MD LAB BLOOD ORDERABL ES Final Result Performing Organization Address [facility]/ZIP Co de Phone Number [facility] [address] [place] [phone] * Hepatitis Panel, General (05/09/2023 1:37 PM [...] Final Result Performing Organization Address [facility] Co de Phone Number [facility] [address] [place] [phone] * Albumin, Random Urine W/Creatinine (05/09/2023 1:27 PM EDT) Creatinine, Urine 171.85 mg/dL [facility] Microalbumin Urine 12.0 mg/L [facility] Microalbum Creatinine Ratio Ur 6.9 ug/mg cr [facility] Comment:Albumin/Creatinine R atio Reference Ranges: Normal: < 30 ug/mg creatinine Microalbuminuria: 30 - 300 ug/mg creatinineClinical Albuminuria: > 300 ug/mg creatinine 05/09/2023 1:27 PM EDT 05/09/2023 5:42 PM EDT us Brenda Yost MD LAB URINE ORDERABLES Final Result Performing Organization Address [facility] Co de Phone Number [facility] [address] [place] [phone] * (ABNORMAL) HP Diabetic Foot Exam (05/09/2023) Narrative Brenda Yost MD - 05/09/2023 Diabetic Foot Exam Inspection: Ulcers: not observed Calluses: not observed Edema: not observed Onychomycosis: not observed Tinea pedis: not observed Charcot foot or other deformities: not observed Erythema: not observed Monofilament Foot Exam: Right Foot : Great [...] Most Recently Relevant to Health Maintenance Insurance [facility] STANDARD MEDICARE Care Teams Production Material Handler Relationship Specialty Start Date End Date Brenda Yost MD [address] [place] [phone] PCP - General Internal Medicine 10/03/12 Neelam Dickerson, KateD [address] [place] [address] Pharmacist Pharmacy 04/27/25
--- OUTSIDE RECORDS SUMMARY | 2025-05-26 09:03 | XMS_ITS | Encounter Summary ---
Author Organization [employer] Address [address] [place] [address] 7[place] [address] Care Team Providers Care Track Welder Name Role Phone Brenda Yost MD Primary Care Provider [phone] Neelam Dickerson PharmD Unavailable [phone] Reason for Visit * Reason Comments Med Refill Encounter Details Date Type Department Care Team (Late Contact Info) Description 05/18/2024 Refill [facility] MED & PEDS [address] [place] [address] Brenda Yost MD [address] [place] [address] Social History Tobacco Use Types Packs/Day Years [...] Upcoming Encounters Date Type Department Care Team ([facility] Contact Info) Description 05/27/2025 9:30 AM EDT Office Visit [facility] MED & PEDS [address] [place] [address] Brenda Yost MD [address] [place] [address] 06/14/2025 9:00 AM EDT Medication Management [facility] MED & PEDS [address] [place] [address] Neelam Dickerson PharmD [address] [place] [address] documented as of this encounter Visit Diagnoses Not on filedocumented in this encounter Additional Health Concerns Assessment Noted Time PHQ-9 Depression Total Score: 8 05/09/20 23 11:04 AM EDT documented as of this encounter Care Teams Track Welder Relationship Specialty Start Date End Date Brenda Yost MD [address] [place] [phone] PCP - General Internal Medicine 10/03/12 Neelam Dickerson PharmD [address] [place] [address] Pharmacist Pharmacy 04/27/25 documented as of this encounter
--- OUTSIDE RECORDS SUMMARY | 2025-05-26 09:03 | XMS_ITS | Encounter Summary ---
Author Organization [employer] Address [address] [place] [address] 7 [place] [address] Care Team Providers Care Senior Trainer Name Role Phone Brenda Yost MD Primary Care Provider [phone] Neelam Dickerson PharmD Unavailable [phone] Reason for Referral * Consultation (Routine) - Authorized Specialty Diagnoses / Procedures Referred By Contac t Referred To Contact Endocrinology Diagnoses Hypogonadism in male Brenda Yost MD [address] [place] [address] Phone: tel: fax: [facility] Endocrinology [address] [place] [address] Phone: tel: fax: Referral ID Status Reason Start Date Expiration Date Visits Requested Visits Authorized [id number] Authorized Specialty Services Required 03/15/2025 03/15/2026 1 1 Encounter Details Date Type Department Care Team (Late st Contact Info) Description 03/15/2025 Orders Only [facility] [address] [place] [address] Brenda Yost MD [address] [place] [address] Hypogonadism in male (Primary Dx) Social History Tobacco Use Types [...] 9:30 AM EDT Office Visit [facility] PED[facility] [address] [place] [address] Brenda Yost MD [address] [place] [address] 06/14/2025 9:00 AM EDT Medication Management [facility] MED & PEDS [address] [place] [address] Neelam Dickerson PharmD [address] [place] [address] Scheduled Referrals Name Type Priority Associated Diagnoses Order Schedule Referral to Endocrinology Outpatient Referral Routine Hypogonadism in male Expected: 03/15/2025 (Approximate), Expires: 03/15/2026 documented as of this encounter Visit Diagnoses Diagnosis Hypogonadism in male- Primary documented in this encounter Additional Health Concerns Assessment Noted Time PHQ-9 Depression Total Score: 0 01/06/20 25 2:25 PM EDT documented as of this encounter Care Teams Senior Trainer Relationship Specialty Start Date End Date Brenda Yost MD [address] [place] [address] PCP - General Internal Medicine 10/03/12 Neelam Dickerson PharmD [address] [place], [place] [phone] Pharmacist Pharmacy 04/27/25 documented as of this encounter
--- OUTSIDE RECORDS SUMMARY | 2025-05-26 09:04 | XMS_ITS | Clinical Summary ---
Author Organization [facility]y Address [address] [place] [address] Care Team Providers Care Coagulating Operator Name Role Phone Unavailable Primary Care Provider [...] Vaccine ( - 2023-2 5 season) 2024 Depression Screening 09/30/2024 Influenza Vaccine (#1) 2025 RSV Immunization Adult Patie nts (1 [...]
--- OUTSIDE RECORDS SUMMARY | 2025-05-26 09:04 | XMS_ITS | Encounter Summary ---
Author Organization [employer] Address 75 [facility] 7 [place] [address] Care Team Providers Care Merchandise Carrier Name Role Phone Brenda Yost MD Primary Care Provider [phone] Neelam Dickerson PharmD Unavailable Reason for Visit * Reason Onset Date Comments Call Back Request 02/25/2024 Encounter Details Date Type Department Care Team (Late st Contact Info) Description 02/25/2024 Telephone [facility] MED[facility]INE [address] [place] [address] Brenda Yost MD [address] [place] [address] Call Back Request Social History Tobacco Use [...] [facility] [address] [place] [address] Brenda Yost MD [address] [place] [address] 06/14/2025 9:00 AM EDT Medication Management [facility] PEDS [address] [place] [address] Neelam Dickerson PharmD [address] [place] [address] documented as of this encounter Visit Diagnoses Not on filedocumented in this encounter Additional Health Concerns Assessment Noted Time PHQ-9 Depression Total Score: 8 05/09/20 23 11:04 AM EDT documented as of this encounter Care Teams Merchandise Carrier Relationship Specialty Start Date End Date Brenda Yost MD [address] [place] [address] PCP - General Internal Medicine 10/03/12 Neelam Dickerson PharmD [address] [place] [address] Pharmacist Pharmacy 04/27/25 documented as of this encounter
--- OUTSIDE RECORDS SUMMARY | 2025-05-26 09:04 | XMS_ITS | Encounter Summary ---
Author Organization [employer] Address 75 [facility] 7 [place] [address] Care Team Providers Care Supervisor Printing And Stamping Name Role Phone Brenda Yost MD Primary Care Provider [phone] Neelam Dickerson PharmD Unavailable [phone] Encounter Details Date Type Department Care Team (Late Contact Info) Description 07/25/2023 Telephone [facility] MEDICINE [address] [place], [place] [phone] Brenda Yost MD [address] [place], [place] [phone] Social History Tobacco Use Types Packs/Day Years [...] Description 05/27/2025 9:30 AM EDT Office Visit [facility]EDS [address] [place], [place] [phone] Brenda Yost MD [address] [place] [address] 06/14/2025 9:00 AM EDT Medication Management [facility] PEDS [address] [place] [address] Neelam Dickerson, Janessa [address] [place] [address] documented as of this encounter Visit Diagnoses Not on filedocumented in this encounter Additional Health Concerns Assessment Noted Time PHQ-9 Depression Total Score: 8 05/09/20 23 11:04 AM EDT documented as of this encounter Care Teams Supervisor Printing And Stamping Relationship Specialty Start Date End Date Brenda Yost MD [address] [place] [address] PCP - General Internal Medicine 10/03/12 Neelam Dickerson, Janessa [address] [place] [address] Pharmacist Pharmacy 04/27/25 documented as of this encounter
--- OUTSIDE RECORDS SUMMARY | 2025-05-26 09:04 | XMS_ITS | Encounter Summary ---
Author Organization [employer] Address [address] [place] [address], [place] [address] Care Team Providers Care Website Designer Name Role Phone Brenda Yost MD Primary Care Provider [phone] Neelam Dickerson PharmD Unavailable [phone] Reason for Visit * Reason Comments Med Refill Encounter Details Date Type Department Care Team (Late Contact Info) Description 11/30/2022 Refill [facility] MED & PEDS [address] [place] [address] Brenda Yost MD [address] [place] [address] Primary hypertension (Primary Dx) Social History Tobacco [...] Description 05/27/2025 9:30 AM EDT Office Visit [facility] PEDS [address] [place] [address] Brenda Yost MD [address] [place] [address] 06/14/2025 9:00 AM EDT Medication Management [facility] [address] [place] [address] Neelam Dickerson, Janessa [address] [place] [address] documented as of this encounter Visit Diagnoses Diagnosis Primary hypertension- Primary Unspecified essential hypertension documented in this encounter Care Teams Website Designer Relationship Specialty Start Date End Date Brenda Yost MD [address] [place] [address] PCP - General Internal Medicine 10/03/12 Neelam Dickerson, KateD [address] [place] [address] Pharmacist Pharmacy 04/27/25 documented as of this encounter
== END 2025-05-26 09:26 | disposition home or self-care (01) ==
LOC: HO.ENCR 08:41
PROVIDERS: PCP Internal Medicine; Visit Provider Internal Medicine Endocrinology, Diabetes & Metabolism
DX: E29.1 Testicular hypofunction (principal)
CPT/HCPCS: 99204

== ENCOUNTER → 2025-05-26 08:40 | Outpatient (BNVA) | payer MEDICARE, MEDICAID, SELFPAY | PROVIDERS: PCP Internal Medicine; Visit Provider Internal Medicine Endocrinology, Diabetes & Metabolism | DX: E29.1 Testicular hypofunction (principal) | CPT/HCPCS: 99202 ==

== ENCOUNTER 2025-05-27 09:15 | Outpatient (REF) | payer MEDICARE, MEDICAID, SELFPAY ==
--- OUTSIDE RECORDS SUMMARY | 2025-05-27 09:30 | XMS_ITS | Encounter Summary ---
Author Organization [employer] Address [address] [place] [address] 7 [place] [address] Care Team Providers Care Fashion Intern Name Role Phone Brenda Yost MD Primary Care Provider [phone] Neelam Dickerson PharmD Unavailable [phone] Reason for Referral * Medications - Pending Review Specialty Diagnoses / Procedures Referred By Kevin flores Referred To Contact Diagnoses Asthma, unspecified asthma severity, unspecified whether complicated, unspecified whether persistent Brenda Yost MD [address] [place] [address] Phone: tel: fax: Referral ID Status Reason Start Date Expiration Date V isits Requested Visits Authorized [id number] Pending Review 1 1 * Hospital - Outpatient (Routine) - Pending Review Specialty Diagnoses / Procedures Referred By Kevin flores Referred To Contact Diagnoses Obstructive sleep apnea syndrome Procedures Home sleep test Brenda Yost MD [address] [place] [address] Phone: tel: fax: [address] Phone: tel: fax: Referral ID Status Reason Start Date Expiration Date V isits Requested Visits Authorized [id number] Pending Review 05/27/2025 05/27/2026 1 1 Reason for Visit * Reason Comments Diabetes Hypertension Encounter Details Date Type Department Care Team ([facility] Contact Info) Description 05/27/2025 9:30 AM EDT Office Visit [facility] MED & PEDS [address] [place] [address] Brenda Yost MD [address] [place] [address] Primary hypertension (Primary Dx); Obstructive sleep apnea syndrome; Type 2 diabetes mellitus with hyperglycemia, without long-term current use of insulin ([facility]); Asthma, unspecified asthma severity, unspecified whether complicated, unspecified whether persistent; Encounter for immunization Social History Tobacco Use Types Packs/Day Years [...] AM EDT documented as of this encounter Last Filed Vital Signs Vital Sign Reading Time Taken Comments Blood Pressure 143/72 05/27/2025 9:13 AM EDT Pulse 82 05/27/2025 9:13 AM EDT Temperature - - Respiratory Rate 20 05/27/2025 9:13 AM EDT Oxygen Saturation 96% 05/27/2025 9:13 AM EDT Inhaled Oxygen Concentration - - Weight 166 kg (365 lb) 05/27/2025 9:13 AM EDT Height 174.6 cm (5' 8.75 ) 05/27/2025 9:13 AM ED T Body Mass Index 54.29 05/27/2025 9:13 AM EDT documented in this encounter Plan of Treatment Upcoming Encounters Date Type Department Care Team ([facility] Contact Info) Description 06/14/2025 9:00 AM EDT Medication Management [facility] MED & PEDS [address] [place] [address] Neelam Dickerson, PharmD [address] [place] [address] Scheduled Orders Name Type Priority Associated Diagnoses Orde r Schedule Home sleep test Sleep Center Routine Obstructive sleep apnea syndrome Expected: 05/27/2025 (Approximate), Expires: 05/27/2026 Albumin, Random Urine W/Creatinine Lab Routine Type 2 diabetes mellitus with hyperglycemia, without long-term current use of insulin ([facility]) Expected: 05/27/2025 (Approximate), Expires: 05/27/2026 Hemoglobin A1c Lab Routine Type 2 diabetes mellitus with hyperglycemia, without long-term current use of insulin (CMS/HCC) Expected: 05/27/2025 (Approximate), Expires: 05/27/2026 documented as of this encounter Procedures Procedure Name Priority Date/Time Associated Diagnosis Comments POCT GLUCOSE Routine 05/27/2025 10:00 AM EDT Type 2 diabetes mellitus with hyperglycemia, without long-term current use of insulin ([facility]) documented in this encounter Results * POCT Glucose (05/27/2025 10:00 AM EDT) [facility] Signature Glucose Blood, POC 119 60 - 200 mg/dL QC Media Lot # [id number] Lot# Expiration Date Comment:fasting Blood Capillary blood specimen / Unknown 05/27/2025 10:00 AM EDT Brenda Yost MD POINT OF CARE TEST ENTER/ED IT ORDERABLES Final Result documented in this encounter Visit Diagnoses Diagnosis Primary hypertension- Primary Unspecified essential hypertension Obstructive sleep apnea syndrome Obstructive sleep apnea (adult) (pediatric) Type 2 diabetes mellitus with hyperglycemia, without long-term current use of insulin ([facility]) Asthma, unspecified asthma severity, unspecified whether complicated, unspecified whether persistent Encounter for immunization documented in this encounter Additional Health Concerns Assessment Noted Time PHQ-9 Depression Total Score: 0 04/08/20 25 2:25 PM EDT documented as of this encounter Care Teams Fashion Intern Relationship Specialty Start Date End Date Brenda Yost MD [address] [place] [phone] PCP - General Internal Medicine 10/03/12 Neelam Dickerson PharmD [address] [place] [phone] Pharmacist Pharmacy 04/27/25 documented as of this encounter
--- OUTSIDE RECORDS SUMMARY | 2025-05-27 10:17 | XMS_ITS | Encounter Summary ---
Author Organization [employer] Address [address] [facility] 7 [place] [address] Care Team Providers Care Direct Of Real Estate Name Role Phone Brenda Yost MD Primary Care Provider [phone] Neelam Dickerson PharmD Unavailable [phone] Reason for Visit * Reason Comments Med Refill Encounter Details Date Type Department Care Team (Late Contact Info) Description 08/07/[address] [facility] MED & PEDS [address] [place] [address] Brenda Yost MD [address] [place] [address] Controlled type 2 diabetes mellitus with hyperglycemia, without long-term current use of insulin ([facility]) Social History Tobacco Use Types Packs/Day Years [...] Department Care Team (Late Contact Info) Description 06/14/2025 9:00 AM EDT Medication Management [facility] MED [facility] PEDS [address] [place] [address] Neelam Dickerson PharmD [address] [place] [address] documented as of this encounter Visit Diagnoses Diagnosis Controlled type 2 diabetes mellitus with hyperglycemia, without long-term current use of insulin ([facility]) documented in this encounter Additional Health Concerns Assessment Noted Time PHQ-9 Depression Total Score: 8 05/09/20 23 11:04 AM EDT documented as of this encounter Care Teams Direct Of Real Estate Relationship Specialty Start Date End Date Brenda Yost MD [address] [place] [address] PCP - General Internal Medicine 10/03/12 eNelam Dickerson, KateD [address] [place] [address] Pharmacist Pharmacy 04/27/25 documented as of this encounter
--- OUTSIDE RECORDS SUMMARY | 2025-05-27 10:17 | XMS_ITS | Clinical Summary ---
Author Organization [employer] Address [address] [facility] 7t [place] [address] Care Team Providers Care Filament Welder Name Role Phone Brenda Yost MD Primary Care Provider [phone] Neelam Dickerson PharmD Unavailable [phone] Allergies No known active allergies Medications Misc. Devices (Commode) misc To use as needed 02/28/20 17 Active Heating Pads pads to use daily prn 03/26/20 19 Active albuterol 108 (90 Base) MCG/ACT inhaler inhale 2 puff by inhalation route every 4 to 6 hours as needed. 03/21/20 22 Active docusate sodium (Colace) 100 MG capsule Take 1 capsule by mouth at bed time. As needed 07/06/20 19 Active ferrous sulfate 325 (65 Fe) MG tablet 1 tablet. By mouth 2 times every day 06/02/20 19 Active naproxen sodium (Anaprox) 275 MG tablet Take 1 tablet by mouth every 8 (eight) hours. 02/25/20 19 Active sildenafil (Viagra) 100 MG tablet Take 1 tablet by mouth. Every day as needed approximately 1 hour before sexual activity 08/14/20 21 Active ammonium lactate (Amlactin) 12 % cream APPLY TOPICALLY TO THE AFFECTED AREA TWICE DAILY 385 g 11 01/16/20 23 Active Blood Pressure kitIndications:P rimary hypertension To use once a day 1 kit 05/09/20 23 Active lisinopril 40 MG tabletIndication s:Primary hypertension TAKE 1 TABLET(40 MG) BY MOUTH DAILY 90 tablet 3 12/22/19 25 Active FreeStyle lancetsIndicatio ns:Type 2 diabetes mellitus with hyperglycemia, without long-term current use of insulin ([facility]) USE TO TEST TWICE DAILY 100 each 11 02/03/20 25 Active amLODIPine (Norvasc) 10 MG tabletIndication s:Primary hypertension TAKE 1 TABLET(10 MG) BY MOUTH DAILY 90 tablet 3 02/05/20 25 Active atorvastatin (Lipitor) 20 MG tablet TAKE 1 TABLET BY MOUTH EVERY DAY 90 tablet 1 02/25/20 25 Active furosemide (Lasix) 20 MG tabletIndication s:Type 2 diabetes mellitus with hyperglycemia, without long-term current use of insulin ([facility]) Take 2 tablets (40 mg) by mouth Once per day. Every day 30 tablet 3 03/03/20 25 Active Semaglutide, 2 MG/DOSE, (Ozempic, 2 MG/DOSE,) 8 MG/3ML solution pen-injectorIndi cations:Type 2 diabetes mellitus with hyperglycemia, without long-term current use of insulin ([facility]) Inject 0.75 mL (2 mg) under the skin 1 (one) time per week. 2 mL 3 03/03/20 25 Active metFORMIN (Glucophage) 500 MG tabletIndication s:Type 2 diabetes mellitus with hyperglycemia, without long-term current use of insulin ([facility]) Take 2 tablets (1,000 mg) by mouth with breakfast and with evening meal. 360 tablet 03/03/20 25 Active glucose blood (FREESTYLE LITE) test stripIndications :Type 2 diabetes mellitus with hyperglycemia, without long-term current use of insulin ([facility]) USE DIRECTED TO TEST BLOOD GLUCOSE 4 TIMES DAILY 100 strip 03/03/20 25 Active ALPRAZolam (Xanax) 0.5 MG tablet 03/10/20 25 Active amitriptyline (Elavil) 100 MG tablet 03/12/20 25 Active azelastine (Astelin) 0.1 % nasal spray 03/12/20 25 Active Trelegy Ellipta 100-62.5-25 MCG/ACT aerosol powder INHALE 1 PUFF BY MOUTH DAILY FOR WHEEZING 02/25/20 25 Active hydrOXYzine HCl (Atarax) 25 MG tablet Take 1 tablet by mouth 2 times daily. 11/23/19 25 Active semaglutide (Ozempic, 1 MG/DOSE,) 4 MG/3ML solution pen-injectorIndi cations:Type 2 diabetes mellitus with hyperglycemia, without long-term current use of insulin ([facility]) Inject 1 mg under the skin 1 (one) time per week. 1 each 05/27/20 25 Active albuterol (2.5 MG/3ML) 0.083% nebulizer solutionIndicati ons:Asthma, unspecified asthma severity, unspecified whether complicated, unspecified whether persistent Take 3 mL (2.5 mg) by nebulization every 6 (six) hours if needed for wheezing. 75 mL 3 05/27/20 25 Active albuterol (2.5 MG/3ML) 0.083% nebulizer solutionIndicati ons:Asthma, unspecified asthma severity, unspecified whether complicated, unspecified whether persistent INHALE 1 VIAL BY NEBULIZATION ROUTE EVERY 4 HOURS NEEDED 75 mL 3 01/07/20 25 025 Discontin ued(Thera py completed ) Active Problems Problem Noted Date Diagnosed Date Atherosclerotic cardiovascular disease 5 Cutaneous abscess of right lower extremity 09/06 [...] Encounters Date Type Department Care Team Description 05/27/2025 9:30 AM EDT Office Visit [facility] MED & PEDS [address] [place] [address] Brenda Yost MD Primary hypertension (Primary Dx); Obstructive sleep apnea syndrome; Type 2 diabetes mellitus with hyperglycemia, without long-term current use of insulin (CMS/HCC); Asthma, unspecified asthma severity, unspecified whether complicated, unspecified whether persistent; Encounter for immunization 05/27/2025 Travel 05/26/2025 Telephone [facility] [address] [facility] [place] [place] [phone] Brenda Yost MD chart prep 04/27/2025 9:00 AM EDT Telemedicine [facility] [address] [facility] [place] [phone] Neelam Dickerson PharmD Type 2 diabetes mellitus with hyperglycemia, without long-term current use of insulin (CMS/HCC) (Primary Dx) 03/15/2025 Results Follow-Up [facility] MED & PEDS 505 [facility] [place] [address] Kerri Rosas RN POCT Glucose, Testosterone, Free (Dialysis) And Total, MS 03/15/2025 Orders Only [facility] MED & PEDS [address] [facility] [place] [address] Brenda Yost MD Hypogonadism in male (Primary Dx) 03/04/2025 Results Follow-Up [facility] & P[facility] [address] [facility] [place] [address] Kerri Rosas RN Hepatic Function Panel, Lipid Panel, Standard 03/03/2025 9:45 AM EDT Office Visit [facility] MED & PEDS [address] [facility] [place] [address] Brenda Yost MD Type 2 diabetes mellitus [...] Generic External Data 03/03/2025 Travel 02/26/2025 Telephone [facility] MED & PEDS [address] [place] [address] Brenda Yost MD Appointment Request (Pt needs appt) from Last 3 Months Immunizations Immunization Administration Dates Next Due Influenza, seasonal, injectable, preservative fr ee 10/22/2012 Pneumococcal Polysaccharide PPSV23 08/12/2015, Tdap 05/27/2025,08/12/2015 Social History Tobacco Use Types Packs/Day Years [...] Pulse 82 05/27/2025 9:13 AM EDT Temperature 36.6 C (97.9 F) 03/03/2025 9:34 AM EDT Respiratory Rate 20 05/27/2025 9:13 AM EDT Oxygen Saturation 96% 05/27/2025 9:13 AM EDT Inhaled Oxygen Concentration - - Weight 166 kg (365 lb) 05/27/2025 9:13 AM EDT Height 174.6 cm (5' 8.75 ) 05/27/2025 9:13 AM ED T Body Mass Index 54.29 05/27/2025 9:13 AM EDT Plan of Treatment Upcoming Encounters Date Type Department Care Team ([facility] st Contact Info) Description 06/14/2025 9:00 AM EDT Medication Management [facility] MED & PEDS [address] [place] [address] Neelam Dickerson, PharmD [address] [place] [address] Health Maintenance Due Date Last Done Comments CT Colonography 1961 FIT DNA/Cologuard 1961 FIT 1961 FOBT 1961 HIV Screening 1961 SDOH Screening 1961 Sigmoidoscopy 1961 Eye Exam 12/22/1971 Alcohol/Substance Use Screening 1973 Zoster Vaccines (1 of 2) 12/22/2011 RSV Patients and Patients Aged 60 years or older (1 - Risk 60-74 years 1-dose series) 2021 Diabetes: Urine Protein Screening 05/09/2024 05/09/2023, 02/09/2022 COVID-19 Vaccine ( season) 2024 03/27/2021, 02/21/2021, 01/07/2021, Additional history exists Colonoscopy 12/07/2024 12/07/2021 Colorectal Cancer Screening 12/07/2024 Diabetes: Hemoglobin A1C 04/07/2025 025, 02/21/2024, 05/09/2023, Additional history exists Influenza Vaccine (#1) 2025 10/22/2012 Depression Screening 01/05/2026 01/05/2025, 01/06/20 25 Lipid Panel 03/03/2026 03/03/2025, 04/30, 02/09/2022 Tobacco Screening 03/03/2026 03/03/2025 Diabetes: Foot Exam 05/27/2026 05/27/2025, 3 Disability Screening 05/27/2026 05/27/2025 Pneumococcal Vaccine: 50+ Years (2 of 2 - PCV) 05/27/2026 08/12/2015, 10/22/2012 Postponed from 08/12/2016 (Patient Refused) DTaP/Tdap/Td Vaccines (3 - Td or Tdap) 05/27/2035 05/27/2025, 08/12/2015 Hepatitis C Screening Completed 05/09/2023 HIB Vaccines [...] without long-term current use of insulin (CMS/HCC) POCT GLUCOSE Routine 03/03/2025 11:27 AM EDT Type 2 diabetes mellitus with hyperglycemia, without long-term current use of insulin (CMS/HCC) LIPID PANEL, STANDARD Routine 03/03/2025 10:34 AM EDT HEPATIC FUNCTION PANEL Routine 03/03/2025 10:34 AM EDT TESTOSTERONE, FREE (DIALYSIS) AND TOTAL,MS Routine 03/03/2025 10:34 AM EDT Vasculogenic erectile dysfunction, unspecified vasculogenic erectile dysfunction type HEMOGLOBIN A1C Routine 01/06/2025 8:39 AM EDT Controlled type 2 diabetes mellitus with hyperglycemia, without long-term current use of insulin (CMS/HCC) HEPATITIS PANEL, GENERAL Routine 05/09/2023 1:37 PM EDT Screen for STD (sexually transmitted disease) ALBUMIN, RANDOM URINE W/CREATININE Routine 05/09/2023 1:27 PM EDT HP LINK DIABETIC FOOT EXAM Routine 05/09/2023 HM COLONOSCOPY Routine 12/07/2021 from Last 3 Months or Most Recently Relevant to Health Maintenance Results * POCT Glucose (05/27/2025 10:00 AM EDT) Only the most recent of2 resultswithin the time period is included. Glucose Blood, POC 119 60 - 200 mg/dL QC Media Lot # [id number] Lot# Expiration Date ,945 Comment:fasting Blood Capillary blood specimen / Unknown 05/27/2025 10:00 AM EDT Brenda Yost MD POINT OF CARE TEST ENTER/ED IT ORDERABLES Final Result * (ABNORMAL) Testosterone, Free (Dialysis) And Total, MS (03/03/2025 10:34 AM EDT) Testosterone, Total 86(A) 250 - 1100 ng/dL [facility] Comment:Men with clinically significant hypogonadalsymptoms and testosterone values repeatedly inthe range of the 200-300 ng/dL or less, maybenefit from testosterone treatment afteradequate risk and benefits counseling.For additional information, please refer [email or web address](This link is being provided for informational/educational purposes only.)This test was developed and its analytical performancecharacteristics have been determined by [employer] [place], [place]. It hasnot been cleared or approved by the U.S. Food and DrugAdministration. This assay has been validated pursuantto the CLIA regulations and is used for clinicalpurposes. Testosterone, Free 12.0(A) 35.0 - 155.0 pg/mL [facility] Comment:This test was develo ped and its analytical performancecharacteristics have been determined by [facility] [place]. It hasnot been cleared or approved by the U.S. Food and DrugAdministration. This assay has been validated pursuantto the CLIA regulations and is used for clinicalpurposes.THIS TEST WAS PERFORMED AT:[facility] [place] [id number] DIXON MD,PHD Blood Venous blood specimen / Unknown 03/03/2025 10:34 AM EDT 03/03/2025 2:15 PM EDT us Brenda Yost MD LAB BLOOD ORDERABLES Final Result Performing Organization Address [facility] Co de Phone Number [facility] [address] [place] [phone] * Hepatic Function Panel (03/03/2025 10:34 AM EDT) Bilirubin, Total 0.5 0.0 - 1.0 mg/dL [facility] Bilirubin, Direct 0.2 0.0 - 0.5 mg/dL [facility] Aspartate Amino Transferase 20 5 - 37 U/L [facility] Alanine Aminotransferase 12 0 - 40 U/L [facility] Total Protein 7.3 6.5 - 8.0 g/dL [facility] Albumin Level 3.8 3.5 - 5.0 g/dL [facility] Alkaline Phosphatase 83 39 - 117 U/L [facility] 03/03/2025 10:3 4 AM EDT 03/03/2025 2:15 PM EDT us Generic External Data Provider LAB BLOOD ORDERAB LES Final Result Performing Organization Address [facility] de Phone Number [facility] [address] [place] [phone] * (ABNORMAL) Lipid Panel, Standard (03/03/2025 10:34 AM EDT) Triglycerides 128 <150 mg/dL [facility] Comment:Desirable Triglyceri de: less than 150 mg/dLBorderline High Triglyceride 150-199 mg/dLHigh Triglyceride: 200-499 mg/dLVery High Triglyceride: greater than or equal to 5OO mg/dL Cholesterol 166 <200 mg/dL [facility] Comment:Desirable Cholestero l: less than 200 mg/dLBorderline High Cholesterol: 200-239 mg/dLHigh Cholesterol: greater than 239 mg/dL LDL Cholesterol Calculated 113(H) <100 mg/dL [facility] Comment:Desirable LDL: less than 100 mg/dLNear Optimal/Above Optimal LDL: 110- 129 mg/dLBorderline High LDL: 130-159 mg/dLHigh LDL: 160-189 mg/dLVery High LDL: greater than or equal to 190 mg/dL HDL Cholesterol 28(L) >40 mg/dL [facility] Comment:Desirable HDL: great er than 40 mg/dL Note: This HDL assay may give artificially low results in patients with liver disease. 03/03/2025 10:3 4 AM EDT 03/03/2025 2:15 PM EDT us Generic External Data Provider LAB BLOOD ORDERAB LES Final Result [facility] [address] [place] [phone] * (ABNORMAL) Hemoglobin A1c (01/06/2025 8:39 AM EDT) Hemoglobin A1c 11.3(H) <6.0 % [facility] Comment:Hemoglobin A1C Refer ence Range Adults: 4.8 - 6.0 % Non diabetic: < 6.0 % Goal: < 7.0 %Additional Action Suggested: > 8.0 %Note: Hemoglobin A1c results are invalid for patients with abnormal amounts of HbF. Blood transfusions may impact the HbA1c concentration in the patient sample. Estimated Average Glucose 278 mg/dL [facility] Comment:eAG = Estimated ave rage glucose which is %A1C expressed asaverage glucose, using the formula of the R5H-QmfoptuYecqcxz Glucose study (ADAG), Diabetes Care, Vol.31,#8,2007 Blood Venous blood specimen / Unknown 01/06/2025 8:39 AM EDT 01/06/2025 2:51 PM EDT us Robin Pruett MD LAB BLOOD ORDERABL ES Final Result Performing Organization Address [facility] de Phone Number [facility] [address] [place] [phone] * Hepatitis Panel, General (05/09/2023 1:37 PM EDT) Hepatitis A IgM Nonreactive Nonreactive [facility] Comment:IgM antibodies to LOPEZ V not detected; does not exclude earlyacute or recovered HAV infection. ~Hepatitis B Surface Antibody NONREACTIVE Nonreactive [facility] Comment:Nonreactive: < 8.00 mIU/mL Hepatitis B Core Antibody Nonreactive Nonreactive [facility] Hepatitis C Antibody Nonreactive Nonreactive [facility] Comment:Antibodies to HCV no t detected; does not exclude early acuteHCV infection. Hepatitis B Surface Ag Negative Negative [facility] Blood 05/09/2023 1:37 PM EDT 05/09/2023 2:49 PM EDT us Brenda Yost MD LAB BLOOD ORDERABLES Final Result Performing Organization Address [facility] de Phone Number [facility] [address] [place] [phone] * Albumin, Random Urine W/Creatinine (05/09/2023 1:27 PM EDT) Creatinine, Urine 171.85 mg/dL [facility] Microalbumin Urine 12.0 mg/L [facility] Microalbum Creatinine Ratio Ur 6.9 ug/mg cr [facility] Comment:Albumin/Creatinine R atio Reference Ranges: Normal: < 30 ug/mg creatinine Microalbuminuria: 30 - 300 ug/mg creatinineClinical Albuminuria: > 300 ug/mg creatinine 05/09/2023 1:27 PM EDT 05/09/2023 5:42 PM EDT us Brenda Yost MD LAB URINE ORDERABLES Final Result [facility] [address] [place] [phone] [phone] * (ABNORMAL) HP Diabetic Foot Exam [...] Relevant to Health Maintenance Insurance [facility] STANDARD MEDICARE Care Teams Filament Welder Relationship Specialty Start Date End Date Brenda Yost MD [address] [place] [address] PCP - General Internal Medicine 10/03/12 Neelam Dickerson PharmD [address] [place] [phone] Pharmacist Pharmacy 04/27/25
--- OUTSIDE RECORDS SUMMARY | 2025-05-27 10:17 | XMS_ITS | Encounter Summary ---
Author Organization [employer] Address [address] [place] [address] 7 [place] [address] Care Team Providers Care Turret Lathe Tender Name Role Phone Brenda Yost MD Primary Care Provider [phone] Neelam Dickerson PharmD Unavailable [phone] Encounter Details Date Type Department Care Team (Latest Contact Info) Description 05/27/2025 Travel Social History Tobacco Use Types Packs/Day [...] Care Team (Late st Contact Info) Description 06/14/2025 9:00 AM EDT Medication Management [facility] CHC MED & PEDS [address] [place] [address] Neelam Dickerson, PharmD 230 [place] [address] documented as of this encounter Visit Diagnoses Not on filedocumented in this encounter Additional Health Concerns Assessment Noted Time PHQ-9 Depression Total Score: 0 01/06/20 25 2:25 PM EDT documented as of this encounter Care Teams Turret Lathe Tender Relationship Specialty Start Date End Date Brenda Yost MD 505 [place] [address] PCP - General Internal Medicine 10/03/12 Neelam Dickerson PharmD [address] [place] [address] Pharmacist Pharmacy 04/27/25 documented as of this encounter
--- OUTSIDE RECORDS SUMMARY | 2025-05-27 10:17 | XMS_ITS | Encounter Summary ---
Author Organization [employer] Address [address] [place] [address] 7 [place] [address] Care Team Providers Care Pot Puller Name Role Phone Brenda Yost MD Primary Care Provider +[phone] Neelam Dickerson PharmD Unavailable [phone] Reason for Referral * Consultation (Routine) - Closed Specialty Diagnoses / Procedures Referred By Contac t Referred To Contact Pharmacy Diagnoses Controlled type 2 diabetes mellitus with hyperglycemia, without long-term current use of insulin (CMS/HCC) Brenda Yost MD 505 [place] [address] Phone: tel: fax: Referral ID Status Reason Start Date Expiration Date V isits Requested Visits Authorized [id number] Closed Consult and Treat 01/05/2025 01/05/2026 6 6 Encounter Details Date Type Department Care Team (Late st Contact Info) Description 01/05/2025 Orders Only [facility] CHC MED & PEDS 505 [place] [address] Brenda Yost MD 505 [place] [address] Controlled type 2 diabetes mellitus with hyperglycemia, [...] Description 06/14/2025 9:00 AM EDT Medication Management [facility] MED & PEDS 505 [place] [address] Neelam Dickerson PharmD 230 [place] [address] Scheduled Referrals Name Type Priority Associated Diagnoses Orde r Schedule Referral to Pharmacy CDTM Outpatient Referral Routine Controlled type 2 diabetes mellitus with hyperglycemia, without long-term current use of insulin (CMS/[facility]) Ordered: 01/05/2025 documented as of this encounter Visit Diagnoses Diagnosis Controlled type 2 diabetes mellitus with hyperglycemia, without long-term current use of insulin ([facility])- Primary documented in this encounter Additional Health Concerns Assessment Noted Time PHQ-9 Depression Total Score: 0 01/06/20 25 2:25 PM EDT documented as of this encounter Care Teams Pot Puller Relationship Specialty Start Date End Date Brenda Yost MD [address] [place] [address] PCP - General Internal Medicine 10/03/12 Neelam Dickerson PharmD 230 [place], [place] [phone] Pharmacist Pharmacy 04/27/25 documented as of this encounter
--- OUTSIDE RECORDS SUMMARY | 2025-05-27 10:17 | XMS_ITS | Encounter Summary ---
Author Organization [employer] Address 75 [facility] 7 [place] [address] Care Team Providers Care Manager Post Name Role Phone Brenda Yost MD Primary Care Provider [phone] Neelam Dickerson PharmD Unavailable [phone] Encounter Details Date Type Department Care Team (Late st Contact Info) Description 07/25/2023 Telephone [facility] MEDICINE [address] [place], [place] [phone] Brenda Yost MD 505 [place], [place] [phone] Social History Tobacco Use Types Packs/Day Years [...] Description 06/14/2025 9:00 AM EDT Medication Management [facility] CHC MED & PEDS 505 [place], [place] [phone] Neelam Dickerson, PharmD 230 [place] [address] documented as of this encounter Visit Diagnoses Not on filedocumented in this encounter Additional Health Concerns Assessment Noted Time PHQ-9 Depression Total Score: 8 05/09/20 23 11:04 AM EDT documented as of this encounter Care Teams Manager Post Relationship Specialty Start Date End Date Brenda Yost MD 505 [place] [address] PCP - General Internal Medicine 10/03/12 Neelam Dickerson PharmD 230 [place] [address] Pharmacist Pharmacy 04/27/25 documented as of this encounter
--- OUTSIDE RECORDS SUMMARY | 2025-05-27 10:17 | XMS_ITS | Encounter Summary ---
Author Organization [employer] Address [address] [place] [address] [place] [address] Care Team Providers Care Drawer Liner Name Role Phone Brenda Yost MD Primary Care Provider [phone] Neelam Dickerson PharmD Unavailable [phone] Encounter Details Date Type Department Care Team (Late st Contact Info) Description 05/10/2023 Orders Only [facility] CHC MED & PEDS 505 [place] [address] Brenda Yost MD 505 [place] [address] Screen for STD (sexually transmitted disease) (Primary [...] Description 06/14/2025 9:00 AM EDT Medication Management [facility] MED & PEDS 505 [place] [address] Neelam Dickerson KateD 230 [place] [address] Scheduled Orders Name Type Priority Associated Diagnoses [...] documented as of this encounter Care Teams Drawer Liner Relationship Specialty Start Date End Date Brenda Yost MD [address] [place] [address] PCP - General Internal Medicine 10/03/12 Neelam Dickerson, PharmD 230 [place] [address] Pharmacist Pharmacy 04/27/25 documented as of this encounter
--- OUTSIDE RECORDS SUMMARY | 2025-05-27 10:17 | XMS_ITS | Encounter Summary ---
Author Organization [employer] Address 75 [facility] 7 [place] [address] Care Team Providers Care Dry Food Products Mixer Name Role Phone Brenda Yost MD Primary Care Provider [phone] Neelam Dickerson PharmD Unavailable [phone] Encounter Details Date Type Department Care Team (Late st Contact Info) Description 02/25/2024 Orders Only [facility] CHC MED & PEDS 505 [place] [address] Brenda Yost MD 505 [place] [address] Controlled type 2 diabetes mellitus with hyperglycemia, without long-term current use of insulin ([facility]) (Primary Dx) Social History Tobacco Use Types [...] Description 06/14/2025 9:00 AM EDT Medication Management [facility] CHC MED & PEDS [address] [place] [address] Neelam Dickerson PharmD 230 [place] [address] documented as of this encounter Visit Diagnoses Diagnosis Controlled type 2 diabetes mellitus with hyperglycemia, without long-term current use of insulin ([facility])- Primary documented in this encounter Additional Health Concerns Assessment Noted Time PHQ-9 Depression Total Score: 8 05/09/20 23 11:04 AM EDT documented as of this encounter Care Teams Dry Food Products Mixer Relationship Specialty Start Date End Date Brenda Yost MD [address] [place] [address] PCP - General Internal Medicine 10/03/12 Neelam Dickerson, KateD [address] [place] [address] Pharmacist Pharmacy 04/27/25 documented as of this encounter
--- OUTSIDE RECORDS SUMMARY | 2025-05-27 10:17 | XMS_ITS | Encounter Summary ---
Author Organization [employer] Address 75 [facility] 7 [place] [address] Care Team Providers Care Patient Services Specialist Name Role Phone Brenda Yost MD Primary Care Provider [phone] Neelam Dickerson PharmD Unavailable [phone] Reason for Visit * Reason Onset Date Comments chart prep 05/26/2025 Encounter Details Date Type Department Care Team ([facility] st Contact Info) Description 05/26/2025 Telephone [facility] CHC MED & PEDS 505 [place] [address] Brneda Yost MD 505 [place] [address] chart prep Social History Tobacco Use Types Packs/Day Years [...] encounter Miscellaneous Notes * Telephone Encounter - Alyx Jerez RN - 05/26/2025 4:12 PM EDT Chart Prep Labs: not done Images: done Referrals: complete Vaccines due: PCV20 Screenings: colonoscopy, eye exam, foot exam, and STI screening Overdue care gaps: SDOH and Disability screen documented in this encounter Plan of Treatment Upcoming Encounters Date Type Department Care Team (Late st Contact Info) Description 06/14/2025 9:00 AM EDT Medication Management [facility] MED & PEDS [address] [place] [address] Neelam Dickerson PharmD [address] [place] [address] documented as of this encounter Visit Diagnoses Not on filedocumented in this encounter Additional Health Concerns Assessment Noted Time PHQ-9 Depression Total Score: 0 01/06/20 25 2:25 PM EDT documented as of this encounter Care Teams Patient Services Specialist Relationship Specialty Start Date End Date Brenda Yost MD 505 [place] [address] PCP - General Internal Medicine 10/03/12 Neelam Dickerson, KateD [address] [place] [address] Pharmacist Pharmacy 04/27/25 documented as of this encounter
--- OUTSIDE RECORDS SUMMARY | 2025-05-27 10:17 | XMS_ITS | Encounter Summary ---
Author Organization [employer] Address [address] [place] [address] [place] [address] Care Team Providers Care Rn Residential Name Role Phone Brenda Yost MD Primary Care Provider [phone] Neelam Dickerson PharmD Unavailable [phone] Reason for Visit * Reason Comments Med Refill Encounter Details Date Type Department Care Team (Late Contact Info) Description 07/12/2024 Refill [facility] CHC MED & PEDS 505 [place] [address] Brenda Yost MD 505 [place] [address] Social History Tobacco Use Types Packs/Day Years [...] Description 06/14/2025 9:00 AM EDT Medication Management [facility] CHC MED & PEDS 505 [place] [address] Neelam Dickerson, PharmD 230 [place] [address] documented as of this encounter Visit Diagnoses Not on filedocumented in this encounter Additional Health Concerns Assessment Noted Time PHQ-9 Depression Total Score: 8 05/09/20 23 11:04 AM EDT documented as of this encounter Care Teams Rn Residential Relationship Specialty Start Date End Date Brenda Yost MD [address] [place] [address] PCP - General Internal Medicine 10/03/12 Neealm Dickerson, KateD 230 [place] [address] Pharmacist Pharmacy 04/27/25 documented as of this encounter
--- OUTSIDE RECORDS SUMMARY | 2025-05-27 10:17 | XMS_ITS | Clinical Summary ---
Author Organization [facility] Address [address] [place] [address] Care Team Providers Care Truck Driver Salesperson Name Role Phone Unavailable Primary Care Provider [...]
--- OUTSIDE RECORDS SUMMARY | 2025-05-27 10:17 | XMS_ITS | Encounter Summary ---
Author Organization [employer] [facility] Address [address] [place] [address] 7 [place] [address] Care Team Providers Care Air Bag Curer Name Role Phone Brenda Yost MD Primary Care Provider [phone] Neelam Dickerson PharmD Unavailable [phone] Reason for Visit * Reason Comments Med Refill Encounter Details Date Type Department Care Team (Late st Contact Info) Description 11/30/2022 Refill [facility] MED & PEDS 505 [place] [address] Brenda Yost MD 505 [place] [address] Primary hypertension (Primary Dx) Social History Tobacco [...] 9:00 AM EDT Medication Management [facility] MED & PEDS [address] [place], [place] [phone] Neelam Dickerson, PharmD 230 [place], [place] [phone] documented as of this encounter Visit Diagnoses Diagnosis Primary hypertension- Primary Unspecified essential hypertension documented in this encounter Care Teams Air Bag Curer Relationship Specialty Start Date End Date Beauzile, Thevenin, MD 505 [place] [address] PCP - General Internal Medicine 10/03/12 Neelam Dickerson, KateD [address] [place] [address] Pharmacist Pharmacy 04/27/25 documented as of this encounter
--- OUTSIDE RECORDS SUMMARY | 2025-05-27 10:17 | XMS_ITS | Encounter Summary ---
Author Organization [employer] [facility] Address [address] [place] [address] 7t [place] [address] Care Team Providers Care V Belt Builder Name Role Phone Brenda Yost MD Primary Care Provider [phone] Neelam Dickerson PharmD Unavailable [phone] Encounter Details Date Type Department Care Team (Late st Contact Info) Description 04/03/2023 Orders [address] [facility] MED & PEDS 505 [place] [address] Reina Hammonds LPN Social History Tobacco Use [...] Description 06/14/2025 9:00 AM EDT Medication Management [facility] MED & PEDS 505 [place] [address] Neelam Dickerson, PharmD 230 [place], [place] [phone] documented as of this encounter Procedures Procedure Name Priority Date/Time Associated Diagnosis Comments SYPHILIS SCREEN Routine 05/09/2023 1:37 PM EDT BASIC METABOLIC PANEL, FASTING Routine 05/09/2023 1:37 PM EDT ALBUMIN, RANDOM URINE W/CREATININE Routine 05/09/2023 1:27 PM EDT documented in this encounter Results * Syphilis Screen (05/09/2023 1:37 PM EDT) Syphilis Screen Nonreactive Nonreactive [facility] 05/09/2023 1:37 PM EDT 05/09/2023 2:49 PM EDT us Brenda Yost MD LAB BLOOD ORDERABLES Final Result [facility] [address] [place] [address] [phone] * Basic Metabolic Panel, Fasting (05/09/2023 1:37 PM EDT) Sodium 142 135 - 145 mmol/L [facility] Potassium 4.2 3.3 - 5.1 mmol/L [facility] Chloride 106 96 - 108 mmol/L [facility] Carbon Dioxide 28 22 - 29 mmol/L [facility] Anion Gap 12 12 - 20 [facility] Urea Nitrogen (BUN) 13 9 - 16 mg/dL [facility] Creatinine, Serum 1.07 0.5 - 1.4 mg/dL [facility] Estimated Glomerular Filt Rate >60 [facility] Comment:NOTE: For -Am erican individuals, multiply the result by 1.210.Chronic Kidney Disease: Estimated GFR < 60 mL/min/1.05r9Hbfqrx Kidney Disease: Estimated GFR < 15 mL/min/1.73m2 Glucose Fasting 89 60 - 99 mg/dL [facility] Calcium 9.8 8.4 - 10.2 mg/dL [facility] 05/09/2023 1:37 PM EDT 05/09/2023 2:49 PM EDT us Brenda Yost MD LAB BLOOD ORDERABLES Final Result [facility] [address] [place] [address] [phone] * Albumin, Random Urine W/Creatinine (05/09/2023 1:27 PM EDT) Creatinine, Urine 171.85 mg/dL [facility] Microalbumin Urine 12.0 mg/L [facility] Microalbum Creatinine Ratio Ur 6.9 ug/mg cr [facility] Comment:Albumin/Creatinine R atio Reference Ranges: Normal: < 30 ug/mg creatinine Microalbuminuria: 30 - 300 ug/mg creatinineClinical Albuminuria: > 300 ug/mg creatinine 05/09/2023 1:27 PM EDT 05/09/2023 5:42 PM EDT Brenda Yost MD LAB URINE ORDERABLES Final Result [facility] [address] [place] [address] [phone] documented in this encounter Visit Diagnoses Not on filedocumented in this encounter Care Teams V Belt Builder Relationship Specialty Start Date End Date Brenda Yost MD [address] [place] [address] PCP - General Internal Medicine 10/03/12 Neelam Dickerson PharmD [address] [place] [address] Pharmacist Pharmacy 04/27/25 documented as of this encounter
--- OUTSIDE RECORDS SUMMARY | 2025-05-27 10:17 | XMS_ITS | Encounter Summary ---
Author Organization [employer] Address [address] [place] [address] [place], [place] [address] Care Team Providers Care Parking Ramp Attendant Name Role Phone Brenda Yost MD Primary Care Provider [phone] Neelam Dickerson PharmD Unavailable [phone] Reason for Visit * Reason Comments Med Refill Encounter Details Date Type Department Care Team (Late Contact Info) Description 06/04/2024 Refill [facility] CHC MED & PEDS [address] [place] [address] Brenda Yost MD [address] [place] [address] Social History Tobacco Use Types Packs/Day Years [...] Description 06/14/2025 9:00 AM EDT Medication Management [facility] CHC MED & PEDS [address] [place] [address] Neelam Dickerson, PharmD [address] [place] [address] documented as of this encounter Visit Diagnoses Not on filedocumented in this encounter Additional Health Concerns Assessment Noted Time PHQ-9 Depression Total Score: 8 05/09/20 23 11:04 AM EDT documented as of this encounter Care Teams Parking Ramp Attendant Relationship Specialty Start Date End Date Brenda Yost MD [address] [place] [address] PCP - General Internal Medicine 10/03/12 Neelam Dickerson, KateD [address] [place] [address] Pharmacist Pharmacy 04/27/25 documented as of this encounter
--- OUTSIDE RECORDS SUMMARY | 2025-05-27 10:17 | XMS_ITS | Encounter Summary ---
Author Organization [employer] Address [address] [place] [address] 7 [place] [address] Care Team Providers Care Supervisor Dimension Warehouse Name Role Phone Brenda Yost MD Primary Care Provider [phone] Neelam Dickerson PharmD Unavailable [phone] Reason for Referral * Consultation (Routine) - Authorized Specialty Diagnoses / Procedures Referred By Contac t Referred To Contact Endocrinology Diagnoses Hypogonadism in male Brenda Yost MD [address] [place] [address] Phone: tel: fax: [facility] [place] [address] [place] [address] Phone: tel: fax: Referral ID Status Reason Start Date Expiration Date Visits Requested Visits Authorized [id number] Authorized Specialty Services Required 03/15/2025 03/15/2026 1 1 Encounter Details Date Type Department Care Team (Late st Contact Info) Description 03/15/2025 Orders Only [facility] CHC MED & PEDS [address] [place] [address] Brenda Yost MD [address] [place] [address] Hypogonadism in male (Primary Dx) Social History [...] Upcoming Encounters Date Type Department Care Team ([facility] st Contact Info) Description 06/14/2025 9:00 AM EDT Medication Management [facility] MED & PEDS [address] [place] [address] Neelam Dickerson PharmD [address] [place] [address] Scheduled Referrals Name Type Priority Associated Diagnoses Order Schedule Referral to Endocrinology Outpatient Referral Routine Hypogonadism in male Expected: 03/15/2025 (Approximate), Expires: 03/15/2026 documented as of this encounter Visit Diagnoses Diagnosis Hypogonadism in male- Primary documented in this encounter Additional Health Concerns Assessment Noted Time PHQ-9 Depression Total Score: 0 01/06/20 25 2:25 PM EDT documented as of this encounter Care Teams Supervisor Dimension Warehouse Relationship Specialty Start Date End Date Brenda Yost MD [address] [place] [address] PCP - General Internal Medicine 10/03/12 Neelam Dickerson, PharmD [address] [place] [address] Pharmacist Pharmacy 04/27/25 documented as of this encounter
--- OUTSIDE RECORDS SUMMARY | 2025-05-27 10:17 | XMS_ITS | Encounter Summary ---
Author Organization [employer] Address [address] [facility] 7 [place] [address] Care Team Providers Care Sheet Rock Nailer Name Role Phone Brenda Yost MD Primary Care Provider [phone] Neelam Dickerson PharmD Unavailable [phone] Encounter Details Date Type Department Care Team (Late st Contact Info) Description 05/27/2023 Orders Only [facility] CHC MED & PEDS [address] [place] [address] Brenda Yost MD [address] [place] [address] Controlled type 2 diabetes mellitus with hyperglycemia, without long-term current use of insulin ([facility]) (Primary Dx) Social History Tobacco Use Types [...] Description 06/14/2025 9:00 AM EDT Medication Management [facility] CHC MED & PEDS [address] [place] [address] Neelam Dickerson PharmD [address] [place] [address] documented as of this encounter Visit Diagnoses Diagnosis Controlled type 2 diabetes mellitus with hyperglycemia, without long-term current use of insulin ([facility])- Primary documented in this encounter Additional Health Concerns Assessment Noted Time PHQ-9 Depression Total Score: 8 05/09/20 23 11:04 AM EDT documented as of this encounter Care Teams Sheet Rock Nailer Relationship Specialty Start Date End Date Brenda Yost MD [address] [place] [address] PCP - General Internal Medicine 10/03/12 Neelam Dickerson, KateD [address] [place] [address] Pharmacist Pharmacy 04/27/25 documented as of this encounter
--- OUTSIDE RECORDS SUMMARY | 2025-05-27 10:17 | XMS_ITS | Encounter Summary ---
Author Organization [employer] Address [address] [place] [address] [address] [address] Care Team Providers Care Avionics Safety Inspector Name Role Phone Brenda Yost MD Primary Care Provider [phone] Neelam Dickerson PharmD Unavailable [phone] Reason for Visit * Reason Comments Med Refill Encounter Details Date Type Department Care Team (Late Contact Info) Description 05/18/2024 Refill [facility] CHC MED & PEDS [address] [place] [address] Brenda Yost MD 505 [place] [address] Social History Tobacco Use Types Packs/Day Years [...] Description 06/14/2025 9:00 AM EDT Medication Management [facility] CHC MED & PEDS [address] [place] [address] Neelam Dickerson, PharmD 230 [place] [address] documented as of this encounter Visit Diagnoses Not on filedocumented in this encounter Additional Health Concerns Assessment Noted Time PHQ-9 Depression Total Score: 8 05/09/20 23 11:04 AM EDT documented as of this encounter Care Teams Avionics Safety Inspector Relationship Specialty Start Date End Date Brenda Yost MD [address] [place] [address] PCP - General Internal Medicine 10/03/12 Neelam Dickerson, KateD [address] [place] [address] Pharmacist Pharmacy 04/27/25 documented as of this encounter
--- OUTSIDE RECORDS SUMMARY | 2025-05-27 10:17 | XMS_ITS | Encounter Summary ---
Author Organization [employer] Address 75 [facility] 7 [place] [address] Care Team Providers Care Safety Deposit Supervisor Name Role Phone Brenda Yost MD Primary Care Provider [phone] Neelam Dickerson PharmD Unavailable [phone] Reason for Visit * Reason Onset Date Comments Call Back Request 02/25/2024 Encounter Details Date Type Department Care Team (Late st Contact Info) Description 02/25/2024 Telephone [facility] MEDICINE [address] [place] [address] Brenda Yost MD 505 [place] [address] Call Back Request Social History Tobacco Use [...] Description 06/14/2025 9:00 AM EDT Medication Management [facility] MED & PEDS [address] [place] [address] Neelam Dickerson PharmD 230 [place] [address] documented as of this encounter Visit Diagnoses Not on filedocumented in this encounter Additional Health Concerns Assessment Noted Time PHQ-9 Depression Total Score: 8 05/09/20 23 11:04 AM EDT documented as of this encounter Care Teams Safety Deposit Supervisor Relationship Specialty Start Date End Date Brenda Yost MD [address] [place] [address] PCP - General Internal Medicine 10/03/12 Neelam Dickerson PharmD [address] [place] [address] Pharmacist Pharmacy 04/27/25 documented as of this encounter
[2025-05-27 15:05] LABS: Hemoglobin A1C 277.9317 umol/L; Total Hemoglobin (HGBA1C) 3297.2465 umol/L
[2025-05-27 15:51] LABS: Microalbum/Creatinine Ratio Ur 9.3 ug/mg cr (<30)
[2025-05-27 15:52] LABS: Anion Gap 14 (12-20); Blood Urea Nitrogen 13 mg/dL (9-16); Calcium 9.9 mg/dL (8.4-10.2); Carbon Dioxide 28 mmol/L (22-29); Chloride 103 mmol/L (96-108); Estimated Glomerular Filt Rate > 60; Potassium 4.3 mmol/L (3.3-5.1); Sodium 141 mmol/L (135-145)
== END 2025-05-27 09:16 | disposition home or self-care (01) ==
LOC: HO.CHCLDS 09:15
PROVIDERS: Internal Medicine; Visit Provider Internal Medicine Endocrinology, Diabetes & Metabolism
DX: E29.1 Testicular hypofunction (principal); E11.65 Type 2 diabetes mellitus with hyperglycemia
CPT/HCPCS: 36415; 80048; 82043; 82570; 83036; 84146

== ENCOUNTER 2025-08-11 05:51 | Day surgery (SDC) | payer MEDICARE, MEDICAID, SELFPAY ==
--- OUTSIDE RECORDS SUMMARY | 2025-06-28 12:37 | XMS_ITS | Clinical Summary ---
Author Organization [facility] ity Address [address] [place] [address] Care Team Providers Care Superintendent Automotive Name Role Phone Unavailable Primary Care Provider [...] 12/22/2011 Zoster Vaccines (1 of 2) 12/22/2011 Depression Screening 09/30/2024 COVID-19 Vaccine (1 - 2023-2 5 season) 2025 Influenza Vaccine (#1) 2025 RSV Immunization Adult [...]
[2025-08-09 13:55] VITALS: BMI 56.4
[2025-08-11 07:20] VITALS: BMI 56.4
[2025-08-11 07:59] VITALS: BP 125/60; PULSE 71; RESP 16; TEMP 36.2; O2SAT 93
[2025-08-11] MEDS: Lactated Ringers 1,000 ML 100 ML IVCONT (07:59)
[2025-08-11 08:01] LABS: Glucose, Whole Blood 107 mg/dL (60-115)
--- NOTE | 2025-08-11 08:28 | HO.ANESPROP2 ---
Documented by User: Katelyn Garibay NP 08/09/25 10:12 HPI - Anesthesia Eval Consult details Narrative: 64 yr old male for colonoscopy BMI 51 COPD/CLARA: follows [facility] pulmo, last visit 07/2024, was supposed to start pulmonary rehab end of last year - unsure if he did this; reported compliance issues with Bipap at last pulmo visit. CAD: follows [facility] cardiology, last visit 12/2024, stable without any anginal symptoms; appears last echo was in 2022, stress test was in 2023 (see below for both) Uncontrolled Type 2 DM: A1C 9.9% Apr 2025 Anesthesia Pre-Procedure Meds Is the patient on any of the following meds?: GLP1/DPP4 PMFSH Active Problems Active Problems: All Active Problems (Updated 05/26/25 @ 08:50 by Tanner Kapoor MD) Hypogonadism, testicular (Acute) Nicotine dependence, cigarettes, uncomplicated (Acute) Scrotal sebaceous cyst (Acute) Chronic constipation (Acute) History of colon polyps (Acute) Pulmonary nodules (Acute) Hyperlipidemia, unspecified (Acute) Essential hypertension (Acute) Type 2 diabetes mellitus with unspecified complications (Acute) Atherosclerotic cardiovascular disease (Acute) Dyspnea on exertion (Acute) CLARA (obstructive sleep apnea) (Acute) Morbid obesity (Acute) COPD (chronic obstructive pulmonary disease) (Acute) Past Medical History Medical History Hypogonadism, testicular Nicotine dependence, cigarettes, uncomplicated Sleep apnea CAD (coronary artery disease) Morbid obesity Tubular adenoma of colon (~2019) Elevated cholesterol HTN (hypertension) Low back pain Ambulates with cane Peripheral neuropathy Diabetes COPD (chronic obstructive pulmonary disease) Family History Family History Mother Colon cancer Family history of problems with anesthesia: No Surgical History Surgical History Hx of surgical procedure (01/10/24) History of colonoscopy History of esophagogastroduodenoscopy (EGD) History of Problems with Anesthesia: No Social History Social History Household Members Other:: daughter Are you a primary health care aide to a significant other at home: No Do you presently have visiting nurse or other home services: No Alcohol intake: never Patient Tobacco Use Status: Former Tobacco user Tobacco use type: Cigarette Cigarette Packs Per Day: 1 Cigarettes Per Day: 20.0 Years Smoked: (current smoker, onset 19. Max 3-4ppd x 30years, now 1ppd, 100+PYH) Use of substances other than those prescribed or required for medical reasons: No Are you DNR?: No Advance Directives: No Advance Directives Information Provided: Yes Meds Allergies Allergy/AdvReac Type Severity Reaction Status Date / Time No Known Allergies Allergy Verified 08/11/25 07:20 Home Medications ?Medication ?Instructions ?Recorded ?Confirmed ?Last Taken ?Type metformin 500 mg tablet 1,000 mg PO BID 07/18/21 08/11/25 Unknown History amitriptyline 100 mg tablet 100 mg PO BEDTIME PRN Insomnia 05/17/22 08/11/25 Unknown History semaglutide 0.25 mg or 0.5 mg (2 0.25 mg subcut QWEEK 06/13/23 08/11/25 12/27/23 History mg/3 mL) subcutaneous pen injector (Ozempic) docusate sodium 100 mg capsule 200 mg PO BEDTIME PRN Constipation 12/31/23 08/11/25 Unknown History (Colace) polyethylene glycol 3350 17 17 g PO DAILY PRN Constipation 12/31/23 08/11/25 Unknown History gram/dose oral powder (Miralax) albuterol sulfate 2.5 mg/3 mL 2.5 mg inhalation Q4H PRN 03/15/25 08/11/25 Unknown History (0.083 %) solution for nebulization Shortness Of Breath Or Wheezing alprazolam 0.5 mg tablet 0.5 mg PO DAILY PRN Anxiety 03/15/25 08/11/25 Unknown History amlodipine 10 mg tablet 10 mg PO DAILY 03/15/25 08/11/25 Unknown History furosemide 20 mg tablet 20 mg PO BID 03/15/25 08/11/25 Unknown History hydroxyzine HCl 25 mg tablet 25 mg PO BID 03/15/25 08/11/25 Unknown History lisinopril 40 mg tablet 40 mg PO DAILY 03/15/25 08/11/25 Unknown History Exam Narrative Narrative: EKG 12/2024 NSR, rate [address]-T wave abnormality ECHO 2022 Conclusions: - The left ventricular systolic function is normal. The calculated ejection fraction is 66% by biplane method. - No obvious valvular pathology seen on this study. 05/2024 Cardiolite Stress Test Impression: 1. Myocardial perfusion imaging study shows likely normal myocardial perfusion 2. Gated LVEF is 61% 3. Transient ischemic dilatation not present Assessment and Plan Final Anesthetic Review Family History of Problems with Anesthesia: No History of Problems with Anesthesia: No Documented by User: Jeannie Herrera DO 08/11/25 08:30 HPI - Anesthesia Eval Consult details Narrative: 64 yr old male for colonoscopy BMI 56 COPD/CLARA: follows [facility] pulmo, last visit 07/2024, was supposed to start pulmonary rehab end of last year - unsure if he did this; reported compliance issues with Bipap at last pulmo visit. CAD: follows [facility] cardiology, last visit 12/2024, stable without any anginal symptoms; appears last echo was in 2022, stress test was in 2023 (see below for both) Uncontrolled Type 2 DM: A1C 9.9% Apr 2025 Anesthesia Pre-Procedure Meds Is the patient on any of the following meds?: GLP1/DPP4 [facility] Past Medical History Medical History Hypogonadism, testicular Nicotine dependence, cigarettes, uncomplicated Sleep apnea CAD (coronary artery disease) Morbid obesity Tubular adenoma of colon (~2019) Elevated cholesterol HTN (hypertension) Low back pain Ambulates with cane Peripheral neuropathy Diabetes COPD (chronic obstructive pulmonary disease) Family History Family History Mother Colon cancer Family history of problems with anesthesia: No Surgical History Surgical History Hx of surgical procedure (01/10/24) History of colonoscopy History of esophagogastroduodenoscopy (EGD) History of Problems with Anesthesia: No Social History Social History Household Members Other:: daughter Are you a primary health care aide to a significant other at home: No Do you presently have visiting nurse or other home services: No Alcohol intake: never Patient Tobacco Use Status: Former Tobacco user Tobacco use type: Cigarette Cigarette Packs Per Day: 1 Cigarettes Per Day: 20.0 Years Smoked: (current smoker, onset 19. Max 3-4ppd x 30years, now 1ppd, 100+PYH) Use of substances other than those prescribed or required for medical reasons: No Are you DNR?: No Advance Directives: No Advance Directives Information Provided: Yes Meds Allergies Allergy/AdvReac Type Severity Reaction Status Date / Time No Known Allergies Allergy Verified 08/11/25 07:20 Home Medications ?Medication ?Instructions ?Recorded ?Confirmed ?Last Taken ?Type metformin 500 mg tablet 1,000 mg PO BID 07/18/21 08/11/25 Unknown History amitriptyline 100 mg tablet 100 mg PO BEDTIME PRN Insomnia 05/17/22 08/11/25 Unknown History semaglutide 0.25 mg or 0.5 mg (2 0.25 mg subcut QWEEK 06/13/23 08/11/25 12/27/23 History mg/3 mL) subcutaneous pen injector (Ozempic) docusate sodium 100 mg capsule 200 mg PO BEDTIME PRN Constipation 12/31/23 08/11/25 Unknown History (Colace) polyethylene glycol 3350 17 17 g PO DAILY PRN Constipation 12/31/23 08/11/25 Unknown History gram/dose oral powder (Miralax) albuterol sulfate 2.5 mg/3 mL 2.5 mg inhalation Q4H PRN 03/15/25 08/11/25 Unknown History (0.083 %) solution for nebulization Shortness Of Breath Or Wheezing alprazolam 0.5 mg tablet 0.5 mg PO DAILY PRN Anxiety 03/15/25 08/11/25 Unknown History amlodipine 10 mg tablet 10 mg PO DAILY 03/15/25 08/11/25 Unknown History furosemide 20 mg tablet 20 mg PO BID 03/15/25 08/11/25 Unknown History hydroxyzine HCl 25 mg tablet 25 mg PO BID 03/15/25 08/11/25 Unknown History lisinopril 40 mg tablet 40 mg PO DAILY 03/15/25 08/11/25 Unknown History Exam Exam Date and Time: 08/11/25 0829 Height,Weight and Vital Signs: Height 5 ft 8 in Weight 168.283 kg Vital Signs Temperature 97.2 F 08/11/25 07:59 Pulse Rate 71 08/11/25 07:59 Respiratory Rate 16 08/11/25 07:59 Blood Pressure 125/60 08/11/25 07:59 Pulse Oximetry 93 08/11/25 07:59 Oxygen Delivery Method Room Air 08/11/25 07:59 Temperature 97.2 F 08/11/25 07:59 Pulse Rate 71 08/11/25 07:59 Respiratory Rate 16 08/11/25 07:59 Blood Pressure 125/60 08/11/25 07:59 Pulse Oximetry 93 08/11/25 07:59 Oxygen Delivery Method Room Air 08/11/25 07:59 Airway Mallampati Class: II TM Dist: <=3cm Neck ROM: Full Loose/Missing/Broken Teeth: Yes (edentulous) Heart: S1S2 Lungs: CTAB Assessment and Plan Assessment Anesthesia Assessment: Anesthesia Plan Discussed and Chart Reviewed Final Anesthetic Review Family History of Problems with Anesthesia: No History of Problems with Anesthesia: No NPO: Yes ASA Class: III Final Preanesthetic Review: No Changes in Pt Med Stat, Meds/Allgs Chart Reviewed, Consent Obtained/Reviewed and Anes Risks/Benef Reviewed Patient Risk: Intermediate Procedure Risk: Low Anesthetic Plan Anesthetic Plan: MAC: and Agree w/ Assess. and Plan Disposition: Standard PACU
--- NOTE | 2025-08-11 08:33 | MHC.SHP ---
Pre-Procedural Eval Section A - 24 Hr Update-Section A only Date of Service: 08/11/25 Section B - Complete if H&P > 30 days Chief Complaint: screening Relevant Family History (Specify if Yes): Yes Relevant Social History: None Present Medications: see Short Stay Collaborative assessment Medical History: Significant History (Nicotine dependence, cigarettes, uncomplicated Sleep apnea CAD (coronary artery disease) Morbid obesity Tubular adenoma of colon (~2019) Elevated cholesterol HTN (hypertension) Low back pain Ambulates with cane Peripheral neuropathy Diabetes COPD (chronic obstructive pulmonary disease)) History of Previous Operations: Relevant previous surgery/procedure and date(s) (Hx of surgical procedure (01/10/24) History of colonoscopy History of esophagogastroduodenoscopy (EGD)) Allergies: Allergies Allergy/AdvReac Type Severity Reaction Status Date / Time No Known Allergies Allergy Verified 08/11/25 07:20 Review of Systems Sugical H&P ROS: Negative: Constitution, Cardiovascular, Respiratory, Neurological, Psychiatric, Hem-Onc, Allergic/Immunologic, Gastrointestinal, Genitourinary, Musculoskeletal, Integumentary, Endocrine and Eyes/Ears/Nose/Throat Exam Surgical H&P Exam: Normal: HEENT, Normal: Heart, Normal: Lungs, Normal: Extremities, Normal: Abdomen, Normal: Skin and Normal: Neurological Plan Diagnosis/Plan: Unchanged I have reviewed the history and physical and performed a pertinent physical examination on my patient. No changes have occurred unless specified. Time Spent With Patient Time: Total time managing care of this patient today ____ minutes.
--- NOTE | 2025-08-11 09:06 | HO.OPN-COLON ---
Colonoscopy Operative Note Operative Note Date of Service: 08/11/25 Narrative: Operative Information Procedure Description: Colonoscopy Indication: FH of CRC Anesthesia: MAC but then GA with LMA insertion COLONOSCOPY Instrument: Olympus variable stiffness pediatric scope 190L Colonoscopy Monitoring: Vital signs and clinical assessment, continuous EKG monitoring, Pulse oximetry, Carbon Dioxide monitoring and blood pressure monitoring were done throughout the procedure. Colon withdrawal time was 12 minutes. Procedure: The patient was placed in the left lateral decubitis position and pre-procedure medications were administered. After a digital rectal examination of the ano-rectum, the video colonoscope was inserted into the rectum and advanced through the colon to the cecum/TI. The colonoscope was slowly withdrawn in a retrograde panoramic fashion and the colon mucosa was carefully examined including a retroflexed view of the rectum. Findings and interventions are described below. Procedure Difficulty: moderate- colowarp was applied which helped a lot Findings: Terminal Ileum-normal Cecum: 5-6 mm sessile polyp removed with cold snare, 4-5 mm sessile polyp removed with cold forceps Ascending Colon: normal Transverse Colon -normal Descending Colon: 6-8 mm sessile polyp removed with cold snare Sigmoid Colon: severe diverticulosis Rectum: Retroflexion with small internal hemorrhoids seen, grade I, 5-7 mm sessile polyp removed with cold snare Anorectum - normal Intervention: cold snare and cold forceps Colon preparation: Townsend Bowel Preparation Scale Right colon; 1-2 Transverse colon: 2- Left colon; 2 (0 = Unprepared colon segment with mucosa not seen due to solid stool that cannot be cleared. 1 = Portion of mucosa of the colon segment seen, but other areas of the colon segment not well seen due to staining, residual stool and/or opaque liquid. 2 = Minor amount of residual staining, small fragments of stool and/or opaque liquid, but mucosa of colon segment seen well. 3 = Entire mucosa of colon segment seen well with no residual staining, small fragments of stool or opaque liquid) Impression and Post Procedure Diagnosis: diverticulosis colon polyps x4 internal hemorrhoids Plan: High fiber diet leaflet Avoid straining at stool, epsom salts and sitz bath, anusol supps or cream Repeat Colonoscopy in 3 years due to areas of fair prep or earlier if clinically indicated Above findings were reviewed with the patient and relevant handouts were provided if indicated.
[2025-08-11 10:09] VITALS: BP 120/72; PULSE 96; RESP 21; TEMP 36.6; O2SAT 96
[2025-08-11 10:13] VITALS: BP 129/69; PULSE 92; RESP 17; O2SAT 96
[2025-08-11 10:18] VITALS: BP 132/68; PULSE 85; RESP 20; O2SAT 94
[2025-08-11 10:23] VITALS: BP 122/63; PULSE 83; RESP 20; TEMP 36.6; O2SAT 96
== END 2025-08-11 10:55 | disposition home or self-care (01) ==
PROVIDERS: PCP Internal Medicine; Visit Provider Internal Medicine Gastroenterology
PROC: 0DJD8ZZ Inspection of Lower Intestinal Tract, Via Natural or Artificial Opening Endoscopic (ICD-10-PCS; CPT 45378; principal; 2025-08-11 09:30)
DX: Z12.11 Encounter for screening for malignant neoplasm of colon (principal); Z80.0 Family history of malignant neoplasm of digestive organs; Z86.0102 Personal history of hyperplastic colon polyps; K64.0 First degree hemorrhoids; K59.09 Other constipation; K57.30 Diverticulosis of large intestine without perforation or abscess without bleeding; D12.0 Benign neoplasm of cecum; D12.4 Benign neoplasm of descending colon; K63.5 Polyp of colon; Z86.0101 Personal history of adenomatous and serrated colon polyps
CPT/HCPCS: 45380; 45385; 82947; 88305; J2003; J2405; J2704

== ENCOUNTER → 2025-08-11 05:51 | Outpatient (BNV) | payer MEDICARE, MEDICAID, SELFPAY | PROVIDERS: PCP Internal Medicine; Visit Provider Internal Medicine Gastroenterology | DX: Z12.11 Encounter for screening for malignant neoplasm of colon (principal); K63.5 Polyp of colon; K57.30 Diverticulosis of large intestine without perforation or abscess without bleeding; K64.0 First degree hemorrhoids | CPT/HCPCS: 45385 ==

== ENCOUNTER 2025-09-29 08:49 | Outpatient (AMB) | payer MEDICARE, MEDICAID, SELFPAY ==
[2025-09-29 08:52] VITALS: BP 158/82; PULSE 79; O2SAT 97; BMI 51.9
--- NOTE | 2025-09-29 08:52 | MHC.OFFVIS ---
Vital Signs 09/29/25 08:52 Height 5 ft 11 in Weight 372 lb BMI 51.9 BP 158/82 H Blood Pressure Location Rt brachial Position Sitting Pulse 79 Pulse Source Pulse Oximeter Pulse Oximetry (%) 97 Oxygen Delivery Method Room Air Intake Visit Reasons: COPD Allergies No Known Allergies Allergy (Verified 09/29/25 08:58) HPI HPI COPD: Details: 64-year-old gentleman, recent (quit January 2023) 40+ pack-year smoker with underlying history of obesity, heart failure followed for severe COPD, obstructive sleep apnea on BiPAP and dyspnea on exertion.? He continues to use Trelegy, duo nebs, and albuterol MDI with slowly worsening symptom control. He is now complaining of worsening orthopnea and dyspnea on exertion. He did stop his diuretic. Patient also complains of aspiration/cough while eating. [facility] Medical History (Updated 09/29/25 @ 10:51 by Preston Massey MD) Hypogonadism, testicular Nicotine dependence, cigarettes, uncomplicated Sleep apnea CAD (coronary artery disease) Morbid obesity Tubular adenoma of colon (~2019) Elevated cholesterol HTN (hypertension) Low back pain Ambulates with cane Peripheral neuropathy Diabetes COPD (chronic obstructive pulmonary disease) Surgical History Hx of surgical procedure (01/10/24) History of colonoscopy History of esophagogastroduodenoscopy (EGD) Family History Mother Colon cancer Social History Household Members Other:: daughter Are you a primary skin care instructor to a significant other at home: No Do you presently have visiting nurse or other home services: No Alcohol intake: never Patient Tobacco Use Status: Former Tobacco user Tobacco use type: Cigarette Cigarette Packs Per Day: 1 Cigarettes Per Day: 20.0 Years Smoked: (current smoker, onset 19. Max 3-4ppd x 30years, now 1ppd, 100+PYH) Review of Systems Const Denies daytime sleepiness, Denies excessive sweating, Denies fatigue, Denies fever(s), Denies lethargy, Denies malaise, Denies night sweats, Denies snoring and Denies weight loss Eyes Denies blurry vision and Denies itchy eyes ENT Denies nasal congestion, Denies post nasal drip, Denies sinus pain, Denies sinus pressure and Denies other ( Thrush) Card Denies chest pain, Reports pedal edema, Denies dyspnea, Reports orthopnea and Denies paroxysmal nocturnal dyspnea Resp Denies cough, Denies hemoptysis, Denies excessive phlegm production, Denies dyspnea, Denies snoring and Denies wheezing GI Denies abdominal pain and Denies heartburn Musc Denies myalgias, Denies arthralgias and Denies joint swelling Skin/Breast Denies rash Neuro Denies memory loss and Denies seizure-like activity Psych Denies abnormal sleep pattern, Denies anxiety and Denies memory loss Endo Denies excessive sweating, Denies fatigue and Denies heat intolerance Bc/Lymph Denies easy bruising Aller/Immun Denies itchy eyes, Denies seasonal rhinorrhea and Denies wheezing Physical Exam Vital Signs: Last Vital Signs Pulse 79 09/29/25 08:52 BP 158/82 H 09/29/25 08:52 Pulse Ox 97 09/29/25 08:52 Oxygen Delivery Method Room Air 09/29/25 08:52 BMI result Body Mass Index 51.9 Const General: no acute distress and alert Nutritional Appearance: obese Orientation/consciousness: Other orientation findings ( oriented) HEENT Head: Yes atraumatic Eyes General: appearance normal, both eyes and all related structures Sclerae: sclerae normal EOM: EOMs intact bilaterally Neck Neck: Yes supple Lymphatic: no lymphadenopathy noted Resp Effort & Inspection: normal respiratory effort and no use of accessory muscles Auscultation: clear to auscultation bilaterally Cardio Rate: regular rate Rhythm: regular rhythm Heart sounds: no gallops, no murmurs and no rubs Skin General skin exam: other ( warm) Extrem General: No clubbing, No cyanosis and Yes edema (Trace bilateral) Assessment & Plan Assessment & Plan (1) COPD (chronic obstructive pulmonary disease): Code(s): J44.9 - Chronic obstructive pulmonary disease, unspecified Category: Medical Plan: Slowly worsening control on Trelegy, duo nebs, and albuterol MDI, if dyspnea does not improve with resolution of pulmonary edema component, will consider adding theophylline. (2) CLARA (obstructive sleep apnea): Comment: (CLARA on BiPAP) Code(s): G47.33 - Obstructive sleep apnea (adult) (pediatric) Category: Medical Plan: Continue BiPAP therapy. (3) Dyspnea on exertion: Code(s): R06.00 - Dyspnea, unspecified Category: Medical Plan: Now with worsening orthopnea and lower extremity edema secondary to stopped on diuretic. Will restart on furosemide 40 mg daily. Will obtain 2D echocardiogram. (4) Dysphagia: Code(s): R13.10 - Dysphagia, unspecified Category: Medical Plan: Will obtain modified barium swallow. Medications: Changed From furosemide 20 mg PO BID To furosemide 20 mg (1/2 x 40 mg) PO QAM 30 tabs 6RF Coding Level of Care Code Est Pt Level 4 (18151) Add On Problem Visit Only Diagnoses COPD (chronic obstructive pulmonary disease) J44.9 CLARA (obstructive sleep apnea) G47.33 Dyspnea on exertion R06.00 Dysphagia R13.10
--- OUTSIDE RECORDS SUMMARY | 2025-09-29 08:55 | XMS_ITS | Encounter Summary ---
Author Organization [email or web address] Address [address] [place] [address] [address] [place] [address] Care Team Providers Care Candy Polisher Name Role Phone Brenda Yost MD Primary Care Provider [phone] Neelam Dickerson PharmD Unavailable [phone] Reason for Referral * Consultation (Routine) - Closed Specialty Diagnoses / Procedures Referred By Contac t Referred To Contact Endocrinology Diagnoses Hypogonadism in male Brenda Yost MD [address] [place] [address] Phone: tel: fax: [facility]ocr[facility]ology [address] [place] [address] Phone: tel: fax: Referral ID Status Reason Start Date Expiration Date V isits Requested Visits Authorized [id number] Closed Specialty Services Required 03/15/2025 03/15/2026 1 1 Encounter Details Date Type Department Care Team (Late st Contact Info) Description 03/15/2025 Orders Only [facility] [address] [place] [address] Brenda Yost MD [address] [place] [address] Hypogonadism in male (Primary Dx) Social History [...] Care Team (Late st Contact Info) Description 11/29/2025 9:00 AM EST Telemedicine [facility] MED [facility] PEDS [address] [place] [address] Neelam Dickerson PharmD [address] [place] [address] Scheduled Referrals Name Type Priority Associated Diagnoses Order Schedule Referral to Endocrinology Outpatient Referral Routine Hypogonadism in male Expected: 03/15/2025 (Approximate), Expires: 03/15/2026 documented as of this encounter Visit Diagnoses Diagnosis Hypogonadism in male- Primary documented in this encounter Additional Health Concerns Assessment Noted Time PHQ-9 Depression Total Score: 0 01/06/20 25 2:25 PM EDT documented as of this encounter Care Teams Candy Polisher Relationship Specialty Start Date End Date Brenda Yost MD [address] [place] [address] PCP - General Internal Medicine 10/03/12 Neelam Dickerson, PharmD [address] [place] [address] Pharmacist Pharmacy 04/27/25 documented as of this encounter
--- OUTSIDE RECORDS SUMMARY | 2025-09-29 08:55 | XMS_ITS | Encounter Summary ---
Author Organization [employer] Address [address] [place] [address] [address], [place] [address] Care Team Providers Care Curing Supervisor Name Role Phone Brenda Yost MD Primary Care Provider [phone] Neelam Dickerson PharmD Unavailable [phone] Encounter Details Date Type Department Care Team (Late st Contact Info) Description 05/10/2023 Orders Only [facility] MED & PEDS [address] [place] [address] Brenda Yost MD [address] [place] [address] Screen for STD (sexually transmitted disease) (Primary [...] Info) Description 11/29/2025 9:00 AM EST Telemedicine [facility] MED & PEDS [address], [place] [phone] Neelam Dickerson, PharmD [address] [place] [address] Scheduled Orders Name Type Priority Associated Diagnoses [...] documented as of this encounter Care Teams Curing Supervisor Relationship Specialty Start Date End Date Brenda Yost MD [address] [place] [id number] PCP - General Internal Medicine 10/03/12 Neelam Dickerson, KateD [address] [place] [address] Pharmacist Pharmacy 04/27/25 documented as of this encounter
--- OUTSIDE RECORDS SUMMARY | 2025-09-29 08:55 | XMS_ITS | Encounter Summary ---
Author Organization [employer] Address [address] [facility] [address] [place] [address] Care Team Providers Care Business Performance Specialist Name Role Phone Brenda Yost MD Primary Care Provider [phone] Neelam Dickerson PharmD Unavailable [phone] Reason for Visit * Reason Comments Med Refill Encounter Details Date Type Department Care Team (Late st Contact Info) Description 11/30/2022 Refill [facility] MED & PEDS [address] [place] [address] Brenda Yost MD [address] [place] [address] Primary hypertension (Primary Dx) Social History Tobacco [...] Info) Description 11/29/2025 9:00 AM EST Telemedicine [facility] MED & PEDS [address] [place], [place] [phone] Neelam Dickerson, PharmD [address] [place] [address] documented as of this encounter Visit Diagnoses Diagnosis Primary hypertension- Primary Unspecified essential hypertension documented in this encounter Care Teams Business Performance Specialist Relationship Specialty Start Date End Date Brenda Yost MD [address] [place] [address] PCP - General Internal Medicine 10/03/12 Neelam Dickerson, KateD [address] [place] [address] Pharmacist Pharmacy 04/27/25 documented as of this encounter
--- OUTSIDE RECORDS SUMMARY | 2025-09-29 08:55 | XMS_ITS | Encounter Summary ---
Author Organization [employer] Address [address] [place] [address] [address] [place] [address] Care Team Providers Care Director Of Safety And Security Name Role Phone Brenda Yost MD Primary Care Provider [phone] Neelam Dickerson PharmD Unavailable [phone] Reason for Referral * Consultation (Routine) - Closed Specialty Diagnoses / Procedures Referred By Contac t Referred To Contact Pharmacy Diagnoses Controlled type 2 diabetes mellitus with hyperglycemia, without long-term current use of insulin (HCC) Brenda Yost MD [address] [place] [address] Phone: tel: fax: Referral ID Status Reason Start Date Expiration Date V isits Requested Visits Authorized [id number] Closed Consult and Treat 01/05/2025 01/05/2026 6 6 Encounter Details Date Type Department Care Team (Late st Contact Info) Description 01/05/2025 Orders Only [facility] MED & PEDS [address] [place] [address] Brenda Yost MD [address] [place] [address] Controlled type 2 diabetes mellitus with hyperglycemia, [...] Info) Description 11/29/2025 9:00 AM EST Telemedicine [facility] MED & PEDS [address] [place] [address] Neelam Dickerson PharmD [address] [place] [address] Scheduled Referrals Name Type Priority Associated Diagnoses Orde r Schedule Referral to Pharmacy CDTM Outpatient Referral Routine Controlled type 2 diabetes mellitus with hyperglycemia, without long-term current use of insulin ([facility]/HCC) Ordered: 01/05/2025 documented as of this encounter Visit Diagnoses Diagnosis Controlled type 2 diabetes mellitus with hyperglycemia, without long-term current use of insulin ([facility])- Primary documented in this encounter Additional Health Concerns Assessment Noted Time PHQ-9 Depression Total Score: 0 01/06/20 25 2:25 PM EDT documented as of this encounter Care Teams Director Of Safety And Security Relationship Specialty Start Date End Date Brenda Yost MD [address] [place] [address] PCP - General Internal Medicine 10/03/12 Neelam Dickerson PharmD [address] [place] [address] Pharmacist Pharmacy 04/27/25 documented as of this encounter
--- OUTSIDE RECORDS SUMMARY | 2025-09-29 08:55 | XMS_ITS | Encounter Summary ---
Author Organization [employer] Address [address] [facility] 7 [place] [address] Care Team Providers Care Cosmetic Sales Assistant Name Role Phone Brenda Yost MD Primary Care Provider [phone] Neelam Dickerson PharmD Unavailable [phone] Encounter Details Date Type Department Care Team (Late st Contact Info) Description 02/25/2024 Orders Only [facility] CHC MED & PEDS [address] [place] [address] Brenda Yost MD [address] [place] [address] Controlled type 2 diabetes mellitus with hyperglycemia, without long-term current use of insulin ([facility]) (Primary Dx) Social History Tobacco [...] Department Care Team (Late Contact Info) Description 11/29/2025 9:00 AM EST Telemedicine [facility] CHC MED & PEDS [address] [place] [address] Neelam Dickerson PharmD [address] [place] [address] documented as of this encounter Visit Diagnoses Diagnosis Controlled type 2 diabetes mellitus with hyperglycemia, without long-term current use of insulin (HCC)- Primary documented in this encounter Additional Health Concerns Assessment Noted Time PHQ-9 Depression Total Score: 8 05/09/20 23 11:04 AM EDT documented as of this encounter Care Teams Cosmetic Sales Assistant Relationship Specialty Start Date End Date Brenda Yost MD [address] [place] [address] PCP - General Internal Medicine 10/03/12 Neelam Dickerson, KateD [address] [place] [address] Pharmacist Pharmacy 04/27/25 documented as of this encounter
--- OUTSIDE RECORDS SUMMARY | 2025-09-29 08:55 | XMS_ITS | Encounter Summary ---
Author Organization [employer] Address [address] [place] [address] 7 [place] [address] Care Team Providers Care Assistant Principal Name Role Phone Brenda Yost MD Primary Care Provider [phone] Neelam Dickerson PharmD Unavailable [phone] Reason for Visit * Reason Comments Med Refill Encounter Details Date Type Department Care Team (Late Contact Info) Description 06/04/2024 Refill [facility] CHC MED & PEDS [address] [place] [address] Brenda Yost MD [address] [place] [address] Social History Tobacco Use Types Packs/Day Years [...] Info) Description 11/29/2025 9:00 AM EST Telemedicine [facility] CHC MED & PEDS [address] [place] [address] Dickerson, Neelam, PharmD [address] [place] [address] documented as of this encounter Visit Diagnoses Not on filedocumented in this encounter Additional Health Concerns Assessment Noted Time PHQ-9 Depression Total Score: 8 05/09/20 23 11:04 AM EDT documented as of this encounter Care Teams Assistant Principal Relationship Specialty Start Date End Date Brenda Yost MD [address] [place] [address] PCP - General Internal Medicine 10/03/12 Neelam Dickerson PharmD [address] [place] [address] Pharmacist Pharmacy 04/27/25 documented as of this encounter
--- OUTSIDE RECORDS SUMMARY | 2025-09-29 08:55 | XMS_ITS | Encounter Summary ---
Author Organization [employer] Address [address] [facility] 7t [place] [address] Care Team Providers Care Asphalt Plant Worker Name Role Phone Brenda Yost MD Primary Care Provider [phone] Neelam Dickerson PharmD Unavailable [phone] Reason for Visit * Reason Comments Med Refill Encounter Details Date Type Department Care Team (Late st Contact Info) Description 08/05/2025 Refill [facility] CHC MED & PEDS [address] [place] [address] Brenda Yost MD [address] [place] [address] Type 2 diabetes mellitus with hyperglycemia, without long-term current use of insulin (HCC); Cellulitis of other specified site Social History Tobacco Use Types Packs/Day Years [...] Info) Description 11/29/2025 9:00 AM EST Telemedicine [facility] CHC MED & PEDS [address] [place] [address] Neelam Dickerson PharmD [address] [place] [address] documented as of this encounter Visit Diagnoses Diagnosis Type 2 diabetes mellitus with hyperglycemia, without long-term current use of insulin (HCC) Cellulitis of other specified site documented in this encounter Additional Health Concerns Assessment Noted Time PHQ-9 Depression Total Score: 0 01/06/20 25 2:25 PM EDT documented as of this encounter Care Teams Asphalt Plant Worker Relationship Specialty Start Date End Date Brenda Yost MD [address] [place] [address] PCP - General Internal Medicine 10/03/12 Neelam Dickerson, Janessa [address] [place] [address] Pharmacist Pharmacy 04/27/25 documented as of this encounter
--- OUTSIDE RECORDS SUMMARY | 2025-09-29 08:55 | XMS_ITS | Clinical Summary ---
Author Organization [facility] Address [address] [place] [address] Care Team Providers Care Hat And Cap Opener Name Role Phone Unavailable Primary Care Provider [...] Depression Screening 09/30/2024 COVID-19 Vaccine (1 - 2024-2 6 season) 2025 Influenza Vaccine (#1) 2025 RSV [...]
--- OUTSIDE RECORDS SUMMARY | 2025-09-29 08:55 | XMS_ITS | Encounter Summary ---
Author Organization [employer] Address [address] [place] [address] 7 [place] [address] Care Team Providers Care Health Technician Name Role Phone Brenda Ysot MD Primary Care Provider [phone] Neelam Dickerson PharmD Unavailable [phone] Reason for Visit * Reason Comments Med Refill Encounter Details Date Type Department Care Team (Late st Contact Info) Description 07/12/2024 Refill [facility] CHC MED & PEDS [address] [place] [address] Brenda Yost MD [address] [place] [address] Social History Tobacco Use Types Packs/Day Years [...] Info) Description 11/29/2025 9:00 AM EST Telemedicine [facility] CHC MED & PEDS [address] [place] [address] Dickerson, Neelam, PharmD [address] [place] [address] documented as of this encounter Visit Diagnoses Not on filedocumented in this encounter Additional Health Concerns Assessment Noted Time PHQ-9 Depression Total Score: 8 05/09/20 23 11:04 AM EDT documented as of this encounter Care Teams Health Technician Relationship Specialty Start Date End Date Brenda Yost MD [address] [place] [address] PCP - General Internal Medicine 10/03/12 Neelam Dickerson PharmD [address] [place] [address] Pharmacist Pharmacy 04/27/25 documented as of this encounter
--- OUTSIDE RECORDS SUMMARY | 2025-09-29 08:55 | XMS_ITS | Encounter Summary ---
Author Organization [employer] Address [address] [facility] 7 [place] [address] Care Team Providers Care Pouncing Lathe Operator Name Role Phone Brenda Yost MD Primary Care Provider [phone] Neelam Dickerson PharmD Unavailable [phone] Reason for Visit * Reason Onset Date Comments Call Back Request 02/25/2024 Encounter Details Date Type Department Care Team (Late st Contact Info) Description 02/25/2024 Telephone [facility] MEDICINE [address] [place] [address] Brenda Yost MD [address] [place] [address] Call Back Request Social History Tobacco Use [...] Description 11/29/2025 9:00 AM EST Telemedicine [facility] MED & PEDS [address] [place] [address] Neelam Dickerson PharmD [address] [place] [address] documented as of this encounter Visit Diagnoses Not on filedocumented in this encounter Additional Health Concerns Assessment Noted Time PHQ-9 Depression Total Score: 8 05/09/20 23 11:04 AM EDT documented as of this encounter Care Teams Pouncing Lathe Operator Relationship Specialty Start Date End Date Brenda Yost MD [address] [place] [address] PCP - General Internal Medicine 10/03/12 Neelam Dickerson PharmD [address] [place] [address] Pharmacist Pharmacy 04/27/25 documented as of this encounter
--- OUTSIDE RECORDS SUMMARY | 2025-09-29 08:55 | XMS_ITS | Encounter Summary ---
Author Organization [employer] Address [address] [facility] 7 [place] [address] Care Team Providers Care Director Funeral Name Role Phone Brenda Yost MD Primary Care Provider [phone] Neelam Dickerson PharmD Unavailable [phone] Encounter Details Date Type Department Care Team (Late st Contact Info) Description 05/27/2023 Orders Only [facility] CHC MED & PEDS [address] [place] [address] Brenda Yost MD [address] [place] [address] Controlled type 2 diabetes mellitus with hyperglycemia, without long-term current use of insulin ([facility]) (Primary Dx) Social History Tobacco [...] Info) Description 11/29/2025 9:00 AM EST Telemedicine [facility] CHC MED & PEDS [address] [place] [address] Neelam Dickerson PharmD [address] [place] [address] documented as of this encounter Visit Diagnoses Diagnosis Controlled type 2 diabetes mellitus with hyperglycemia, without long-term current use of insulin (HCC)- Primary documented in this encounter Additional Health Concerns Assessment Noted Time PHQ-9 Depression Total Score: 8 05/09/20 23 11:04 AM EDT documented as of this encounter Care Teams Director Funeral Relationship Specialty Start Date End Date Brenda Yost MD [address] [place] [address] PCP - General Internal Medicine 10/03/12 Neelam Dickerson, KateD [address] [place] [address] Pharmacist Pharmacy 04/27/25 documented as of this encounter
--- OUTSIDE RECORDS SUMMARY | 2025-09-29 08:55 | XMS_ITS | Clinical Summary ---
Author Organization [employer] Address [address] [facility] [place] [address] [place] [address] Care Team Providers Care Mandarin Tutor Name Role Phone Brenda Yost MD Primary Care Provider [phone] Neelam Dickerson PharmD Unavailable [phone] Allergies No known active allergies Medications Misc. [...] once a day 1 kit 023 Active ALPRAZolam (Xanax) 0.5 MG tablet 025 Active amitriptyline (Elavil) 100 MG tablet 025 Active azelastine (Astelin) 0.1 % nasal spray 025 Active hydrOXYzine HCl (Atarax) 25 MG tablet Take 1 tablet by mouth 2 times daily. 025 Active albuterol (2.5 MG/3ML) 0.083% nebulizer solutionIndicat ions:Asthma, unspecified asthma severity, unspecified whether complicated, unspecified whether persistent Take 3 mL (2.5 mg) by nebulization every 6 (six) hours if needed for wheezing. 75 mL 3 025 Active furosemide (Lasix) 20 MG tabletIndicatio ns:Type 2 diabetes mellitus with hyperglycemia, without long-term current use of insulin (HCC) TAKE 2 TABLETS(40 MG) BY MOUTH EVERY DAY 30 tablet 3 025 Active atorvastatin (Lipitor) 40 MG tabletIndicatio ns:Type 2 diabetes mellitus with hyperglycemia, without long-term current use of insulin (HCC) Take 1 tablet (40 mg) by mouth Once per day. 90 tablet 1 025 Active Tirzepatide (Mounjaro) 5 MG/0.5ML solution auto-injectorIn dications:Type 2 diabetes mellitus with hyperglycemia, without long-term current use of insulin ([facility]) Inject 5 mg under the skin 1 (one) time per week. 2 mL 2 025 Active Tirzepatide (Mounjaro) 7.5 MG/0.5ML solution auto-injectorIn dications:Type 2 diabetes mellitus with hyperglycemia, without long-term current use of insulin ([facility]) Inject 7.5 mg under the skin every 7 (seven) days AND 7.5 mg every 7 (seven) days. 2 mL 1 025 2025 Active Trelegy Ellipta 100-62.5-25 MCG/ACT aerosol powderIndicatio ns:Type 2 diabetes mellitus with hyperglycemia, without long-term current use of insulin ([facility]) Place 1 puff into mouth between cheek and gum Once per day. 28 each 025 Active glucose blood (FREESTYLE LITE) test stripIndication s:Type 2 diabetes mellitus with hyperglycemia, without long-term current use of insulin (HCC),Type 2 diabetes mellitus with hyperglycemia, without long-term current use of insulin (HCC) USE DIRECTED TO TEST BLOOD GLUCOSE 4 TIMES DAILY 100 strip 11 Active FreeStyle lancetsIndicati ons:Type 2 diabetes mellitus with hyperglycemia, without long-term current use of insulin (HCC) 1 each by Other route 4 times daily. 120 each 11 Active metFORMIN (Glucophage) 500 MG tabletIndicatio ns:Type 2 diabetes mellitus with hyperglycemia, without long-term current use of insulin (HCC) Take 2 tablets (1,000 mg) by mouth with breakfast and with evening meal. 360 tablet 11 Active amLODIPine (Norvasc) 10 MG tabletIndicatio ns:Primary hypertension Take 1 tablet (10 mg) by mouth Once per day. 90 tablet 3 Active lisinopril 40 MG tabletIndicatio ns:Primary hypertension Take 1 tablet (40 mg) by mouth Once per day. 90 tablet 3 Active lisinopril 40 MG tabletIndicatio ns:Primary hypertension TAKE 1 TABLET(40 MG) BY MOUTH DAILY 90 tablet 3 025 2024 Discontinued(R eorder (will not trigger notification to Pharmacy)) FreeStyle lancetsIndicati ons:Type 2 diabetes mellitus with hyperglycemia, without long-term current use of insulin (HCC) USE TO TEST TWICE DAILY 100 each 025 2024 Discontinued(R eorder (will not trigger notification to Pharmacy)) amLODIPine (Norvasc) 10 MG tabletIndicatio ns:Primary hypertension TAKE 1 TABLET(10 MG) BY MOUTH DAILY 90 tablet 3 025 2024 Discontinued(R eorder (will not trigger notification to Pharmacy)) metFORMIN (Glucophage) 500 MG tabletIndicatio ns:Type 2 diabetes mellitus with hyperglycemia, without long-term current use of insulin (HCC) Take 2 tablets (1,000 mg) by mouth with breakfast and with evening meal. 360 tablet 025 2024 Discontinued(R eorder (will not trigger notification to Pharmacy)) glucose blood (FREESTYLE LITE) test stripIndication s:Type 2 diabetes mellitus with hyperglycemia, without long-term current use of insulin (HCC) USE DIRECTED TO TEST BLOOD GLUCOSE 4 TIMES DAILY 100 strip 11 025 2024 Discontinued(R eorder (will not trigger notification to Pharmacy)) Treledarren Ellipta 100-62.5-25 MCG/ACT aerosol powder INHALE 1 PUFF BY MOUTH DAILY FOR WHEEZING 025 2024 Discontinued(R eorder (will not trigger notification to Pharmacy)) doxycycline (Vibra-Tabs) 100 MG tabletIndicatio ns:Simple chronic bronchitis (CMS/HCC) (HCC) Take 1 tablet (100 mg) by mouth 2 times daily for 10 days. Take with a full glass of water and do not lie down for at least 30 minutes after. 20 tablet 025 2024 predniSONE (Deltasone) 20 MG tabletIndicatio ns:Simple chronic bronchitis (CMS/HCC) (HCC) Take 2 tablets (40 mg) by mouth Once per day for 3 days. 6 tablet 2024 Active Problems Problem Noted Date Diagnosed Date Hypogonadism in male 05/27/2025 Overview (05/27/2025): Will be scheduled to get an MRI of the brain Follows up with endocrinology Atherosclerotic cardiovascular disease 5 Cutaneous abscess of [...] Hypertension 11/24/1994 Depressive disorder 09/30/1994 Morbid obesity (CMS/HCC) 04/30/1975 Obstructive sleep apnea syndrome 09/30/1959 Encounters Date Type Department Care Team Description 09/06/2025 9:15 AM EST Office Visit [facility] [address] [place] [address] Brenda Yost MD Type 2 diabetes mellitus with hyperglycemia, without long-term current use of insulin (HCC) (Primary Dx); Simple chronic bronchitis (CMS/HCC) (HCC); Obstructive sleep apnea syndrome; Primary hypertension; Pseudopolyp of sigmoid colon without complication (CMS/HCC) (HCC); Type 2 diabetes mellitus with hyperglycemia, without long-term current use of insulin (HCC) 09/06/2025 Travel 08/16/2025 9:00 AM EST Telemedicine [facility] [address] [place] [address] Neelam Dickerson, KateD Type 2 diabetes mellitus with hyperglycemia, without long-term current use of insulin (HCC) (Primary Dx) 08/16/2025 Travel 08/11/2025 Orders Only GENERIC EXTERNAL DATA DEPARTMENT Provider, Generic External Data 08/05/2025 Refill [facility] [address] [place] [address] Brenda Yost MD Type 2 diabetes mellitus with hyperglycemia, without long-term current use of insulin (HCC); Cellulitis of other specified site 07/21/2025 9:00 AM EDT Telemedicine [facility] [address] [place] [address] Neelam Dickerson PharmD Type 2 diabetes mellitus with hyperglycemia, without long-term current use of insulin (HCC) (Primary Dx) 07/21/2025 Travel 07/07/2025 Telephone [facility] [address] [place] [address] Brenda Yost MD from Last 3 Months Immunizations Immunization Administration Dates Next Due Influenza, seasonal, injectable, preservative fr ee 10/22/2012 Pneumococcal Polysaccharide PPSV23 08/12/2015, Tdap 05/27/2025,08/12/2015 Social History Tobacco Use Types Packs/Day Years Used Date Smoking Tobacco: Former Cigarettes Q uit: 2021 Smokeless Tobacco: Never Tobacco Cessation:Counseling Given: Not Answered Alcohol Use Standard Drinks/Week Comments Defer 0 [...] Sign Reading Time Taken Comments Blood Pressure 159/75 09/06/2025 9:03 AM EST Pulse 93 09/06/2025 9:03 AM EST Temperature 36.6 C (97.9 F) 03/03/2025 9:34 AM EDT Respiratory Rate 20 09/06/2025 9:03 AM EST Oxygen Saturation 98% 09/06/2025 9:03 AM EST Inhaled Oxygen Concentration - - Weight 170 kg (374 lb) 09/06/2025 9:03 AM EST Height 174.6 cm (5' 8.75 ) 09/06/2025 9:03 AM ES T Body Mass Index 55.63 09/06/2025 9:03 AM EST Plan of Treatment Upcoming Encounters Date Type Department Care Team (Late st Contact Info) Description 11/29/2025 9:00 AM EST Telemedicine [facility] [address] [place], [place] [phone] Neelam Dickerson, PharmD [address] [place] [address] Health Maintenance Due Date Last Done Comments CT Colonography 1961 FIT DNA/Cologuard 1960 FIT 1960 FOBT 1960 HIV Screening 1960 SDOH Screening 1960 Sigmoidoscopy 1960 Eye Exam 12/22/1971 Alcohol/Substance Use Screening 1973 RSV Patients and Patients Aged 60 years or older (1 - Risk 50-74 years 1-dose series) 12/22/2011 Zoster Vaccines (1 of 2) 12/22/2011 Colonoscopy 12/07/2024 12/07/2021, 12/07/2021 Colorectal Cancer Screening 12/07/2024 COVID-19 Vaccine ( season) 2025 03/27/2021, 02/21/2021, 01/07/2021, Additional history exists Influenza Vaccine (#1) 2025 10/22/2012 Diabetes: Hemoglobin A1C 08/27/2025 025, 01/06/2025, 02/21/2024, Additional history exists Depression Screening 01/05/2026 01/05/2025, 01/06/20 25 Lipid Panel 03/03/2026 03/03/2025, 08, 02/09/2022 Diabetes: Foot Exam 05/27/2026 05/27/2025, Diabetes: Urine Protein Screening 05/27/2026 05/27/2025, 05/27/2025, 05/09/2023, Additional history exists Disability Screening 05/27/2026 05/27/2025 Pneumococcal Vaccine: 50+ Years (2 of 2 - PCV) 05/27/2026 08/12/2015, 10/22/2012 Postponed from 08/12/2016 (Patient Refused) Tobacco Screening 09/06/2026 09/06/2025 DTaP/Tdap/Td Vaccines (3 - Td or Tdap) [...] on patient's age to complete this topic Goals Goal Patient Goal Type Associated Problems Recent Progress Patient-Stated? Author Help patients manage their type 2 diabetes Care Plan Help patients manage their type 2 diabetes No Neelam Dickerson PharmD Weekly blood pressure task Care Plan Weekly blood pressure task No Neelam Dickerson PharmAmanda Help patients manage their type 2 diabetes Care Plan Help patients manage their type 2 diabetes No Neelam Dickerson, PharmD Patient has chronic kidney disease Care Plan Patient has chronic kidney disease No Neelam Dickerson PharmD Weekly blood pressure task Care Plan Weekly blood pressure task No Neelam Dickerson PharmAmanda Patient has chronic kidney disease Care Plan Patient has chronic kidney disease No Neelam Dickerson PharmAmanda Weekly blood pressure task Care Plan Weekly blood pressure task No Keily Bates LPN Weekly blood pressure task Care Plan Weekly blood pressure task No Keily Bates LPN Patient has chronic kidney disease Care Plan Patient has chronic kidney disease No Keily Bates LPN Patient has chronic kidney disease Care Plan Patient has chronic kidney disease No Keily Bates LPN Weekly blood pressure task Care Plan Weekly blood pressure task No Natalya Enriquez MA Weekly blood pressure task Care Plan Weekly blood pressure task No Natalya Enriquez MA Patient has chronic kidney disease Care Plan Patient has chronic kidney disease No Natalya Enriquez MA Patient has chronic kidney disease Care Plan Patient has chronic kidney disease No Natalya Enriquez MA Procedures Procedure Name Priority Date/Time Associated Diagnosis Comments POCT GLUCOSE (CPT-23400) Routine 09/06/2025 9:26 AM EST Type 2 diabetes mellitus with hyperglycemia, without long-term current use of insulin (HCC) HEMATOXYLIN AND EOSIN STAIN Routine 08/11/2025 9:52 AM EST GLUCOSE, WHOLE BLOOD Routine 08/11/2025 7:57 AM EST ALBUMIN, RANDOM URINE W/CREATININE Routine 05/27/2025 9:50 AM EDT Type 2 diabetes mellitus with hyperglycemia, without long-term current use of insulin ([facility]) HEMOGLOBIN A1C Routine 05/27/2025 9:48 AM EDT Type 2 diabetes mellitus with hyperglycemia, without long-term current use of insulin ([facility]) LIPID PANEL, STANDARD Routine 03/03/2025 10:34 AM EDT HEPATITIS PANEL, GENERAL Routine 05/09/2023 1:37 PM EDT Screen for STD (sexually transmitted disease) HP LINK DIABETIC FOOT EXAM Routine 05/09/2023 HM COLONOSCOPY Routine 12/07/2021 from Last 3 Months or Most Recently Relevant to Health Maintenance Results * POCT Glucose (09/06/2025 9:26 AM EST) Pathologist [facility] Glucose Blood, POC 166 60 - 200 mg/dL QC Media Lot # [id number] Lot# Expiration Date [id number] Comment:random Blood Capillary blood specimen / Unknown 09/06/2025 9:26 AM EST Brenda Yost MD POINT OF CARE TEST ENTER/ED IT ORDERABLES Final Result * Hematoxylin and Eosin Stain (08/11/2025 9:52 AM EST) 08/11/2025 9:52 AM EST 08/11/2025 11:35 AM EST Narrative [facility] - 08/12/2025 4:18 PM EST ----- ------- Name: Robert Keane Age/Sex: 64/M [facility] 1960 [id number] [id number] Attend Dr: Traci Baires MD Re08/11/25 Status: [facility] Location: [facility] Disch: ----- ------- SPEC : [id number] RECD: 08/11/25 STATUS: KAI NOONAN NUM: [id number] ROGE: 08/11/2552 [facility] DR: Traci Baires MD ENTERED: 08/11/25-123 SP TYPE: Surgical OTHR DR: Brenda Yost MD ORDERED: HE Stain/9, Gross Micro L4/3 Diagnosis A. Cecum, polypectomies: - Tubular adenoma; negative for high-grade dysplasia or carcinoma. - Colonic mucosa with mild surface hyperplastic changes. B. Colon, descending, polypectomy: Tubular adenoma; negative for high-grade dysplasia or carcinoma. C. Rectum, polypectomy: Hyperplastic mucosal polyp. Clinical History Pre-Op Dx: Screening Post-Op Dx: Colon polyps, diverticulosis, internal hemorrhoids Microscopic Description A-C. Microscopic sections reviewed. Material Received A. Cecal polyps B. Descending colon polyp C. Rectal polyp Gross Description A. Received in formalin are 3 lopez 3-5 mm soft tissue fragments, totally submitted in A1. B. Received in formalin is 1 lopez 7 mm soft tissue fragment, totally submitted in B1. C. Received in formalin is 1 lopez 4 mm soft tissue fragment, totally submitted in C1. (TRAVON Patel) IHC S/NG Disclaimer NOTE: Unless otherwise stated, all tissue is formalin-fixed and paraffin-embedded. Some or all of the immunohistochemical tests reported herein may have been developed and their performance characteristics determined by [facility]. They have not been cleared or approved by the U.S. Food and Drug Administration (FDA). However, the FDA has determined that such clearance or approval is not necessary. This laboratory is certified under the Clinical Laboratory Improvement Amendments of 1988 (CLIA) as qualified to perform high complexity clinical laboratory testing. CONTINUED ON NEXT PAGE ----- ------- Name: LakhwinderMickieSukhdeep Age/Sex: 64/M : 1960 Unit#: [id number] Attend Dr: Traci Baires MD Re08/11/25 Status: [facility] Location: [facility] Disch: ----- ------- SPEC : [id number] RECD: 08/11/25 STATUS: KAI NOONAN NUM: [id number] ROGE: 08/11/25 [facility] DR: Traci Baires MD ENTERED: 08/11/25 SP TYPE: Surgical OTHR DR: Brenda Yost MD ORDERED: HE Stain/9, Gross Micro L4/3 Copies To: Brenda Yost MD [address] [address] Traci Baires MD [facility] [address] [place] [phone] ----- ------- Signed (signature on file) Pradeep Arias MD 08/12/25 1618 ----- ------- END OF REPORT us Generic External Data Provider LAB BLOOD ORDERAB LES Final Result Performing Organization Address City/[facility]/ZIP Co de Phone Number [facility] [address] [place] [phone] [phone] * Glucose, Whole Blood (08/11/2025 7:57 AM EST) Glucose, Whole Blood 107 60 - 115 mg/dL [facility] Comment:METER #: [id number] 08/11/2025 7:57 AM EST 08/11/2025 8:01 AM EST Generic External Data Provider LAB BLOOD ORDERAB LES Final Result Performing Organization Address [facility]/ZIP Co de Phone Number [facility] [address] [place] [phone] [phone] * Albumin, Random Urine W/Creatinine (05/27/2025 9:50 AM EDT) Creatinine, Urine 171.70 mg/dL [facility] Microalbumin Urine 16.0 mg/L H [facility] Microalbum Creatinine Ratio Ur 9.3 <30 ug/mg cr [facility] Comment:Albumin/Creatinine R atio Reference Ranges: Normal: < 30 ug/mg creatinine Microalbuminuria: 30 - 300 ug/mg creatinineClinical Albuminuria: > 300 ug/mg creatinine Urine (Urine, Random) 05/27/2025 9:50 AM EDT 05/27/2025 2:27 PM EDT us Brenda Yost MD LAB URINE ORDERABLES Final Result Performing Organization Address [facility] Co de Phone Number [facility] [address] [place] [phone] * (ABNORMAL) Hemoglobin A1c (05/27/2025 9:48 AM EDT) Hemoglobin A1c 9.9(H) <6.0 % [facility] Comment:Hemoglobin A1C Refer ence Range Adults: 4.8 - 6.0 % Non diabetic: < 6.0 % Goal: < 7.0 %Additional Action Suggested: > 8.0 %Note: Hemoglobin A1c results are invalid for patients with abnormal amounts of HbF. Blood transfusions may impact the HbA1c concentration in the patient sample. Estimated Average Glucose 237 mg/dL [facility] Comment:eAG = Estimated ave rage glucose which is %A1C expressed asaverage glucose, using the formula of the A8D-KuuvsvnIuwtttm Glucose study (ADAG), Diabetes Care, Vol.31,#8,Apr. 2007 Blood Venous blood specimen / Unknown 05/27/2025 9:48 AM EDT 05/27/2025 2:41 PM EDT us Brenda Yost MD LAB BLOOD ORDERABLES Final Result Performing Organization Address [facility]/ZIP Co de Phone Number [facility] [address] [place] [phone] * (ABNORMAL) Lipid Panel, Standard (03/03/2025 10:34 AM EDT) Triglycerides 128 <150 mg/dL [facility] Comment:Desirable Triglyceri de: less than 150 mg/dLBorderline High Triglyceride 150-199 mg/dLHigh Triglyceride: 200-499 mg/dLVery High Triglyceride: greater than or equal to 5OO mg/dL Cholesterol 166 <200 mg/dL [facility] Comment:Desirable Cholestero l: less than 200 mg/dLBorderline High Cholesterol: 200-239 mg/dLHigh Cholesterol: greater than 239 mg/dL LDL Cholesterol Calculated 113(H) <100 mg/dL [facility] Comment:Desirable LDL: less than 100 mg/dLNear Optimal/Above Optimal LDL: 110- 129 mg/dLBorderline High LDL: 130-159 mg/dLHigh LDL: 160-189 mg/dLVery High LDL: greater than or equal to 190 mg/dL HDL Cholesterol 28(L) >40 mg/dL [facility] Comment:Desirable HDL: great er than 40 mg/dL Note: This HDL assay may give artificially low results in patients with liver disease. 03/03/2025 10:3 4 AM EDT 03/03/2025 2:15 PM EDT us Generic External Data Provider LAB BLOOD ORDERAB LES Final Result [facility] [address] [place] [phone] * Hepatitis Panel, General (05/09/2023 1:37 PM EDT) Hepatitis A IgM Nonreactive Nonreactive [facility] Comment:IgM antibodies to LOPEZ V not detected; does not exclude earlyacute or recovered HAV infection. ~Hepatitis B Surface Antibody NONREACTIVE Nonreactive [facility] Comment:Nonreactive: < 8.00 mIU/mL Hepatitis B Core Antibody Nonreactive Nonreactive [facility] Hepatitis C Antibody Nonreactive Nonreactive [facility] Comment:Antibodies to HCV no t detected; does not exclude early acuteHCV infection. Hepatitis B Surface Ag Negative Negative [facility] Blood 05/09/2023 1:37 PM EDT 05/09/2023 2:49 PM EDT us Brenda Yost MD LAB BLOOD ORDERABLES Final Result [facility] [address] [place] [phone] * (ABNORMAL) HP Diabetic Foot Exam [...] or Most Recently Relevant to Health Maintenance Additional Health Concerns Active Problems Noted Date Diagnosed Date Help patients manage their type 2 diabetes 08/16 Weekly blood pressure task 08/16/2025 Help patients manage their type 2 diabetes 08/16 Patient has chronic kidney disease 08/16/2025 Weekly blood pressure task 08/16/2025 Patient has chronic kidney disease 08/16/2025 Weekly blood pressure task 08/23/2025 Weekly blood pressure task 08/23/2025 Patient has chronic kidney disease 08/23/2025 Patient has chronic kidney disease 08/23/2025 Weekly blood pressure task 09/06/2025 Weekly blood pressure task 09/06/2025 Patient has chronic kidney disease 09/06/2025 Patient has chronic kidney disease 09/06/2025 Insurance [facility] STANDARD MEDICARE Care Teams Mandarin Tutor Relationship Specialty Start Date End Date Brenda Yost MD [address] [place] [phone] PCP - General Internal Medicine 10/03/12 Neelam Dickerson PharmD [address] [place] [phone] Pharmacist Pharmacy 04/27/25
--- OUTSIDE RECORDS SUMMARY | 2025-09-29 08:55 | XMS_ITS | Encounter Summary ---
Author Organization [employer] Address [address] [place] [address] 7 [place] [address] Care Team Providers Care Automobile Travel Club Counselor Name Role Phone Brenda Yost MD Primary Care Provider [phone] Neelam Dickerson PharmD Unavailable [phone] Reason for Visit * Reason Comments Med Refill Encounter Details Date Type Department Care Team (Late Contact Info) Description 05/18/2024 Refill [facility] [address] [place] [address] Brenda Yost MD [address] [place] [address] Social History Tobacco Use Types Packs/Day Years [...] 11/29/2025 9:00 AM EST Telemedicine [facility] [address] [place] [address] Dickerson, Neelam, PharmD [address] [place] [address] documented as of this encounter Visit Diagnoses Not on filedocumented in this encounter Additional Health Concerns Assessment Noted Time PHQ-9 Depression Total Score: 8 05/09/20 23 11:04 AM EDT documented as of this encounter Care Teams Automobile Travel Club Counselor Relationship Specialty Start Date End Date Brenad Yost MD [address] [place] [phone] PCP - General Internal Medicine 10/03/12 Neelam Dickerson PharmD [address] [place] [address] Pharmacist Pharmacy 04/27/25 documented as of this encounter
--- OUTSIDE RECORDS SUMMARY | 2025-09-29 08:55 | XMS_ITS | Encounter Summary ---
Author Organization [email or web address] Address [address] [facility] [address] [place] [address] Care Team Providers Care Button Station Worker Name Role Phone Brenda Yost MD Primary Care Provider [phone] Neelam Dickerson PharmD Unavailable [phone] Encounter Details Date Type Department Care Team (Late st Contact Info) Description 07/25/2023 Telephone [facility] [address] [place], [place] [phone] Brenda Yost MD [address] [place] [address] Social History Tobacco Use Types Packs/Day Years [...] Info) Description 11/29/2025 9:00 AM EST Telemedicine [facility] [address] [place], [place] [phone] Neelam Dickerson, PharmD [address] [place] [address] documented as of this encounter Visit Diagnoses Not on filedocumented in this encounter Additional Health Concerns Assessment Noted Time PHQ-9 Depression Total Score: 8 05/09/20 23 11:04 AM EDT documented as of this encounter Care Teams Button Station Worker Relationship Specialty Start Date End Date Brenda Yost MD [address] [place] [address] PCP - General Internal Medicine 10/03/12 Neelam Dickerson PharmD [address] [place] [address] Pharmacist Pharmacy 04/27/25 documented as of this encounter
--- OUTSIDE RECORDS SUMMARY | 2025-09-29 08:55 | XMS_ITS | Encounter Summary ---
Author Organization [employer] [facility] Address [address] [place] [address] [address] [place] [address] Care Team Providers Care Pony Ride Operator Name Role Phone Brenda Yost MD Primary Care Provider [phone] Neelam Dickerson PharmD Unavailable [phone] Encounter Details Date Type Department Care Team (Late st Contact Info) Description 04/03/2023 Orders Only [facility] [address] [place] [address] Reina Hammonds LPN Social History Tobacco Use [...] Info) Description 11/29/2025 9:00 AM EST Telemedicine [facility] [address] [place] [address] Neelam Dickerson, PharmD [address] [place], [place] [phone] documented as of this encounter Procedures Procedure Name Priority Date/Time Associated Diagnosis Comments SYPHILIS SCREEN Routine 05/09/2023 1:37 PM EDT BASIC METABOLIC PANEL, FASTING Routine 05/09/2023 1:37 PM EDT ALBUMIN, RANDOM URINE W/CREATININE Routine 05/09/2023 1:27 PM EDT documented in this encounter Results * Syphilis Screen (05/09/2023 1:37 PM EDT) Syphilis Screen Nonreactive Nonreactive [facility] 05/09/2023 1:37 PM EDT 05/09/2023 2:49 PM EDT us Brenda Yost MD LAB BLOOD ORDERABLES Final Result [facility] [address] [place] [address] [phone] * Basic Metabolic Panel, Fasting (05/09/2023 1:37 PM EDT) Sodium 142 135 - 145 mmol/L [facility] Potassium 4.2 3.3 - 5.1 mmol/L [facility] Chloride 106 96 - 108 mmol/L [facility] Carbon Dioxide 28 22 - 29 mmol/L [facility] Anion Gap 12 12 - 20 [facility] Urea Nitrogen (BUN) 13 9 - 16 mg/dL [facility] Creatinine, Serum 1.07 0.5 - 1.4 mg/dL [facility] Estimated Glomerular Filt Rate >60 [facility] Comment:NOTE: For -Am erican individuals, multiply the result by 1.210.Chronic Kidney Disease: Estimated GFR < 60 mL/min/[id number] Kidney Disease: Estimated GFR < 15 mL/min/1.73m2 Glucose Fasting 89 60 - 99 mg/dL [facility] Calcium 9.8 8.4 - 10.2 mg/dL [facility] 05/09/2023 1:37 PM EDT 05/09/2023 2:49 PM EDT us Brenda Yost MD LAB BLOOD ORDERABLES Final Result [facility] [address] [place] [phone] * Albumin, Random Urine W/Creatinine (05/09/2023 1:27 PM EDT) Creatinine, Urine 171.85 mg/dL [facility] Microalbumin Urine 12.0 mg/L [facility] Microalbum Creatinine Ratio Ur 6.9 ug/mg cr [facility] Comment:Albumin/Creatinine R atio Reference Ranges: Normal: < 30 ug/mg creatinine Microalbuminuria: 30 - 300 ug/mg creatinineClinical Albuminuria: > 300 ug/mg creatinine 05/09/2023 1:27 PM EDT 05/09/2023 5:42 PM EDT Brenda Yost MD LAB URINE ORDERABLES Final Result [facility] [address] [place] [phone] documented in this encounter Visit Diagnoses Not on filedocumented in this encounter Care Teams Pony Ride Operator Relationship Specialty Start Date End Date Brenda Yost MD [address] [place] [phone] PCP - General Internal Medicine 10/03/12 Neelam Dickerson PharmD [address] [place] [phone] Pharmacist Pharmacy 04/27/25 documented as of this encounter
--- OUTSIDE RECORDS SUMMARY | 2025-09-29 08:55 | XMS_ITS | Encounter Summary ---
Author Organization [employer] Address [address] [place] [address] [address] [place] [address] Care Team Providers Care Drafter [employer] Name Role Phone Brenda Yost MD Primary Care Provider [phone] Neelam Dickerson PharmD Unavailable [phone] Reason for Visit * Reason Comments Med Refill Encounter Details Date Type Department Care Team (Late Contact Info) Description 08/07/2024 Refill [facility] [address] [place] [address] Brenda Yost MD [address] [place] [address] Controlled type 2 diabetes mellitus with hyperglycemia, without long-term current use of insulin ([facility]) Social History Tobacco Use Types Packs/Day [...] Info) Description 11/29/2025 9:00 AM EST Telemedicine [facility] [address] [place] [address] Neelam Dickerson, Janessa [address] [place] [address] documented as of this encounter Visit Diagnoses Diagnosis Controlled type 2 diabetes mellitus with hyperglycemia, without long-term current use of insulin (HCC) documented in this encounter Additional Health Concerns Assessment Noted Time PHQ-9 Depression Total Score: 8 05/09/20 23 11:04 AM EDT documented as of this encounter Care Teams [employer] Relationship Specialty Start Date End Date Brenda Yost MD [address] [place] [address] PCP - General Internal Medicine 10/03/12 Neelam Dickerson, KateD [address] [place] [address] Pharmacist Pharmacy 04/27/25 documented as of this encounter
== END 2025-09-29 09:18 | disposition home or self-care (01) ==
PROVIDERS: PCP Internal Medicine; Visit Provider Internal Medicine Pulmonary Disease
DX: J44.9 Chronic obstructive pulmonary disease, unspecified (principal); G47.33 Obstructive sleep apnea (adult) (pediatric); R06.00 Dyspnea, unspecified; R13.10 Dysphagia, unspecified
CPT/HCPCS: 99214; G2211

== ENCOUNTER → 2025-09-29 08:49 | Outpatient (BNVA) | payer MEDICARE, MEDICAID, SELFPAY | PROVIDERS: PCP Internal Medicine; Visit Provider Internal Medicine Pulmonary Disease | DX: J44.9 Chronic obstructive pulmonary disease, unspecified (principal); R06.00 Dyspnea, unspecified; R13.10 Dysphagia, unspecified; G47.33 Obstructive sleep apnea (adult) (pediatric); Z99.89 Dependence on other enabling machines and devices; Z87.891 Personal history of nicotine dependence; E66.01 Morbid (severe) obesity due to excess calories; Z68.43 Body mass index [BMI] 50.0-59.9, adult | CPT/HCPCS: 99212 ==